=== PATIENT | female | born 1960 | race Caucasian/White ===

== ENCOUNTER → 2018-05-22 22:50 | Outpatient (CLI) | payer OTHER, SELFPAY | PROVIDERS: Visit Provider Nurse Practitioner | DX: R30.0 Dysuria (principal) | CPT/HCPCS: 87086; 87088 ==

== ENCOUNTER → 2018-05-30 21:37 | Outpatient (CLI) | payer OTHER, SELFPAY | PROVIDERS: Visit Provider Nurse Practitioner | DX: R30.0 Dysuria (principal) | CPT/HCPCS: 87086; 87088 ==

== ENCOUNTER → 2018-07-08 21:29 | Outpatient (CLI) | payer OTHER, SELFPAY ==
[2018-07-08 22:05] LABS: Thyroid Stim Hormone (TSH) 0.81 uIU/mL (0.358-3.74)
== END ==
PROVIDERS: Visit Provider Nurse Practitioner
DX: E03.9 Hypothyroidism, unspecified (principal)
CPT/HCPCS: 84443

== ENCOUNTER → 2018-10-21 23:23 | Outpatient (CLI) | payer OTHER, SELFPAY ==
[2018-10-21 17:17] VITALS: BMI 34.4
[2018-10-24 11:15] LABS: ANTINUCLEAR ANTIBODIES DIRECT Negative (Negative)
--- OUTSIDE RECORDS SUMMARY | 2018-12-24 00:02 | XMS RPT_ITS ---
:1960 Author Organization OHIP Care Team Providers Name Role Phone MOAR GILES Attending Unavailable PROVIDER, UNKNOWN Referring Unavailable Leblanc, Iris Primary Care Unavailable Leblanc, Iris Attending Unavailable PROVIDER, UNKNOWN Referring Unavailable Leblanc, Iris Primary Care Unavailable Leblanc, Iris Attending Unavailable PROVIDER, UNKNOWN Referring Unavailable Leblanc, Irsi Primary Care Unavailable Leblanc, Iris [employer] Attending Unavailable Leblanc, Iris [employer]C Referring Unavailable Leblanc, Iris [employer]ER-C Primary Care Unavailable Shruthi Davies Attending Unavailable Keke, Shruthi L Referring Unavailable Davies, Shruthi L Attending Unavailable Davies, Shruthi L Referring Unavailable Leblanc, Iris [employer]ER-C Attending Unavailable PROBLEMS PROBLEMS DATE TYPE CONDITION / CODE ATTENDING STATUS SOURCE 10/22/2018 Unknown M79.641 - Pain in Benji, Active [place] right hand / Iris [employer] Community M79.641(ICD-10) Hospital Repository 07/10/2018 Unknown E03.9 - Leblanc, Active [place] Hypothyroidism, Iris [employer] Community unspecified / Hospital E03.9(ICD-10) Repository 05/31/2018 Unknown R30.0 - Dysuria / Shruthi Davies Active [place] R30.0(ICD-10) [facility] Repository 05/30/2018 Admitting Headache / BASHOUR, OMAR N Active [facility] Diagnosis R51(ICD-10) System Repository 05/30/2018 Admitting Ataxia, BASHOUR, OMAR N Active [facility] Diagnosis unspecified / System R27.0(ICD-10) Repository 05/30/2018 Admitting Dizziness and BASHOUR, OMAR N Active [facility] Diagnosis giddiness / System R42(ICD-10) Repository PROCEDURES PROCEDURES No Procedure Records FoundRESULTS RESULTS OFFICE VISIT Observed: 10/21/2018 Status: F Source: [place] 9:06 PM [facility] REPOSITORY After Hours Family [facility] [address] [place] [address] OFFICE VISIT Date of Service: 10/21/18 MR#: [id number] Acct: [id number] Name: CORIE CHOE Rep #: [id number] : 1960 Provider: TRICE Leblanc Age/Sex: 57/F Location: [facility] Status: Signed Intake Vital Signs10/21/18 Height 5 ft 2 in 10/21/18 Weight: 188 lb Intake Visit Reasons: sinus infection L ear pain Allergies BEE STING Allergy (Severe, Uncoded 05/22/18 12:20) CRITICAL Medications epinephrine 0.3 mg/0.3 mL injection, auto-injector 0.3 mg IM ONCE 05/22/18 [History Confirmed 05/22/18] levothyroxine 75 mcg capsule 75 mcg PO DAILY #90 cap 07/10/18 [Rx] amoxicillin 875 mg-potassium clavulanate 125 mg tablet 1 tab PO Q12H #20 tab 09/11/18 [Rx Confirmed 09/11/18] esomeprazole magnesium 40 mg capsule,delayed release 40 mg PO DAILY 09/11/18 [History Confirmed 09/11/18] ibuprofen 800 mg tablet 800 mg PO TID PRN 09/18/18 [History Confirmed 09/18/18] cefuroxime axetil 500 mg tablet 500 mg PO Q12H 10 Days #20 tab 10/21/18 [Rx Confirmed 10/21/18] PFSH Medical History History of endoscopy (Acute) History of migraine headaches (Acute) Kidney stone (Acute) Menopause (Acute) Surgical History H/O colonoscopy (Acute) History of carpal tunnel surgery (Acute) Previous section (Acute) Family History Other Bleeding disorder Bowel disease CVA (cerebral vascular accident) Heart disease High cholesterol Hypertension Prostate cancer ULCERS Social History Smoking Status: Never smoker alcohol intake: current substance use type: does not use HPI HPI (General) HPI HPI: CORIE CHOE, is a 57 F who presents to the office today for cough and cold L ear hurting. Tried taking zyrtec ibuprofen R hand hurts achy through the knuckles. Has gripping problems also.On exam has some swelling over the R knuckles. ROS Const Constitutional: Positive for anorexia, body ache, chills, fatigue, fever(s) and headache(s) Eyes Eyes: Positive for discharge (watery) ENT ENT: Positive for headache(s), ear pain (L ear), nasal discharge, hoarseness, facial pain, post nasal drip and sore throat Resp Respiratory: Positive for cough Cough: Yes non-productive Cardio Cardiology: Positive for fast heart rate Gastro GI: Yes nausea/dyspepsia Neuro Neurology: Positive for headache(s) Endo Endo: Yes fatigue Exam Const Constitutional: Yes cooperative, Yes healthy appearing Orientation: Yes alert, awake and oriented x3 HENMT Head: Yes normocephalic Ear: Yes hearing grossly normal bilaterally TM-Right: normal TM-Left: red Pinna-Right: within normal limits Pinna-Left: within normal limits Face: Yes normal facial exam, Yes sinus tenderness Nose: Yes external nose normal Mouth: Yes oral mucosae normal Teeth and Gingiva: Yes dentition normal Throat: Yes posterior oropharynx normal, Yes redness Neck Neck: normal visual inspection Thyroid: thyroid normal Eyes General: Yes appearance normal, both eyes and all related structures Chest Chest palpation AND inspection: Yes normal inspection of the chest Resp Effort AND Inspection: Yes normal respiratory effort Auscultation: Yes clear to auscultation bilaterally Cardio Palpitation: Yes normal PMI Rate: Yes regular rate Rhythm: Yes regular rhythm GI Inspection: Yes normal to inspection Auscultation: Yes normal bowel sounds Musc Cervical Spine: Yes cervical ROM normal Thoracic/Lumbar Spine: Yes thoracic and lumbar spine normal to inspection Skin General: no rashes or lesions noted Lesions: Yes no lesions Extrem General: Yes normal to inspection Neuro General: Yes alert and oriented x3 Psych Appearance: Positive grossly normal Mood: Positive congruent mood Affect: Positive normal affect Assessment AND Plan Problems 1. Left acute otitis media H66.92 2. Cough R05 3. Acute non-recurrent maxillary sinusitis J01.00 4. Right hand pain M79.641 Patient Instructions Take the antibiotics till gone Push the fluids take the Tessalon Perls for the cough Orders Orders: Medications New: On Hold: amoxicillin-pot clavulanate 875-125 mg Hold Comment: Order 1 tab PO Q12H 20 tabs 0RF Changed Coding Level of Care Code Off vis,est,level 3 Diagnoses Left acute otitis media H66.92 Cough R05 Acute non-recurrent maxillary sinusitis J01.00 Chronicity: acute Recurrence: non-recurrent Right hand pain M79.641 10/21/182105 <Electronically signed by Iris DURHAM> Date Iris DURHAM CC: LUCIAN W/ REFLEX MULT Collected: 10/21/2018 Status: P Source: [place] CONFIRM 5:40 PM [facility] REPOSITORY TYPE CODE TESTS RESULT OUT OF RANGE REFERENCE UNITS LAB L3100.5475 Negative Normal Negative LUCIAN-DIRECT Result Comment: Performed at: - [facility] [address] [id number] Library Sales Consultant: Venkat Carr PhD, Phone: [phone] Performed By: #### [id number] #### [facility] (refer to report for specific site) refer to report for address and phone number OFFICE VISIT Observed: 09/18/2018 Status: F Source: [place] 9:23 PM [facility] REPOSITORY After Hours [facility] [address] [place] [address] OFFICE VISIT Date of Service: 09/18/18 MR#: [id number] Acct: [id number] Name: CORIE CHOE Rep #: [id number] : 1960 Provider: TRICE Leblanc Age/Sex: 57/F Location: [facility] Status: Signed Intake Vital Signs09/18/18 Height 5 ft 2 in 09/18/18 Weight: 191 lb Intake Visit Reasons: R BREAST MASS Allergies BEE STING Allergy (Severe, Uncoded 05/22/18 12:20) CRITICAL Medications epinephrine 0.3 mg/0.3 mL injection, auto-injector 0.3 mg IM ONCE 05/22/18 [History Confirmed 05/22/18] levothyroxine 75 mcg capsule 75 mcg PO DAILY #90 cap 07/10/18 [Rx] amoxicillin 875 mg-potassium clavulanate 125 mg tablet 1 tab PO Q12H #20 tab 09/11/18 [Rx Confirmed 09/11/18] esomeprazole magnesium 40 mg capsule,delayed release 40 mg PO DAILY 09/11/18 [History Confirmed 09/11/18] ibuprofen 800 mg tablet 800 mg PO TID PRN 09/18/18 [History Confirmed 09/18/18] PFSH Medical History History of endoscopy (Acute) History of migraine headaches (Acute) Kidney stone (Acute) Menopause (Acute) Surgical History H/O colonoscopy (Acute) History of carpal tunnel surgery (Acute) Previous section (Acute) Family History Other Bleeding disorder Bowel disease CVA (cerebral vascular accident) Heart disease High cholesterol Hypertension Prostate cancer ULCERS Social History Smoking Status: Never smoker alcohol intake: current substance use type: does not use HPI HPI (General) HPI HPI: CORIE CHOE, is a 57 F who presents to the office today for R breast mass that she has felt for the passed year . Even at her last mammogram they even marked it on the breast. She had a normal breast mammogram. noted it is on the surfae on exam and had head . I squeezed and large amount of old white curdish puss came out . The mass is gone and will now order a regular mammogram. She is alos c/o still coughing and takes nexium 40 mg at bedtime. Both her and her quit dieting and gained their weight back and she c/o bloating adn her belly is very rotund from the diaphragm to symphysis pubis. Like her didactic muscles are not there suggested increasing her nexium to 2 x a day dosing for now then go back to the [facility] Again we discussed not eating so many meals a day, and starting to exercised more. ROS Breast Breast: Positive for breast lump Exam Const Constitutional: Yes cooperative, Yes healthy appearing Orientation: Yes alert, awake and oriented x3 HENMT Head: Yes normocephalic Ear: Yes hearing grossly normal bilaterally Neck Neck: normal visual inspection Thyroid: thyroid normal Eyes General: Yes appearance normal, both eyes and all related structures Chest Chest palpation AND inspection: Yes normal inspection of the chest Resp Effort AND Inspection: Yes normal respiratory effort Auscultation: Yes clear to auscultation bilaterally Cardio Palpitation: Yes normal PMI Rate: Yes regular rate Rhythm: Yes regular rhythm GI Inspection: Yes normal to inspection Auscultation: Yes normal bowel sounds Musc Cervical Spine: Yes cervical ROM normal Thoracic/Lumbar Spine: Yes thoracic and lumbar spine normal to inspection Skin General: no rashes or lesions noted Lesions: Yes no lesions and lesion noted (sebaceous cyst R breast ) Extrem General: Yes normal to inspection Neuro General: Yes alert and oriented x3 Psych Appearance: Positive grossly normal Mood: Positive congruent mood Affect: Positive normal affect Assessment AND Plan Problems 1. Sebaceous cyst of skin of right breast N60.81 2. Gastroesophageal reflux disease with esophagitis K21.0 3. Cough R05 Patient Instructions increase the nexium to 2 x a day for 2-3 weeks then once a day continue the antibiotics till gone for the sebaceous cyst. Get the routine mammogram for the normal breasts follow up as needed Coding Level of Care Code Off vis,est,level 3 Diagnoses Sebaceous cyst of skin of right breast N60.81 Gastroesophageal reflux disease with esophagitis K21.0 Esophagitis presence: with esophagitis Cough R05 09/18/182122 <Electronically signed by Iris DURHAM> Date Iris DURHAM CC: OFFICE VISIT Observed: 09/11/2018 Status: F Source: [place] 6:44 PM [facility] REPOSITORY After Hours [facility] [address] [place] [address] OFFICE VISIT Date of Service: 09/11/18 MR#: [id number] Acct: [id number] Name: CORIE CHOE Rep #: [id number] : 1960 Provider: TRICE Leblanc Age/Sex: 57/F Location: [facility] Status: Signed Intake Vital Signs09/11/18 Height 5 ft 2 in 09/11/18 Weight: 188 lb Intake Visit Reasons: CONGESTION COUGH Accompanied by: Is patient in pain?: No Allergies BEE STING Allergy (Severe, Uncoded 05/22/18 12:20) CRITICAL Medications epinephrine 0.3 mg/0.3 mL injection, auto-injector 0.3 mg IM ONCE 05/22/18 [History Confirmed 05/22/18] ibuprofen 800 mg tablet 800 mg PO TID 05/22/18 [History Confirmed 05/22/18] levothyroxine 75 mcg capsule 75 mcg PO DAILY #90 cap 07/10/18 [Rx] amoxicillin 875 mg-potassium clavulanate 125 mg tablet 1 tab PO Q12H #20 tab 09/11/18 [Rx Confirmed 09/11/18] esomeprazole magnesium 40 mg capsule,delayed release 40 mg PO DAILY 09/11/18 [History Confirmed 09/11/18] Is last menstrual period known: No Post menopausal: Yes Patient : No PFSH Medical History History of endoscopy (Acute) History of migraine headaches (Acute) Kidney stone (Acute) Menopause (Acute) Surgical History H/O colonoscopy (Acute) History of carpal tunnel surgery (Acute) Previous section (Acute) Family History Other Bleeding disorder Bowel disease CVA (cerebral vascular accident) Heart disease High cholesterol Hypertension Prostate cancer ULCERS Social History Smoking Status: Never smoker alcohol intake: current substance use type: does not use HPI HPI (General) HPI HPI: CORIE CHOE, is a 57 F who presents to the office today for cough and h/a and sinus pain started Sun . Using otc robitussin and ibuprofen and fluids ROS Const Constitutional: Positive for body ache, anorexia, fever(s), fatigue and headache(s) ENT ENT: Positive for headache(s), ear pain, facial pain, sinus pain, hoarseness and sore throat Resp Respiratory: Positive for cough Cough: Yes non-productive Gastro GI: Yes nausea/dyspepsia Neuro Neurology: Positive for headache(s) Endo Endo: Yes fatigue Exam Const Constitutional: Yes cooperative, Yes healthy appearing Orientation: Yes alert, awake and oriented x3 HENMT Head: Yes normocephalic Ear: Yes hearing grossly normal bilaterally TM-Right: normal TM-Left: red Pinna-Right: within normal limits Pinna-Left: within normal limits Face: Yes normal facial exam, Yes sinus tenderness, Yes tenderness Nose: Yes external nose normal Mouth: Yes oral mucosae normal Teeth and Gingiva: Yes dentition normal Throat: Yes redness, Yes swollen Neck Neck: normal visual inspection Thyroid: thyroid normal Eyes General: Yes appearance normal, both eyes and all related structures Chest Chest palpation AND inspection: Yes normal inspection of the chest Resp Effort AND Inspection: Yes normal respiratory effort Auscultation: Yes clear to auscultation bilaterally Cardio Palpitation: Yes normal PMI Rate: Yes regular rate Rhythm: Yes regular rhythm GI Inspection: Yes normal to inspection Auscultation: Yes normal bowel sounds Musc Cervical Spine: Yes cervical ROM normal Thoracic/Lumbar Spine: Yes thoracic and lumbar spine normal to inspection Skin General: no rashes or lesions noted Lesions: Yes no lesions Extrem General: Yes normal to inspection Neuro General: Yes alert and oriented x3 Psych Appearance: Positive grossly normal Mood: Positive congruent mood Affect: Positive normal affect Assessment AND Plan Problems 1. Otitis media of right ear H66.91 2. Bronchitis J40 Patient Instructions Take the antibiotics till gone with food push fluids and take the zyrtec 10 mg orally 2 x a day for 5-7 days then once a day robitussin DM for the cough Medications Refilled: amoxicillin-pot clavulanate 875-125 mg Take one pill by mout1 tab PO Q12H 20 tabs 0RF h every 12 hours Coding Level of Care Code Off vis,est,level 3 Diagnoses Otitis media of right ear H66.91 Bronchitis J40 09/11/18 6964 <Electronically signed by Iris DRUHAM> Date Iris DURHAM CC: OFFICE VISIT Observed: 07/09/2018 Status: F Source: [place] 9:08 PM [facility] REPOSITORY After Hours Family Medicine [address] [place] [address] OFFICE VISIT Date of Service: 07/08/18 MR#: [id number] Acct: [id number] Name: CORIE CHOE Rep #: [id number] : 1960 Provider: TRICE Leblanc Age/Sex: 57/F Location: [facility] Status: Signed Intake Intake Visit Reasons: bw Allergies BEE STING Allergy (Severe, Uncoded 05/22/18 12:20) CRITICAL Medications amoxicillin 875 mg-potassium clavulanate 125 mg tablet 1 tab PO Q12H #20 tab 05/22/18 [Rx Confirmed 05/22/18] epinephrine 0.3 mg/0.3 mL injection, auto-injector 0.3 mg IM ONCE 05/22/18 [History Confirmed 05/22/18] ibuprofen 800 mg tablet 800 mg PO TID 05/22/18 [History Confirmed 05/22/18] levothyroxine 75 mcg capsule 75 mcg PO DAILY 05/22/18 [History Confirmed 05/22/18] ranitidine 300 mg capsule 300 mg PO DAILY 05/22/18 [History Confirmed 05/22/18] PFSH Medical History History of endoscopy (Acute) History of migraine headaches (Acute) Kidney stone (Acute) Menopause (Acute) Surgical History H/O colonoscopy (Acute) History of carpal tunnel surgery (Acute) Previous section (Acute) Family History Other Bleeding disorder Bowel disease CVA (cerebral vascular accident) Heart disease High cholesterol Hypertension Prostate cancer ULCERS Social History Smoking Status: Never smoker alcohol intake: current substance use type: does not use HPI HPI (General) HPI HPI: CORIE CHOE, is a 57 F who presents to the office today for Assessment AND Plan Orders Orders: Coding Level of Care Code No Charge 07/09/18 2108 <Electronically signed by Iris DURHAM> Date Iris Benji [employer]ER-C CC: THYROID STIM HORMONE Collected: 07/08/2018 Status: F Source: [place] (TSH) 3:30 PM [facility] REPOSITORY TYPE CODE TESTS RESULT OUT OF RANGE REFERENCE UNITS LAB L501.9520 0.358-3.74 uIU/mL Normal TSH 0.81 Performed By: #### L501.9520 #### [facility] [address] [place], [address] Observed: 05/30/2018 Status: F Source: [place] CULTURE, URINE 9:38 PM [facility] REPOSITORY Urine Culture Below infection level. ORGANISM 1: Mixed Gram Positive Organisms Colmar Count <1000 Performed By: #### M100.0650 #### [facility] [address] [place], [address] US ABDOMEN LIMITED Observed: 05/30/2018 Status: F Source: [facility] [employer] 1:02 PM SYSTEM REPOSITORY Patient Name: CORIE CHOE Ultrasound Exam Date/Time 05/30/2018 11:35:11 EDT Exam US Abdomen Limited Ordering Physician UNASSIGNED, UNASSIGNED Accession Number [id number] CPT4 Codes 02416 () Reason For Exam ABD DISTENTION, GERD Report ULTRASOUND RUQ: INDICATION: Abdominal distention COMPARISON: None. Sonogram of the right upper quadrant is performed. The liver is increased in echotexture. No hyper or hypoechoic masses are seen. There is no intrahepatic biliary ductal dilatation. The gallbladder is normally distended. There are no gallstones, internal echoes, wall thickening, or pericholecystic fluid collections. The common bile duct diameter of 3.3 mm is within normal limits. The pancreas is not visualized due to overlying bowel gas. The visualized portions of the aorta and IVC are normal. Cursory examination of the right kidney is performed. The right kidney measures 11.1 x 5.1 x 5.6 cm. There is no hydronephrosis. There is no ascites in the right upper quadrant. No sonographic Carroll's sign was elicited during the examination. IMPRESSION: Fatty liver. No acute process Report Dictated on Final Dictating Physician: DO STROUD ALFRED Signed Date and Time: 05/30/2018 1:12 pm Signed by: DO STROUD ALFRED Transcribed Date and Time: 05/30/2018 1:13 OFFICE VISIT Observed: 05/22/2018 Status: F Source: [place] 1:55 PM [facility] REPOSITORY After Hours Family [facility] [address] [place] [address] OFFICE VISIT Date of Service: 05/22/18 MR#: [id number] Acct: [id number] Name: CORIE CHOE Rep #: [id number] : 1960 Provider: TRICE Davies Age/Sex: 57/F Location: [facility] Status: Signed Intake Vital Signs05/22/18 Height 5 ft 2 in 05/22/18 Weight: 184 lb 05/22/18 Body Mass Index (BMI) 33.6 05/22/18 Blood Pressure 144/76 Intake Visit Reasons: SINUS INFECTION Chief Complaint: Patient here with sinus congestion, headache, low grade fever. Is patient in pain?: Yes Allergies BEE STING Allergy (Severe, Uncoded 05/22/18 12:20) CRITICAL Medications amoxicillin 875 mg-potassium clavulanate 125 mg tablet 1 tab PO Q12H #20 tab 05/22/18 [Rx Confirmed 05/22/18] epinephrine 0.3 mg/0.3 mL injection, auto-injector 0.3 mg IM ONCE 05/22/18 [History Confirmed 05/22/18] ibuprofen 800 mg tablet 800 mg PO TID 05/22/18 [History Confirmed 05/22/18] levothyroxine 75 mcg capsule 75 mcg PO DAILY 05/22/18 [History Confirmed 05/22/18] ranitidine 300 mg capsule 300 mg PO DAILY 05/22/18 [History Confirmed 05/22/18] Post menopausal: Yes PFSH Medical History History of endoscopy (Acute) History of migraine headaches (Acute) Kidney stone (Acute) Menopause (Acute) Surgical History H/O colonoscopy (Acute) History of carpal tunnel surgery (Acute) Previous section (Acute) Family History Other Bleeding disorder Bowel disease CVA (cerebral vascular accident) Heart disease High cholesterol Hypertension Prostate cancer ULCERS Social History Smoking Status: Never smoker alcohol intake: current substance use type: does not use HPI HPI (General) HPI Chief Complaint: Patient here with sinus congestion, headache, low grade fever. HPI: CORIE CHOE, is a 57 F who presents to the office today for sinus congestion, pressures, headache, rhinorrhea, cough that has been going on since Saturday. Cares for her grandbruce who is also sick with ear infections. Low grade fever last night of 100.6. Has taken pseudafed, ibuprofen, cough medication and cough pearls she had at home. Had been to [facility] treated as viral upper respiratory but she feels she is getting worse. No appetite, keeping fluids down. Treated for UTI couple months ago, still with some dysuria at times, wonders if infection cleared. No hematuria, frequency,urgency or urge incontinence. Desires to have urine tested. ROS Const Constitutional: Positive for chills, fever(s), headache(s), decreased energy and change in appetite; no body ache, excessive sweating, night sweats or weakness Eyes Eyes: No blurry vision, change in vision or discharge ENT ENT: Positive for headache(s), ear pressure, ear pain (Left > right), nasal congestion, sinus pressure, nasal discharge and sinus pain; no dizziness/vertigo, nosebleed/epistaxis, nasal obstruction, bad breath or abnormal hearing Resp Respiratory: Positive for cough; no chest congestion, pain on inspiration, hemoptysis or shortness of breath Cardio Cardiology: No excessive sweating, chest pain at rest, chest pain with exertion, leg pain with exertion or shortness of breath Gastro GI: No abdominal pain, No change in bowel habits Genitourinary: Positive for burning urination (intermittent, treated for UTI greater than month ago) and urinary incontinence (stress incontinence); no difficulty urinating, urinary frequency, urinary urgency or urinary hesitancy Musc Musculoskeletal: No abnormal walking or joint pain Skin Skin: No lesions or rash Neuro Neurology: Positive for headache(s); no abnormal walking, abnormal hearing, abnormal movements, abnormal speech, unsteady gait/balance or weakness Psych Psychiatric: Positive for change in appetite, No anxiety, No depression Endo Endo: No excessive sweating, No cold intolerance, No heat intolerance, No increased thirst/drinking Aller/Imm Allergy/Immunologic: Positive for seasonal allergy symptoms Perfecto/Lymp Hematologic/Lymphatic: No easy bleeding, easy bruising or enlarged lymph nodes Exam Const Constitutional: Yes cooperative, Yes healthy appearing, Yes comfortable, Yes no acute distress, Yes well developed, Yes well groomed Nutritional Appearance: Yes average body habitus Orientation: Yes alert, awake and oriented x3 HENWY Head: Yes normocephalic, Yes atraumatic Ear: Yes hearing grossly normal bilaterally TM-Right: bulging (fluid noted behind TM) TM-Left: normal Pinna-Right: within normal limits Pinna-Left: within normal limits Face: Yes normal facial exam, Yes tenderness (maxillary sinus tenderness) Nose: Yes external nose normal, Yes septum normal, Yes nares normal (inflamed) Mouth: Yes oral mucosae normal Teeth and Gingiva: Yes dentition normal Throat: Yes tonsils normal (post nasal drip) Neck Neck: normal visual inspection, no lymphadenopathy Thyroid: thyroid normal Carotid: Yes normal carotid upstroke Eyes General: Yes appearance normal, both eyes and all related structures Eyelid: Yes eyelids normal Chest Chest palpation AND inspection: Yes normal inspection of the chest Resp Effort AND Inspection: Yes normal respiratory effort and symmetric chest movement Auscultation: Yes clear to auscultation bilaterally Cardio Palpitation: Yes normal PMI Rate: Yes regular rate Rhythm: Yes regular rhythm Heart Sounds: Yes S1 normal and S2 normal GI Inspection: Yes normal to inspection Auscultation: Yes normal bowel sounds Musc Cervical Spine: Yes cervical ROM normal Thoracic/Lumbar Spine: Yes thoracic and lumbar spine normal to inspection and thoraco-lumbar ROM normal Skin General: no rashes or lesions noted Wounds: Yes no wounds Hair: Yes normal Nails: Yes normal Extrem General: Yes normal to inspection and normal gait Neuro General: Yes alert, oriented x3 and CN's II-XI intact bilaterally Cranial Nerves: Yes CN's II-XI intact bilaterally Gait: Yes normal gait Motor: muscle tone normal throughout; no weakness Sensory Exam: Yes no sensory deficits noted Psych Appearance: Positive grossly normal Mental Status: Positive mental status grossly normal Mood: Positive congruent mood Affect: Positive normal affect Speech and Movement: Yes speech and movement normal Thought Process: Yes normal Thought Content: Yes normal Judgment: Yes judgment good Results [facility] Office Urine Color YELLOW Last Edit by HERMINIO Martinez on 05/22/18 13:00 Office Urine Clarity Clear Last Edit by HERMINIO Martinez on 05/22/18 13:00 Office Urine Glucose Negative Last Edit by HERMINIO Martinez on 05/22/18 13:00 PRO 30 CLAIRE trace WBC 0-2 RBC 0 BACT none CASTS none EPI none Assessment AND Plan Problems 1. Maxillary sinusitis, unspecified chronicity J32.0 2. Cough R05 Patient Instructions Discussed waiting a few days to make sure not viral, if symptoms persist, antibiotic sent in flonase two puffs once daily zyrtec once daily she has cough pearls call if symptoms persist plenty of fluids and rest Orders Orders: Medications New: amoxicillin-pot clavulanate 875-125 mg Take one pill by mouth every 12 h1 tab PO Q12H ours 05/22/18 1355 <Electronically signed by Shruthi JEONGC> Date Shruthi DURHAM CC: Observed: 05/22/2018 Status: F Source: [facility]ILDER CULTURE, URINE 12:43 PM [facility] REPOSITORY Urine Culture ORGANISM 1: Mixed Gram Pos AND Gram Neg Org [place] Count 25,000-50,000 MIX CULTURE Mixed contaminants. Submit a new specimen if indicated. Performed By: #### [id number] #### [facility] [address] [place], [place] [address], [address] GROUP A STREP BY Collected: 05/20/2018 Status: F Source: [place] PCR 11:30 PM [facility] RE[facility] TYPE CODE TESTS RESULT OUT OF REFERENCE UNITS RANGE LAB GASSRC Throat Swab GAS Specimen Source LAB PCRGAS Negative for Group A Strep Group A PCR Streptococcus by PCR. Result Comment: This test was developed and its performance characteristics determined by [facility] ([facility]). It has not been cleared or approved by the FDA. [facility] is regulated under CLIA as qualified to perform high-complexity testing. This test is used for clinical purposes. It should not be regarded as inv estigational or for research. Performed By: #### GASPCR #### [facility] [address] [place], [place] [address] PROGRESS Observed: 05/20/2018 Status: COMPLETED Source: [place] 4:40 PM [facility] REPOSITORY HNO ID: [id number] Author: Katelyn Barfield Service: (none) Author Type: Nurse Practitioner Type: Progress Notes Filed: 05/20/2018 5:12 PM Note Text: 05/20/2018 Patient presents with: Sinus Problem: sinus pressure, sore throat, nasal drainage, LT ear pain SUBJECTIVE: This is a 57 year old female that is here today for acute onset of left ear pain and pressure, sinus pressure, sinus congestion, post nasal drainage for 2 days. Patient rates pain at 6 on Numerical pain scale. Patient has not taken anything for relief of symptoms. The severity is mild and the symptoms are not improving. The patient did not have a similar problem in the last 3 months. The patient did not take any antibiotics in the last 3 months. Patient has not been exposed to sick contacts. Patient denies recent travel. Pertinent medical history No past medical history on file. ALLERGIES Patient has no known allergies. MEDICATIONS Current Outpatient Prescriptions: levothyroxine (SYNTHROID) 75 mcg tablet Ranitidine HCl 300 mg tablet No current facility-administered medications for this visit. SOCIAL HISTORY Social History Marital status: Spouse name: Years of education: Number of children: Social History Main Topics Smoking status: Never Smoker Smokeless tobacco: Never Used REVIEW OF SYSTEMS Review of Systems Constitutional: Negative for chills, diaphoresis and fatigue. HENT: Positive for ear pain, sinus pain, sinus pressure and sore throat. Negative for congestion. Respiratory: Negative for chest tightness, shortness of breath and wheezing. Cardiovascular: Negative for chest pain and palpitations. Gastrointestinal: Negative for abdominal pain, diarrhea, nausea and vomiting. Skin: Negative for rash. Neurological: Negative for dizziness, light-headedness and headaches. OBJECTIVE: BP 119/102 Pulse 76 Temp 37.2 ?C (98.9 ?F) (Tympanic) Wt 83.5 kg (184 lb) SpO2 96% Physical Exam Constitutional: She is oriented to person, place, and time. Vital signs are normal. She appears well-developed and well-nourished. Non-toxic appearance. HENT: Head: Normocephalic and atraumatic. Right Ear: External ear and ear canal normal. A middle ear effusion is present. Left Ear: External ear and ear canal normal. A middle ear effusion is present. Nose: Nose normal. Mouth/Throat: Uvula is midline and mucous membranes are normal. Posterior oropharyngeal edema present. Bilateral ear canals with impacted yellow cerumen, moderate amount removed from left via bottle irrigation attempted by ma, minimal from right canal. Patient began to feel dizzy during right canal irrigation and procedure was stopped due to side effect. Neck: Normal range of motion. Cardiovascular: Normal rate, regular rhythm and normal heart sounds. Pulmonary/Chest: Effort normal and breath sounds normal. Lymphadenopathy: She has no cervical adenopathy. She has no axillary adenopathy. Neurological: She is alert and oriented to person, place, and time. Skin: Skin is warm, dry and intact. Nursing note and vitals reviewed. ASSESSMENT/PLAN: 1. Sore throat - ICD9: 462, ICD10: J02.9 (primary diagnosis) - suspect viral - Rapid Strep negative in the office today and Throat culture pending - overnight throat culture pending - Discussed supportive care treatment with fluids, rest and analgesia. - The patient may also use OTC decongestants prn, OTC cough and cold meds as needed, warm salt water gargles, throat lozenges and/or OTC throat spray as needed and nasal saline gtts and suction prn. - Contagious dz precautions discussed- including considered contagious until on antibiotics for 24 hours - The patient should follow up in 3-5 days if symptoms persist or worsen - Call back if drooling, increased temperature, symptoms of dehydration and/or still sick in one week - RAPID STREP TEST B/O - GROUP A STREPTOCOCCUS BY PCR 2. Bilateral impacted cerumen - ICD9: 380.4, ICD10: H61.23 - see instruction below Katelyn Barfield APRN.CONVEYOR BELT OPERATOR CNOV Observed: 05/20/2018 Status: COMPLETED Source: [place] 4:30 PM [facility] REPOSITORY Office Visit ([place]) CORIE CHOE ([id number]) 1960 F Date Time Provider Department 05/20/18 4:30 PM KATELYN BARFIELD During your visit today, we recorded the following information about you: Temperature Pulse Blood pressure Weight 98.9 degrees 76/minute 120/70 83.5 kg Katelyn Barfield, PERSONAL CARE WORKER.CONVEYOR BELT OPERATOR 05/20/2018 5:12 PM Addendum 05/20/2018 Patient presents with: Sinus Problem: sinus pressure, sore throat, nasal drainage, LT ear pain SUBJECTIVE: This is a 57 year old female that is here today for acute onset of left ear pain and pressure, sinus pressure, sinus congestion, post nasal drainage for 2 days. Patient rates pain at 6 on Numerical pain scale. Patient has not taken anything for relief of symptoms. The severity is mild and the symptoms are not improving. The patient did not have a similar problem in the last 3 months. The patient did not take any antibiotics in the last 3 months. Patient has not been exposed to sick contacts. Patient denies recent travel. Pertinent medical history No past medical history on file. ALLERGIES Patient has no known allergies. MEDICATIONS Current Outpatient Prescriptions: levothyroxine (SYNTHROID) 75 mcg tablet Ranitidine HCl 300 mg tablet No current facility-administered medications for this visit. SOCIAL HISTORY Social History Marital status: Spouse name: Years of education: Number of children: Social History Main Topics Smoking status: Never Smoker Smokeless tobacco: Never Used REVIEW OF SYSTEMS Review of Systems Constitutional: Negative for chills, diaphoresis and fatigue. HENT: Positive for ear pain, sinus pain, sinus pressure and sore throat. Negative for congestion. Respiratory: Negative for chest tightness, shortness of breath and wheezing. Cardiovascular: Negative for chest pain and palpitations. Gastrointestinal: Negative for abdominal pain, diarrhea, nausea and vomiting. Skin: Negative for rash. Neurological: Negative for dizziness, light-headedness and headaches. OBJECTIVE: BP 119/102 Pulse 76 Temp 37.2 ?C (98.9 ?F) (Tympanic) Wt 83.5 kg (184 lb) SpO2 96% Physical Exam Constitutional: She is oriented to person, place, and time. Vital signs are normal. She appears well-developed and well-nourished. Non- toxic appearance. HENT: Head: Normocephalic and atraumatic. Right Ear: External ear and ear canal normal. A middle ear effusion is present. Left Ear: External ear and ear canal normal. A middle ear effusion is present. Nose: Nose normal. Mouth/Throat: Uvula is midline and mucous membranes are normal. Posterior oropharyngeal edema present. Bilateral ear canals with impacted yellow cerumen, moderate amount removed from left via bottle irrigation attempted by marcus, minimal from right canal. Patient began to feel dizzy during right canal irrigation and procedure was stopped due to side effect. Neck: Normal range of motion. Cardiovascular: Normal rate, regular rhythm and normal heart sounds. Pulmonary/Chest: Effort normal and breath sounds normal. Lymphadenopathy: She has no cervical adenopathy. She has no axillary adenopathy. Neurological: She is alert and oriented to person, place, and time. Skin: Skin is warm, dry and intact. Nursing note and vitals reviewed. ASSESSMENT/PLAN: 1. Sore throat - ICD9: 462, ICD10: J02.9 (primary diagnosis) - suspect viral - Rapid Strep negative in the office today and Throat culture pending - overnight throat culture pending - Discussed supportive care treatment with fluids, rest and analgesia. - The patient may also use OTC decongestants prn, OTC cough and cold meds as needed, warm salt water gargles, throat lozenges and/or OTC throat spray as needed and nasal saline gtts and suction prn. - Contagious dz precautions discussed- including considered contagious until on antibiotics for 24 hours - The patient should follow up in 3-5 days if symptoms persist or worsen - Call back if drooling, increased temperature, symptoms of dehydration and/or still sick in one week - RAPID STREP TEST B/O - GROUP A STREPTOCOCCUS BY PCR 2. Bilateral impacted cerumen - ICD9: 380.4, ICD10: H61.23 - see instruction below Katelyn Barfield APRN.KIAN Barfield APRN.CNP 05/20/2018 5:01 PM Signed ASSESSMENT/PLAN: 1. Sore throat - ICD9: 462, ICD10: J02.9 (primary diagnosis) - suspect viral - Rapid Strep negative in the office today and Throat culture pending - overnight throat culture pending - Discussed supportive care treatment with fluids, rest and analgesia. - The patient may also use OTC decongestants prn, OTC cough and cold meds as needed, warm salt water gargles, throat lozenges and/or OTC throat spray as needed and nasal saline gtts and suction prn. - Contagious dz precautions discussed- including considered contagious until on antibiotics for 24 hours - The patient should follow up in 3-5 days if symptoms persist or worsen - Call back if drooling, increased temperature, symptoms of dehydration and/or still sick in one week - RAPID STREP TEST B/O - GROUP A STREPTOCOCCUS BY PCR 2. Bilateral impacted cerumen - ICD9: 380.4, ICD10: H61.23 - see instruction below Katelyn Barfield APRN.CONVEYOR BELT OPERATOR Cerumen Patient Care Instructions: ? You were seen for ear wax (cerumen). Your ear was impacted with it. ? This means the wax partly or fully blocked the ear canal. ? This can happen on its own. One common cause is putting Q- tips in the ear canal. The Q-tips are supposed to clean them out. This often pushes the wax deeper into the ear. This causes the wax to keep building up. Earwax is naturally produced by your body. It helps protect your ear from dirt and debris (junk). ? Ears are generally self-cleaning. Q-tips should NOT be used to clean the ear canal! You can get ear wax removal kits at the pharmacy or drug store. You don't need a prescription for these kits. This allows you to soften the wax and rinse the ear canal at home.Please follow the package instructions. The wax may have been irrigated today in the medical office. A special tool may have been used to manually remove the wax. The doctor has special training for using these devices. DO NOT try this at home. ? The wax was removed from your ear. This can be irritating to the ear canal. It may be sore for a few hours. It may even bleed a little. This is normal. It should go away quickly. ? YOU SHOULD SEEK MEDICAL ATTENTION IMMEDIATELY, EITHER HERE OR AT THE NEAREST EMERGENCY DEPARTMENT, IF ANY OF THE FOLLOWING OCCURS: Ear drainage is bloody or smells bad. Increasing ear pain. Fever (temperature higher than 100.4?F / 38?C). Any hearing loss. SORE THROAT INSTRUCTIONS SORE THROAT OVERVIEW - Sore throat is a common problem during childhood, and is usually the result of a bacterial or viral infection. Although sore throat usually resolves without complications, it sometimes requires treatment with an antibiotic. There are some less common causes of sore throat that are serious or even life-threatening. This topic will discuss the most common causes and treatments of sore throat in children, as well as the warning signs of more serious conditions. SORE THROAT CAUSES - The most likely cause of a child's sore throat depends upon the child's age, the season, and the geographic area. While viruses are the most common cause of sore throat, bacteria are another common cause. Bacteria and viruses are spread from one person to another through hand contact. Hands get contaminated when the sick individual touches their nose or mouth and then touches another person directly (eywc-hd-shyf contact) or indirectly (mqxk-em-zfiysq, such as doorknob, telephone, toys). It is difficult to determine the cause of sore throat based upon symptoms alone; an examination and laboratory test are recommended in most cases Viruses - There are many viruses that can cause pain and swelling of the throat. The most common include viruses that cause sore throat as part of an upper respiratory infection, such as the common cold. Other viruses that cause sore throat include influenza, adenovirus, and Leyla-Stevens virus (the cause of mononucleosis). Symptoms - Symptoms that may occur with a viral infection can include a runny nose and congestion, irritation or redness of the eyes, cough, hoarseness, soreness in the roof of the mouth, a skin rash, or diarrhea. In addition, children with viral infections may have a fever and may feel miserable. A high fever does not necessarily mean that the child has a bacterial infection. Group A streptococcus - Group A streptococcus (GAS) is the name of the bacterium that causes strep throat. Although other bacteria can cause a sore throat, GAS is the most common bacterial cause; up to 30 percent of children with a sore throat will have GAS. Strep throat usually occurs during the winter and early spring, and is most common in school-age children and their younger siblings. Symptoms - Symptoms of strep throat in children older than 3 years often develop suddenly and include fever (temperature ?100.4?F or 38?C), headache, abdominal pain, nausea, and vomiting. Other symptoms can include swollen glands in the neck, white patches of pus in the back or sides of the throat, small red spots on the roof of the mouth, and swelling of the uvula. A cough and cold are not commonly seen in children with strep throat. Strep throat is uncommon in children younger than age 2 to 3 years. However, GAS infection can occur in younger children, and may cause a runny nose and congestion that is prolonged, low-grade fever (?101?F or 38.3?C), and tender glands in the neck. Infants younger than 1 year may be fussy and have a decreased appetite and low-grade fever. SORE THROAT TREATMENT - The treatment of sore throat depends upon the cause; strep throat is treated with an antibiotic while viral pharyngitis is treated with rest, pain relievers, and other measures to reduce symptoms. Strep throat - Strep throat is usually treated with an antibiotic, such as penicillin, or an antibiotic similar to penicillin (eg, amoxicillin). Children who are allergic to penicillin will be given an alternate antibiotic. The antibiotic is usually given in pill or liquid form two or three times per day. A one-time injection is also available, and may be recommended if a child is unwilling to take an oral medication. After completing 24 hours of antibiotics, the child is no longer contagious and may return to school. Symptoms usually improve within 1 to 2 days. However, it is important for the child to finish the entire course of treatment (usually 10 days). If a child does not begin to improve or worsens within 3 days, the child should be reevaluated. Throat pain can be treated with a non-prescription pain medication, if needed. (See 'Pain medications' below.) In addition, parents should monitor their child for dehydration, which can develop if the child is not willing to drink or eat due to a sore throat. (See 'Monitor for dehydration' below.) Viral throat pain - Sore throat caused by viral infections usually last 4 to 5 days. During this time, treatments to reduce pain may be helpful but will not help to eliminate the virus. Antibiotics do not improve throat pain caused by a virus and are not recommended. A child with a viral infection is usually allowed to return to school when there has been no fever for 24 hours and the child feels well enough to pay attention. Pain medications - Throat pain can be treated with a mild pain reliever such as acetaminophen (Tylenol?) or a non-steroidal anti-inflammatory agent such as ibuprofen (Motrin?). These medications should be dosed according to weight, not age. Aspirin is not recommended for children <18 years due to the risk of a potentially serious condition known as Walter syndrome. Monitor for dehydration - Some children with a sore throat are reluctant to drink or eat due to pain. Drinking less fluid can lead to dehydration. To reduce the risk of dehydration, parents can offer warm or cold liquids. (See 'Other interventions' below.) Signs and symptoms of mild dehydration include a slightly dry mouth, increased thirst, and decreased urine output (one wet diaper or void in six hours). Signs of moderate or severe dehydration include decreased urine output (less than one wet diaper or void in six hours), lack of tears when crying, dry mouth, and sunken eyes. A child who is moderately or severely dehydrated should be evaluated by a healthcare provider as soon as possible to determine if treatment is needed. Oral rinses- Salt-water gargles are an old stand-by for relief of throat pain. It is not clear if this treatment is effective, but it is unlikely to be harmful. Most recipes suggest 1/4 to 1/2 teaspoon of salt per cup (8 ounces) of warm water. The water should be gargled and then spit out (not swallowed). Children younger than six to eight years are not able to gargle properly. An oral rinse composed of equal parts of diphenhydramine (Benadryl? liquid) and Maalox? (magnesium hydroxide, aluminum hydroxide, and simethicone) may be helpful for pain caused by a sore mouth or ulcers in the mouth. Children older than six to eight years may swish and spit (not swallow) the mixture. Sprays - Sprays containing topical anesthetics are available to treat sore throat. However, such sprays are no more effective than sucking on hard candy. In addition, a common anesthetic ingredient, benzocaine, can cause allergic reactions. We do not recommend throat sprays for children. Lozenges - A variety of medicated throat lozenges are available to relieve dryness or pain. However, it is not clear that lozenges work any better than hard candy. We do not recommend throat lozenges for children, especially children younger than 3 to 4 years, who can choke. Sucking on hard candy may provide some relief for children older than 3 to 4 years, who are not at risk for choking. Other interventions - Other interventions include sipping warm beverages (eg, honey or lemon tea, chicken soup), cold beverages, or eating cold or frozen desserts (eg, ice cream, popsicles). These treatments are safe for children. Honey should not be given to children younger than 12 months due to the potential risk of botulism poisoning. Alternative therapies - [employer] food stores, vitamin outlets, and Internet Web sites offer alternative treatments for relief of sore throat pain. We do not recommend these treatments due to the risks of contamination with pesticides/herbicides, inaccurate labeling and dosing information, and a lack of studies showing that these treatments are safe and effective. SORE THROAT PREVENTION - Hand washing is an essential and highly effective way to prevent the spread of infection. Hands should be wet with water and plain soap, and rubbed together for 15 to 30 seconds. Special attention should be paid to the fingernails, between the fingers, and the wrists. Hands should be rinsed thoroughly, and dried with a single use towel. Alcohol-based hand rubs are a good alternative for disinfecting hands if a sink is not available. Hand rubs should be spread over the entire surface of hands, fingers, and wrists until dry, and may be used several times. These rubs can be used repeatedly without skin irritation or loss of effectiveness. Hand rubs are available as a liquid or wipe in small, portable sizes that are easy to carry in a pocket or handbag. When a sink is available, visibly soiled hands should be washed with soap and water. Hands should be washed after coughing, blowing the nose or sneezing. While it is not always possible to limit contact with a person who is sick, avoiding touching the eyes, nose, or mouth after direct contact can help to prevent the spread of infection. In addition, tissues should be used to cover the mouth when sneezing or coughing. These used tissues should be disposed of promptly. Sneezing/coughing into the sleeve of one's clothing (at the inner elbow) is another means of containing sprays of saliva and secretions and has the advantage of not contaminating the hands. WHEN TO SEEK HELP - Parents of a child with throat pain and one or more of the following should contact their healthcare provider immediately: Difficulty swallowing or breathing Excessive drooling in an infant or young child Temperature ?101?F or 38.3?C Swelling of the neck Child is unable or unwilling to drink or eat Voice sounds muffled Child has a stiff neck or difficulty opening the mouth WHERE TO GET MORE INFORMATION - Your child's healthcare provider is the best source of information for questions and concerns related to your child's medical problem. This article will be updated as needed every four months on our web site ([email or web address]). Information below was obtained from Up to date Last literature review version 19.2: January 2011 This topic last updated: May 17, 2010 Referring Provider: SELF [200] Allergies As of Date: 05/20/2018 (No Known Allergies) Date Reviewed: 05/20/2018 Reviewed by: Katelyn Barfield - Fully Assessed Reason for Visit: Sinus Problem [99] Cmt: sinus pressure, sore throat, nasal drainage, LT ear pain Primary Visit Diagnosis:Sore throat [J02.9] Other Visit Diagnosis:Bilateral impacted cerumen [H61.23] Order(s):RAPID STREP TEST B/O [[id number]] Order #: [id number] GROUP A STREPTOCOCCUS BY PCR [SQGASPCR] Order #: [id number] fluticasone (FLONASE) 50 mcg/actuation nasal sprayUse 2 Sprays in each nostril once daily.Disp: 1 BottleRfl: 0 flymrffqovRYVIT-zrgtsz-ixrcgcqew (BMX 1:1:1) 1:1:1 liqdSwish and spit or gargle with 10ml every 4 hours as needed for throat painDisp: 120 mLRfl: 0 Prescriptions as of 05/20/2018 Sig: LEVOTHYROXINE 75 MCG TABLET RANITIDINE 300 MG TABLET OMEGA 9-XWE-CWF-FISH OIL 1,00* Fish Oil 1,000 mg Cap FLUTICASONE 50 MCG/ACTUATION * Use 2 Sprays in each nostril * BNXBNRXFHLJEGCY-UGNORSH-BTVUI* Swish and spit or gargle with* Problem List As Of Date: 05/20/2018 (None) Other instructions from your clinician: ASSESSMENT/PLAN: 1. Sore throat - ICD9: 462, ICD10: J02.9 (primary diagnosis) - suspect viral - Rapid Strep negative in the office today and Throat culture pending - overnight throat culture pending - Discussed supportive care treatment with fluids, rest and analgesia. - The patient may also use OTC decongestants prn, OTC cough and cold meds as needed, warm salt water gargles, throat lozenges and/or OTC throat spray as needed and nasal saline gtts and suction prn. - Contagious dz precautions discussed- including considered contagious until on antibiotics for 24 hours - The patient should follow up in 3-5 days if symptoms persist or worsen - Call back if drooling, increased temperature, symptoms of dehydration and/or still sick in one week - RAPID STREP TEST B/O - GROUP A STREPTOCOCCUS BY PCR 2. Bilateral impacted cerumen - ICD9: 380.4, ICD10: H61.23 - see instruction below Katelyn Barfield APRN.CONVEYOR BELT OPERATOR Cerumen Patient Care Instructions: ? You were seen for ear wax (cerumen). Your ear was impacted with it. ? This means the wax partly or fully blocked the ear canal. ? This can happen on its own. One common cause is putting Q-tips in the ear canal. The Q-tips are supposed to clean them out. This often pushes the wax deeper into the ear. This causes the wax to keep building up. Earwax is naturally produced by your body. It helps protect your ear from dirt and debris (junk). ? Ears are generally self-cleaning. Q-tips should NOT be used to clean the ear canal! You can get ear wax removal kits at the pharmacy or drug store. You don't need a prescription for these kits. This allows you to soften the wax and rinse the ear canal at home.Please follow the package instructions. The wax may have been irrigated today in the medical office. A special tool may have been used to manually remove the wax. The doctor has special training for using these devices. DO NOT try this at home. ? The wax was removed from your ear. This can be irritating to the ear canal. It may be sore for a few hours. It may even bleed a little. This is normal. It should go away quickly. ? YOU SHOULD SEEK MEDICAL ATTENTION IMMEDIATELY, EITHER HERE OR AT THE NEAREST EMERGENCY DEPARTMENT, IF ANY OF THE FOLLOWING OCCURS: Ear drainage is bloody or smells bad. Increasing ear pain. Fever (temperature higher than 100.4?F / 38?C). Any hearing loss. SORE THROAT INSTRUCTIONS SORE THROAT OVERVIEW - Sore throat is a common problem during childhood, and is usually the result of a bacterial or viral infection. Although sore throat usually resolves without complications, it sometimes requires treatment with an antibiotic. There are some less common causes of sore throat that are serious or even life-threatening. This topic will discuss the most common causes and treatments of sore throat in children, as well as the warning signs of more serious conditions. SORE THROAT CAUSES - The most likely cause of a child's sore throat depends upon the child's age, the season, and the geographic area. While viruses are the most common cause of sore throat, bacteria are another common cause. Bacteria and viruses are spread from one person to another through hand contact. Hands get contaminated when the sick individual touches their nose or mouth and then touches another person directly (nrvk-qn-grzm contact) or indirectly (qvdh-ar-hniiwk, such as doorknob, telephone, toys). It is difficult to determine the cause of sore throat based upon symptoms alone; an examination and laboratory test are recommended in most cases Viruses - There are many viruses that can cause pain and swelling of the throat. The most common include viruses that cause sore throat as part of an upper respiratory infection, such as the common cold. Other viruses that cause sore throat include influenza, adenovirus, and Leyla-Stevens virus (the cause of mononucleosis). Symptoms - Symptoms that may occur with a viral infection can include a runny nose and congestion, irritation or redness of the eyes, cough, hoarseness, soreness in the roof of the mouth, a skin rash, or diarrhea. In addition, children with viral infections may have a fever and may feel miserable. A high fever does not necessarily mean that the child has a bacterial infection. Group A streptococcus - Group A streptococcus (GAS) is the name of the bacterium that causes strep throat. Although other bacteria can cause a sore throat, GAS is the most common bacterial cause; up to 30 percent of children with a sore throat will have GAS. Strep throat usually occurs during the winter and early spring, and is most common in school-age children and their younger siblings. Symptoms - Symptoms of strep throat in children older than 3 years often develop suddenly and include fever (temperature ?100.4?F or 38?C), headache, abdominal pain, nausea, and vomiting. Other symptoms can include swollen glands in the neck, white patches of pus in the back or sides of the throat, small red spots on the roof of the mouth, and swelling of the uvula. A cough and cold are not commonly seen in children with strep throat. Strep throat is uncommon in children younger than age 2 to 3 years. However, GAS infection can occur in younger children, and may cause a runny nose and congestion that is prolonged, low-grade fever (?101?F or 38.3?C), and tender glands in the neck. Infants younger than 1 year may be fussy and have a decreased appetite and low-grade fever. SORE THROAT TREATMENT - The treatment of sore throat depends upon the cause; strep throat is treated with an antibiotic while viral pharyngitis is treated with rest, pain relievers, and other measures to reduce symptoms. Strep throat - Strep throat is usually treated with an antibiotic, such as penicillin, or an antibiotic similar to penicillin (eg, amoxicillin). Children who are allergic to penicillin will be given an alternate antibiotic. The antibiotic is usually given in pill or liquid form two or three times per day. A one-time injection is also available, and may be recommended if a child is unwilling to take an oral medication. After completing 24 hours of antibiotics, the child is no longer contagious and may return to school. Symptoms usually improve within 1 to 2 days. However, it is important for the child to finish the entire course of treatment (usually 10 days). If a child does not begin to improve or worsens within 3 days, the child should be reevaluated. Throat pain can be treated with a non-prescription pain medication, if needed. (See 'Pain medications' below.) In addition, parents should monitor their child for dehydration, which can develop if the child is not willing to drink or eat due to a sore throat. (See 'Monitor for dehydration' below.) Viral throat pain - Sore throat caused by viral infections usually last 4 to 5 days. During this time, treatments to reduce pain may be helpful but will not help to eliminate the virus. Antibiotics do not improve throat pain caused by a virus and are not recommended. A child with a viral infection is usually allowed to return to school when there has been no fever for 24 hours and the child feels well enough to pay attention. Pain medications - Throat pain can be treated with a mild pain reliever such as acetaminophen (Tylenol?) or a non-steroidal anti-inflammatory agent such as ibuprofen (Motrin?). These medications should be dosed according to weight, not age. Aspirin is not recommended for children <18 years due to the risk of a potentially serious condition known as Walter syndrome. Monitor for dehydration - Some children with a sore throat are reluctant to drink or eat due to pain. Drinking less fluid can lead to dehydration. To reduce the risk of dehydration, parents can offer warm or cold liquids. (See 'Other interventions' below.) Signs and symptoms of mild dehydration include a slightly dry mouth, increased thirst, and decreased urine output (one wet diaper or void in six hours). Signs of moderate or severe dehydration include decreased urine output (less than one wet diaper or void in six hours), lack of tears when crying, dry mouth, and sunken eyes. A child who is moderately or severely dehydrated should be evaluated by a healthcare provider as soon as possible to determine if treatment is needed. Oral rinses- Salt-water gargles are an old stand-by for relief of throat pain. It is not clear if this treatment is effective, but it is unlikely to be harmful. Most recipes suggest 1/4 to 1/2 teaspoon of salt per cup (8 ounces) of warm water. The water should be gargled and then spit out (not swallowed). Children younger than six to eight years are not able to gargle properly. An oral rinse composed of equal parts of diphenhydramine (Benadryl? liquid) and Maalox? (magnesium hydroxide, aluminum hydroxide, and simethicone) may be helpful for pain caused by a sore mouth or ulcers in the mouth. Children older than six to eight years may swish and spit (not swallow) the mixture. Sprays - Sprays containing topical anesthetics are available to treat sore throat. However, such sprays are no more effective than sucking on hard candy. In addition, a common anesthetic ingredient, benzocaine, can cause allergic reactions. We do not recommend throat sprays for children. Lozenges - A variety of medicated throat lozenges are available to relieve dryness or pain. However, it is not clear that lozenges work any better than hard candy. We do not recommend throat lozenges for children, especially children younger than 3 to 4 years, who can choke. Sucking on hard candy may provide some relief for children older than 3 to 4 years, who are not at risk for choking. Other interventions - Other interventions include sipping warm beverages (eg, honey or lemon tea, chicken soup), cold beverages, or eating cold or frozen desserts (eg, ice cream, popsicles). These treatments are safe for children. Honey should not be given to children younger than 12 months due to the potential risk of botulism poisoning. Alternative therapies - Health food stores, vitamin outlets, and Internet Web sites offer alternative treatments for relief of sore throat pain. We do not recommend these treatments due to the risks of contamination with pesticides/herbicides, inaccurate labeling and dosing information, and a lack of studies showing that these treatments are safe and effective. SORE THROAT PREVENTION - Hand washing is an essential and highly effective way to prevent the spread of infection. Hands should be wet with water and plain soap, and rubbed together for 15 to 30 seconds. Special attention should be paid to the fingernails, between the fingers, and the wrists. Hands should be rinsed thoroughly, and dried with a single use towel. Alcohol-based hand rubs are a good alternative for disinfecting hands if a sink is not available. Hand rubs should be spread over the entire surface of hands, fingers, and wrists until dry, and may be used several times. These rubs can be used repeatedly without skin irritation or loss of effectiveness. Hand rubs are available as a liquid or wipe in small, portable sizes that are easy to carry in a pocket or handbag. When a sink is available, visibly soiled hands should be washed with soap and water. Hands should be washed after coughing, blowing the nose or sneezing. While it is not always possible to limit contact with a person who is sick, avoiding touching the eyes, nose, or mouth after direct contact can help to prevent the spread of infection. In addition, tissues should be used to cover the mouth when sneezing or coughing. These used tissues should be disposed of promptly. Sneezing/coughing into the sleeve of one's clothing (at the inner elbow) is another means of containing sprays of saliva and secretions and has the advantage of not contaminating the hands. WHEN TO SEEK HELP - Parents of a child with throat pain and one or more of the following should contact their healthcare provider immediately: Difficulty swallowing or breathing Excessive drooling in an or young child Temperature ?101?F or 38.3?C Swelling of the neck Child is unable or unwilling to drink or eat Voice sounds muffled Child has a stiff neck or difficulty opening the mouth WHERE TO GET MORE INFORMATION - Your child's healthcare provider is the best source of information for questions and concerns related to your child's medical problem. This article will be updated as needed every four months on our web site ([email or web address]). Information below was obtained from Up to date Last literature review version 19.2: January 2011 This topic last updated: May 17, 2010 Prescriptions ordered this encounter Disp Refills Start End FLUTICASONE 50 MCG/ACTUATION NASAL S* 1 Ruiz* 0 05/20/2018 Route: EACH NOSTRIL Sig: Use 2 Sprays in each nostril once daily. VWAQRIQPMQZSKLD-YRXJLWE-MTCOCAGJT (C* 120 * 0 05/20/2018 Sig: Swish and spit or gargle with 10ml every 4 hours as needed for throat pain Encounter Status:Closed by PAGE, KATELYN Boyd on 05/20/18 ALLERGIES ALLERGIES DATE TYPE / CODE NAME / CODE REACTION SEVERITY SOURCE 05/22/2018 Miscellaneous BEE STING CRITICAL [facility] Allergy/[id number]([facility] Repository Drug NO KNOWN [place] Class/[id number](SNO ALLERGIES [facility]) [place] Repository ENCOUNTERS ENCOUNTERS ADMIT/DISCHARGE ACCOUNT NUMBER ADMITTING ENCOUNTER LOCATION SOURCE CLASS 10/21/2018 [id number] Ambulatory [facility] ding:LABSPEC Repository 09/24/2018 [id number] Ambulatory [facility] Repository 08/18/2018 [id number] Repository 07/08/2018 [id number] [facility] ding:LABSPEC Repository 05/30/2018 [id number] [facility] ding:LABSPEC Repository 05/30/2018 [id number] Repository 05/22/2018 [id number] [facility] ding:LABSPEC Repository 05/20/2018/05/27/20 [id number] Ambulatory [address] Repository PAYERS PAYERS ENCOUNTER GUARANTOR PAYER SUBSCRIBER SOURCE 10/21/2018 CORIE Boyd Primary KASIA Carranza [id number] Insurance:TRICAREPoli BARTLETTDOB: [facility] [place]: [id number] [id number] Repository [address]Ckm: 330) Date:1799-16-42XRQNZY [phone] () [address] [address]MK: 10/21/2018 Secondary NOT GIVENUNK [place] Insurance:SELF PAY [facility] Number: Effective Repository Date:2018-10-21 09/24/2018 Corie L Primary Ugo Lorelei [facility] BartlettDOB: Insurance: BartlettDOB: System [id number] [facility] [id number] [facility] Number: Effective [place], [place] Date: [address]Fqw: () 08/18/2018 Corie L Primary Ugo F [facility] BartlettDOB: Insurance: BartlettDOB: System [id number] [id number] Number: [place], [place] Date: [address]Zla: () 07/08/2018 CORIE Primary KASIA Carranza [id number] Insurance:TRICAREPoli BARTLETTDOB: [facility] Number: [id number], [place] [id number] Repository [address]Cow: (330) Date:2579-06-76YCHEMF [phone] (HP) [address]ERAL [address], [place] [address]EG: 07/08/2018 Secondary NOT GIVENUNK [place] Insurance:SELF PAY [facility]: Effective Repository Date:2018-07-08 05/30/2018 CORIE Primary KASIA [place] [id number] Insurance:TRICAREPoli BARTLETTDOB: [facility] [place] Number: [id number], [place] [id number] Repository [address]Dta: (330) Date:9200-11-59LCKSRL [phone] () [address], [place] [address]XQ: 05/30/2018 Secondary NOT GIVENUNK [place] Insurance:SELF PAY [facility] Number: Effective Repository Date:2018-05-30 05/30/2018 Corie L Primary [facility] BartlettDOB: Insurance:TricarePoli BartlettDOB: System [place] Number: Effective [id number] Date: [place], [place] [address]Jcn: (HP) 05/22/2018 CORIE Primary KASIA [place] [id number] Insurance:TRICAREPoli BARTLETTDOB: [facility] cy Number: [id number], [place] [id number] Repository [address]Yoo: (330) Date:9616-02-70NONKRI [phone] (HP) [address], [place] [address]PY: 05/22/2018 Secondary NOT GIVENUNK [place] Insurance:SELF PAY [facility] Number: Effective Repository Date:2018-05-22
== END ==
PROVIDERS: Family Provider Nurse Practitioner; PCP Nurse Practitioner; Referring Provider Nurse Practitioner; Visit Provider Nurse Practitioner
DX: M79.641 Pain in right hand (principal)
CPT/HCPCS: 86038; 86225; 86235

== ENCOUNTER → 2019-05-22 23:27 | Outpatient (CLI) | payer OTHER, SELFPAY ==
[2019-05-22 15:12] VITALS: BMI 34.5
[2019-05-22 23:50] LABS: ALB/GLOB Ratio 1.2 RATIO (0.9-2.4); AST(SGOT) 20 U/L (15-37); Alanine Aminotransfer ALT/SGPT 31 U/L (13-56); Albumin, Serum 4.3 g/dL (3.2-5.0); Alkaline Phosphatase 64 U/L (45-117); Amylase 66 U/L (25-115); Anion Gap 6 (5-15); BUN 16 mg/dL (7-18); Calcium,Total 8.9 mg/dL (8.5-10.1); Chloride 107 mmol/L (98-107); Cholesterol 246 mg/dL (200); Creatinine, Serum 0.84 mg/dL (0.55-1.02); EST Glomerular Filtration Rate 74 mL/min (>60); Est Glom Filt Rate - Afr Amer 89 mL/min (>60); Globulin 3.5 g/dL (2.2-4.2); Glucose 81 mg/dL (74-106); High Density Lipoprotein 36 mg/dL; Lipase 319 U/L (73-393); Potassium 3.5 mmol/L (3.5-5.1); Protein, Total 7.8 g/dL (6.4-8.2); Sodium Level 142 mmol/L (136-145); Triglycerides 126 mg/dL; Very Low Density Lipoprotein 25 mg/dL (5-40)
[2019-05-22 23:52] LABS: Hematocrit 41.3 % (37-47); Hemoglobin 13.5 g/dL (12.0-15.0); Mean Corp Hgb Conc 32.7 g/dL (32-36); Mean Corpuscular Hgb 29.5 pg (27.0-32.0); Mean Corpuscular Volume 90.2 fL (81-99); Mean Platelet Vol. 10.6 fl (6.2-12.0); Platelet Count 278 K/mm3 (150-450); RBC Distribution Width CV 12.7 % (11.6-14.6); RBC Distribution Width SD 41.4 fl (35.1-43.9); Red Blood Count 4.58 M/mm3 (4.2-5.4); White Blood Count 6.6 K/mm3 (4.4-11.0)
[2019-05-25 16:07] LABS: Endomysial Antibody IgA Negative (Negative)
[2019-05-27 10:20] LABS: Immunoglobulin A 179 mg/dL (87-352); t-Transglutaminase IgA <2 U/mL (0-3)
== END ==
PROVIDERS: Family Provider Nurse Practitioner; PCP Nurse Practitioner; Referring Provider Nurse Practitioner; Visit Provider Nurse Practitioner
DX: Z00.00 Encounter for general adult medical examination without abnormal findings (principal)
CPT/HCPCS: 80053; 80061; 82150; 82784; 83516; 83690; 85027; 86255

== ENCOUNTER → 2019-08-12 00:23 | Outpatient (CLI) | payer OTHER, SELFPAY ==
[2019-08-11 21:09] VITALS: BMI 34.9
[2019-08-12 00:42] LABS: ALB/GLOB Ratio 1.1 RATIO (0.9-2.4); AST(SGOT) 16 U/L (15-37); Alanine Aminotransfer ALT/SGPT 27 U/L (13-56); Albumin, Serum 3.9 g/dL (3.2-5.0); Alkaline Phosphatase 72 U/L (45-117); Anion Gap 5 (5-15); BUN 18 mg/dL (7-18); BUN/Creat Ratio 22.9 RATIO (10-20); Calcium,Total 8.8 mg/dL (8.5-10.1); Chloride 109 mmol/L (98-107); Creatinine, Serum 0.79 mg/dL (0.55-1.02); EST Glomerular Filtration Rate 79 mL/min (>60); Est Glom Filt Rate - Afr Amer 96 mL/min (>60); Globulin 3.6 g/dL (2.2-4.2); Glucose 134 mg/dL (74-106); Potassium 4.1 mmol/L (3.5-5.1); Protein, Total 7.5 g/dL (6.4-8.2); Sodium Level 142 mmol/L (136-145)
== END ==
PROVIDERS: Family Provider Nurse Practitioner; PCP Nurse Practitioner; Referring Provider Nurse Practitioner; Visit Provider Nurse Practitioner
DX: R10.11 Right upper quadrant pain (principal)
CPT/HCPCS: 80053

== ENCOUNTER → 2020-05-23 21:51 | Outpatient (CLI) | payer OTHER, SELFPAY ==
[2020-05-23 17:36] VITALS: BMI 34.9
[2020-05-23 22:18] LABS: Absolute Lymphocyte Count 2.22 X10^3/uL (0.83-4.51); Absolute Neutrophil Count 3.9 X10^3/uL (2.0-7.7); Basophil# 0.06 X10^3/uL; Basophil% 0.9 % (0-1); Eosinophil# 0.28 X10^3/uL; Hematocrit 40.1 % (37-47); Hemoglobin 12.8 g/dL (12.0-15.0); Lymphocyte # 2.22 X10^3/ul (4.0); Lymphocyte % 31.5 % (19-41); Mean Corp Hgb Conc 31.9 g/dL (32-36); Mean Corpuscular Hgb 29.6 pg (27.0-32.0); Mean Corpuscular Volume 92.6 fL (81-99); Mean Platelet Vol. 10.5 fl (6.2-12.0); Monocyte% 8.5 % (0-10); NRBC Flagged by Analyzer 0 % (0-5); Neutrophil # 3.88 X10^3/uL (2.7-7.7); Platelet Count 293 K/mm3 (150-450); RBC Distribution Width CV 12.8 % (11.6-14.6); RBC Distribution Width SD 43.5 fl (35.1-43.9); Red Blood Count 4.33 M/mm3 (4.2-5.4); White Blood Count 7.1 K/mm3 (4.4-11.0)
[2020-05-23 22:59] LABS: ALB/GLOB Ratio 1.1 RATIO (0.9-2.4); AST(SGOT) 23 U/L (15-37); Alanine Aminotransfer ALT/SGPT 37 U/L (13-56); Alkaline Phosphatase 65 U/L (45-117); Anion Gap 3 (5-15); BUN 19 mg/dL (7-18); BUN/Creat Ratio 21.2 RATIO (10-20); Calcium,Total 8.7 mg/dL (8.5-10.1); Chloride 111 mmol/L (98-107); Cholesterol 246 mg/dL (200); EST Glomerular Filtration Rate 68 mL/min (>60); Est Glom Filt Rate - Afr Amer 82 mL/min (>60); Globulin 3.7 g/dL (2.2-4.2); Glucose 88 mg/dL (74-106); High Density Lipoprotein 23 mg/dL; Potassium 4.1 mmol/L (3.5-5.1); Protein, Total 7.7 g/dL (6.4-8.2); Sodium Level 141 mmol/L (136-145); Triglycerides 548 mg/dL
== END ==
PROVIDERS: PCP Nurse Practitioner; Referring Provider Nurse Practitioner; Visit Provider Nurse Practitioner
DX: K21.9 Gastro-esophageal reflux disease without esophagitis (principal); E78.00 Pure hypercholesterolemia, unspecified
CPT/HCPCS: 80053; 80061; 85025

== ENCOUNTER → 2020-07-26 22:24 | Outpatient (CLI) | payer OTHER, SELFPAY ==
[2020-07-26 16:15] VITALS: BMI 34.5
[2020-07-26 22:54] LABS: Cholesterol 248 mg/dL (200); High Density Lipoprotein 39 mg/dL; Triglycerides 192 mg/dL; Very Low Density Lipoprotein 38 mg/dL (5-40)
== END ==
LOC: OLS.AHF 22:25 → LABSPEC 07-27 07:43
PROVIDERS: PCP Nurse Practitioner; Referring Provider Nurse Practitioner; Visit Provider Nurse Practitioner
DX: E78.1 Pure hyperglyceridemia (principal)
CPT/HCPCS: 80061

== ENCOUNTER → 2020-10-12 21:43 | Outpatient (CLI) | payer OTHER, SELFPAY ==
[2020-10-12 19:25] VITALS: BMI 34.7
[2020-10-12 22:13] LABS: Thyroid Stim Hormone (TSH) 1.09 uIU/mL (0.358-3.74)
== END ==
PROVIDERS: PCP Nurse Practitioner; Referring Provider Nurse Practitioner; Visit Provider Nurse Practitioner
DX: E03.9 Hypothyroidism, unspecified (principal)
CPT/HCPCS: 84443

== ENCOUNTER → 2021-07-24 | Outpatient (CLI) | payer OTHER, SELFPAY ==
[2021-07-24 23:31] LABS: Absolute Lymphocyte Count 2.86 X10^3/uL (0.83-4.51); Basophil% 0.9 % (0-1); Eosinophil# 0.28 X10^3/uL; Eosinophils% 2.5 % (0-5); Hematocrit 40.2 % (37-47); Hemoglobin 12.7 g/dL (12.0-15.0); Lymphocyte # 2.86 X10^3/ul (0.83-4.51); Lymphocyte % 25.6 % (19-41); Mean Corp Hgb Conc 31.6 g/dL (32-36); Mean Corpuscular Hgb 29.3 pg (27.0-32.0); Mean Corpuscular Volume 92.8 fL (81-99); Mean Platelet Vol. 9.9 fl (6.2-12.0); Monocyte% 8.1 % (0-10); NRBC Flagged by Analyzer 0 % (0-5); Neutrophil # 6.95 X10^3/uL (2.7-7.7); Neutrophil % 62.2 % (47-70); Platelet Count 356 K/mm3 (150-450); RBC Distribution Width CV 13.2 % (11.6-14.6); RBC Distribution Width SD 44.9 fl (35.1-43.9); Red Blood Count 4.33 M/mm3 (4.2-5.4); White Blood Count 11.2 K/mm3 (4.4-11.0)
[2021-07-24 23:40] LABS: ALB/GLOB Ratio 0.9 RATIO (0.9-2.4); AST(SGOT) 16 U/L (15-37); Alanine Aminotransfer ALT/SGPT 44 U/L (13-56); Albumin, Serum 3.5 g/dL (3.2-5.0); Alkaline Phosphatase 68 U/L (45-117); Anion Gap 8 (5-15); BUN 20 mg/dL (7-18); BUN/Creat Ratio 24.4 RATIO (10-20); Calcium,Total 8.5 mg/dL (8.5-10.1); Chloride 105 mmol/L (98-107); Cholesterol 190 mg/dL (200); Creatinine, Serum 0.82 mg/dL (0.55-1.02); EST Glomerular Filtration Rate 75 mL/min (>60); Est Glom Filt Rate - Afr Amer 91 mL/min (>60); Globulin 3.8 g/dL (2.2-4.2); Glucose 80 mg/dL (74-106); High Density Lipoprotein 29 mg/dL; Potassium 3.9 mmol/L (3.5-5.1); Protein, Total 7.3 g/dL (6.4-8.2); Sodium Level 141 mmol/L (136-145); Thyroid Stim Hormone (TSH) 0.86 uIU/mL (0.358-3.74); Triglycerides 307 mg/dL; Very Low Density Lipoprotein 61 mg/dL (5-40)
[2021-07-29 23:31] LABS: HPV Reflexed? NOT INDICATED
== END | disposition home or self-care (01) ==
PROVIDERS: PCP Nurse Practitioner; Referring Provider Nurse Practitioner; Visit Provider Nurse Practitioner
DX: Z00.00 Encounter for general adult medical examination without abnormal findings (principal); E03.9 Hypothyroidism, unspecified; Z01.419 Encounter for gynecological examination (general) (routine) without abnormal findings
CPT/HCPCS: 80053; 80061; 84443; 85025; 88175; G0145

== ENCOUNTER → 2022-04-17 | Outpatient (CLI) | payer OTHER, SELFPAY ==
[2022-04-17 22:06] LABS: Absolute Lymphocyte Count 2.29 X10^3/uL (0.83-4.51); Absolute Neutrophil Count 3.3 X10^3/uL (2.0-7.7); Basophil# 0.06 X10^3/uL; Basophil% 0.9 % (0-1); Eosinophils% 4.5 % (0-5); Hematocrit 38.2 % (37-47); Hemoglobin 12.2 g/dL (12.0-15.0); Lymphocyte # 2.29 X10^3/ul (0.83-4.51); Lymphocyte % 34.4 % (19-41); Mean Corp Hgb Conc 31.9 g/dL (32-36); Mean Corpuscular Hgb 28.2 pg (27.0-32.0); Mean Corpuscular Volume 88.2 fL (81-99); Mean Platelet Vol. 9.8 fl (6.2-12.0); Monocyte% 10.5 % (0-10); NRBC Flagged by Analyzer 0 % (0-5); Neutrophil # 3.28 X10^3/uL (2.7-7.7); Neutrophil % 49.4 % (47-70); Platelet Count 279 K/mm3 (150-450); RBC Distribution Width SD 42.3 fl (35.1-43.9); Red Blood Count 4.33 M/mm3 (4.2-5.4); White Blood Count 6.7 K/mm3 (4.4-11.0)
[2022-04-17 22:18] LABS: Vitamin B12 549 pg/mL (211-911)
[2022-04-17 22:31] LABS: AST(SGOT) 18 U/L (15-37); Alanine Aminotransfer ALT/SGPT 38 U/L (13-56); Albumin, Serum 3.7 g/dL (3.2-5.0); Alkaline Phosphatase 62 U/L (45-117); Anion Gap 6 (5-15); BUN 19 mg/dL (7-18); BUN/Creat Ratio 22.1 RATIO (10-20); Calcium,Total 9.1 mg/dL (8.5-10.1); Chloride 110 mmol/L (98-107); Cholesterol 213 mg/dL (200); Creatinine, Serum 0.86 mg/dL (0.55-1.02); EST Glomerular Filtration Rate 71 mL/min (>60); Est Glom Filt Rate - Afr Amer 86 mL/min (>60); Globulin 3.6 g/dL (2.2-4.2); Glucose 92 mg/dL (74-106); High Density Lipoprotein 31 mg/dL; Potassium 3.9 mmol/L (3.5-5.1); Protein, Total 7.3 g/dL (6.4-8.2); Sodium Level 144 mmol/L (136-145); Thyroid Stim Hormone (TSH) 1.45 uIU/mL (0.358-3.74); Triglycerides 195 mg/dL; Very Low Density Lipoprotein 39 mg/dL (5-40)
[2022-04-20 07:56] LABS: EBV Acute VCA IgM < 36.0 U/mL (0.0-35.9); EBV-VCA IgG 89.6 U/mL (0.0-17.9)
[2022-04-20 22:20] LABS: Vitamin D 1,25-Dihydroxy 66.7 pg/mL (24.8-81.5)
== END | disposition home or self-care (01) ==
PROVIDERS: PCP Nurse Practitioner; Referring Provider Nurse Practitioner; Visit Provider Nurse Practitioner
DX: E55.9 Vitamin D deficiency, unspecified (principal); D51.8 Other vitamin B12 deficiency anemias; K21.00 Gastro-esophageal reflux disease with esophagitis, without bleeding; R53.83 Other fatigue; J02.9 Acute pharyngitis, unspecified
CPT/HCPCS: 80053; 80061; 82607; 82652; 84443; 85025; 86664; 86665

== ENCOUNTER → 2022-09-10 | Outpatient (CLI) | payer OTHER, SELFPAY | END | disposition home or self-care (01) | PROVIDERS: PCP Nurse Practitioner; Visit Provider Nurse Practitioner | DX: N20.0 Calculus of kidney (principal) | CPT/HCPCS: 82360 ==

== ENCOUNTER → 2023-01-17 | Outpatient (CLI) | payer OTHER, SELFPAY ==
--- NOTE | 2023-01-17 11:07 | RAD_ITS ---
STUDY: X-RAY - RIGHT KNEE REASON FOR EXAM: Female, 62 years old. R knee pain TECHNIQUE: AP and lateral view(s) of the knee. COMPARISON: None. FINDINGS: Normal visualized distal femur. Normal visualized proximal tibia and fibula. Normal proximal tibiofibular articulation. Mildly narrowed medial femorotibial compartment. Normal lateral femorotibial compartment. Normal patellofemoral articulation. Spurring of the upper and lower pole of the patella. The soft tissue structures are unremarkable. RAD/Knee 1 or 2 Views IMPRESSION: Mild degenerative changes. No acute fracture or other significant bony pathology Electronically Signed: Tavon Kamara MD at 18:11 EDT Reading Location ID and State: [facility] / [place] , Service support ,
--- NOTE | 2023-01-17 11:07 | RAD_ITS ---
EXAM: XR LEFT SHOULDER COMPLETE, 2 OR MORE VIEWS CLINICAL INDICATION: Left shoulder pain. TECHNIQUE: Two or more views of the left shoulder. This report was created using [employer] report generation technology. COMPARISON: None. FINDINGS: BONES/JOINTS: Small degenerative cyst in the left humeral head. Bones spur in the inferomedial aspect of the left humeral head. No acute fracture. No subluxation. Normal alignment. No sclerotic or destructive changes observed. SOFT TISSUES: Unremarkable. No soft tissue swelling or gas. No radiopaque foreign body. RAD/Shoulder min 2 Views IMPRESSION: 1. No acute findings in the left shoulder. 2. Bones spur in the inferomedial aspect of the left humeral head and a small degenerative cyst in the left humeral head. Electronically Signed: Manuelito Isaacs MD at 16:09 EDT ,
== END | disposition home or self-care (01) ==
LOC: RAD 11:05
PROVIDERS: PCP Nurse Practitioner; Referring Provider Nurse Practitioner; Visit Provider Nurse Practitioner
DX: M25.561 Pain in right knee (principal); M25.512 Pain in left shoulder
CPT/HCPCS: 73030; 73560

== ENCOUNTER → 2023-05-24 | Outpatient (CLI) | payer OTHER, SELFPAY ==
[2023-05-24 20:36] LABS: Absolute Lymphocyte Count 2.03 X10^3/uL (0.83-4.51); Absolute Neutrophil Count 7.4 X10^3/uL (2.0-7.7); Basophil# 0.07 X10^3/uL; Basophil% 0.7 % (0-1); Eosinophil# 0.24 X10^3/uL; Eosinophils% 2.3 % (0-5); Hematocrit 38.8 % (37-47); Hemoglobin 12.2 g/dL (12.0-15.0); Lymphocyte # 2.03 X10^3/ul (0.83-4.51); Lymphocyte % 19.4 % (19-41); Mean Corp Hgb Conc 31.4 g/dL (32-36); Mean Corpuscular Hgb 28.2 pg (27.0-32.0); Mean Corpuscular Volume 89.6 fL (81-99); Mean Platelet Vol. 10.1 fl (6.2-12.0); Monocyte# 0.76 X10^3/uL; Monocyte% 7.3 % (0-10); NRBC Flagged by Analyzer 0 % (0-5); Neutrophil # 7.35 X10^3/uL (2.7-7.7); Neutrophil % 70.1 % (47-70); Platelet Count 287 K/mm3 (150-450); RBC Distribution Width CV 13.1 % (11.6-14.6); RBC Distribution Width SD 42.8 fl (35.1-43.9); Red Blood Count 4.33 M/mm3 (4.2-5.4); White Blood Count 10.5 K/mm3 (4.4-11.0)
[2023-05-24 21:05] LABS: AST(SGOT) 19 U/L (15-37); Alanine Aminotransfer ALT/SGPT 45 U/L (13-56); Albumin, Serum 3.7 g/dL (3.2-5.0); Alkaline Phosphatase 64 U/L (45-117); Anion Gap 6 (5-15); BUN 21 mg/dL (7-18); BUN/Creat Ratio 17.1 RATIO (10-20); Calcium,Total 8.8 mg/dL (8.5-10.1); Chloride 109 mmol/L (98-107); Cholesterol 226 mg/dL (200); Creatinine, Serum 1.23 mg/dL (0.55-1.02); EST Glomerular Filtration Rate 47 mL/min (>60); Est Glom Filt Rate - Afr Amer 57 mL/min (>60); Globulin 3.6 g/dL (2.2-4.2); Glucose 93 mg/dL (74-106); High Density Lipoprotein 33 mg/dL; Potassium 3.7 mmol/L (3.5-5.1); Protein, Total 7.3 g/dL (6.4-8.2); Sodium Level 142 mmol/L (136-145); Thyroid Stim Hormone (TSH) 0.79 uIU/mL (0.358-3.74); Triglycerides 256 mg/dL; Very Low Density Lipoprotein 51 mg/dL (5-40)
== END | disposition home or self-care (01) ==
PROVIDERS: PCP Nurse Practitioner; Referring Provider Nurse Practitioner; Visit Provider Nurse Practitioner
DX: E78.5 Hyperlipidemia, unspecified (principal); E03.9 Hypothyroidism, unspecified; K21.9 Gastro-esophageal reflux disease without esophagitis
CPT/HCPCS: 80053; 80061; 84443; 85025

== ENCOUNTER → 2023-05-28 | Outpatient (CLI) | payer OTHER, SELFPAY ==
[2023-06-06 18:49] LABS: Source Not Provided
== END | disposition home or self-care (01) ==
PROVIDERS: PCP Nurse Practitioner; Visit Provider Nurse Practitioner
DX: N20.0 Calculus of kidney (principal)
CPT/HCPCS: 82360

== ENCOUNTER 2023-07-08 09:22 | Day surgery (SDC) | payer OTHER, SELFPAY ==
[2023-07-02 16:21] LABS: Magnesium 2.1 mg/dL (1.6-2.6)
[2023-07-08] MEDS: Magnesium 1 GM over 15 mins IV (10:01)
[2023-07-08] MEDS: Gabapentin 600 MG Tablet PO (10:02)
[2023-07-08] MEDS: Acetaminophen 500 MG Tablet 1000 MG PO (10:02)
[2023-07-08] MEDS: Lactated Ringers 1,000 ML 15 ML IV (10:06)
[2023-07-08 10:11] VITALS: BP 143/75; PULSE 93; RESP 16; TEMP 36.4; O2SAT 98; BMI 38.7
[2023-07-08] MEDS: Insulin Lispro 100 UNIT/ML INSULN.PEN SC (10:23)
--- NOTE | 2023-07-08 10:56 | EKG12_ITS ---
Test Reason : PRE-OP Blood Pressure : / mmHG Vent. Rate : 090 BPM Atrial Rate : 090 BPM P-R Int : 166 ms QRS Dur : 086 ms QT Int : 374 ms P-R-T Axes : 046 027 038 degrees QTc Int : 457 ms Normal sinus rhythm Normal ECG No previous ECGs available Confirmed by BILLY APONTE, KARIN ([id number]), fashion editor SKYLAR QUIROZ ([id number]) on 07/09/2023 2:03:15 PM Referred By: Jericho Bradley Confirmed By:KARIN CERVANTES MD
[2023-07-08 11:38] LABS: Bedside Glucose 204 mg/dL (74-106)
[2023-07-08 12:18] VITALS: BP 136/86; PULSE 111; RESP 18; TEMP 36.2; O2SAT 100
[2023-07-08 12:30] VITALS: BP 132/76; BP 136/86; PULSE 99; RESP 18; O2SAT 96
[2023-07-08 12:45] VITALS: BP 136/79; BP 136/86; PULSE 98; RESP 16; O2SAT 94
[2023-07-08 12:52] VITALS: BP 136/86; BP 138/75; PULSE 94; RESP 16; TEMP 36.8; O2SAT 95
== END 2023-07-08 13:44 | disposition home or self-care (01) ==
LOC: SDC 09:25 → AC 09:25
PROVIDERS: PCP Nurse Practitioner; Referring Provider Podiatrist Foot & Ankle Surgery; Visit Provider Podiatrist Foot & Ankle Surgery
DX: Z01.818 Encounter for other preprocedural examination (principal); J20.9 Acute bronchitis, unspecified; J01.00 Acute maxillary sinusitis, unspecified; H66.93 Otitis media, unspecified, bilateral; G47.30 Sleep apnea, unspecified; K21.9 Gastro-esophageal reflux disease without esophagitis; Z79.899 Other long term (current) drug therapy; Z86.16 Personal history of COVID-19
CPT/HCPCS: 36415; 82962; 83735; 87081; 93005; J7120; J3475

== ENCOUNTER 2023-07-17 07:24 | Day surgery (SDC) | payer OTHER, SELFPAY ==
[2023-07-17] MEDS: Magnesium 1 GM over 15 mins IV (08:04)
[2023-07-17] MEDS: Lactated Ringers 1,000 ML 15 ML IV (08:04)
[2023-07-17] MEDS: Acetaminophen 500 MG Tablet 1000 MG PO (08:04)
[2023-07-17] MEDS: Gabapentin 600 MG Tablet PO (08:05)
[2023-07-17 08:06] VITALS: BP 137/81; PULSE 94; RESP 18; TEMP 36.1; O2SAT 97; BMI 38.2
[2023-07-17 08:31] LABS: Bedside Glucose 111 mg/dL (74-106)
--- NOTE | 2023-07-17 09:30 | TESH_PTH ---
PATIENT: MARTHA MURDOCK LOC: [facility] U#:[id number] AGE/SX: 62/F ROOM: RE07/17/[address]: Dr. Jericho Bradley DPM : 1960 BED: DIS: 07/17/2023 SPEC #: [id number] RECD: 07/17/23 13:53 STATUS: ANCELMO REQ #: [id number] CLAUDIA: 07/17/23 09:[address]: Jericho Bradley DEPT: SURGICAL PATHOLOGY RECD BY: Any Osborn ENTERED: 07/18/23 09:54 SP TYPE: TENDON OTHR DR: Iris Leblanc, GLUE BONE CRUSHER-C Tissues: Tendon, NOS Procedures: Surgery Specimen Level III HEADER OPERATION: ERAS, left foot Achilles tendon debridement and partial excision PRE-OP DIAGNOSIS: Left foot pain, Achilles tendonitis, retrocalcaneal bursitis, Jeffrey's deformity TISSUE SUBMITTED: Achilles tendinosis left lower extremity MICROSCOPIC DIAGNOSIS Achilles tendon, left lower extremity: Pieces of dense fibroconnective tissue with reactive changes and reactive synovial tissue. See comment. LULA:nadja 07/19/2023 COMMENT Minute fragments of bone are also noted. MICROSCOPIC DESCRIPTION Slides are reviewed. GROSS DESCRIPTION Received in fixative is one container labeled with the patient's name and designated tendon left lower extremity. The specimen consists of multiple pieces of indurated barraza-white tendinous tissue that in aggregate measure 4.0 x 4.0 x 0.8 cm. Merchandising Lead portions are submitted in one cassette. / AM:nadja 07/18/2023 TC:5 CPT: 19645
--- NOTE | 2023-07-17 09:31 | PCM.OPRPT ---
Problems Associated Problem List Diagnoses (1) Achilles tendinitis of left lower extremity: (2) Bursitis of left ankle: (3) Jeffrey's deformity of left heel: (4) Left foot pain: (5) Other acute postprocedural pain: Report of Operation Date of Procedure: 07/17/23 Pre-Operative Diagnosis: 1. Jeffrey's deformity, left lower extremity 2. Achilles tendinitis, left lower extremity 3. Retrocalcaneal bursitis, left lower extremity 4. Tight Achilles tendon, left lower extremity 5. Pain, left foot Post-Operative Diagnosis: 1. Jeffrey's deformity, left lower extremity 2. Achilles tendinitis, left lower extremity 3. Retrocalcaneal bursitis, left lower extremity 4. Tight Achilles tendon, left lower extremity 5. Pain, left foot Surgery/Procedure Performed:: 1. Achilles tendon debridement and repair, left lower extremity 2. Partial excision/osteotomy of calcaneus, left lower extremity 3. Retrocalcaneal bursectomy, left lower extremity 4. PRP injection, left lower extremity 5. Application of graft, left lower extremity 6. Application of AO splint, left lower extremity Description of Surgical Findings:: 1. Evidence of Achilles tendinosis. Specimen was sent to pathology for evaluation 2. Negative Farrell test appreciated after attachment of the Achilles tendon via speed bridge. 3. After removal of the enthesophyte to the posterior aspect of the calcaneus there showed evidence of depression to the area reassuring complete removal of the enthesophyte. Surgeon: Jericho Bradley pottery kiln builder: Lisa Guzman Type of Anesthesia: Block,Regional, MAC and Spinal General Anesthesia Anesthesiologist: Gustavo Owens Special Medications: PRP injection, left lower extremity Specimen's removed: 1. Achilles tendinosis, left lower extremity Drains: None Estimated Blood Loss (mL): 10 mL Fluids Replaced: Per anesthesia Description of Procedure: Indications For Operation: Mrs Choe is a 62-year-old female who was admitted to [facility] for elective surgery to left lower extremity consisting of Achilles tendon repair, partial excision of calcaneus, retrocalcaneal bursectomy and PRP injection to the left lower extremity. Patient initially was planned for surgery approximately 1 week ago however at time of intubation she suffered a complication with intubation and the case had to be canceled. She was rescheduled for today where she would receive spinal anesthesia with monitored anesthesia care. Due to the increased pain, increased and retrocalcaneal bursitis as well as Achilles tendinitis versus tendinitis it had deemed necessary at this time to take the patient to the operating room to perform the procedure above to decrease and rid her of her constant pain. The nature of the problem, anticipated procedures, postop recovery/convalences and risk/complications include but not limited to infection, wound healing complications, hypertrophic scarring, numbness, tingling, chronic pain, CRPS, over and under correction, recurrence of deformity, DVT and or PE and the need for further surgery have been discussed in great detail with the patient. All questions have been answered to the patient's satisfaction. There are no guarantees given as to the outcome of the procedure. Description of Procedure: Under mild sedation, the patient was brought into the operating room and placed on the operating table in supine position. Once the patient was under spinal anesthesia along with monitored anesthesia care, the left lower extremity was not blocked at the time of procedure. The patient will have a popliteal block performed by anesthesia while in the PACU. Next, a well-padded thigh tourniquet was applied to the left lower extremity. Next, a timeout was then undertaken verifying the correct patient, extremity, visibility of preoperative markings, availability of the equipment. The left lower extremity was prepped and draped in normal aseptic manner. Next, using a Jamshidi needle bone marrow aspirate was removed from the left calcaneus, 40 mL in total, passed the back table to be sent off for PRP aliquots. A total of 3 cc of PRP was spun down. Next, a 4 inch Esmarch was applied to the left lower extremity and exsanguinated, elevated to 60 degrees for 1 minute and the thigh tourniquet was inflated to 275 mmHg. Next, attention was directed to the Achilles tendon, a skin marker was used to map out the incision which would be slightly posterior medial. Using a #15 blade a full-thickness incision down to subcutaneous tissue was made. Continued blunt dissection was carried down to the level of the peritenon. Next, using a deep #15 blade the Achilles tendon was incised centrally all the way down to the enthesophyte. The Achilles tendon was booked ended allowing for exposure of the Jeffrey's deformity as well as enthesophyte. The retrocalcaneus bursa was identified and removed at this time. Copious amounts of normal saline were used to flush the incision area. Next, using a sagittal saw and blade, the enthesophyte was cut and removed without incident. It was noted that there was a depression after removal of the enthesophyte which was completely removed. Next, using the sagittal saw and blade, the Jeffrey's deformity was removed via partial excision of the calcaneus. All sharp edges were made smoothed with a reciprocating rasp. Next, attention was redirected back to the Achilles tendon, there showed evidence on the operating table of Achilles tendinosis. Using a #15 blade Achilles tendon was debrided down to and including tendon which was removed and sent to the back table to be sent off for pathology. Incision area was again flushed with copious rounds of normal saline. Next, the Achilles tendon was reattached to its insertion using the Arthrex speed bridge per the probation worker's recommendation with the rep in the room. The has Achilles tendon was reapproximated and closed with 2-0 FiberWire. Again, copious amounts of normal saline were used to flush out the incision area. Next, time was taken to perform a Farrell test, the left lower extremity was elevated to 90 degrees with the knee flexed, palpation was applied to the gastrocnemius and soleus complex and plantarflexion of the left foot was observed. The left foot also showed a plantarflexory attitude with the foot in the air. Next, 3 cc of PRP was injected into the Achilles tendon and throughout the incision site. Next, an application of 5 x 5 biovance, skin graft substitute, was applied to the Achilles tendon to decrease inflammation and reduce adhesions. The peritenon and deep layer were closed using 3-0 Vicryl in buried suture technique. The left lower extremity thigh tourniquet was deflated and perfusion was noted to the left lower extremity. All bleeders were cauterized as needed. The subcutaneous layer was reapproximated with 3-0 Vicryl in buried suture technique. The skin was reapproximated with 4-0 Monocryl in subcuticular stitch. The left lower extremity was wiped clean and patted dry. Using an adhesive wipe, Steri-Strips were applied to the skin to hold the epidermis in place. The incision was dressed with jumpstart, dry sterile dressing and a 2 layer Norman AO splint was applied to left lower extremity and a plantar flex ray fashion. The patient tolerated the procedure and anesthesia well and apparent satisfactory condition and was transported to the PACU for further monitoring prior to discharge home. Vital signs stable and vascular status intact to all digits bilateral. Post Operative Plan: Weightbearing: Nonweightbearing to left lower extremity with assistive crutches for 2 to 4 weeks, left lower extremity Antibiotics: 2 g Ancef through the IV DVT Prophylaxis: 81 mg twice daily for 30 days Tapia: None Dressing: Jumpstart, dry sterile dressing, double layer Norman AO splint X-Rays: Post-operative films taken on the operating room. Pain Medication: Percocet 3/325, [id number] Tylenol and ibuprofen Follow-up: [address] Bradley in office. Grafts/Implants Used: 5 x 5 cm biovance Complications none Admit VTE Documentation VTE Present on Admission: No VTE Mechan Device Prophylaxis: SCD's VTE Pharm Prophylaxis ordered?: Yes
[2023-07-17] MEDS: Heparin Injection (Vial) 5,000 UNIT/ML VIAL 5000 UNIT (10:04)
[2023-07-17] MEDS: Cefazolin 2 GM in 0.9% Normal Saline (100mL Bag) 100 ML IV (10:06)
--- NOTE | 2023-07-17 10:15 | RAD_ITS ---
STUDY: X-RAY - LEFT CALCANEUS REASON FOR EXAM: Female, 62 years old. Intraoperative digital documentation views. TECHNIQUE: A single lateral intraoperative digital documentation view(s) of the calcaneus was obtained. COMPARISON: None. FINDINGS: Single lateral intraoperative digital documentation views show cancellous screw defects in the posterior calcaneus. 15.5 seconds of fluoroscopy time were utilized with a cumulative dose of 0.34 mGy. RAD/Calcaneus min 2 Views IMPRESSION: Intraoperative digital documentation views. Electronically Signed: Eliseo Travis MD at 14:28 EDT ,
[2023-07-17 12:02] VITALS: BP 137/81; BP 167/101; PULSE 92; RESP 16; TEMP 36.6; O2SAT 96
[2023-07-17] MEDS: Lactated Ringers 1,000 ML 125 ML IV (12:05)
[2023-07-17 12:15] VITALS: BP 137/81; BP 163/85; PULSE 88; RESP 14; O2SAT 100
[2023-07-17 12:30] VITALS: BP 137/78; BP 137/81; PULSE 87; RESP 16; O2SAT 40
[2023-07-17 12:45] VITALS: BP 137/81; BP 138/83; PULSE 98; RESP 16; TEMP 36.6; O2SAT 97
[2023-07-17 14:24] VITALS: BP 137/81; BP 140/87; PULSE 96; RESP 16; TEMP 36.6; O2SAT 95
== END 2023-07-17 14:39 | disposition home or self-care (01) ==
LOC: SDC 07:25 → AC 07:27
PROVIDERS: PCP Nurse Practitioner; Referring Provider Podiatrist Foot & Ankle Surgery; Visit Provider Podiatrist Foot & Ankle Surgery
PROC: (CPT 27650; principal; 2023-07-17 09:15)
DX: M76.62 Achilles tendinitis, left leg (principal); G89.18 Other acute postprocedural pain; M79.672 Pain in left foot; M92.62 Juvenile osteochondrosis of tarsus, left ankle; K21.9 Gastro-esophageal reflux disease without esophagitis; E07.9 Disorder of thyroid, unspecified; E78.5 Hyperlipidemia, unspecified; G47.30 Sleep apnea, unspecified; J01.00 Acute maxillary sinusitis, unspecified; H66.93 Otitis media, unspecified, bilateral
CPT/HCPCS: 28122; 28118; 27650; 01480; 73650; 76000; 82962; 88304; J7120; J2405; J3475

== ENCOUNTER 2023-08-28 14:48 | Outpatient (RCR) | payer OTHER, SELFPAY | END 2023-08-28 19:00 | disposition home or self-care (01) | LOC: PT 14:48 | PROVIDERS: PCP Nurse Practitioner; Referring Provider Podiatrist Foot & Ankle Surgery; Visit Provider Podiatrist Foot & Ankle Surgery | DX: M76.62 Achilles tendinitis, left leg (principal) ==

== ENCOUNTER → 2024-06-05 | Outpatient (CLI) | payer OTHER, SELFPAY ==
[2024-06-05 21:57] LABS: Absolute Neutrophil Count 5.3 X10^3/uL (2.0-7.7); Basophil# 0.09 X10^3/uL; Eosinophil# 0.33 X10^3/uL; Eosinophils% 3.7 % (0-5); Hematocrit 38.7 % (37-47); Hemoglobin 12.3 g/dL (12.0-15.0); Lymphocyte % 26.9 % (19-41); Mean Corp Hgb Conc 31.8 g/dL (32-36); Mean Corpuscular Hgb 27.9 pg (27.0-32.0); Mean Corpuscular Volume 87.8 fL (81-99); Monocyte# 0.76 X10^3/uL; Monocyte% 8.5 % (0-10); NRBC Flagged by Analyzer 0 % (0-5); Neutrophil # 5.31 X10^3/uL (2.7-7.7); Neutrophil % 59.6 % (47-70); Platelet Count 328 K/mm3 (150-450); RBC Distribution Width CV 13.6 % (11.6-14.6); RBC Distribution Width SD 43.8 fl (35.1-43.9); Red Blood Count 4.41 M/mm3 (4.2-5.4); White Blood Count 8.9 K/mm3 (4.4-11.0)
[2024-06-05 22:24] LABS: AST(SGOT) 22 U/L (15-37); Alanine Aminotransfer ALT/SGPT 51 U/L (13-56); Albumin, Serum 3.9 g/dL (3.2-5.0); Alkaline Phosphatase 71 U/L (45-117); Anion Gap 6 (5-15); BUN 20 mg/dL (7-18); Calcium,Total 9.5 mg/dL (8.5-10.1); Chloride 108 mmol/L (98-107); Cholesterol 226 mg/dL (200); Creatinine, Serum 0.83 mg/dL (0.55-1.02); EST Glomerular Filtration Rate 73 mL/min (>60); Est Glom Filt Rate - Afr Amer 89 mL/min (>60); Globulin 3.8 g/dL (2.2-4.2); Glucose 96 mg/dL (74-106); High Density Lipoprotein 34 mg/dL; Potassium 3.7 mmol/L (3.5-5.1); Protein, Total 7.7 g/dL (6.4-8.2); Sodium Level 141 mmol/L (136-145); Triglycerides 179 mg/dL; Very Low Density Lipoprotein 36 mg/dL (5-40)
== END | disposition home or self-care (01) ==
PROVIDERS: PCP Nurse Practitioner; Referring Provider Nurse Practitioner; Visit Provider Nurse Practitioner
DX: Z00.00 Encounter for general adult medical examination without abnormal findings (principal)
CPT/HCPCS: 80053; 80061; 84443; 85025

== ENCOUNTER → 2025-06-03 | Outpatient (CLI) | payer MEDICARE, OTHER, SELFPAY ==
--- OUTSIDE RECORDS SUMMARY | 2025-06-03 22:41 | XMS RPT_ITS | CCD ---
Author Organization [facility] Care Team Providers Care Help Desk Support Name Role Phone Leblanc, Danny Primary Care Provider Leblanc, Danny Primary Care Unavailable PROVIDER, UNKNOWN Referring Unavailable Rigo Taylor Attending Unavailable Leblanc, Danny Primary Care Unavailable Leblanc, Danny Attending Unavailable PROVIDER, UNKNOWN Referring Unavailable Leblanc, Danny Primary Care Unavailable Leblanc, Danny Attending Unavailable PROVIDER, UNKNOWN Referring Unavailable Leblanc HYDROTECHNICAL SPECIALIST, HYDROTECHNICAL SPECIALIST-C Danny Primary Care Provider Leblanc HYDROTECHNICAL SPECIALIST, HYDROTECHNICAL SPECIALIST-C Danny Referring Provider MD Brandon Delgado Attending Provider Leblanc, Danny Primary Care Provider Leblanc, Danny Primary Care Provider Leblanc HYDROTECHNICAL SPECIALIST, HYDROTECHNICAL SPECIALIST-C Danny Primary Care Provider Leblanc HYDROTECHNICAL SPECIALIST, HYDROTECHNICAL SPECIALIST-C Danny Referring Provider MD Brandon Delgado Attending Provider [phone] Dr. Wilmar Banks Attending Provider Dr. Jericho Bradley Referring Provider Benji 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.SHANK SCOURER, Danny L Primary Care Provide r Jericho Bradley Attending Unavailable Jericho Bradley Referring Unavailable Leblanc HYDROTECHNICAL SPECIALIST, Danny Primary Care Unavailable Jericho Bradley Attending Unavailable Jericho Bradley Referring Unavailable Leblanc HYDROTECHNICAL SPECIALIST, Danny Primary Care Unavailable Jericho Bradley Attending Unavailable Jericho Bradley Referring Unavailable Leblanc HYDROTECHNICAL SPECIALIST, Danny Primary Care Unavailable Leblanc HYDROTECHNICAL SPECIALIST, Danny Primary Care Unavailable Leblanc HYDROTECHNICAL SPECIALIST, Danny Attending Unavailable Leblanc HYDROTECHNICAL SPECIALIST, Danny Referring Unavailable Leblanc HYDROTECHNICAL SPECIALIST, Danny Referring Unavailable Brandon Delgado Attending Unavailable Benji HYDROTECHNICAL SPECIALIST, Danny Primary Care Unavailable Benji HYDROTECHNICAL SPECIALIST, Danyn Primary Care Unavailable Wilmar Banks Attending Unavailable Wilmar Banks Attending Unavailable Jericho Bradley Referring Unavailable Benji HYDROTECHNICAL SPECIALIST, Danny Primary Care Unavailable Unavailable Primary Care Provider UnavailCAROL [place] Attending Unavailable DANNY LEBLANC Attending Unavailable DANNY LEBLANC Referring Unavailable DANNY LEBLANC Primary Care Unavailable DANNY LEBLANC Primary Care Unavailable JESUS DENTON Attending Unavailable Benji 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.SHANK SCOURER, Danny L Primary Care Provide r DANNY LEBLANC Primary Care Unavailable DANNY LEBLANC Primary Care Unavailable Allergies Allergy Classification Reported Allergen(s) Allergy Type Date of Onset Reaction(s) Facility (15 sources) bee venom protein (honey bee) Allergy to substance 2 NEEDS FOLLOW-UP, [facility] (3 sources) Honey bee venom Allergy to substance 2 [facility] (1 source) bee venom protein (honey bee) Drug allergy (disorder) 4 [facility] Repository Medications Current Medications Medication Drug Class(es) Dates Sig (Normalized) Sig (Original) allopurinol 100 mg oral tablet (13 sources) Xanthine Oxidase Inhibitor Start: 11-21-2023 allopurinol (Zyloprim) 100 MG tablet 11/21/2023 Active Start: 06-07-2023 take 100 mg by mouth once daily Allopurinol Active 100 MG PO DAILY June 06, 2023 11:00pm Start: 09-17-2022 End: 01-16-2023 take 100 mg by mouth once daily Allopurinol Discontinued 100 MG PO DAILY September 17, 2022 12:00am January 16, 2023 2:23pm amoxicillin 875 mg / clavulanate 125 mg oral tablet (20 sources) Penicillin-class Antibacterial Start: 12-19-2024 End: 12-24-2024 take 1 tablet by mouth twice daily at mealtime amoxicillin-clavulanate potassium (AUGMENTIN) 875-125 mg per tablet Indications: Cervical lymphadenitis , Acute otalgia, left Take 1 tablet by mouth two times a day with meals for 5 days. 10 tablet 12/19/2024 12/24/2024 Active Start: 11-11-2023 End: 11-11-2023 take 1 tablet by mouth twice daily at mealtime amoxicillin-clavulanate potassium (AUGMENTIN) 875-125 mg per tablet Indications: Left acute suppurative otitis media Take 1 tablet by mouth two times a day with meals for 7 days. 14 tablet 0 11/11/2023 11/11/2023 Discontinued Start: 08-20-2023 End: 09-20-2023 take 1 tablet by mouth twice daily Amoxicillin-Pot Clavulanate Discontinued 1 TABLET PO TWICE A DAY August 20, 2023 5:51pm September 20, 2023 3:20pm Start: 11-21-2020 End: 07-14-2021 take 1 tablet by mouth twice daily Amoxicillin-Pot Clavulanate Discontinued 1 TABLET PO TWICE A DAY March 28, 2021 11:00pm July 14, 2021 6:37pm Start: 11-10-2019 End: 02-03-2020 take 1 tablet by mouth twice daily Amoxicillin-Pot Clavulanate Discontinued 1 TABLET PO TWICE A DAY November 10, 2019 12:00am February 03, 2020 4:39pm Start: 05-22-2018 End: 05-22-2019 take 1 tablet by mouth every twelve hours Amoxicillin-Pot Clavulanate Discontinued 1 TABLET PO Q12H September 11, 2018 6:35pm May 22, 2019 2:14pm On Hold: Order Changed Take one pill by mouth every 12 hours Comment on above: Take 1 tablet by sharmin th two times a day with meals for 7 days. ascorbic acid 1000 mg oral tablet (2 sources) Vitamin C Start: 3 take 1 g by mouth once daily Ascorbic Acid (Vitamin C) (Vitamin C) 1,000 mg tablet Active 1 GM PO DAILY 90 July 16, 2023 11:00pm azelastine hydrochloride 0.137 mg/actuat metered dose nasal spray (20 sources) Histamine-1 Receptor Antagonist Start: 4 take 1 spray(s) nasal route twice daily azelastine (Astelin) 137 mcg (0.1 %) nasal spray Administer 1 spray into each nostril 2 times a day. 11/21/2023 Active Start: 05-24-2023 take 1 spray(s) nasa l route twice daily Azelastine Active 1 SPRAY INTRANASAL TWICE A DAY May 23, 2023 11:00pm administer into each nostril Start: 06-06-2021 azelastine (As telin) 0.1 % nasal spray 11/21/2023 Active Start: 05-22-2019 End: 05-24-2023 Azelastine Discontinued 1 SP RAY INTRANASAL TWICE A DAY 90 May 24, 2023 2:37pm May 24, 2023 6:13pm azithromycin 250 mg oral tablet (6 sources) Macrolide Antimicrobial Start: 09-19-2024 azithromycin (Zithromax) 250 mg tablet Indications: Acute cough Please follow Z-joaquin package instructions 6 tablet 09/19/2024 Active Start: 07-10-2022 End: 07-15-2022 Azithromycin Discontinued 25 0 MG PO daily 6 July 09, 2022 11:00pm July 14, 2022 11:04pm 2 po qd for 1 day then 1 po qd for 4 days with food or after eating benzonatate 200 mg oral capsule (11 sources) Non-narcotic Antitussive Start: 09-19-2024 End: 09-26-2024 take 1 capsule by mouth three times daily as needed for cough benzonatate (Tessalon) 200 mg capsule Indications: Acute cough Take 1 capsule (200 mg) by mouth 3 times a day as needed for cough for up to 7 days. Do not crush or chew. 20 capsule 09/19/2024 09/26/2024 Active Start: 07-10-2022 End: 04-16-2023 take 200 mg by mouth three times daily Benzonatate Discontinued 200 MG PO THREE TIMES A DAY 60 July 10, 2022 3:51pm April 16, 2023 1:04pm Start: 12-01-2018 End: 05-22-2019 take 200 mg by mouth three times daily Benzonatate Discontinued 200 MG PO THREE TIMES A DAY 60 December 01, 2018 12:00am May 22, 2019 2:14pm biotin 10 mg oral tablet (4 sources) Start: 07-01-2023 take 10 mg by mouth once daily Biotin Active 10 MG PO DAILY June 30, 2023 11:00pm BIOTIN ORAL Take by mouth. Active BIOTIN ORAL Take by mouth. 0 Active Comment on above: Take by mouth. brompheniramine maleate 0.4 mg/ml / dextromethorphan hydrobromide 2 mg/ml / pseudoephedrine hydrochloride 6 mg/ml oral solution (3 sources) alpha-Adrenergic Agonist, Uncompetitive L-znjwve-R-aspartate Receptor Antagonist, Sigma-1 Agonist Start: 11-11-19 take 5 mL by mouth every six hours as needed Brompheniramine-Ps eudoeph-DM (BROMFED DM) 2-30-10 mg/5 mL syrup Indications: URI with cough and congestion Take 5 mL by mouth every 6 hours as needed. 118 mL 11/11/2023 Active Comment on above: Take 5 mL by mouth e very 6 hours as needed. calcium carbonate 1250 mg / cholecalciferol 600 unt oral tablet (2 sources) Vitamin D Start: 07-17-20 take 1 tablet by mouth once daily Calcium Carbonate-Vitamin D3 (Os-Mario 500 + D3) 500 mg-15 mcg (600 unit) tablet Active 1 TABLET PO DAILY 90 90 July 16, 2023 11:00pm cefdinir 300 mg oral capsule (1 source) Cephalosporin Antibacterial Start: 11-11-19 End: 11-18-19 take 1 capsule by mouth twice daily cefdinir (OMNICEF) 300 mg capsule Indications: Left acute suppurative otitis media Take 1 capsule by mouth two times a day for 7 days. 14 capsule 0 11/11/2023 11/18/2023 Active Comment on above: Take 1 capsule by mo ut two times a day for 7 days. cephalexin 500 mg oral capsule (3 sources) Cephalosporin Antibacterial Start: 05-10-20 End: 05-20-20 take 1 capsule by mouth twice daily cephalexin (Keflex) 500 MG capsule Take 1 capsule (500 mg) by mouth 2 times daily for 10 days. 20 capsule 0 05/10/2023 05/20/2023 Active cetirizine hydrochloride 10 mg oral tablet (16 sources) Histamine-1 Receptor Antagonist Start: 01-17-20 take 5 mg by mouth once daily cetirizine (ZyrTEC) 10 mg tablet Take 5 mg by mouth once daily. 01/16/2023 Active Start: 05-22-2019 CETIRIZINE HCL PO Cetirizine Cetirizine Hcl Active 10 MG DAILY May 22, 2019 3:16pm 05-22-2019 [facility] ([id number]) 0 05/22/2019 Active Start: 05-22-2019 End: 01-16-2023 cetirizine (ZyrTEC) 10 MG ta blet 01/16/2023 Active cholecalciferol, vitamin D3, (VITAMIN D3 ORAL) (2 sources) cholecalciferol, vitamin D3, (VITAMIN D3 ORAL) Take by mouth. Active cholecalciferol, vitamin D3, (VITAMIN D3 ORAL) Take by mouth. 0 Active Comment on above: Take by mouth. clindamycin 150 mg oral capsule (4 sources) Lincosamide Antibacterial Start: 01-01-20 End: 01-08-20 take 3 capsules by mouth three times daily clindamycin (Cleocin) 150 MG capsule Take 3 capsules (450 mg) by mouth 3 times daily for 7 days. 63 capsule 0 01/01/2024 01/08/2024 Active Start: 01-01-2024 End: 01-01-2024 clindamycin (Cleocin) capsul e 450 mg Docosahexaenoate (1 source) take 1000 mg by mouth once daily DOCOSAHEXAENOIC ACID ORAL Take 1,000 mg by mouth once daily. Active doxycycline hyclate 100 mg oral capsule (1 source) Tetracycline-class Drug Start: 023 take 100 mg by mouth twice daily Doxycycline Hyclate Active 100 MG PO TWICE A DAY September 20, 2023 12:00am DULoxetine 30 mg delayed release oral capsule (20 sources) Serotonin and Norepinephrine Reuptake Inhibitor Start: 024 DULoxetine (Cymbalta) [address] capsule 11/21/2023 Active Start: 05-23-2020 End: 05-24-2023 DULoxetine (Cymbalta) [address] capsule 11/21/2023 Active [id number] 0.3 ml EPINEPHrine 1 mg/ml auto-injector (20 sources) alpha-Adrenergic Agonist, beta-Adrenergic Agonist, Catecholamine Start: 01-16-2023 EPINEPHrine (Epipen) 0.3 MG/0.3ML injection syringe 01/16/2023 Active Start: 05-22-2018 End: 01-16-2023 Epinephrine (Epipen 2-Joaquin) 0 .3 mg/0.3 mL auto-injector Discontinued 0.3 MG IM ONCE 2 January 10, 2021 7:49pm January 16, 2023 2:35pm esomeprazole 40 mg delayed release oral capsule (20 sources) Proton Pump Inhibitor Start: 08-12-2023 esomeprazole (NEXIUM ) 40 mg capsule 08/12/2023 Active Start: 07-24-2021 End: 05-24-2023 take 40 mg by mouth once daily Esomeprazole Magnesium Discontinued 40 MG PO DAILY June 08, 2022 3:17pm May 24, 2023 2:39pm Start: 09-11-2018 End: 05-22-2019 take 1 capsule by mouth once daily Esomeprazole Magnesium (Nexium) 40 mg capsule,delayed release(DR/EC) Discontinued 40 MG PO DAILY September 11, 2018 12:00am May 22, 2019 2:14pm famotidine 40 mg oral tablet (20 sources) Histamine-2 Receptor Antagonist Start: 11-21-2023 famotidine (Pepcid) 40 MG tablet 11/21/2023 Active Start: 04-04-2021 End: 05-24-2023 famotidine (Pepcid) 40 MG ta blet 11/21/2023 Active Start: 11-10-2019 End: 03-29-2021 take 40 mg by mouth once daily Famotidine Discontinued 40 MG PO DAILY November 10, 2019 12:00am March 29, 2021 4:34pm fluticasone propionate 0.05 mg/actuat metered dose nasal spray (12 sources) Corticosteroid Start: 12-01-2018 fluticasone (F LONASE) 50 MCG/ACT nasal spray Start: 12-01-2018 End: 05-24-2023 take 1 spray(s) nasal route once daily Fluticasone Propionate Active 2 SPRAY INTRANASAL DAILY May 24, 2023 2:38pm administer into each nostril Start: 05-20-2018 take 2 spray(s) nasa l route once daily fluticasone (FLONASE) 50 mcg/actuation nasal spray Indications: Sore throat , Bilateral impacted cerumen Use 2 Sprays in each nostril once daily. 1 Bottle 05/20/2018 Active Comment on above: Use 2 Sprays in each nostril once daily. ketorolac tromethamine 10 mg oral tablet (6 sources) Nonsteroidal Anti-inflammatory Drug, Cyclooxygenase Inhibitor Start: 3 End: 3 take 1 tablet by mouth every six hours as needed for pain ketorolac (Toradol) 10 MG tablet Take 1 tablet (10 mg) by mouth every 6 hours as needed for moderate pain (4-6) for up to 2 days. 8 tablet 0 05/10/2023 05/12/2023 Active Start: 05-10-2023 End: 05-10-2023 ketorolac (Toradol) injectio n 15 mg Start: 07-03-2022 End: 07-03-2022 ketorolac (TORADOL) injectio n 15 mg krill oil 500 mg oral capsule (7 sources) Start: 07-01-2023 Krill Oil (Ome ga-3) 500 MG capsule Take 500 mg by mouth. 07/01/2023 Active levothyroxine sodium 0.075 mg oral tablet (20 sources) l-Thyroxine Start: 11-21-2023 Synthroid 75 M CG tablet 11/21/2023 Active Start: 05-22-2018 End: 05-23-2020 take 1 capsule by mouth once daily levothyroxine 75 mcg capsule Discontinued 75 MCG PO DAILY July 10, 2018 11:39am July 14, 2019 7:49pm Start: 03-15-2018 End: 05-27-2023 Synthroid 75 MCG tablet 11/01 Active methylPREDNISolone 4 mg oral tablet (2 sources) Corticosteroid Start: 01-01-2024 End: 01-08-2024 methylPREDNISolone (Medrol Dospak) 4 MG tablets Follow schedule on package instructions 21 tablet 0 01/01/2024 01/08/2024 Active montelukast 10 mg oral tablet (15 sources) Leukotriene Receptor Antagonist Start: 05-22-2019 montelukast (Singulair) 10 MG tablet 11/21/2023 Active MULTI-VITAMIN ORAL (2 sources) MULTI-VITAMIN OR AL Take by mouth. Active MULTI-VITAMIN OR AL Take by mouth. 0 Active Comment on above: Take by mouth. Multivitamin (Daily Multi-Vitamin) tablet (2 sources) Start: 07-01-2023 take 1 tablet by mouth once daily Multivitamin (Daily Multi-Vitamin) tablet Active 1 TABLET PO DAILY June 30, 2023 11:00pm Start: 07-01-2023 take 1 tablet by sharmin th once daily Multivitamin (Daily Multi-Vitamin) tablet Active 1 TABLET PO DAILY July 01, 2023 12:00am naproxen 500 mg oral tablet (1 source) Nonsteroidal Anti-inflammatory Drug Start: 07-03-2022 take 1 tablet by mouth twice daily at mealtime naproxen (NAPROSYN) 500 MG tablet Take 1 tablet by mouth 2 times daily (with meals) 14 tablet 0 07/03/2022 Active Start: 07-03-2022 take 1 tablet by sharmin th twice daily at mealtime naproxen (NAPROSYN) 500 MG tablet Take 1 tablet by mouth 2 times daily (with meals) 14 tablet 0 07/03/2022 Active Oihnl-0-QYS-EPA-Fish Oil (FI SH OIL) 1,000 mg (120 mg-180 mg) cap (3 sources) Ilbss-8-YTE-EPA- Fish Oil (FISH OIL) 1,000 mg (120 mg-180 mg) cap Fish Oil 1,000 mg Cap Active Tqueq-8-PAR-EPA- Fish Oil (FISH OIL) 1,000 mg (120 mg-180 mg) cap Fish Oil 1,000 mg Cap 0 Active Comment on above: Fish Oil 1,000 mg Ca p ondansetron 4 mg disintegrating oral tablet (19 sources) Serotonin-3 Receptor Antagonist Start: 05-10-2023 End: 05-10-2023 ondansetron (Zofran) injection 4 mg Start: 07-03-2022 End: 05-17-2023 take 1 tablet by mouth every eight hours as needed ondansetron ODT (Zofran-ODT) 4 MG disintegrating tablet Take 1 tablet by mouth every 8 hours as needed. 07/03/2022 Active Start: 07-03-2022 End: 07-03-2022 ondansetron (ZOFRAN) injecti on 4 mg pantoprazole 40 mg delayed release oral tablet (1 source) Proton Pump Inhibitor Start: 09-18-2024 take 1 tablet by mouth once daily before mealtime pantoprazole (ProtoNix) 40 mg EC tablet Take 40 mg by mouth once daily in the morning. Take before meals. 09/18/2024 Active Pediatric Multivitamins-Iron (pediatric multivitamin-iron) tablet chewable split tablet (5 sources) Pediatric Multivitamins-Iron (pediatric multivitamin-iron) tablet chewable split tablet Take by mouth. Active Pediatric Multiv itamins-Iron (pediatric multivitamin-iron) tablet chewable split tablet Take by mouth. 0 Active pravastatin sodium 20 mg oral tablet (1 source) HMG-CoA Reductase Inhibitor Start: 08-14-2024 take 1 tablet by mouth once daily pravastatin (Pravachol) 20 mg tablet Take 20 mg by mouth once daily. 08/14/2024 Active predniSONE 20 mg oral tablet (18 sources) Start: 12-19-2024 End: 12-22-2024 take 1 tablet by mouth twice daily predniSONE (DELTASONE) 20 mg tablet Indications: Cervical lymphadenitis , Acute otalgia, left Take 1 tablet by mouth two times a day for 3 days. 6 tablet 12/19/2024 12/22/2024 Active Start: 08-20-2023 End: 09-20-2023 take 40 mg by mouth once daily Prednisone Discontinued 40 MG PO DAILY August 20, 2023 12:00am September 20, 2023 3:21pm Start: 07-10-2022 End: 01-16-2023 take 40 mg by mouth once daily Prednisone Discontinued 40 MG PO DAILY July 09, 2022 11:00pm January 16, 2023 2:25pm Start: 07-14-2021 End: 11-11-2023 predniSONE (DELTASONE) 10 mg tablet TAKE NEEDED FOR POISON NOLA. TAKE 2 TABLETS BY MOUTH TWICE DAILY FOR 4 DAYS, ONE TABLET BY MOUTH TWICE DAILY FOR 4 DAYS, ONE TABLET BY MOUTH EVERY DAY FOR 4 DAYS, THEN 1/2T BY MOUTH EVERY DAY FOR 2 DAYS 0 07/14/2021 11/11/2023 Discontinued Start: 07-14-2021 End: 07-18-2021 Prednisone Discontinued 20 M G PO TWICE A DAY 27 01July 13, 2021 11:00pm July 17, 2021 11:01pm 2 po bid 4D,1 po bid for 4 D, 1 po qd for 4D 1/2 po qd for2 D Start: 11-21-2020 End: 03-29-2021 take 40 mg by mouth once daily Prednisone Discontinued 40 MG PO DAILY November 21, 2020 12:00am March 29, 2021 4:48pm Comment on above: TAKE NEEDED FOR P OISON NOLA. TAKE 2 TABLETS BY MOUTH TWICE DAILY FOR 4 DAYS, ONE TABLET BY MOUTH TWICE DAILY FOR 4 DAYS, ONE TABLET BY MOUTH EVERY DAY FOR 4 DAYS, THEN 1/2T BY MOUTH EVERY DAY FOR 2 DAYS Completed/Discontinued Medications Medication Drug Class(es) Dates Sig (Normalized) Sig (Original) acetaminophen 325 mg / oxyCODONE hydrochloride 5 mg oral tablet (3 sources) Opioid Agonist Start: 07-17-2023 End: 08-20-2023 take 1 tablet by mouth every six hours Oxycodone-Acetamino phen (Percocet) 5-325 mg tablet Discontinued 1 TABLET PO EVERY 6 HOURS 28 July 17, 2023 August 20, 2023 5:50pm Start: 07-03-2022 End: 07-06-2022 oxyCODONE-acetaminophen (PER COCET) 5-325 MG per tablet Indications: Kidney stone Take 1 tablet by mouth every 4 hours as needed for Pain for up to 3 days. Intended supply: 7 days. Take lowest dose possible to manage pain 18 tablet 0 07/03/2022 07/06/2022 Active [id number] 200 actuat albuterol 0.09 mg/actuat metered dose inhaler (5 sources) beta2-Adrenergic Agonist Start: 11-21-2020 End: 03-29-2021 take 1 puff(s) by inhalation every six hours Albuterol Sulfate (Proair Hfa) 90 mcg/actuation HFA aerosol inhaler Discontinued 2 PUFF INHALATION EVERY 6 HOURS 8.5 November 21, 2020 12:00am March 29, 2021 4:30pm aspirin 81 mg delayed release oral tablet (2 sources) Platelet Aggregation Inhibitor, Nonsteroidal Anti-inflammatory Drug Start: 07-17-2023 End: 08-20-2023 take 81 mg by mouth twice daily Aspirin Discontinued 81 MG PO TWICE A DAY 60 July 16, 2023 11:00pm August 20, 2023 5:49pm cefTRIAXone (Rocephin) 1,000 mg in sodium chloride 0.9 % 50 mL IVPB Mini-Bag Plus (2 sources) Start: 05-10-2023 End: 05-10-2023 cefTRIAXone (Rocephin) 1,000 mg in sodium chloride 0.9 % 50 mL IVPB Mini-Bag Plus cefuroxime 500 mg oral tablet (12 sources) Cephalosporin Antibacterial Start: 06-20-2023 End: 06-30-2023 take 500 mg by mouth every twelve hours Cefuroxime Axetil Discontinued 500 MG PO Q12H 19 07June 20, 2023 2:03pm June 29, 2023 11:04pm Start: 12-01-2018 End: 12-11-2018 take 500 mg by mouth every twelve hours Cefuroxime Axetil Discontinued 500 MG PO Q12H 20 December 01, 2018 12:00am December 10, 2018 11:07pm Start: 10-21-2018 End: 10-31-2018 take 500 mg by mouth every twelve hours Cefuroxime Axetil Discontinued 500 MG PO Q12H 20 October 21, 2018 12:00am October 31, 2018 12:09am cyclobenzaprine hydrochloride 10 mg oral tablet (2 sources) Muscle Relaxant Start: 07-17-2023 End: 08-20-2023 take 10 mg by mouth three times daily Cyclobenzaprine Discontinued 10 MG PO THREE TIMES A DAY 19 04July 16, 2023 11:00pm August 20, 2023 5:50pm dicyclomine hydrochloride 10 mg oral capsule (5 sources) Anticholinergic Start: 01-24-2021 End: 03-29-2021 take 10 mg by mouth three times daily Dicyclomine Discontinued 10 MG PO THREE TIMES A DAY January 23, 2021 11:00pm March 29, 2021 4:30pm diphenhydrAMINE-maal ox-lidocaine (BMX 1:1:1) 1:1:1 liqd (1 source) Start: 05-20-2018 End: 11-11-2023 diphenhydrAMINE-maa lox-lidocaine (BMX 1:1:1) 1:1:1 liqd Indications: Sore throat , Bilateral impacted cerumen Swish and spit or gargle with 10ml every 4 hours as needed for throat pain 120 mL 0 05/20/2018 11/11/2023 Discontinued Comment on above: Swish and spit or ga rgle with 10ml every 4 hours as needed for throat pain docusate sodium 100 mg oral capsule (2 sources) Start: 07-17-2023 End: 08-20-2023 take 1 capsule by mouth once daily Docusate Sodium (Colace) 100 mg capsule Discontinued 100 MG PO DAILY 10 July 16, 2023 11:00pm August 20, 2023 5:50pm empagliflozin 10 mg oral tablet (19 sources) Sodium-Glucose Cotransporter 2 Inhibitor Start: 06-08-2022 End: 05-24-2023 take 1 tablet by mouth once daily Empagliflozin (Jardiance) 10 mg tablet Discontinued 10 MG PO DAILY January 15, 2023 11:00pm May 24, 2023 2:36pm Start: 06-28-2020 End: 01-18-2021 take 1 tablet by mouth once daily Empagliflozin (Jardiance) 25 mg tablet Discontinued 25 MG PO DAILY August 22, 2020 4:36pm January 18, 2021 5:45pm 1 ml HYDROmorphone hydrochloride 1 mg/ml cartridge (2 sources) Opioid Agonist Start: 05-10-2023 End: 05-10-2023 HYDROmorphone (Dilaudid) injection 0.5 mg hydrOXYzine hydrochloride 10 mg oral tablet (5 sources) Antihistamine Start: 05-22-2019 End: 11-10-2019 take 10 mg by mouth three to four times daily Hydroxyzine Hcl Discontinued 10 MG PO 3 to 4 times per day 60 May 21, 2019 11:00pm November 10, 2019 4:26pm ibuprofen 800 mg oral tablet (15 sources) Nonsteroidal Anti-inflammatory Drug Start: 05-22-2018 End: 05-24-2023 take 800 mg by mouth three times daily Ibuprofen Discontinued 800 MG PO THREE TIMES A DAY July 24, 2021 3:38pm May 24, 2023 2:37pm imiquimod 50 mg/ml topical cream (5 sources) Start: 11-27-2019 End: 10-12-2020 Imiquimod Discontinued 1 APPLIC TOPICAL 5 times per week November 27, 2019 12:00am October 12, 2020 7:49pm lansoprazole 30 mg delayed release oral capsule (5 sources) Proton Pump Inhibitor Start: 05-22-2018 End: 05-22-2018 take 30 mg by mouth once daily Lansoprazole Discontinued 30 MG PO DAILY May 21, 2018 11:00pm May 22, 2018 11:20am omeprazole 40 mg delayed release oral capsule (5 sources) Proton Pump Inhibitor Start: 05-22-2018 End: 05-22-2018 take 40 mg by mouth once daily Omeprazole Discontinued 40 MG PO DAILY May 21, 2018 11:00pm May 22, 2018 11:20am RABEprazole sodium 20 mg delayed release oral tablet (5 sources) Proton Pump Inhibitor Start: 05-22-2019 End: 11-10-2019 take 20 mg by mouth once daily Rabeprazole Discontinued 20 MG PO DAILY May 21, 2019 11:00pm November 10, 2019 4:27pm raNITIdine 150 mg oral tablet (16 sources) Histamine-2 Receptor Antagonist Start: 05-22-2019 End: 11-10-2019 take 1 tablet by mouth once daily Ranitidine Hcl (Zantac) 150 mg tablet Discontinued 150 MG PO DAILY May 21, 2019 11:00pm November 10, 2019 4:27pm Start: 05-22-2018 End: 09-11-2018 take 300 mg by mouth once daily Ranitidine Hcl Discont inued 300 MG PO DAILY May 22, 2018 12:00am September 11, 2018 7:10pm Start: 04-17-2018 End: 11-11-2023 take 1 tablet by mouth at bedtime Ranitidine Hcl (Zantac) 300 mg tablet Discontinued 300 MG PO AT BEDTIME May 21, 2019 11:00pm November 10, 2019 4:27pm 50 ml sodium chloride 9 mg/m l injection (2 sources) Start: 05-10-2023 End: 05-10-2023 sodium chloride 0.9 % bolus 1,000 mL Problems Active Problems Problem Classification Problem Date Documented Da te Episodic/Chronic Abdominal pain (3 sources) Unspecified abdominal pain; Translations: [Abdominal pain] Onset: 2 Episodic Allergic reactions (5 sources) Contact dermatitis due to poison nola; Translations: [Allergic contact dermatitis due to plants, except food] 07-14-2021 Episodic Anxiety disorders (5 sources) Anxiety; Translations: [Anxiety disorder, unspecified] 06-08-2022 Chronic Calculus of urinary tract (12 sources) Kidney stone; Translations: [Calculus of kidney] Onset: 2 Episodic Chronic obstructive pulmonary disease and bronchiectasis (10 sources) Bronchitis; Translations: [Bronchitis, not specified as acute or chronic] 01-18-2021 Episodic Deficiency and other anemia (5 sources) Megaloblastic anemia due to decreased intake of vitamin B>12<; Translations: [Other vitamin B12 deficiency anemias] 04-17-2022 Episodic Disorders of lipid metabolism (3 sources) Hyperlipidemia; Translations: [Hyperlipidemia, unspecified] 05-24-2023 Chronic Esophageal disorders (5 sources) Gastroesophageal reflux disease; Translations: [Gastro-esophageal reflux disease without esophagitis] 07-15-2019 Chronic Headache; including migraine (5 sources) Cluster headache; Translations: [Cluster headache syndrome, unspecified, not intractable] 11-21-2020 Chronic Lymphadenitis (1 source) Cervical lymphadenitis; Translations: [Nonspecific lymphadenitis, unspecified] 12-19-2024 Episodic Malaise and fatigue (5 sources) Fatigue; Translations: [Other fatigue] 04-17-2022 Episodic Nutritional deficiencies (5 sources) Vitamin D deficiency; Translations: [Vitamin D deficiency, unspecified] 04-17-2022 Chronic Osteoarthritis (11 sources) Osteoarthritis of right knee joint; Translations: [Unilateral primary osteoarthritis, right knee] 01-22-2023 Chronic Other aftercare (2 sources) 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; Translations: [Other prison (current) drug therapy] Onset: Episodic Other bone disease and musculoskeletal deformities (3 sources) Posterior calcaneal exostosis; Translations: [Juvenile osteochondrosis of tarsus, left ankle] 04-30-2023 Chronic Other bone disease and musculoskeletal deformities (2 sources) Juvenile osteochondrosis of tarsus, left ankle; 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] 07-17-2023 Chronic Other connective tissue disease (1 source) Achilles tendinitis; Translations: [Achilles tendinitis, left leg] 07-17-2023 Episodic Other connective tissue disease (2 sources) Bursitis of ankle region; Translations: [Other enthesopathy of left foot and ankle] 07-17-2023 Episodic Other connective tissue disease (2 sources) Foot pain; Translations: [Pain in left foot] 06-20-2023 Episodic Other connective tissue disease (2 sources) Other enthesopathy of left foot and ankle; Translations: [Other enthesopathy of ankle and tarsus] 07-17-2023 Episodic Other connective tissue disease (2 sources) Pain in left foot; Translations: [Pain in limb] 07-17-2023 Episodic Other connective tissue disease (1 source) Left achilles tendonitis; Translations: [Achilles tendinitis, left leg] 07-17-2023 Episodic Other ear and sense organ disorders (5 sources) Otalgia, left ear; Translations: [Left ear pain] 11-21-2020 Episodic Other ear and sense organ disorders (1 source) Pain of ear structure; Translations: [Otalgia, left ear] 12-19-2024 Episodic Other gastrointestinal disorders (5 sources) Abdominal bloating; Translations: [Abdominal distension (gaseous)] 11-19-2018 Episodic Other gastrointestinal disorders (1 source) Abdominal distension, gaseous; Translations: [Abdominal distension (gaseous)] 05-08-2023 Episodic Other liver diseases (1 source) Chronic nonalcoholic liver disease; Translations: [Liver disease, unspecified] 09-03-2023 Chronic Other liver diseases (1 source) Steatosis of liver; Translations: [Fatty (change of) liver, not elsewhere classified] 12-05-2023 Chronic Other lower respiratory disease (5 sources) Cough; Translations: [Cough] 07-11-2022 Episodic Other lower respiratory disease (5 sources) Hypoxia; Translations: [Hypoxemia] 11-21-2020 Episodic Other lower respiratory disease (1 source) Cough; Translations: [Acute cough] 09-19-2024 Episodic Other nervous system disorders (2 sources) Acute postoperative pain; Translations: [Other acute postprocedural pain] 07-08-2023 Episodic Other nervous system disorders (2 sources) Other acute postprocedural pain; Translations: [Other acute postoperative pain] 07-17-2023 Episodic Other non-traumatic joint disorders (11 sources) Pain in left shoulder; Translations: [Pain in joint, shoulder region] Onset: 1 Episodic Other non-traumatic joint disorders (3 sources) Shoulder pain; Translations: [Pain in left shoulder] 07-14-2021 Episodic Other non-traumatic joint disorders (4 sources) Pain in right knee; Translations: [Right knee pain] 01-16-2023 Episodic Other non-traumatic joint disorders (1 source) Pain in left knee; Translations: [Pain in left knee] Onset: 4 Episodic Other nutritional; endocrine; and metabolic disorders (5 sources) Insulin resistance; Translations: [Metabolic syndrome] 08-22-2020 Chronic Other nutritional; endocrine; and metabolic disorders (5 sources) Weight gain; Translations: [Abnormal weight gain] 06-29-2020 Episodic Other nutritional; endocrine; and metabolic disorders (5 sources) Weight loss; Translations: [Abnormal weight loss] 08-22-2020 Episodic Other screening for suspected conditions (not mental disorders or infectious disease) (12 sources) Encounter for screening mammogram for malignant neoplasm of breast; Translations: [Patient encounter status] Onset: 2 Episodic Other upper respiratory disease (5 sources) Seasonal allergy; Translations: [Other seasonal allergic rhinitis] 03-29-2021 Chronic Other upper respiratory infections (18 sources) Acute maxillary sinusitis; Translations: [Acute maxillary sinusitis, unspecified] Onset: 4 01-18-2021 Episodic Otitis media and related conditions (3 sources) Acute bilateral otitis media ; Translations: [Otitis media, unspecified, bilateral] 06-20-2023 Episodic Poisoning by nonmedicinal substances (5 sources) Allergic reaction to bee sting; Translations: [Toxic effect of venom of bees, accidental (unintentional), initial encounter] 02-04-2020 Episodic Thyroid disorders (5 sources) Hypothyroidism; Translations: [Hypothyroidism, unspecified] 10-12-2020 Chronic Thyroid disorders (2 sources) Disorder of thyroid, unspecified; Translations: [Disorder of thyroid, unspecified] Onset: 2 Episodic Unclassified (1 source) Acute cough; Translations: [Acute cough] Onset: 4 Urinary tract infections (2 sources) Acute urinary tract infection; Translations: [Urinary tract infection, site not specified] 05-10-2023 Episodic Viral infection (10 sources) Disease caused by 2019-nCoV; Translations: [COVID-19] 11-21-2020 Episodic Past or Other Problems Problem Classification Problem Date Documented Da te Episodic/Chronic Disorders of teeth and jaw (6 sources) Dental abscess; Translations: [Periapical abscess without sinus] Onset: 01-01-2024 01-01-2024 Episodic Other connective tissue disease (3 sources) Achilles tendinitis, left leg; Translations: [Achilles bursitis or tendinitis] Onset: 07-24-2023 07-17-2023 Episodic Results Test Name Value Interpretation Reference Range Facility CNOVon 12-19-2024 CNOV Office Visit ([facility] ) CORIE MURDOCK ([id number]) 1960 F Date Time Provider Department 12/19/24 9:10 AM PETRA VALENZUELA During your visit today, we recorded the following information about you: Temperature Pulse Blood pressure Weight 97.5 degrees 82/minute 153/88 84.4 kg Petra Valenzuela PA-C 12/19/2024 10:15 AM Addendum 12/19/2024 Patient presents with: Sore Throat Ear Pain: Symptoms started last night only left side ear and throat. SUBJECTIVE: This is a 64 year old that is here today for acute onset left ear/left sore throat/left neck pain that started last night. Throat does not feel swollen. HPI per the patient. No sinus, cough, n/v, BENNETT, or rash. No other sick symptoms. No other URI symptoms. Denies fever, chills, sweats, or fatigue. Patient denies wheezing, shortness of breath, increased WOB, or chest pain. Asthma: none Pneumonia: none Tobacco: none Pain on scale of 0-10 with 0 being no pain and 10 being greatest pain: - Nothing makes the symptoms better. Nothing makes them worse. Self-treatment:. none The severity is mild and the symptoms are not improving. The patient did not have a similar problem in the last 3 months. The patient did not take any antibiotics in the last 3 months. The patient was not exposed to strep. Barriers to learning: none. Reviewed meds, OTCs, herbals or supplements. Reviewed allergies, medications, social history, and past medical history. No past medical history on file. ALLERGIES Patient has no known allergies. MEDICATIONS Current Outpatient Medications Medication Sig MULTI-VITAMIN ORAL Take by mouth. cholecalciferol, vitamin D3, (VITAMIN D3 ORAL) Take by mouth. BIOTIN ORAL Take by mouth. esomeprazole (NEXIUM) 40 mg capsule azelastine (ASTELIN) 0.1% nasal spray DULoxetine (CYMBALTA) 30 mg capsule famotidine (PEPCID) 40 mg tablet montelukast (SINGULAIR) 10 mg tablet levothyroxine (SYNTHROID) 75 mcg tablet Zidxm-6-TYX-EPA-Fish Oil (FISH OIL) 1,000 mg (120 mg-180 mg) cap Fish Oil 1,000 mg Cap fluticasone (FLONASE) 50 mcg/actuation nasal spray Use 2 Sprays in each nostril once daily. predniSONE (DELTASONE) 20 mg tablet Take 1 tablet by mouth two times a day for 3 days. amoxicillin-clavulanate potassium (AUGMENTIN) 875-125 mg per tablet Take 1 tablet by mouth two times a day with meals for 5 days. Axljstholjsowzi-Kjzhivybf-V M (BROMFED DM) 2-30-10 mg/5 mL syrup Take 5 mL by mouth every 6 hours as needed. (Patient not taking: Reported on 01/01/2024) No current facility-administered medications for this visit. Medications and allergies reviewed by this provider. SOCIAL HISTORY Social History Tobacco Use Smoking status: Never Smokeless tobacco: Never REVIEW OF SYSTEMS Review of Systems Constitutional: Negative. HENT: Positive for ear pain and sore throat. Eyes: Negative. Respiratory: Negative. Cardiovascular: Negative. Gastrointestinal: Negative. Endocrine: Negative. Genitourinary: Negative. Musculoskeletal: Positive for neck pain. Allergic/Immunologic: Negative. Neurological: Negative. Hematological: Negative. Psychiatric/Behavioral: Negative. All other systems reviewed and are negative. OBJECTIVE: BP 153/88 Pulse 82 Temp 36.4 ?C (97.5 ?F) Wt 84.4 kg (185 lb 15.3 oz) SpO2 96% BMI 34.01 kg/m? . Vital signs reviewed by this provider. Physical Exam Vitals reviewed. Constitutional: General: She is not in acute distress. Appearance: Normal appearance. She is well-developed and normal weight. She is not ill-appearing, toxic-appearing or diaphoretic. HENT: Head: Normocephalic and atraumatic. No right periorbital erythema or left periorbital erythema. Salivary Glands: Right salivary gland is not diffusely enlarged or tender. Left salivary gland is not diffusely enlarged or tender. Comments: Salivary glands not enlarged or tender. Right Ear: Tympanic membrane, ear canal and external ear normal. Left Ear: Tympanic membrane, ear canal and external ear normal. No laceration, drainage, swelling or tenderness. No middle ear effusion. There is no impacted cerumen. No foreign body. No mastoid tenderness. No PE tube. No hemotympanum. Tympanic membrane is not injected, scarred, perforated, erythematous, retracted or bulging. Nose: Nose normal. No congestion or rhinorrhea. Right Sinus: No maxillary sinus tenderness or frontal sinus tenderness. Left Sinus: No maxillary sinus tenderness or frontal sinus tenderness. Mouth/Throat: Lips: [place]. No lesions. Mouth: Mucous membranes are moist. No oral lesions. Dentition: No gum lesions. Tongue: No lesions. Tongue does not deviate from midline. Palate: No mass and lesions. Pharynx: Oropharynx is clear. Uvula midline. No pharyngeal swelling, oropharyngeal exudate, posterior oropharyngeal erythema, uvula swelling or postnasal drip. Tons (more content not included)... Normal [facility] STREP A MOLECULAR (POC)on Procedural Control Valid [facility] Strep A (POCT) Negative Negative [facility] DBT Breast - bilateral scree ningon 12-07-2024 No mammographic evid ence of malignancy. ASSESSMENT: Category 1 Negative RECOMMENDATION: Routine screening mammogram in 1 year. Bilateral CANCER RISK ASSESSMENT: This risk assessment is based on patient provided information collected in a risk survey taken at the time of this examination. LIFETIME BREAST CANCER RISK: Alice 8: 7.64% - If greater than or equal to 20%, consider annual mammogram and annual screening Breast MRI or follow up in high risk clinic. Is the patient at elevated risk based on the HBOC criteria? No (Hereditary Breast and Ovarian Cancer) - If Yes, consider genetic counseling and testing with high risk follow up Is the patient at elevated risk based on the Quinteros Syndrome criteria? No - If Yes, consider genetic counseling and testing with high risk follow up. Report Dictated on Electronically Signed By: Aurora Dominguez MD Electronically Signed Date/Time: 12/07/2024 1:43 PM [facility] 1960 [id number] Exam Date/Time: 12/07/2024 13:05 Procedure: BI MAMMOGRAM SCREENING TOMOSYNTHESIS BILATERAL Ordering Provider: LEBLANC DORA Reason For Exam: This exam was performed at [address] [facility] [address] PATIENT CANCER HISTORY: No Personal History of Cancer FAMILY CANCER HISTORY: Father Prostate Cancer age 70 Image views: 2D Bilateral CC and MLO views were acquired. 3D Bilateral CC and MLO views were acquired. Images were reviewed with CAD. Markings on images: BB's = Nipples; skin lesions Open tulalip = Palpable Line = Scar COMPARISON: 11/30/2021, 12/03/2022, 12/05/2023 TISSUE DENSITY: BIRADS B - There are scattered areas of fibroglandular density. FINDINGS: No suspicious masses, architectural distortions or suspiciously clustered microcalcifications are identified. There is no evidence of skin thickening or nipple retraction. There are no significant changes when compared with prior studies. [facility] Aurora Dominguez MD - 12/07/2024 Patient Name: CORIE MURDOCK : 1960 Exam Date/Time: 12/07/2024 13:05 Procedure: BI MAMMOGRAM SCREENING TOMOSYNTHESIS BILATERAL Ordering Provider: LEBLANC DORA Reason For Exam: This exam was performed at [address] [facility] [address] PATIENT CANCER HISTORY: No Personal History of Cancer FAMILY CANCER HISTORY: Father Prostate Cancer age 70 Image views: 2D Bilateral CC and MLO views were acquired. 3D Bilateral CC and MLO views were acquired. Images were reviewed with CAD. Markings on images: BB's = Nipples; skin lesions Open tulalip = Palpable Line = Scar COMPARISON: 11/30/2021, 12/03/2022, 12/05/2023 TISSUE DENSITY: BIRADS B - There are scattered areas of fibroglandular density. FINDINGS: No suspicious masses, architectural distortions or suspiciously clustered microcalcifications are identified. There is no evidence of skin thickening or nipple retraction. There are no significant changes when compared with prior studies. IMPRESSION: No mammographic evidence of malignancy. ASSESSMENT: Category 1 Negative RECOMMENDATION: Routine screening mammogram in 1 year. Bilateral CANCER RISK ASSESSMENT: This risk assessment is based on patient provided information collected in a risk survey taken at the time of this examination. LIFETIME BREAST CANCER RISK: Alice 8: 7.64% - If greater than or equal to 20%, consider annual mammogram and annual screening Breast MRI or follow up in high risk clinic. Is the patient at elevated risk based on the HBOC criteria? No (Hereditary Breast and Ovarian Cancer) - If Yes, consider genetic counseling and testing with high risk follow up Is the patient at elevated risk based on the Quinteros Syndrome criteria? No - If Yes, consider genetic counseling and testing with high risk follow up. Report Dictated on Electronically Signed By: Aurora Dominguez MD Electronically Signed Date/Time: 12/07/2024 1:43 PM EDT [facility] Radiology Study observation (narrative) [facility] [employer] DBT Breast - bilateral scree ningOrdered By: Aurora Dominguez on 12-07-2024 [facility] [employer] Work Phone: Knee 4 or More Viewson 06-08 Knee 4 or More Views [facility] [address] [place] [address] Knee 4 or More Views MR#: [id number] Acct: [id number] Name: CORIE MURDOCK Rep #: [id number] : 1960 F 63 From: Eliseo Travis MD PCP: HERMINIO Henriquez Status: DEP AMB Study: Knee 4 or More Views Date of Exam: 06/08/24 Exam# [id number] Ordering Dr: Brandon Delgado MD [id number] STUDY: X-RAY - LEFT KNEE REASON FOR EXAM: Female, 63 years old. Pain. TECHNIQUE: 4 view(s) of the knee. COMPARISON: None. FINDINGS: Osteopenia. Small superior patellar spur. Mild tricompartmental arthrosis without osteophytes. Normal soft tissues and no joint effusion. RAD/Knee 4 or More Views IMPRESSION: Osteopenia with mild tricompartmental arthrosis and superior patellar spur. Electronically Signed: Eliseo Travis MD at 9:32 EDT Reading Location ID and State: [address] [place] [address] , Service support , CC: HERMINIO Leblanc; Dr. Brandon Delgado MD [employer]inery [employer]: Signed Normal [facility] Orthopedic Visit Reporton Orthopedic Visit Report [facility] [address] [place] [address] OFFICE VISIT Date of Service: 06/08/24 MR#: [id number] Acct: [id number] Name: CORIE MURDOCK Rep #: [id number] : 1960 Provider: Dr. Brandon davis MD Age/Sex: 63/F Location[place] [facility] [place] Status: Signed Intake Vital Signs 09/20/23 15:17 06/05/24 17:31 Height 5 ft 2 in 5 ft 2 in Intake Visit Reasons: LEFT KNEE Chief Complaint: left knee Accompanied by: Is patient in pain?: Yes Allergies bee venom protein (honey bee) Allergy (Severe, Verified 06/08/24 11:00) Hives Medications ???Medication ???Instructions ???Recorded ???Confirmed ???Type cetirizine 10 mg tablet (Zyrtec) 10 mg PO DAILY #90 tabs 01/16/23 06/08/24 Rx levothyroxine 75 mcg tablet 75 mcg PO QDAY 3 months #90 tabs 05/27/23 06/08/24 Rx biotin 10 mg tablet 10 mg PO DAILY 07/01/23 06/08/24 History krill oil 500 mg capsule 500 mg PO DAILY 07/01/23 06/08/24 History multivitamin (Daily Multi-Vitamin 1 tab PO DAILY 07/01/23 06/08/24 History tablet) ascorbic acid (vitamin C) 1,000 mg 1 g PO DAILY 90 days #90 tabs 07/17/23 06/08/24 Rx tablet (Vitamin C) allopurinol 100 mg tablet 100 mg PO DAILY #90 tabs 06/05/24 06/08/24 Rx azelastine 137 mcg (0.1 %) nasal 1 spray intranasal BID #90 mL 06/05/24 06/08/24 Rx spray cholecalciferol (vitamin D3) 125 125 mcg PO QDAY 06/05/24 06/08/24 History mcg (5,000 unit) capsule duloxetine 30 mg capsule,delayed 30 mg PO QDAY #90 caps 06/05/24 06/08/24 Rx release epinephrine 0.3 mg/0.3 mL 0.3 mg (0.3 mL) IM ONCE #6 ea 06/05/24 06/08/24 Rx injection, auto-injector (EpiPen 2-Joaquin) esomeprazole magnesium 40 mg 40 mg PO DAILY #90 caps 06/05/24 06/08/24 Rx capsule,delayed release famotidine 40 mg tablet 40 mg PO QHS #90 tabs 06/05/24 06/08/24 Rx fluticasone propionate 50 2 spray intranasal DAILY #27 grams 06/05/24 06/08/24 Rx mcg/actuation nasal spray,suspension montelukast 10 mg tablet 10 mg PO QPM #90 tabs 06/05/24 06/08/24 Rx (Singulair) PFSH Medical History Left knee pain Depression History of steroid therapy Thyroid disease Fatty liver Diverticulosis Gastric reflux Non-smoker Leg cramps CPAP (continuous positive airway pressure) dependence History of echocardiogram History of stress test Dairy product intolerance Gluten intolerance Hyperlipidemia Osteoarthritis of right knee Anxiety History of migraine headaches Menopause Kidney stone Surgical History History of Achilles tendon repair History of esophagogastroduodenoscopy (EGD) History of carpal tunnel surgery Previous section H/O colonoscopy History of endoscopy Family History Other Bleeding disorder Bowel disease CVA (cerebral vascular accident) Heart disease High cholesterol Hypertension Prostate cancer ULCERS Social History Smoking Status: Never smoker alcohol intake: current substance use type: does not use what type of physical activity do you participate in: walking frequency: 3-4 times per week HPI LEFT KNEE Details: This documentation accurately reflects the service provided and the decisions made by me, Dr. Brandon Delgado MD 06/08/24 1027. Part of today???s visit was documented by [ ], acting as scribe. CORIE MURDOCK is a 63 year old F here today for L knee pain. 2 weeks ago dog ran into the anterior aspect of the knee. able to ambulate now. getting much better. worse at night with sleeping on the left side. level of the pain is at rest 0/10, walking then 2/10. here with Damian her . mechanical symptoms - no. no laxity. TX - ice. Supplemental Info xr 3 view L knee - nil acute, joint space preserved, slight calcification at the superior pole the patella. Coding Level of Care Code Off vis,new,level 3 Diagnoses Left knee pain M25.562 Assessment and Plan Assessment and Plan (1) Left knee pain: Status: Acute Plan: CORIE MURDOCK is a 63 year old F here today for L knee pain. This is most likely knee strain the patient is doing quite a bit better the knee is stable the x-rays are negative. Could also be a medial meniscus tear but the patient is not having any mechanical symptoms or swelling. I recommend continue nonoperative management rest ice anti-inflammatories as needed activities as tolerated. The patient will follow-up if there is any further questions concerns or the knee pain does not completely resolve or gets worse. Orders: Orders Knee 4 or More Views Today M25.562 - Pain in left knee Ortho Exam General General: Yes n (more content not included)... Normal [facility] CBC W/Diff, Automatedon 09-0 -2023 Absolute Lymph 2.40 X10 3/uL Normal 0.83-4.51 [facility] Comment on above: Performed By: #### L 501.1145, L500.4100, L500.4050, L100.0100 #### [facility] [address] [place], [address] Absolute Neut 5.3 X10 3/uL Normal 2.0-7.7 [facility] Comment on above: Performed By: #### L 501.9520, L500.4100, L500.4050, L100.0100 #### [facility] [address] [place], [address] Basophils/100 WBC (Bld) 1.0 % Normal 0-1 [facility] Comment on above: Performed By: #### L 501.9520, L500.4100, L500.4050, L100.0100 #### [facility] [address] [place], [address] Eosinophils/100 WBC (Bld) 3.7 % Normal 0-5 [facility] Comment on above: Performed By: #### L 501.9520, L500.4100, L500.4050, L100.0100 #### [facility] [address] [place], [address] Erythrocyte distribution width (RBC) [Ratio] 13.6 % Normal 11.6-14.6 [facility] Comment on above: Performed By: #### L 501.9520, L500.4100, L500.4050, L100.0100 #### [facility] [address] [place], [address] Hematocrit (Bld) [Volume fraction] 38.7 % Normal 37-47 [facility] Comment on above: Performed By: #### L 501.9520, L500.4100, L500.4050, L100.0100 #### [facility] [address] [place], [address] Hemoglobin (Bld) [Mass/Vol] 12.3 g/dL Normal 12.0-15.0 [facility] Comment on above: Performed By: #### L 501.9520, L500.4100, L500.4050, L100.0100 #### [facility] [address] [place], [address] IG% 0.300 Normal 0.0-0.9 [facility] Comment on above: Result Comment: IG% - Immature Granulocytes (promyelocytes, myelocytes and metamyelocytes) > 1% indicates that a LEFT SHIFT is Present. Performed By: #### L 501.9520, L500.4100, L500.4050, L100.0100 #### [facility] [address] [place], [address] Lymphocytes/100 WBC (Bld) 26.9 % Normal 19-41 [facility] Comment on above: Performed By: #### L 501.9520, L500.4100, L500.4050, L100.0100 #### [facility] Laboratory [address] [place], [address] MCH (RBC) [Entitic mass] 27.9 pg Normal 27.0-32.0 [facility] Comment on above: Performed By: #### L 501.9520, L500.4100, L500.4050, L100.0100 #### [facility] Laboratory [address] [place], [address] MCHC (RBC) [Mass/Vol] 31.8 g/dL Low 32-36 [facility] Comment on above: Performed By: #### L 501.9520, L500.4100, L500.4050, L100.0100 #### [facility] Laboratory [address] [place], [address] MCV (RBC) [Entitic vol] 87.8 fL Normal 81-99 [facility] Comment on above: Performed By: #### L 501.9520, L500.4100, L500.4050, L100.0100 #### [facility] Laboratory [address] [place], [address] Monocytes/100 WBC (Bld) 8.5 % Normal 0-10 [facility] Comment on above: Performed By: #### L 501.9520, L500.4100, L500.4050, L100.0100 #### [facility] Laboratory [address] [place], [address] Neutrophils/100 WBC (Bld) 59.6 % Normal 47-70 [facility] Comment on above: Performed By: #### L 501.9520, L500.4100, L500.4050, L100.0100 #### [facility] Laboratory [address] [place], [address] Nucleated RBC (Bld) [#/Vol] 0 10*3/uL Normal 0-5 [facility] Comment on above: Performed By: #### L 501.9520, L500.4100, L500.4050, L100.0100 #### [facility] Laboratory [address] [place], [address] Platelet mean volume (Bld) [Entitic vol] 10.0 fL Normal 6.2-12.0 [facility] Comment on above: Performed By: #### L 501.9520, L500.4100, L500.4050, L100.0100 #### [facility] Laboratory [address] [place], [address] Platelets (Bld) [#/Vol] 328 10*3/uL Normal 150-450 [facility] Comment on above: Performed By: #### L 501.9520, L500.4100, L500.4050, L100.0100 #### [facility] Laboratory [address] [place], [address] RBC (Bld) [#/Vol] 4.41 10*6/uL Normal 4.2-5.4 [facility] Comment on above: Performed By: #### L 501.9520, L500.4100, L500.4050, L100.0100 #### [facility] Laboratory [address] [place], [address] RDW SD 43.8 fl Normal 35.1-43.9 [facility] Comment on above: Performed By: #### L 501.9520, L500.4100, L500.4050, L100.0100 #### [facility] Laboratory [address] [place], [address] WBC (Bld) [#/Vol] 8.9 10*3/uL Normal 4.4-11.0 [facility] Comment on above: Performed By: #### L 501.9520, L500.4100, L500.4050, L100.0100 #### [facility] Laboratory [address] [place], [address] Comprehensive Metabolic [facility] 06-05-2024 Albumin [Mass/Vol] 3.9 g/dL Normal 3.2-5.0 [facility] Comment on above: Performed By: #### L 501.9520, L500.4100, L500.4050, L100.0100 #### [facility] Laboratory [address] [place], [address] Albumin/Globulin [Mass ratio] 1.0 {ratio} Normal 0.9-2.4 [facility] Comment on above: Performed By: #### L 501.9520, L500.4100, L500.4050, L100.0100 #### [facility] Laboratory [address] [place], [address] ALK P 71 U/L Normal 45-117 [facility] Comment on above: Performed By: #### L 501.9520, L500.4100, L500.4050, L100.0100 #### [facility] Laboratory [address] [place], [address] ALT [Catalytic activity/Vol] 51 U/L Normal 13-56 [facility] Comment on above: Performed By: #### L 501.9520, L500.4100, L500.4050, L100.0100 #### [facility] [address] [place], [address] AST [Catalytic activity/Vol] 22 U/L Normal 15-37 [facility] Comment on above: Performed By: #### L 501.9520, L500.4100, L500.4050, L100.0100 #### [facility] [address] [place], [address] Bilirubin [Mass/Vol] 0.20 mg/dL Normal 0.20-1.00 [facility] Comment on above: Result Comment: For patients on eltrombopag therapy, use of Dimension [place] TBIL is not recommended. Performed By: #### L 501.9520, L500.4100, L500.4050, L100.0100 #### [facility] Laboratory [address] [place], [address] BUN/CRE 24.0 RATIO High 10-20 [facility] Comment on above: Performed By: #### L 501.9520, L500.4100, L500.4050, L100.0100 #### [facility] [address] [place], [address] CA,Total 9.5 mg/dL Normal 8.5-10.1 [facility] Comment on above: Performed By: #### L 501.9520, L500.4100, L500.4050, L100.0100 #### [facility] [address] [place], [address] Chloride [Moles/Vol] 108 mmol/L High 98-107 [facility] Comment on above: Performed By: #### L 501.9520, L500.4100, L500.4050, L100.0100 #### [facility] [address] [place], [address] CO2 [Moles/Vol] 27.0 mmol/L Normal 21.0-32.0 [facility] Comment on above: Performed By: #### L 501.9520, L500.4100, L500.4050, L100.0100 #### [facility] [address] [place], [address] Creatinine [Mass/Vol] 0.83 mg/dL Normal 0.55-1.02 [facility] Comment on above: Result Comment: The validity of the calculated GFR GFRAA in patients over 70 years has not been determined. Clinical correlation is essential. Performed By: #### L 501.9520, L500.4100, L500.4050, L100.0100 #### [facility] [address] [place], [address] EST GFR - AA 89 mL/min Normal >60 [facility] Comment on above: Result Comment: Afri can [place] Citizen GFR Calc Performed By: #### L 501.9520, L500.4100, L500.4050, L100.0100 #### [facility] Laboratory [address] [place], [address] GAP 6 Normal 5-15 [facility] Comment on above: Performed By: #### L 501.9520, L500.4100, L500.4050, L100.0100 #### [facility] [address] [place], [address] GFR/1.73 sq M.predicted among non-blacks MDRD (S/P/Bld) [Vol rate/Area] 73 mL/min/{1.73_m2} Normal >60 [facility] Comment on above: Result Comment: Non- GFR Calc Performed By: #### L 501.9520, L500.4100, L500.4050, L100.0100 #### [facility] [address] [place], [address] Globulin (S) [Mass/Vol] 3.8 g/dL Normal 2.2-4.2 [facility] Comment on above: Performed By: #### L 501.9520, L500.4100, L500.4050, L100.0100 #### [facility] [address] [place], [address] Glucose [Mass/Vol] 96 mg/dL Normal 74-106 [facility] Comment on above: Performed By: #### L 501.9520, L500.4100, L500.4050, L100.0100 #### [facility] [address] [place], [address] Potassium [Moles/Vol] 3.7 mmol/L Normal 3.5-5.1 [facility] Comment on above: Performed By: #### L 501.9520, L500.4100, L500.4050, L100.0100 #### [facility] [address] [place], [address] Sodium [Moles/Vol] 141 mmol/L Normal 136-145 [facility] Comment on above: Performed By: #### L 501.9520, L500.4100, L500.4050, L100.0100 #### [facility] [address] [place], [address] T PROT 7.7 g/dL Normal 6.4-8.2 [facility] Comment on above: Performed By: #### L 501.9520, L500.4100, L500.4050, L100.0100 #### [facility] [address] [place], [address] Urea nitrogen [Mass/Vol] 20 mg/dL High 7-18 [facility] Comment on above: Performed By: #### L 501.9520, L500.4100, L500.4050, L100.0100 #### [facility] [address] [place], [address] Lipid Profileon 06-05-2024 Cholesterol [Mass/Vol] 226 mg/dL High 200 [facility] Comment on above: Result Comment: <200 mg/dL Desirable 200-240 mg/dL Borderline >240 mg/dL High Risk Performed By: #### L 501.9520, L500.4100, L500.4050, L100.0100 ####[facility] [address] [place], [address] Cholesterol in HDL [Mass/Vol] 34 mg/dL Low [facility] Comment on above: Result Comment: The drugs N-Acetylcysteine and Metamizole may falsely depress this assay. Reference Range HDL <40 mg/dL Low HDL Cholesterol HDL >or= 60 mg/dL High HDL Cholesterol Performed By: #### L 501.9520, L500.4100, L500.4050, L100.0100 ####[facility] [address] [place], [address] Cholesterol in LDL [Mass/Vol] 156 mg/dL High 0-130 [facility] Comment on above: Performed By: #### L 501.9520, L500.4100, L500.4050, L100.0100 ####[facility] [address] [place], [address] Cholesterol in VLDL [Mass/Vol] 36 mg/dL Normal 5-40 [facility] Comment on above: Performed By: #### L 501.9520, L500.4100, L500.4050, L100.0100 ####[facility] [address] [place], [address] Triglyceride [Mass/Vol] 179 mg/dL Normal [facility] Comment on above: Result Comment: The drugs N-Acetylcysteine and Metamizole may falsely depress this assay. Serum Triglycerides Reference Interval Normal <150 mg/dL Borderline high 150 - 199 mg/dL High 200 - 499 mg/dL Very High > or = 500 mg/dL Performed By: #### L 501.9520, L500.4100, L500.4050, L100.0100 ####[facility] [address] [place], [address] Thyroid Stim Hormone (TSH)on 06-05-2024 TSH 1.330 uIU/mL Normal 0.358-3.74 0 [facility] Comment on above: Performed By: #### L 501.9520, L500.4100, L500.4050, L100.0100 ####[facility] [address] [place], [address] CNOVon 01-01-2024 CNOV Office Visit ([facility]ALK[facility] ) CORIE MURDOCK ([id number]) 1960 F Date Time Provider Department 01/01/24 9:55 AM PETRA VALENZUELA During your visit today, we recorded the following information about you: Temperature Pulse Respiration Blood pressure 98.2 degrees 91/minute 18/minute 124/68 Weight Height 93.1 kg 1.575 m Petra Valenzuela PA-C 01/01/2024 10:41 AM Signed 01/01/2024 Patient presents with: Dental Problem: Partial root canal last wk, right side of jaw is swollen, right cheek/jaw/tongue is hurting, hard to eat/drink, was given abx by dentist but did not help, dentist thinks that abx was not strong enough, SUBJECTIVE: This is a 63 year old that is here for dental infection. Dentist started a root canal process 8 days ago on a right, lower, molar. Drilled it out and placed a temporary cap. Cap fell off and she developed pain. Dentist put her on Amoxicillin. Pain worsened. Saw dentist again for it 2 days ago- switched her to Keflex. Pain worsened still and developed new submental/submandibular pain and fullness, right tongue pain, right neck pain/fullness, and significant pain with swallowing and difficulty swallowing. Saw dentist again today. Dentist performed an x-ray, and told her that the tooth is fine but is concerned for a deeper infection that needs stronger antibiotics and work up. Per the patient, he said couldn't prescribe her anything stronger himself. He recommended an [facility] or ER. Denies fever, chills, sweats, or fatigue. No external facial swelling. No sore throat. No other URI symptoms. No other sick symptoms. Pain on scale of 0-10 with 0 being no pain and 10 being greatest pain: 8 Nothing makes the symptoms better. Nothing makes them worse. Self-treatment:. Amox, Keflex The severity is mild and the symptoms are not improving. The patient did not have a similar problem in the last 3 months. The patient did not take any antibiotics in the last 3 months. The patient was not exposed to strep. Barriers to learning: none. Reviewed meds, OTCs, herbals or supplements. Reviewed allergies, medications, social history, and past medical history. No past medical history on file. ALLERGIES Patient has no known allergies. MEDICATIONS Current Outpatient Medications Medication Sig MULTI-VITAMIN ORAL Take by mouth. cholecalciferol, vitamin D3, (VITAMIN D3 ORAL) Take by mouth. BIOTIN ORAL Take by mouth. esomeprazole (NEXIUM) 40 mg capsule azelastine (ASTELIN) 0.1% nasal spray DULoxetine (CYMBALTA) 30 mg capsule famotidine (PEPCID) 40 mg tablet montelukast (SINGULAIR) 10 mg tablet levothyroxine (SYNTHROID) 75 mcg tablet Hwrxc-8-RTR-EPA-Fish Oil (FISH OIL) 1,000 mg (120 mg-180 mg) cap Fish Oil 1,000 mg Cap fluticasone (FLONASE) 50 mcg/actuation nasal spray Use 2 Sprays in each nostril once daily. Ctblnayywfywbis-Wjrxhwxcv-X M (BROMFED DM) 2-30-10 mg/5 mL syrup Take 5 mL by mouth every 6 hours as needed. (Patient not taking: Reported on 01/01/2024) No current facility-administered medications for this visit. Medications and allergies reviewed by this provider. SOCIAL HISTORY Social History Tobacco Use Smoking status: Never Smokeless tobacco: Never REVIEW OF SYSTEMS ROS: constitutional-neg, heent-tooth pain/infection, heart-neg, respiratory-neg, GI-neg, skin-neg, MS-neg, lymph-neg, neuro-neg, - All systems neg except as noted above in HPI. OBJECTIVE: BP 124/68 (BP Site: Left Arm, BP Position: Sitting, BP Cuff Size: Large Adult) Pulse 91 Temp 36.8 ?C (98.2 ?F) (Left Tympanic) Resp 18 Ht 157.5 cm (5' 2) Wt 93.1 kg (205 lb 2.2 oz) SpO2 95% BMI 37.52 kg/m? . Vital signs reviewed by this provider. Physical Exam Vitals reviewed. Constitutional: General: She is not in acute distress. Appearance: Normal appearance. She is well-developed and normal weight. She is not ill-appearing, toxic-appearing or diaphoretic. HENT: Head: Normocephalic and atraumatic. Jaw: There is normal jaw occlusion. Salivary Glands: Right salivary gland is not diffusely enlarged or tender. Left salivary gland is not diffusely enlarged or tender. Nose: Right Sinus: No maxillary sinus tenderness. Left Sinus: No maxillary sinus tenderness. Mouth/Throat: Lips: No lesions. Mouth: Mucous membranes are moist. No oral lesions. Dentition: Abnormal dentition. Tongue: No lesions. Tongue does not deviate from midline. Palate: No mass and lesions. Pharynx: Oropharynx is clear. Tonsils: No tonsillar exudate. Neck: Neurological: Mental Status: She is alert. Psychiatric: Behavior: Behavior is cooperative. ASSESSMENT/PLAN: 1. Pain, dental - ICD9: 525.9, ICD10: K08.89 (primary diagnosis) 2. Dental infection - ICD9: 522.4, ICD10: K04.7 Likely needs imaging and work up Already failed outpt PO antibiotics Dentist referred to her to seek hig (more content not included)... Normal [facility] ED Nursing Noteon 01-01-2024 ED Nursing Note Had root canal surge ry about a week ago. Was on amoxicillin for that. After surgery was having pain and facial swelling and started on keflex. Here today for continued pain and facial swelling. No airway trouble. Normal [facility] ED Provider Noteon ED Provider Note EMERGENCY DEPARTMENT ENCOUNTER Pt Name: Corie Murdcok Birthdate 1960 Date of evaluation: 01/01/2024 ED Provider: Jesus Denton MD CHIEF COMPLAINT Chief Complaint Patient presents with Dental Pain HISTORY OF PRESENT ILLNESS (Location/Symptom, Timing/Onset, Context/Setting, Quality, Duration, Modifying Factors, Severity) Note limiting factors. I wore appropriate PPE for the entirety of this encounter. HPI Corie Murdock is a 63 y.o. who presents to the emergency department with chief complaint of right-sided jaw face intraoral swelling. Recently had a root canal over a week ago has been on amoxicillin and subsequently Keflex a couple of days ago. Saw her dentist again today and had an x-ray for follow-up and stated was not a dental issue but concerned for a deeper infection and was sent for further evaluation to urgent care who sent her here. Patient states it is little bit difficult to swallow but she has been able to eat and drink still. She is tolerating her saliva. She states her voice is normal. She is not on lisinopril. No new medications otherwise or known allergies. No fevers chills nausea. She is not diabetic. Denies any ear pain. Nursing Notes were reviewed. Limitations to history: None Outside historians: None REVIEW OF SYSTEMS Review of Systems Constitutional: Negative for chills and fever. HENT: Positive for dental problem, facial swelling and trouble swallowing. Negative for ear pain, sore throat and voice change. Eyes: Negative for pain and visual disturbance. Respiratory: Negative for cough and shortness of breath. Cardiovascular: Negative for chest pain and palpitations. Gastrointestinal: Negative for abdominal pain and vomiting. Genitourinary: Negative for dysuria and hematuria. Musculoskeletal: Negative for arthralgias and back pain. Skin: Negative for color change and rash. Neurological: Negative for seizures and syncope. All other systems reviewed and are negative. Pertinent positives and negatives as per HPI. PAST MEDICAL HISTORY Past Medical History: Diagnosis Date Allergies Kidney stone Thyroid disease SURGICAL HISTORY Past Surgical History: Procedure Laterality Date CARPAL TUNNEL RELEASE SECTION (HISTORICAL) CURRENT MEDICATIONS Previous Medications ALLOPURINOL (ZYLOPRIM) 100 MG TABLET AZELASTINE (ASTELIN) 0.1 % NASAL SPRAY CETIRIZINE (ZYRTEC) 10 MG TABLET DULOXETINE (CYMBALTA) [address] CAPSULE EPINEPHRINE (EPIPEN) 0.3 MG/0.3ML INJECTION SYRINGE FAMOTIDINE (PEPCID) 40 MG TABLET KRILL OIL (OMEGA-3) 500 MG CAPSULE Take 500 mg by mouth. MONTELUKAST (SINGULAIR) 10 MG TABLET ONDANSETRON ODT (ZOFRAN-ODT) 4 MG DISINTEGRATING TABLET Take 1 tablet by mouth every 8 hours as needed. PEDIATRIC MULTIVITAMINS-IRON (PEDIATRIC MULTIVITAMIN-IRON) TABLET CHEWABLE SPLIT TABLET Take by mouth. SYNTHROID 75 MCG TABLET ALLERGIES Bee venom FAMILY HISTORY Family History Problem Relation Name Age of Onset Prostate cancer Father 70 SOCIAL HISTORY Social History Socioeconomic History Marital status: Tobacco Use Smoking status: Never Smokeless tobacco: Never Vaping Use Vaping Use: Never used Substance and Sexual Activity Alcohol use: Not Currently Drug use: Not Currently SCREENINGS PHYSICAL EXAM ED Triage Vitals Temp Pulse Resp BP -- -- -- -- SpO2 Temp src Heart Rate Source Patient Position -- -- -- -- BP Location FiO2 (%) -- -- Physical Exam Vitals and nursing note reviewed. Constitutional: General: She is not in acute distress. Appearance: She is well-developed. She is obese. She is not ill-appearing or diaphoretic. HENT: Head: Normocephalic and atraumatic. Jaw: There is normal jaw occlusion. No trismus or malocclusion. Salivary Glands: Right salivary gland is not diffusely enlarged or tender. Comments: Some tenderness and mild soft tissue edema along the right lower face jaw area, there is no fullness of the jaw in the submandibular area or sublingual area Right Ear: Tympanic membrane, ear canal and external ear normal. No mastoid tenderness. Mouth/Throat: Dentition: Abnormal dentition. Dental tenderness, gingival swelling and dental caries present. No dental abscesses (not visible). Pharynx: Oropharynx is clear. Uvula midline. No pharyngeal swelling or uvula swelling. Tonsils: No tonsillar abscesses. Comments: Posterior oropharynx visualized with tongue depressor does not show any abnormalities No dysphonia No pooling of secretions easily able to swallow Eyes: Conjunctiva/sclera: Conjunctivae normal. Cardiovascular: Rate and Rhythm: Normal rate and regular rhythm. Heart sounds: No murmur heard. Pulmonary: Effort: Pulmonary effort is normal. No respiratory distress. Breath sounds: Normal breath sounds. Abdominal: Palpations: Abdomen is soft. Tenderness: There is no abdominal tenderness. Musculoskeletal: Ge (more content not included)... Normal [facility] DBT Breast - bilateral scree vince 12-05-2023 No mammographic evid ence of malignancy. ASSESSMENT: Category 1 Negative RECOMMENDATION: Routine screening mammogram in 1 year. Bilateral CANCER RISK ASSESSMENT: This risk assessment is based on patient provided information collected in a risk survey taken at the time of this examination. LIFETIME BREAST CANCER RISK: Antonyer-Paulettezick: 8.27% - If greater than or equal to 20%, consider annual mammogram and annual screening Breast MRI or follow up in high risk clinic. Is the patient at elevated risk based on the HBOC criteria? No (Hereditary Breast and Ovarian Cancer) - If Yes, consider genetic counseling and testing with high risk follow up. Is the patient at elevated risk based on the Quinteros Syndrome criteria? No - If Yes, consider genetic counseling and testing with high risk follow up. Report Dictated on Electronically Signed By: Aurora Dominguez MD Electronically Signed Date/Time: 12/05/2023 2:51 PM EST [facility] [employer] [facility] 1960 [id number] Exam Date/Time: 12/05/2023 14:37 Procedure: BI MAMMOGRAM SCREENING TOMOSYNTHESIS BILATERAL Ordering Provider: LEBLANC DORA Reason For Exam: NORMAL MAMMOGRAM Image views: 2D Bilateral CC and MLO views were acquired. 3D Bilateral CC and MLO views were acquired. Images were reviewed with CAD. Markings on images: BB's = Nipples; skin lesions Open tulalip = Palpable Line = Scar COMPARISON: 11/30/2021, 12/03/2022 TISSUE DENSITY: BIRADS B - There are scattered fibroglandular densities. FINDINGS: No suspicious masses, architectural distortions or suspiciously clustered microcalcifications are identified. There is no evidence of skin thickening or nipple retraction. There are no significant changes when compared with prior studies. [facility] Aurora Dominguez MD - 12/05/2023 Patient Name: CORIE MURDOCK : 1960 [facility]#: [id number] Exam Date/Time: 12/05/2023 14:37 Procedure: BI MAMMOGRAM SCREENING TOMOSYNTHESIS BILATERAL Ordering Provider: LEBLANC DORA Reason For Exam: NORMAL MAMMOGRAM Image views: 2D Bilateral CC and MLO views were acquired. 3D Bilateral CC and MLO views were acquired. Images were reviewed with CAD. Markings on images: BB's = Nipples; skin lesions Open tulalip = Palpable Line = Scar COMPARISON: 11/30/2021, 12/03/2022 TISSUE DENSITY: BIRADS B - There are scattered fibroglandular densities. FINDINGS: No suspicious masses, architectural distortions or suspiciously clustered microcalcifications are identified. There is no evidence of skin thickening or nipple retraction. There are no significant changes when compared with prior studies. IMPRESSION: No mammographic evidence of malignancy. ASSESSMENT: Category 1 Negative RECOMMENDATION: Routine screening mammogram in 1 year. Bilateral CANCER RISK ASSESSMENT: This risk assessment is based on patient provided information collected in a risk survey taken at the time of this examination. LIFETIME BREAST CANCER RISK: Alice: 8.27% - If greater than or equal to 20%, consider annual mammogram and annual screening Breast MRI or follow up in high risk clinic. Is the patient at elevated risk based on the HBOC criteria? No (Hereditary Breast and Ovarian Cancer) - If Yes, consider genetic counseling and testing with high risk follow up. Is the patient at elevated risk based on the Quinteros Syndrome criteria? No - If Yes, consider genetic counseling and testing with high risk follow up. Report Dictated on Electronically Signed By: Aurora Dominguez MD Electronically Signed Date/Time: 12/05/2023 2:51 PM EST [employer] Radiology Study observation (narrative) [employer] DBT Breast - bilateral scree ningOrdered By: Aurora Dominguez on 12-05-2023 [facility] Work Phone: Hepatic function 2000 panelo n 12-05-2023 Albumin [Mass/Vol] 4.5 g/dL 3.5 - 5.0 g/dL [facility] ALP [Catalytic activity/Vol] 69 U/L 38 - 126 U/L [facility] ALT [Catalytic activity/Vol] 45 U/L High 0 - 34 U/L [facility] AST [Catalytic activity/Vol] 36 U/L 15 - 46 U/L [facility] Bilirubin [Mass/Vol] 0.4 mg/dL 0.2 - 1 .3 mg/dL [facility] Bilirubin.conjugated [Mass/Vol] 0.0 mg/dL 0.0 - 0.3 mg/dL [facility] Interpretation and review of laboratory results Abnormal [facility] Protein [Mass/Vol] 7.6 g/dL 6.3 - 8.2 g/dL [facility] Hepatic function 2000 panelo n 09-03-2023 Albumin [Mass/Vol] 4.2 g/dL 3.5 - 5.0 g/dL [facility] ALP [Catalytic activity/Vol] 58 U/L 38 - 126 U/L [facility] ALT [Catalytic activity/Vol] 40 U/L High 0 - 34 U/L [facility] AST [Catalytic activity/Vol] 28 U/L 15 - 46 U/L [facility] Bilirubin [Mass/Vol] 0.3 mg/dL 0.2 - 1 .3 mg/dL [facility] Bilirubin.conjugated [Mass/Vol] 0.0 mg/dL 0.0 - 0.3 mg/dL [facility] Interpretation and review of laboratory results Abnormal [facility] Protein [Mass/Vol] 6.9 g/dL 6.3 - 8.2 g/dL [facility] Bedside Glucoseon 07-17-2023 FINGERSTICK GLU 111 mg/dL High 74-106 [facility] Comment on above: Result Comment: RAFI GENNAENT OF PATIENT CARE PER NURSING PROTOCOL Performed By: #### L 501.080 ####[facility] [id number] [place], [place], [address] Calcaneus min 2 Viewson 06-30 Calcaneus min 2 Views [facility] [address] [place] [address] Calcaneus min 2 Views MR#: [id number] Acct: [id number] Name: CORIE MURDOCK Oliver Rep #: [id number] : 1960 F 62 From: Eliseo Travis MD PCP: HERMINIO Henriquez Status: REG [facility] Study: Calcaneus min 2 Views Date of Exam: 07/17/23 Exam# [id number] Ordering Dr: Jericho Bradley DPM [id number] STUDY: X-RAY - LEFT CALCANEUS REASON FOR EXAM: Female, 62 years old. Intraoperative digital documentation views. TECHNIQUE: A single lateral intraoperative digital documentation view(s) of the calcaneus was obtained. COMPARISON: None. FINDINGS: Single lateral intraoperative digital documentation views show cancellous screw defects in the posterior calcaneus. 15.5 seconds of fluoroscopy time were utilized with a cumulative dose of 0.34 mGy. RAD/Calcaneus min 2 Views IMPRESSION: Intraoperative digital documentation views. Electronically Signed: Eliseo Travis MD at 14:28 EDT , CC: GUERLINE Bradley; HYDROTECHNICAL SPECIALIST-C Danny Leblanc Refinery Operator Helper Cracking Unit: Signed Normal [facility] Glucose Glucometer (BldC) [M ass/Vol]Ordered By: Jericho Bradley on 07-17-2023 Glucose [Mass/Vol] 111 mg/dL 74-106 [facility] Comment on above: MANAGEMENT OF PATIEN T CARE PER NURSING PROTOCOL Operative Reporton 3 Operative Report [facility] [address] [place] [address] Operative Report 07/17/23 0931 MR#: [id number] Acct: [id number] Name: CORIE MURDOCK Oliver Rep #: [id number] : 1960 62 From: Jericho Bradley DPM PCP: JEAN-PAUL HenriquezC Status:DEP [facility] Location: [facility] Problems Associated Problem List Diagnoses (1) Achilles tendinitis of left lower extremity: (2) Bursitis of left ankle: (3) Jeffrey's deformity of left heel: (4) Left foot pain: (5) Other acute postprocedural pain: Report of Operation Date of Procedure: 07/17/23 Pre-Operative Diagnosis: 1. Jeffrey's deformity, left lower extremity 2. Achilles tendinitis, left lower extremity 3. Retrocalcaneal bursitis, left lower extremity 4. Tight Achilles tendon, left lower extremity 5. Pain, left foot Post-Operative Diagnosis: 1. Jeffrey's deformity, left lower extremity 2. Achilles tendinitis, left lower extremity 3. Retrocalcaneal bursitis, left lower extremity 4. Tight Achilles tendon, left lower extremity 5. Pain, left foot Surgery/Procedure Performed:: 1. Achilles tendon debridement and repair, left lower extremity 2. Partial excision/osteotomy of calcaneus, left lower extremity 3. Retrocalcaneal bursectomy, left lower extremity 4. PRP injection, left lower extremity 5. Application of graft, left lower extremity 6. Application of AO splint, left lower extremity Description of Surgical Findings:: 1. Evidence of Achilles tendinosis. Specimen was sent to pathology for evaluation 2. Negative Farrell test appreciated after attachment of the Achilles tendon via speed bridge. 3. After removal of the enthesophyte to the posterior aspect of the calcaneus there showed evidence of depression to the area reassuring complete removal of the enthesophyte. Surgeon: Jericho Bradley test architect: Lisa Guzman Type of Anesthesia: Block,Regional, MAC and Spinal General Anesthesia Anesthesiologist: Gustavo Owens Special Medications: PRP injection, left lower extremity Specimen's removed: 1. Achilles tendinosis, left lower extremity Drains: None Estimated Blood Loss (mL): 10 mL Fluids Replaced: Per anesthesia Description of Procedure: Indications For Operation: Mrs Murdock is a 62-year-old female who was admitted to [facility] for elective surgery to left lower extremity consisting of Achilles tendon repair, partial excision of calcaneus, retrocalcaneal bursectomy and PRP injection to the left lower extremity. Patient initially was planned for surgery approximately 1 week ago however at time of intubation she suffered a complication with intubation and the case had to be canceled. She was rescheduled for today where she would receive spinal anesthesia with monitored anesthesia care. Due to the increased pain, increased and retrocalcaneal bursitis as well as Achilles tendinitis versus tendinitis it had deemed necessary at this time to take the patient to the operating room to perform the procedure above to decrease and rid her of her constant pain. The nature of the problem, anticipated procedures, postop recovery/convalences and risk/complications include but not limited to infection, wound healing complications, hypertrophic scarring, numbness, tingling, chronic pain, CRPS, over and under correction, recurrence of deformity, DVT and or PE and the need for further surgery have been discussed in great detail with the patient. All questions have been answered to the patient's satisfaction. There are no guarantees given as to the outcome of the procedure. Description of Procedure: Under mild sedation, the patient was brought into the operating room and placed on the operating table in supine position. Once the patient was under spinal anesthesia along with monitored anesthesia care, the left lower extremity was not blocked at the time of procedure. The patient will have a popliteal block performed by anesthesia while in the PACU. Next, a well-padded thigh tourniquet was applied to the left lower extremity. Next, a timeout was then undertaken verifying the correct patient, extremity, visibility of preoperative markings, availability of the equipment. The left lower extremity was prepped and draped in normal aseptic manner. Next, using a Jamshidi needle bone marrow aspirate was removed from the left calcaneus, 40 mL in total, passed the back table to be sent off for PRP aliquots. A total of 3 cc of PRP was spun down. Next, a 4 inch Esmarch was applied to the left lower extremity and exsanguinated, elevated to 60 degrees for 1 minute and the thigh tourniquet was inflated to 275 mmHg. Next, attention was directed to the Achilles tendon, a skin marker was used to map out the incision which would be slightly posterior medial. Using a #15 blade a full-thickness incision down to subcutaneous tissue was made. Continued blunt dissection was carried down to th (more content not included)... Normal [facility] Surgery Specimen Level IIIon 07-17-2023 Surgery Specimen Level III Patient Age/Sex Location Account Attending Physician CORIE MURDOCK 62/F [facility] [id number] Dr. Jericho Bradley DPM Specimen: [id number] Received: 07/17/23 Status: ANCELMO Reyez Num: [id number] Spec Type: TENDON Subm Dr: Dr. Jericho Bradley DPM HEADER OPERATION: ERAS, left foot Achilles tendon debridement and partial excision PRE-OP DIAGNOSIS: Left foot pain, Achilles tendonitis, retrocalcaneal bursitis, Jeffrey's deformity TISSUE SUBMITTED: Achilles tendinosis left lower extremity MICROSCOPIC DIAGNOSIS Achilles tendon, left lower extremity: Pieces of dense fibroconnective tissue with reactive changes and reactive synovial tissue. See comment. SJ:nadja 07/19/2023 COMMENT Minute fragments of bone are also noted. MICROSCOPIC DESCRIPTION Slides are reviewed. GROSS DESCRIPTION Received in fixative is one container labeled with the patient's name and designated tendon left lower extremity. The specimen consists of multiple pieces of indurated barraza-white tendinous tissue that in aggregate measure 4.0 x 4.0 x 0.8 cm. Head Correction Officer portions are submitted in one cassette. / AM:nadja 07/18/2023 TC:5 CPT: 48402 Patient Age/Sex Location Account Attending Physician CORIE MURDOCK Oliver 62/F [facility] [id number] Dr. Jericho Bradley DPM Signed (signature on file) Dr. Joe Rivera MD 07/19/23 1449 Normal [facility] Comment on above: Performed By: #### P SUIII ####[facility] [id number] [place], [place], [address] 12 Lead EKGon 07-08-2023 12 Lead EKG [facility] Cardiovascular Services [address] [place] [address] 12 Lead EKG 07/08/23 1109 MR#: [id number] Acct: [id number] Name: CORIE MURDOCK Oliver Rep #: [id number] : 1960 62 From: Wilmar Bnaks MD Attending Dr: Dr. Jericho Bradley DPM Status: [facility] Ordering Dr: Armani Mac MD Date: 07/08/23 Location: [facility] Sex: F C Admitted: Test Reason : PRE-OP Blood Pressure : / mmHG Vent. Rate : 090 BPM Atrial Rate : 090 BPM P-R Int : 166 ms QRS Dur : 086 ms QT Int : 374 ms P-R-T Axes : 046 027 038 degrees QTc Int : 457 ms Normal sinus rhythm Normal ECG No previous ECGs available Confirmed by WILMAR BANKS MD ([id number]), film and video editor SKYLAR QUIROZ ([id number]) on 07/09/2023 2:03:15 PM Referred By: Jericho Bradley Confirmed By:WILMAR BANKS MD 07/09/23 1403 Date Wilmar Banks MD CC: DPM Dr. Jericho Bradley; HYDROTECHNICAL SPECIALIST-C Danny Leblanc; Dr. Armani Mac MD Signed Normal [facility] Bedside Glucoseon 07-08-2023 FINGERSTICK GLU 204 mg/dL High 74-106 [facility] Comment on above: Result Comment: RAFI GEMENT OF PATIENT CARE PER NURSING PROTOCOL Performed By: #### L 501.080 #### [facility] Laboratory [address] [place], [address] Glucose Glucometer (BldC) [M ass/Vol]Ordered By: Jericho Bradley on 07-08-2023 Glucose [Mass/Vol] 204 mg/dL 74-106 [facility] Comment on above: MANAGEMENT OF PATIEN T CARE PER NURSING PROTOCOL MRSA/SAID NASAL SCREENon MRSA+SAID SCRN Reason for Exam: PRE OP PREOP MRSA MRSA Negative S. AUREUS S. aureus Negative Normal [facility] Comment on above: Performed By: #### M 100.651, L501.5200 #### [facility] [address] [place], [address] Laboratory - Chemistry and C hemistry - challengeOrdered By: Jericho Bradley on 07-02-2023 Magnesium [Mass/Vol] 2.1 mg/dL 1.6-2.6 [facility] Magnesiumon 07-02-2023 Magnesium [Mass/Vol] 2.1 mg/dL Normal 1.6-2.6 [facility] Comment on above: Performed By: #### M 100.651, L501.5200 #### [facility] [address] [place], [address] No Panel InformationOrdered By: Jericho Bradley on 07-02-2023 Nasal Screen MRSA/MSSA [facility] Color of specimen determinat ionOrdered By: Danny Leblanc on 05-28-2023 Color (Unsp spec) [facility] Laboratory - Miscellaneous t estsOrdered By: Danny Leblanc on 05-28-2023 Service comment (Unsp spec) [Interp] See comment [facility] Comment on above: Physician questions regarding Calculi Analysis contactNorth[facility] CenterCorp at: [phone]. Calculi report will follow via computer, mail or courierdelivery. Measurement of weight of sto neOrdered By: Danny Leblanc on 05-28-2023 Weight (Stone) 69 mg [facility] No Panel InformationOrdered By: Danny Leblanc on 05-28-2023 Stone Analysis (T) See comment [facility] Comment on above: Percentage (Represen ts the % composition) Stone Calcium Oxalate Monohydrate 30 % [facility] Origin of StoneOrdered By: Reyes Leblanc on 05-28-2023 Origin Nom (Stone) Not Provided [facility] Size of stoneOrdered By: Romel Leblanc on 05-28-2023 Size (Stone) [Entitic vol] 7x4 mm [facility] Comment on above: Multiple pieces rece ived. Dimensions of the largest piece reported. Thin prep Papanicolaou smear with manual screeningOrdered By: Danny Leblanc on 05-28-2023 Thin prep Papanicolaou smear with manual screening See comment [facility] Comment on above: Photograph will foll ow under a separate cover Uric acid crystals detection in stone by infrared spectroscopyOrdered By: Danny Leblanc on 05-28-2023 Urate crystals Infrared spectroscopy Ql (Stone) 70 % [facility] Absolute lymphocyte countOrd ered By: Danny Leblanc on 05-24-2023 Lymphocytes Auto (Unsp spec) [#/Vol] 2.03 10*3/uL 0.83-4.51 [facility] Basophil percentageOrdered B y: Danny Leblanc on 05-24-2023 Basophils/100 WBC (Bld) 0.7 % 0-1 [facility] Bilirubin [Mass/Vol] 0.20 mg/dL 0.20-1.00 [facility] Comment on above: For patients on eltr ombopag therapy, use of Dimension [place] TBIL is not recommended. Chloride [Moles/Vol] 109 mmol/L 98-107 [facility] Cholesterol [Mass/Vol] 226 mg/dL <200 [facility] Comment on above: <200 mg/dL Desirable 200-240 mg/dL Borderline >240 mg/dL High Risk Eosinophils/100 WBC (Bld) 2.3 % 0-5 [facility] Glucose [Mass/Vol] 93 mg/dL 74-106 [facility] Neutrophils (Bld) [#/Vol] 7.4 10*3/uL 2.0-7.7 [facility] Neutrophils/100 WBC (Bld) 70.1 % 47-70 [facility] Potassium [Moles/Vol] 3.7 mmol/L 3.5-5.1 [facility] Protein [Mass/Vol] 7.3 g/dL 6.4-8.2 [facility] Sodium [Moles/Vol] 142 mmol/L 136-145 [facility] Triglyceride [Mass/Vol] 256 mg/dL <199 [facility] Comment on above: The drugs N-Acetylcy steine and Metamizole may falsely depress this assay.Serum Triglycerides Reference Interval Normal <150 mg/dL Borderline high 150 - 199 mg/dL High 200 - 499 mg/dL Very High > or = 500 mg/dL WBC (Bld) [#/Vol] 10.5 10*3/uL 4.4-11.0 [facility] Blood erythrocytes count (nu mber/volume)Ordered By: Danny Leblanc on 05-24-2023 RBC (Bld) [#/Vol] 4.33 10*6/uL 4.2-5.4 [facility] Blood hemoglobin measurement (mass/volume)Ordered By: Danny Leblanc on 05-24-2023 Hemoglobin (Bld) [Mass/Vol] 12.2 g/dL 12.0-15.0 [facility] Blood lymphocytes/100 leukoc ytesOrdered By: Danny Leblanc on 05-24-2023 Lymphocytes/100 WBC (Bld) 19.4 % 19-41 [facility] Blood monocytes/100 leukocyt esOrdered By: Danny Leblanc on 05-24-2023 Monocytes/100 WBC (Bld) 7.3 % 0-10 [facility] Blood platelet mean volumeOr dered By: Danny Leblanc on 05-24-2023 Platelet mean volume (Bld) [Entitic vol] 10.1 fL 6.2-12.0 [facility] Determination of erythrocyte mean corpuscular volume (MCV)Ordered By: Danny Leblanc on 05-24-2023 MCV (RBC) [Entitic vol] 89.6 fL 81-99 [facility] Hematocrit Auto (Bld) [Volum e fraction]Ordered By: Danny Leblanc on 05-24-2023 Hematocrit (Bld) [Volume fraction] 38.8 % 37-47 [facility] Laboratory - Chemistry and C hemistry - challengeOrdered By: Danny Leblanc on 05-24-2023 ALP [Catalytic activity/Vol] 64 U/L 45-117 [facility] ALT [Catalytic activity/Vol] 45 U/L 13-56 [facility] CO2 [Moles/Vol] 27.0 mmol/L 21.0-32.0 [facility] Globulin (S) [Mass/Vol] 3.6 g/dL 2.2-4.2 [facility] Urea nitrogen/Creatinine [Mass ratio] 17.1 mg/mg 10-20 [facility] Laboratory - Hematology and Cell countsOrdered By: Danny Leblanc on 05-24-2023 Erythrocyte distribution width (RBC) [Entitic vol] 42.8 fL 35.1-43.9 [facility] Erythrocyte distribution width (RBC) [Ratio] 13.1 % 11.6-14.6 [facility] Immature granulocytes/100 WBC (Bld) 0.200 % 0.0-0.9 [facility] Comment on above: IG% - Immature Granu locytes (promyelocytes, myelocytes and metamyelocytes) > 1% indicates that a LEFT SHIFT is Present. MCH (RBC) [Entitic mass] 28.2 pg 27.0-32.0 [facility] Nucleated RBC/100 WBC (Bld) [Ratio] 0 % 0-5 [facility] MCHC Auto (RBC) [Mass/Vol]Or dered By: Danny Leblanc on 05-24-2023 MCHC (RBC) [Mass/Vol] 31.4 g/dL 32-36 [facility] No Panel InformationOrdered By: Danny Leblanc on 05-24-2023 Estimated GFR (MDRD) Amer 57 mL/min >60 [facility] Comment on above: GFR Calc Estimated GFR (MDRD) Non-Af Amer 47 mL/min >60 [facility] Comment on above: Non- GFR Calc Thyroid Stimulating Hormone (TSH) 0.79 uIU/mL 0.358-3.74 [facility] Platelets bldOrdered By: Romel Leblanc on 05-24-2023 Platelets (Bld) [#/Vol] 287 10*3/uL 150-450 [facility] Serum or plasma albumin jaswant urement (mass/volume)Ordered By: Danny Leblanc on 05-24-2023 Albumin [Mass/Vol] 3.7 g/dL 3.2-5.0 [facility] Serum or plasma albumin/glob ulin mass ratioOrdered By: Danny Leblanc on 05-24-2023 Albumin/Globulin [Mass ratio] 1.0 {ratio} 0.9-2.4 [facility] Serum or plasma calcium jaswant urement (mass/volume)Ordered By: Danny Leblanc on 05-24-2023 Calcium [Mass/Vol] 8.8 mg/dL 8.5-10.1 [facility] Serum or plasma cholesterol in HDL measurement (mass/volume)Ordered By: Danny Leblanc on 05-24-2023 Cholesterol in HDL [Mass/Vol] 33 mg/dL >40 [facility] Comment on above: The drugs N-Acetylcy steine and Metamizole may falsely depress this assay. Reference Range HDL <40 mg/dL Low HDL Cholesterol HDL >or= 60 mg/dL High HDL Cholesterol Serum or plasma cholesterol in VLDL measurement (mass/volume)Ordered By: Danny Leblanc on 05-24-2023 Cholesterol in VLDL [Mass/Vol] 51 mg/dL 5-40 [facility] Serum or plasma creatinine m easurement (mass/volume)Ordered By: Danny Leblanc on 05-24-2023 Creatinine [Mass/Vol] 1.23 mg/dL 0.55-1.02 [facility] Comment on above: The validity of the calculated GFR & GFRAA in patients over 70 years has not been determined. Clinical correlation is essential. Serum or plasma low density lipoprotein (LDL) cholesterol measurement (mass/volume)Ordered By: Danny Leblanc on 05-24-2023 Cholesterol in LDL [Mass/Vol] 142 mg/dL 0-130 [facility] Serum or plasma urea nitroge n measurement (mass/volume)Ordered By: Danny Leblanc on 05-24-2023 Urea nitrogen [Mass/Vol] 21 mg/dL 7-18 [facility] Thin prep Papanicolaou smear with manual screeningOrdered By: Danny Leblanc on 05-24-2023 Thin prep Papanicolaou smear with manual screening 19 U/L 15-37 [facility] Thin prep Papanicolaou smear with manual screening 6 5-[address] [facility] [address] Abdomen WO contraston Impression: 1. 0.4 cm at least partially obstructing distal left ureteral stone 0.4 cm causing mild hydronephrosis and hydroureter and left perinephric inflammation. Additional tiny bilateral renal stones. 2. Diffuse fatty infiltration of the liver. 3. Mild diverticulosis but no acute diverticulitis. Report Dictated on Electronically Signed By: Varun Prather MD Electronically Signed Date/Time: 05/10/2023 11:44 AM [facility] [employer] Funding RADIOLOGY SYSTEM [facility]ARTNEY [facility] 1960 [id number] Exam Date/Time: 05/10/2023 11:31 Procedure: CT ABDOMEN PELVIS WO IV CONTRAST Ordering Provider: CALVIN VIJAY Reason For Exam: Flank pain, kidney stone suspected Examination: CT abdomen and pelvis Clinical Indication: Flank pain, kidney stone suspected Comparison: 07/03/2022 Findings: Serial [address] images were obtained from the lung bases through the abdomen and pelvis without administration of intravenous or oral contrast. Coronal and sagittal images were reconstructed. Examination was viewed in multiple windows. Dose reduction was employed with automated exposure control. Visualized lower lungs are clear. Benign calcified granulomas inferior right hilum and bilateral lower lungs. Minimal pleural thickening left greater than right. Liver demonstrates hypodensity, diffuse fatty infiltration but no focal lesion. Some sparing along the gallbladder fossa. Gallbladder, spleen, pancreas, and adrenals are within normal limits on this noncontrast exam. Small benign calcified granuloma within the spleen. Mild renal cortical thinning. Small nonobstructing 0.25 cm calcification within the lower pole on the right. Additional tiny lower pole calculi. The left kidney also demonstrates tiny nonobstructing calculi measuring up to 0.25 cm in the lower pole. There is mild hydronephrosis and perinephric fat stranding and mild hydroureter. There is a calcification within the distal left ureter measuring 0.4 cm 2.5 cm proximal to the bladder. No abdominal or pelvic lymphadenopathy, ascites, or free intraperitoneal air. Large and small bowel normal in caliber without distension or paracolonic inflammation. There is mild diverticulosis but no acute diverticulitis. No evidence of appendicitis. Visualized bladder within normal limits. No gross pelvic inflammation. Degenerative changes within the spine, SI joints, hips and pubis. 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 [facility] RADIOLOGY SYSTEM Varun Prather MD - 05/10/2023 Patient Name: CORIE MURDOCK : 1960 Exam Date/Time: 05/10/2023 11:31 Procedure: CT ABDOMEN PELVIS WO IV CONTRAST Ordering Provider: CALVIN VIJAY Reason For Exam: Flank pain, kidney stone suspected Examination: CT abdomen and pelvis Clinical Indication: Flank pain, kidney stone suspected Comparison: 07/03/2022 Findings: Serial [address] images were obtained from the lung bases through the abdomen and pelvis without administration of intravenous or oral contrast. Coronal and sagittal images were reconstructed. Examination was viewed in multiple windows. Dose reduction was employed with automated exposure control. Visualized lower lungs are clear. Benign calcified granulomas inferior right hilum and bilateral lower lungs. Minimal pleural thickening left greater than right. Liver demonstrates hypodensity, diffuse fatty infiltration but no focal lesion. Some sparing along the gallbladder fossa. Gallbladder, spleen, pancreas, and adrenals are within normal limits on this noncontrast exam. Small benign calcified granuloma within the spleen. Mild renal cortical thinning. Small nonobstructing 0.25 cm calcification within the lower pole on the right. Additional tiny lower pole calculi. The left kidney also demonstrates tiny nonobstructing calculi measuring up to 0.25 cm in the lower pole. There is mild hydronephrosis and perinephric fat stranding and mild hydroureter. There is a calcification within the distal left ureter measuring 0.4 cm 2.5 cm proximal to the bladder. No abdominal or pelvic lymphadenopathy, ascites, or free intraperitoneal air. Large and small bowel normal in caliber without distension or paracolonic inflammation. There is mild diverticulosis but no acute diverticulitis. No evidence of appendicitis. Visualized bladder within normal limits. No gross pelvic inflammation. Degenerative changes within the spine, SI joints, hips and pubis. 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 IMPRESSION: Impression: 1. 0.4 cm at least partially obstructing distal left ureteral stone 0.4 cm causing mild hydronephrosis and hydroureter and left perinephric inflammation. Additional tiny bilateral renal stones. 2. Diffuse fatty infiltration of the liver. 3. Mild diverticulosis but no acute diverticulitis. Report Dictated on Electronically Signed By: Varun Prather MD Electronically Signed Date/Time: 05/10/2023 11:44 AM EDT [employer] Radiology Study observation (narrative) [facility] Abdomen WO contrastOrdere d By: Varun Prather on 05-10-2023 [facility] Work Phone: Urinalysis complete panel (U )Ordered By: Amina Ulloa on 05-10-2023 Bacteria LM.HPF (Urine sed) [#/Area] Few Abnormal Negative /HPF [facility] Bilirubin Ql (U) Negative Negative mg/dL [facility] Clarity (U) Clear Clear [facility] Color (U) Light Yellow Lt. Yellow [facility] Epithelial cells.squamous LM.HPF (Urine sed) [#/Area] 0-2 [facility] Glucose Ql (U) 30 mg/dL Normal (<70) [facility] Hemoglobin Ql (U) Negative Negative mg/dL [facility] Interpretation and review of laboratory results Abnormal [facility] Ketones (U) [Mass/Vol] 20 mg/dL Abnormal Negative [facility] Leukocyte esterase Test strip Ql (U) 250 Abnormal Negative Apolonia/uL [facility] Mucus LM.HPF (Urine sed) [#/Area] Few Negative /LPF [facility] Nitrite Ql (U) Negative Negative [facility] pH (U) 5.5 [pH] 5.0 - 8.0 pH [facility] Protein (U) [Mass/Vol] 10 mg/dL Abnormal Negative [facility] RBC LM.HPF (Urine sed) [#/Area] 0-2 [facility] Specific gravity (U) [Rel density] 1.019 1.005 - 1.030 [facility] Urobilinogen (U) [Mass/Vol] Normal Normal (0-1) mg/dL [facility] Volume, Urine 8-12 mL [facility] WBC LM.HPF (Urine sed) [#/Area] 6-10 Abnormal [facility] CBC W Auto Differential pane l (Bld)Ordered By: Jaycob Hidalgo on 05-08-2023 Basophils (Bld) [#/Vol] 0.1 10*3/uL 0.0 - 0.2 10*3/uL [facility] Basophils/100 WBC (Bld) 0.8 % 0.0 - 2.0 % [facility] Eosinophils (Bld) [#/Vol] 0.4 10*3/uL 0.0 - 0.5 10*3/uL [facility] Eosinophils/100 WBC (Bld) 5.4 % 1.0 - 6.0 % [facility] Erythrocyte distribution width (RBC) [Ratio] 13.2 % 11.5 - 14.5 % [facility] Hematocrit (Bld) [Volume fraction] 40.2 % 35.0 - 47.0 % [facility] Hemoglobin (Bld) [Mass/Vol] 13.1 g/dL 11.7 - 16.0 g/dL [facility] Immature granulocytes (Bld) [#/Vol] 0.0 10*3/uL NINF - 0.0 10*3/uL [facility] Immature granulocytes/100 WBC (Bld) 0.3 % High NINF - 0.0 % [facility] Interpretation and review of laboratory results Abnormal [facility] Lymphocytes (Bld) [#/Vol] 1.8 10*3/uL 1.0 - 4.3 10*3/uL [facility] Lymphocytes/100 WBC (Bld) 25.4 % 20.0 - 40.0 % [facility] MCH (RBC) [Entitic mass] 28.5 pg 26.0 - 34.0 pg [facility] MCHC (RBC) [Mass/Vol] 32.6 % 32.0 - 36.0 % [facility] MCV (RBC) [Entitic vol] 87.4 fL 80.0 - 98.0 fL [facility] Monocytes (Bld) [#/Vol] 0.6 10*3/uL 0.0 - 0.8 10*3/uL [facility] Monocytes/100 WBC (Bld) 7.9 % 2.0 - 10.0 % [facility] Neutrophils (Bld) [#/Vol] 4.3 10*3/uL 1.8 - 7.0 10*3/uL [facility] Neutrophils/100 WBC (Bld) 60.2 % 40.0 - 80.0 % [facility] Platelet mean volume (Bld) [Entitic vol] 9.2 fL 7.4 - 12.4 fL [facility] Comment on above: MPV is a calculated measurement using platelet volume ratio Platelets (Bld) [#/Vol] 283 10*3/uL 140 - 440 10*3/uL [facility] RBC (Bld) [#/Vol] 4.60 10*6/uL 3.8 - 5.20 10*6/uL [facility] WBC (Bld) [#/Vol] 7.1 10*3/uL 3.6 - 10.7 10*3/uL [facility] Celiac PanelOrdered By: Dang Lam on 05-08-2023 [facility] Gliadin Peptide IgA U/ml NINF - 15.0 U/ml [facility] Gliadin IgG IA Qn (S) U/ml NINF - 15.0 U/ml [facility] Interpretation and review of laboratory results Normal [facility] tTG IgA IA Qn (S) U/mL NINF - 15.0 U/mL [facility] tTG IgA IA Qn (S) U/mL NINF - 15.0 U/mL [facility] TTG Interpretive Information: Results of 15 Units/mL or greater = POSITIVE Results Less than 15 Units/mL = NEGATIVE [facility] Gliadin Peptide Interpretive Information: Results of 15 Units/mL or greater = POSITIVE Results Less than 15 Units/mL = NEGATIVE [facility] Comprehensive metabolic 1998 panelon 05-08-2023 Albumin [Mass/Vol] 4.3 g/dL 3.5 - 5.0 g/dL [facility] ALP [Catalytic activity/Vol] 67 U/L 38 - 126 U/L [facility] ALT [Catalytic activity/Vol] 43 U/L High 0 - 34 U/L [facility] Anion gap [Moles/Vol] 11 mmol/L 3 - 13 mmol/L [facility] AST [Catalytic activity/Vol] 34 U/L 15 - 46 U/L [facility] Bilirubin [Mass/Vol] 0.4 mg/dL 0.2 - 1 .3 mg/dL [facility] Calcium [Mass/Vol] 9.0 mg/dL 8.4 - 10. 4 mg/dL [facility] Chloride [Moles/Vol] 106 mmol/L 98 - 10 7 mmol/L [facility] CO2 [Moles/Vol] 23 mmol/L 22 - 30 mmol/L [facility] Creatinine [Mass/Vol] 0.66 mg/dL 0.52 - 1.04 mg/dL [facility] GFR/1.73 sq M.predicted MDRD (S/P/Bld) [Vol rate/Area] - PINF [facility] Comment on above: Calculation based on the Chronic Kidney Disease Epidemiology Collaboration (CKD-EPI) equation refit without adjustment for race Glucose [Mass/Vol] 103 mg/dL High 70 - 100 mg/dL [facility] Interpretation and review of laboratory results Abnormal [facility] Potassium [Moles/Vol] 4.0 mmol/L 3.5 - 5.1 mmol/L [facility] Protein [Mass/Vol] 7.7 g/dL 6.3 - 8.2 g/dL [facility] Sodium [Moles/Vol] 140 mmol/L 135 - 145 mmol/L [facility] Urea nitrogen [Mass/Vol] 19 mg/dL High 7 - 17 mg/dL [facility] Lipaseon 05-08-2023 Lipase [Catalytic activity/Vol] 264 U/L 23 - 300 U/L [facility] Lipase [Catalytic activity/V ol]on 05-08-2023 Interpretation and review of laboratory results Normal [facility] No Panel Informationon 05-08 [facility] TSHon 05-08-2023 TSH Qn 0.848 m[IU]/L [facility] TSH Qnon 05-08-2023 Interpretation and review of laboratory results Normal [facility] DBT Breast - bilateral scree ningon 12-03-2022 No mammographic evid ence of malignancy. ASSESSMENT: Category 1 Negative RECOMMENDATION: Routine screening mammogram in 1 year. Bilateral Report Dictated on Electronically Signed By: Debi Moeller Electronically Signed Date/Time: 12/03/2022 4:09 PM [facility] SYSTEM Patient Name: CORIE MCCARTNEY : 1960 Exam Date/Time: 12/03/2022 11:28 Procedure: BI MAMMOGRAM SCREENING TOMOSYNTHESIS BILATERAL Ordering Provider: LEBLANC DORA Reason For Exam: Z12.31 Image views: 2D Bilateral CC and MLO views were acquired. 3D Bilateral CC and MLO views were acquired. Images were reviewed with CAD. Markings on images: BB's = Nipples; skin lesions Open tulalip = Palpable Line = Scar COMPARISON: 11/30/2021 and 11/28/2020 TISSUE DENSITY: BIRADS B - There are scattered fibroglandular densities. FINDINGS: No suspicious masses, architectural distortions or suspiciously clustered microcalcifications are identified. There is no evidence of skin thickening or nipple retraction. There are no significant changes when compared with prior studies. [facility] Diarize [facility] Debi Moeller MD - 12/03/2022 Patient Name: CORIE MURDOCK : 1960 [facility]#: [id number] Exam Date/Time: 12/03/2022 11:28 Procedure: BI MAMMOGRAM SCREENING TOMOSYNTHESIS BILATERAL Ordering Provider: LEBLANC DORA Reason For Exam: Z12.31 Image views: 2D Bilateral CC and MLO views were acquired. 3D Bilateral CC and MLO views were acquired. Images were reviewed with CAD. Markings on images: BB's = Nipples; skin lesions Open tulalip = Palpable Line = Scar COMPARISON: 11/30/2021 and 11/28/2020 TISSUE DENSITY: BIRADS B - There are scattered fibroglandular densities. FINDINGS: No suspicious masses, architectural distortions or suspiciously clustered microcalcifications are identified. There is no evidence of skin thickening or nipple retraction. There are no significant changes when compared with prior studies. IMPRESSION: No mammographic evidence of malignancy. ASSESSMENT: Category 1 Negative RECOMMENDATION: Routine screening mammogram in 1 year. Bilateral Report Dictated on Electronically Signed By: Debi Moeller Electronically Signed Date/Time: 12/03/2022 4:09 PM EST [facility] Rad[facility] Study observation (narrative) [facility] DBT Breast - bilateral scree ningOrdered By: Debi Moeller on 12-03-2022 [facility] Work Phone: Color of specimen determinat ionon 09-10-2022 Color (Unsp spec) Not Reportable [facility] Work Phone: Measurement of weight of sto neon 09-10-2022 Weight (Stone) Not Reportable [facility] Work Phone: Origin of Stoneon 09-10-2022 Origin Nom (Stone) See comment [facility] Work Phone: Comment on above: TEST RESULT LIMITSSt one Analysis Source Not provided Color [place] Size 3x4 mm Single piece received. Weight 32 mg Composition Percentage (Represents the % composition) Calcium Oxalate Monohydrate 30 % Uric Acid 70 % Photo Photograph will follow under a separate cover Comment: Physician questions regarding [facility] contact [facility] at: [phone]. Please note: [facility] report will follow via computer, mail or square dance caller delivery. Disclaimer: This test was developed and its performance characteristics determined by [facility]. It has not been cleared or approved by the Food and Drug Administration. TESTING PERFORMED AT [facility]. ORIGINAL REPORT ON FILE IN LAB CONTAINS ADDITIONAL TEST SITE INFORMATION. Size of stoneon 09-10-2022 Size (Stone) [Entitic vol] Not Reportable [facility] Work Phone: Basic Metabolic Panelon 10-0 Calcium [Mass/Vol] 9.3 mg/dL Normal 8.4-10.4 [facility] Comment on above: Performed By: #### Sandy MIRANDA3, HEMDF #### [facility] [address] [place] [address] Glucose [Mass/Vol] 122 mg/dL High 70-100 [facility] Comment on above: Performed By: #### Sandy MIRANDA3, HEMDF #### [facility] [address] [place] [address] Anion gap [Moles/Vol] 7 mmol/L Normal 3-13 [facility] Comment on above: Performed By: #### Sandy MIRANDA3, HEMDF #### [facility] [address] [place] [address] CO2 [Moles/Vol] 23 mmol/L Normal 22-30 [facility] Comment on above: Performed By: #### Sandy MP3, HEMDF #### [facility] [address] [place] [address] Creatinine [Mass/Vol] 0.82 mg/dL Normal 0.52-1.25 [facility] Comment on above: Performed By: #### Sandy MIRANDA3, HEMDF #### [facility] [address] [place] [address] GFR/1.73 sq M.predicted among blacks MDRD (S/P/Bld) [Vol rate/Area] 88.5 mL/min/{1.73_m2} Normal >60 [facility] Comment on above: Performed By: #### B MP3, HEMDF #### [facility] [address] [place] [address] GFR/1.73 sq M.predicted among non-blacks MDRD (S/P/Bld) [Vol rate/Area] 76.3 mL/min/{1.73_m2} Normal >60 [facility] Comment on above: Result Comment: KDIG O guidelines provide the following GFR categories: Stage GFR(ml/min/1.73 m2) Terms G1 >=90 Normal or high G2 60-89 Mildly decreased* G3a 45-59 Mildly to moderately decreased G3b 30-44 Moderately to severely decreased G4 15-29 Severely decreased G5 <15 Kidney failure *Relative to young adult level. In the absence of evidence of kidney damage, neither GFR category G1 nor G2 fulfill the criteria for CKD. The CKD-EPI equation is validated in individuals 18 years of age and older. Currently the best equation for estimating glomerular filtration rate (GFR) from serum creatinine in children is the Bedside Miller equation. It is less accurate in patients with extremes of muscle mass, restriction of dietary protein, ingestion of creatine, extra-renal metabolism of creatinine, or treatment with medications that affect renal tubular creatinine secretion. Performed By: #### B MP3, HEMDF #### [facility] [address] [place] [address] Urea nitrogen [Mass/Vol] 20 mg/dL Normal 9-20 [facility] Comment on above: Performed By: #### B MP3, HEMDF #### [facility] [address] [place] [address] Chloride [Moles/Vol] 111 mmol/L High 98-107 [facility] Comment on above: Performed By: #### B MP3, HEMDF #### [facility] [address] [place] [address] Potassium [Moles/Vol] 4.2 mmol/L Normal 3.5-5.1 [facility] Comment on above: Performed By: #### B MP3, HEMDF #### [facility] [address] [place] [address] Sodium [Moles/Vol] 141 mmol/L Normal 135-145 [facility] Comment on above: Performed By: #### B MP3, HEMDF #### [facility] [address] [place] [address] Test Performed by [facility], [address] , [place], [place] [id number] [place] [address] LAB Basic Metabolic PanelOrdered By: Shelton Taylor on 07-03-2022 Anion gap [Moles/Vol] 7 mmol/L 3 - 13 mmol/L [facility] Work Phone: Calcium [Mass/Vol] 9.3 mg/dL 8.4 - 10. 4 mg/dL [facility] Work Phone: Chloride [Moles/Vol] 111 mmol/L High 98 - 10 7 mmol/L [facility] Work Phone: CO2 [Moles/Vol] 23 mmol/L 22 - 30 mmol/L [facility] Work Phone: Creatinine [Mass/Vol] 0.82 mg/dL 0.52 - 1.25 mg/dL [facility] Work Phone: EGFR IF NonAfrican [place] Citizen 76.3 mL/min 60 - PINF mL/min [facility] Work Phone: Comment on above: KDIGO guidelines pro vide the following GFR categories: Stage GFR(ml/min/1.73 m2) Terms G1 >=90 Normal or high G2 60-89 Mildly decreased* G3a 45-59 Mildly to moderately decreased G3b 30-44 Moderately to severely decreased G4 15-29 Severely decreased G5 <15 Kidney failure *Relative to young adult level. In the absence of evidence of kidney damage, neither GFR category G1 nor G2 fulfill the criteria for CKD. The CKD-EPI equation is validated in individuals 18 years of age and older. Currently the best equation for estimating glomerular filtration rate (GFR) from serum creatinine in children is the Bedside Miller equation. It is less accurate in patients with extremes of muscle mass, restriction of dietary protein, ingestion of creatine, extra-renal metabolism of creatinine, or treatment with medications that affect renal tubular creatinine secretion. GFR/1.73 sq M.predicted among blacks MDRD (S/P/Bld) [Vol rate/Area] 88.5 mL/min/{1.73_m2} 60 - PINF mL/min [facility] Work Phone: Glucose [Mass/Vol] 122 mg/dL High 70 - 100 mg/dL [facility] Work Phone: Interpretation and review of laboratory results Abnormal [facility] Work Phone: Potassium [Moles/Vol] 4.2 mmol/L 3.5 - 5.1 mmol/L [facility] Work Phone: Sodium [Moles/Vol] 141 mmol/L 135 - 145 mmol/L [facility] Work Phone: Urea nitrogen (BldV) [Mass/Vol] 20 mg/dL 9 - 20 mg/dL [facility] Work Phone: [facility] Work Phone: CBC with Auto Differentialon 07-03-2022 Absolute Baso # 0.1 10*3/uL 0 - 0.2 10*3/uL [facility] Work Phone: Absolute Neut # 3.0 10*3/uL 1.8 - 7 10*3/uL [facility] Phone: Basophils/100 WBC (Bld) 1.2 % 0 - 2 % [facility] Work Phone: Eosinophils (Bld) [#/Vol] 0.3 10*3/uL 0 - 0.5 10*3/uL [facility] Phone: [phone] Eosinophils/100 WBC (Bld) 5.1 % 1 - 6 % [facility] Work Phone: Granulocytes/100 WBC (Bld) 52.4 % 40 - 80 % [facility] Phone: Hematocrit (Bld) [Volume fraction] 41.1 % 35 - 47 % [facility] Phone: Hemoglobin (Bld) [Mass/Vol] 13.6 g/dL 11.7 - 16 g/dL [facility] Work Phone: 1() 222 Lymphocytes (Bld) [#/Vol] 1.8 10*3/uL 1 - 4.3 10*3/uL [facility] Work Phone: 1() 222 Lymphocytes/100 WBC (Bld) 31.9 % 20 - 40 % [facility] Work Phone: () 222 MCH (RBC) [Entitic mass] 28.9 pg 26 - 34 pg [facility] Work Phone: () 222 MCHC (RBC) [Mass/Vol] 33.1 % 32 - 36 % [facility] Work Phone: 1() 222 MCV (RBC) [Entitic vol] 87.4 fL 79 - 98 fL [facility] Work Phone: () 222 Monocytes (Bld) [#/Vol] 0.5 10*3/uL 0 - 0.8 10*3/uL [facility] Work Phone: () 222 Monocytes/100 WBC (Bld) 9.0 % 2 - 10 % [facility] Work Phone: 1() 222 Platelet distribution width (Bld) [Ratio] 13.2 % 11.5 - 14.5 % [facility] Work Phone: () Platelet mean volume (Bld) [Entitic vol] 9.7 fL 7.4 - 12.4 fL [facility] Work Phone: () 222 Comment on above: MPV is a calculated measurement using platelet volume ratio. Platelets (Bld) [#/Vol] 277 10*3/uL 140 - 440 10*3/uL [facility] Work Phone: 1() 222 RBC (Bld) [#/Vol] 4.70 10*6/uL 3.8 - 5.2 10*6/uL [facility] Work Phone: () 222 WBC (Bld) [#/Vol] 5.6 10*3/uL 3.6 - 10.7 10*3/uL [facility] Work Phone: 1() [phone] Test Performed by [facility], [facility] [address] , [address] LAB [facility] Work Phone: CT Abdomen Pelvis Wo Eleni trejo 07-03-2022 [facility]: [id number] Tom[facility] ACCESSION EXAM DATE/TIME PROCEDURE ORDERING PROVIDER [id number] 07/03/2022 11:[address] Abdomen/Pelvis (No MD TAYLOR DAVID L PO, No IV) CPT code 96191 Reason For Exam (CT Abdomen/Pelvis (No PO, No IV)) L flank and LLQ pain, h/o stones Report CLINICAL INFORMATION: Left flank and lower quadrant abdominal pain. History of urolithiasis. CT abdomen and pelvis without intravenous contrast: CT abdomen: Volume acquisition CT images are obtained the diaphragm to the iliac crests without oral or intravenous contrast administration with axial, coronal and sagittal 2-D reconstructions. Images through the lower chest demonstrate a suspected calcified granuloma in the posterior aspect of the right lower lobe partially included on the most superior image. There are calcified right hilar lymph nodes. There are no other significant abnormal pleural or parenchymal densities. There are multiple calcified bilateral calyceal calculi, the largest on the left is in the lower pole measuring 6 mm, and the largest on the right is in the lower pole measuring 5 mm. There is mild left pelvocaliectasis and proximal ureteral dilatation extending into the pelvis. No other calcified renal or proximal ureteral calculi are identified on either side. There is no hydronephrosis or proximal ureteral dilatation on the right. The unenhanced kidneys are otherwise unremarkable in size, configuration and density. There are streaky densities in the left perinephric fat most likely related to distal obstruction. The unenhanced liver it is decreased in density relative to the spleen consistent with mild fatty metamorphosis with probable focal sparing in the anterior aspect of the medial segment of the left lobe. No discrete mass or intrahepatic biliary dilatation is seen. There is no abnormality of the gallbladder. The unenhanced spleen and pancreas are unremarkable in size, configuration and density. There is no adrenal gland mass or enlargement. There is no visible abnormality of the unopacified stomach, small or large bowel. There is no ascites or retroperitoneal lymphadenopathy. No other focal mass, fluid collection or inflammatory process is seen. There is no abnormality of the abdominal aorta. Computed Tomography Report CT pelvis: Volume acquisition CT images were obtained from the iliac crests to the symphysis pubis without oral or intravenous contrast administration with axial, coronal and sagittal 2-D reconstructions. There is a 5 mm calcified distal ureteral calculus at the ureterovesical junction. No calcified calculi or dilatation is seen of either distal ureter. The urinary bladder is unopacified and predominantly contracted limiting evaluation. No calcified calculus is identified. No focal mass or fluid collection is seen. There is no iliac or inguinal lymphadenopathy. There are numerous sigmoid colon diverticula without evidence of diverticulitis. No ascites or inflammatory changes are identified. The cecum extends into the right side of the pelvis. The appendix is not identified with certainty. IMPRESSION: 1. 5 mm calcified calculus at the left UVJ with mild proximal collecting system dilatation and mild left perinephric inflammation. 2. Multiple additional nonobstructing bilateral renal calcified calyceal calculi. 3. No evidence or other calcified collecting system calculi or obstruction. Significant 4. Sigmoid diverticulosis without evidence of diverticulitis. 5. Mild fatty metamorphosis of the liver with focal sparing of the anterior medial segment of the left lobe. 6. No evidence of mass, lymphadenopathy or other inflammatory process. Report Dictated on --- Final --- Dictating Physician: MD HARDWICK HARLAN Signed Date and Time: 07/03/2022 11:28 am Signed by: MD HARDWICK HARLAN Transcribed Date and Time: 07/03/2022 11:29 [facility] Darian Hardwick MD - 07/03/2022 Patient Name: CORIE MURDOCK [facility]#: [id number] Computed Tomography ACCESSION EXAM DATE/TIME PROCEDURE ORDERING PROVIDER [id number] 07/03/2022 11:[address] Abdomen/Pelvis (Sarah TAYLOR MD, DAVID L PO, No IV) CPT code 18685 Reason For Exam (CT Abdomen/Pelvis (No PO, No IV)) L flank and LLQ pain, h/o stones Report CLINICAL INFORMATION: Left flank and lower quadrant abdominal pain. History of urolithiasis. CT abdomen and pelvis without intravenous contrast: CT abdomen: Volume acquisition CT images are obtained the diaphragm to the iliac crests without oral or intravenous contrast administration with axial, coronal and sagittal 2-D reconstructions. Images through the lower chest demonstrate a suspected calcified granuloma in the posterior aspect of the right lower lobe partially included on the most superior image. There are calcified right hilar lymph nodes. There are no other significant abnormal pleural or parenchymal densities. There are multiple calcified bilateral calyceal calculi, the largest on the left is in the lower pole measuring 6 mm, and the largest on the right is in the lower pole measuring 5 mm. There is mild left pelvocaliectasis and proximal ureteral dilatation extending into the pelvis. No other calcified renal or proximal ureteral calculi are identified on either side. There is no hydronephrosis or proximal ureteral dilatation on the right. The unenhanced kidneys are otherwise unremarkable in size, configuration and density. There are streaky densities in the left perinephric fat most likely related to distal obstruction. The unenhanced liver it is decreased in density relative to the spleen consistent with mild fatty metamorphosis with probable focal sparing in the anterior aspect of the medial segment of the left lobe. No discrete mass or intrahepatic biliary dilatation is seen. There is no abnormality of the gallbladder. The unenhanced spleen and pancreas are unremarkable in size, configuration and density. There is no adrenal gland mass or enlargement. There is no visible abnormality of the unopacified stomach, small or large bowel. There is no ascites or retroperitoneal lymphadenopathy. No other focal mass, fluid collection or inflammatory process is seen. There is no abnormality of the abdominal aorta. Computed Tomography Report CT pelvis: Volume acquisition CT images were obtained from the iliac crests to the symphysis pubis without oral or intravenous contrast administration with axial, coronal and sagittal 2-D reconstructions. There is a 5 mm calcified distal ureteral calculus at the ureterovesical junction. No calcified calculi or dilatation is seen of either distal ureter. The urinary bladder is unopacified and predominantly contracted limiting evaluation. No calcified calculus is identified. No focal mass or fluid collection is seen. There is no iliac or inguinal lymphadenopathy. There are numerous sigmoid colon diverticula without evidence of diverticulitis. No ascites or inflammatory changes are identified. The cecum extends into the right side of the pelvis. The appendix is not identified with certainty. IMPRESSION: 1. 5 mm calcified calculus at the left UVJ with mild proximal collecting system dilatation and mild left perinephric inflammation. 2. Multiple additional nonobstructing bilateral renal calcified calyceal calculi. 3. No evidence or other calcified collecting system calculi or obstruction. Significant 4. Sigmoid diverticulosis without evidence of diverticulitis. 5. Mild fatty metamorphosis of the liver with focal sparing of the anterior medial segment of the left lobe. 6. No evidence of mass, lymphadenopathy or other inflammatory process. Report Dictated on --- Final --- Dictating Physician: MD HARDWICK HARLAN Signed Date and Time: 07/03/2022 11:28 am Signed by: MD HARDWICK HARLAN Transcribed Date and Time: 07/03/2022 11:29 [facility] Work Phone: Radiology Study observation (narrative) [facility] Work Phone: CT Abdomen Pelvis Wo Contras tOrdered By: Darian Hardwick on 07-03-2022 [facility] Work Phone: CT Abdomen/Pelvis w/o Contra ston 07-03-2022 CT Abdomen/Pelvis w/o Contrast Patient Name: CORIE MURDOCK Computed Tomography ACCESSION EXAM DATE/TIME PROCEDURE ORDERING PROVIDER [id number] 07/03/2022 11:[address] Abdomen/Pelvis (Sarah TAYLOR MD, DAVID L PO, No IV) CPT code 55924 Reason For Exam (CT Abdomen/Pelvis (No PO, No IV)) L flank and LLQ pain, h/o stones Report CLINICAL INFORMATION: Left flank and lower quadrant abdominal pain. History of urolithiasis. CT abdomen and pelvis without intravenous contrast: CT abdomen: Volume acquisition CT images are obtained the diaphragm to the iliac crests without oral or intravenous contrast administration with axial, coronal and sagittal 2-D reconstructions. Images through the lower chest demonstrate a suspected calcified granuloma in the posterior aspect of the right lower lobe partially included on the most superior image. There are calcified right hilar lymph nodes. There are no other significant abnormal pleural or parenchymal densities. There are multiple calcified bilateral calyceal calculi, the largest on the left is in the lower pole measuring 6 mm, and the largest on the right is in the lower pole measuring 5 mm. There is mild left pelvocaliectasis and proximal ureteral dilatation extending into the pelvis. No other calcified renal or proximal ureteral calculi are identified on either side. There is no hydronephrosis or proximal ureteral dilatation on the right. The unenhanced kidneys are otherwise unremarkable in size, configuration and density. There are streaky densities in the left perinephric fat most likely related to distal obstruction. The unenhanced liver it is decreased in density relative to the spleen consistent with mild fatty metamorphosis with probable focal sparing in the anterior aspect of the medial segment of the left lobe. No discrete mass or intrahepatic biliary dilatation is seen. There is no abnormality of the gallbladder. The unenhanced spleen and pancreas are unremarkable in size, configuration and density. There is no adrenal gland mass or enlargement. There is no visible abnormality of the unopacified stomach, small or large bowel. There is no ascites or retroperitoneal lymphadenopathy. No other focal mass, fluid collection or inflammatory process is seen. There is no abnormality of the abdominal aorta. Computed Tomography Report CT pelvis: Volume acquisition CT images were obtained from the iliac crests to the symphysis pubis without oral or intravenous contrast administration with axial, coronal and sagittal 2-D reconstructions. There is a 5 mm calcified distal ureteral calculus at the ureterovesical junction. No calcified calculi or dilatation is seen of either distal ureter. The urinary bladder is unopacified and predominantly contracted limiting evaluation. No calcified calculus is identified. No focal mass or fluid collection is seen. There is no iliac or inguinal lymphadenopathy. There are numerous sigmoid colon diverticula without evidence of diverticulitis. No ascites or inflammatory changes are identified. The cecum extends into the right side of the pelvis. The appendix is not identified with certainty. IMPRESSION: 1. 5 mm calcified calculus at the left UVJ with mild proximal collecting system dilatation and mild left perinephric inflammation. 2. Multiple additional nonobstructing bilateral renal calcified calyceal calculi. 3. No evidence or other calcified collecting system calculi or obstruction. Significant 4. Sigmoid diverticulosis without evidence of diverticulitis. 5. Mild fatty metamorphosis of the liver with focal sparing of the anterior medial segment of the left lobe. 6. No evidence of mass, lymphadenopathy or other inflammatory process. Report Dictated on Final Dictating Physician: MD HARDWICK HARLAN Signed Date and Time: 07/03/2022 11:28 am Signed by: MD SHOBHA DARIAN Transcribed Date and Time: 07/03/2022 11:29 Normal [facility] Complete Urinalysison 2021 Bacteria Few (1-5) Abnormal Negative [facility] Comment on above: Result Comment: . Performed By: #### C UA2 #### [facility] [address] [place] [address] RBC, Urine 0 - 2 Normal 0-2 [facility] Comment on above: Result Comment: . Performed By: #### C UA2 #### [facility] [address] [place] [address] Squamous Epithelial 0 - 2 Normal 3-5 [facility] Comment on above: Result Comment: . Performed By: #### C UA2 #### [facility] [address] [place] [address] VOLUME, URINE 12 ml Normal [facility] Comment on above: Result Comment: . Performed By: #### C UA2 #### [facility] [address] [place] [address] WBC, Urine 6 - 10 Abnormal 0-5 [facility] Comment on above: Result Comment: . Performed By: #### C UA2 #### [facility] [address] [place] [address] Appearance (U) Clear Normal Clear [facility] Comment on above: Result Comment: . Performed By: #### C UA2 #### [facility] [address] [place] [address] Bilirubin,Urine Negative Normal Negative [facility] Comment on above: Result Comment: . Performed By: #### C UA2 #### [facility] [address] [place] [address] Color (U) COLORLESS Normal Lt. Yellow [facility] Comment on above: Result Comment: . Performed By: #### C UA2 #### [facility] [address] [place] [address] Glucose Ql (U) > 1,000 Abnormal Normal (<70) [facility] Comment on above: Result Comment: . Performed By: #### C UA2 #### [facility] [address] [place] [address] Ketone,Urine Negative Normal Negative [facility] Comment on above: Result Comment: . Performed By: #### C UA2 #### [facility] [address] [place] [address] Leukocytes,Urine 250 Apolonia/uL Abnormal Negative [facility] Comment on above: Result Comment: . Performed By: #### C UA2 #### [facility] [address] [place] [address] Nitrites,Urine Negative Normal Negative [facility] Comment on above: Result Comment: . Performed By: #### C UA2 #### [facility] [address] [place] [address] Occult Blood,Urine Negative Normal Negative [facility] Comment on above: Result Comment: . Performed By: #### C UA2 #### [facility] [address] [place] [address] pH,Urine 6.0 Normal 5.0-8.0 [facility] Comment on above: Result Comment: . Performed By: #### C UA2 #### [facility] [address] [place] [address] Specific [place],Urine 1.017 Normal 1.005 - 1.030 [facility] Comment on above: Result Comment: . Performed By: #### C UA2 #### [facility] [address] [place] [address] Total Protein,Urine Negative Normal Negative [facility] Comment on above: Result Comment: . Performed By: #### C UA2 #### [facility] [address] [place] [address] Urobilinogen,Urine Normal Normal Normal (0-1) [facility] Comment on above: Result Comment: . Performed By: #### C UA2 #### [facility] [address] [place] [address] Hemogram w/ Autodiffon 07-03 Abs Baso Cnt 0.1 10*3/uL Normal 0.0-0.2 [facility] Comment on above: Performed By: #### B MP3, HEMDF #### [facility] [address] [place] [address] Abs Neutrophile Cnt 3.0 10*3/uL Normal 1.8-7.0 [facility] Comment on above: Performed By: #### B MP3, HEMDF #### [facility] [address] [place] [address] Basophils/100 WBC (Bld) 1.2 % Normal 0.0-2.0 [facility] Comment on above: Performed By: #### B MP3, HEMDF #### [facility] [address] [place] [address] Eosinophils (Bld) [#/Vol] 0.3 10*3/uL Normal 0.0-0.5 [facility] Comment on above: Performed By: #### B MP3, HEMDF #### [facility] [address] [place] [address] Eosinophils/100 WBC (Bld) 5.1 % Normal 1.0-6.0 [facility] Comment on above: Performed By: #### B MP3, HEMDF #### [facility] [address] [place] [address] Erythrocyte distribution width (RBC) [Ratio] 13.2 % Normal 11.5-14.5 [facility] Comment on above: Performed By: #### B MP3, HEMDF #### [facility] [address] [place] [address] Granulocytes/100 WBC (Bld) 52.4 % Normal 40.0-80.0 [facility] Comment on above: Performed By: #### B MP3, HEMDF #### [facility] [address] [place] [address] Hematocrit (Bld) [Volume fraction] 41.1 % Normal 35.0-47.0 [facility] Comment on above: Performed By: #### B MP3, HEMDF #### [facility] [address] [place] [address] Hemoglobin (Bld) [Mass/Vol] 13.6 g/dL Normal 11.7-16.0 [facility] Comment on above: Performed By: #### B MP3, HEMDF #### [facility] [address] [place] [address] Lymphocytes (Bld) [#/Vol] 1.8 10*3/uL Normal 1.0-4.3 [facility] Comment on above: Performed By: #### B MP3, HEMDF #### [facility] [address] [place] [address] Lymphocytes/100 WBC (Bld) 31.9 % Normal 20.0-40.0 [facility] Comment on above: Performed By: #### B MP3, HEMDF #### [facility] [address] [place] [address] MCH (RBC) [Entitic mass] 28.9 pg Normal 26.0-34.0 [facility] Comment on above: Performed By: #### B MP3, HEMDF #### [facility] [address] [place] [address] MCHC 33.1 % Normal 32.0-36.0 [facility] Comment on above: Performed By: #### B MP3, HEMDF #### [facility] [address] [place] [address] MCV (RBC) [Entitic vol] 87.4 fL Normal 79.0-98.0 [facility] Comment on above: Performed By: #### B MP3, HEMDF #### [facility] [address] [place] [address] Monocytes (Bld) [#/Vol] 0.5 10*3/uL Normal 0.0-0.8 [facility] Comment on above: Performed By: #### B MP3, HEMDF #### [facility] [address] [place] [address] Monocytes/100 WBC (Bld) 9.0 % Normal 2.0-10.0 [facility] Comment on above: Performed By: #### B MP3, HEMDF #### [facility] [address] [place] [address] Platelet mean volume (Bld) [Entitic vol] 9.7 fL Normal 7.4-12.4 [facility] Comment on above: Result Comment: MPV is a calculated measurement using platelet volume ratio. Performed By: #### B MP3, HEMDF #### [facility] [address] [place] [address] Platelets (Bld) [#/Vol] 277 10*3/uL Normal 140-440 [facility] Comment on above: Performed By: #### B MP3, HEMDF #### [facility] [address] [place] [address] RBC (Bld) [#/Vol] 4.70 10*6/uL Normal 3.80-5.20 [facility] Comment on above: Performed By: #### B MP3, HEMDF #### [facility] [address] [place] [address] WBC (Bld) [#/Vol] 5.6 10*3/uL Normal 3.6-10.7 [facility] Comment on above: Performed By: #### B MP3, HEMDF #### [facility] [address] [place] [address] Urinalysison 07-03-2022 Appearance (U) Clear Clear [facility] Work Phone: Comment on above: . Bacteria, UA Few (1-5) Abnormal Negative /[HPF] [facility] Work Phone: Comment on above: . Bilirubin Urine Negative Negative mg/dL [facility] Work Phone: Comment on above: . Color (U) COLORLESS Lt. Yellow NA [facility] Work Phone: Comment on above: . Glucose, Ur >1,000 Abnormal Normal (<70) mg/dL [facility] Work Phone: Comment on above: . Interpretation and review of laboratory results Abnormal [facility] Work Phone: [phone] Ketones Ql (U) Negative Negative mg/dL [facility] Work Phone: Comment on above: . LEUKOCYTES, UA 250 Abnormal Negative Apoolnia/uL [facility] Work Phone: Comment on above: . Nitrite, Urine Negative Negative NA [facility] Work Phone: [phone] Comment on above: . Occult Blood,Urine Negative Negative mg/dL [facility] Work Phone: [phone] Comment on above: . pH (U) 6.0 [pH] [facility] Work Phone: [phone] Comment on above: . RBC, UA /[HPF] 0 - 2 /[HPF] [facility] Work Phone: [phone] Comment on above: . Specific [place], Urine 1.017 [facility] Work Phone: [phone] Comment on above: . Squam Epithel, UA 0-2 3 - 5 /[HPF] [facility] Work Phone: [phone] Comment on above: . Total Protein, Urine Negative Negativ e mg/dL [facility] Work Phone: [phone] Comment on above: . Urobilinogen, Urine Normal Normal (0-1) mg/dL [facility] Work Phone: [phone] Comment on above: . Volume 12 ml [facility] Work Phone: [phone] Comment on above: . WBC, UA /[HPF] Abnormal 0 - 5 /[HPF] [facility] Work Phone: [phone] Comment on above: . Test Performed by [facility], [facility] [place] , [address] LAB [facility] Work Phone: MG Breast Tomosynthesis Scr Blon 11-30-2021 MG Breast Tomosynthesis Scr Bl Patient Name: CORIE MURDOCK Mammography ACCESSION EXAM DATE/TIME PROCEDURE ORDERING PROVIDER [id number] 11/30/2021 10:42 EST MG Breast Tomosynthesis KIAN LEBLANC DORA L BI Scr CPT code 51576 [id number] Reason For Exam (MG Breast Tomosynthesis BI Scr) screening Report TIME SINCE LAST MAMMOGRAM: Last mammogram was performed 1 year ago. REASON FOR EXAM: screening, asymptomatic. PROCEDURE: MG BREAST TOMOSYNTHESIS BL SCR: NOVEMBER 30, 2021 - 2D/3D Procedure 3D Bilateral CC and MLO view(s) were taken. 2D Bilateral CC and MLO view(s) were taken. Prior study comparison: November 28, 2020, bilateral MG mammogram digital screening performed at [facility]. November 25, 2019, bilateral MG breast tomosynthesis bl scr performed at [facility]. November 03, 2018, bilateral MG breast tomosynthesis bl scr performed at [facility]. TISSUE DENSITY: BIRADS B - There are scattered fibroglandular densities. . PATIENT CANCER HISTORY: No Personal History of Cancer FAMILY CANCER HISTORY: Father Prostate Cancer age 70 . FINDINGS: No suspicious masses, architectural distortions or suspiciously clustered microcalcifications are identified. There is no evidence of skin thickening or nipple retraction. There are no significant changes when compared with prior studies. No mammographic evidence of malignancy. Markings on images: BB's = Nipples; skin lesions Open tulalip = Palpable Line = Scar 2D digital mammography and tomosynthesis imaging were performed and reviewed with CAD. ASSESSMENT: Category 1 Negative RECOMMENDATION: Routine screening mammogram of both breasts in 1 year. Mammography Report . Report Dictated on Cancer Risk Assessment: This risk assessment is based on patient provided information collected in a risk survey taken at the time of this examination. Lifetime breast cancer risk: Average Risk - If greater than or equal to 20%, consider annual mammogram and annual screening Breast MRI or follow up in high risk clinic. A score of Average Risk indicates a score of less than 20%. Is the patient at elevated risk based on the HBOC criteria? No (Hereditary Breast and Ovarian Cancer) - If yes, consider genetic counseling and testing with high risk follow up. Is the patient at elevated risk based on the Quinteros Syndrome criteria? No - If yes, consider genetic counseling and testing with high risk follow up. Final Signed Date and Time: 11/30/2021 10:53 am Signed by: DO SCHOFIELD RACHEL Normal [facility] Dinesh Robles Digital Screen Crista piper 11-30-2021 Patient Name: CORIE MCCARTNEY Mammography ACCESSION EXAM DATE/TIME PROCEDURE ORDERING PROVIDER [id number] 11/30/2021 10:42 EST MG Breast Tomosynthesis KIAN LEBLANC DORA L BI Scr CPT code 83517 [id number] Reason For Exam (MG Breast Tomosynthesis BI Scr) screening Report TIME SINCE LAST MAMMOGRAM: Last mammogram was performed 1 year ago. REASON FOR EXAM: screening, asymptomatic. PROCEDURE: MG BREAST TOMOSYNTHESIS BL SCR: NOVEMBER 30, 2021 - 2D/3D Procedure 3D Bilateral CC and MLO view(s) were taken. 2D Bilateral CC and MLO view(s) were taken. Prior study comparison: November 28, 2020, bilateral MG mammogram digital screening performed at [facility]. November 25, 2019, bilateral MG breast tomosynthesis bl scr performed at [facility]. November 03, 2018, bilateral MG breast tomosynthesis bl scr performed at [facility]. TISSUE DENSITY: BIRADS B - There are scattered fibroglandular densities. . PATIENT CANCER HISTORY: No Personal History of Cancer FAMILY CANCER HISTORY: Father Prostate Cancer age 70 . FINDINGS: No suspicious masses, architectural distortions or suspiciously clustered microcalcifications are identified. There is no evidence of skin thickening or nipple retraction. There are no significant changes when compared with prior studies. No mammographic evidence of malignancy. Markings on images: BB's = Nipples; skin lesions Open tulalip = Palpable Line = Scar 2D digital mammography and tomosynthesis imaging were performed and reviewed with CAD. ASSESSMENT: Category 1 Negative RECOMMENDATION: Routine screening mammogram of both breasts in 1 year. Mammography Report . Report Dictated on Cancer Risk Assessment: This risk assessment is based on patient provided information collected in a risk survey taken at the time of this examination. Lifetime breast cancer risk: Average Risk - If greater than or equal to 20%, consider annual mammogram and annual screening Breast MRI or follow up in high risk clinic. A score of Average Risk indicates a score of less than 20%. Is the patient at elevated risk based on the HBOC criteria? No (Hereditary Breast and Ovarian Cancer) - If yes, consider genetic counseling and testing with high risk follow up. Is the patient at elevated risk based on the Quinteros Syndrome criteria? No - If yes, consider genetic counseling and testing with high risk follow up. --- Final --- Signed Date and Time: 11/30/2021 10:53 am Signed by: DO SCHOFIELD RACHEL [facility] Petra Schofield DO - 11/30/2021 Patient Name: CORIE MURDOCK Mammography ACCESSION EXAM DATE/TIME PROCEDURE ORDERING PROVIDER [id number] 11/30/2021 10:42 EST MG Breast Tomosynthesis KIAN LEBLANC DORA L BI Scr CPT code 67113 [id number] Reason For Exam (MG Breast Tomosynthesis BI Scr) screening Report TIME SINCE LAST MAMMOGRAM: Last mammogram was performed 1 year ago. REASON FOR EXAM: screening, asymptomatic. PROCEDURE: MG BREAST TOMOSYNTHESIS BL SCR: NOVEMBER 30, 2021 - 2D/3D Procedure 3D Bilateral CC and MLO view(s) were taken. 2D Bilateral CC and MLO view(s) were taken. Prior study comparison: November 28, 2020, bilateral MG mammogram digital screening performed at [facility]. November 25, 2019, bilateral MG breast tomosynthesis bl scr performed at [facility]. November 03, 2018, bilateral MG breast tomosynthesis bl scr performed at [facility]. TISSUE DENSITY: BIRADS B - There are scattered fibroglandular densities. . PATIENT CANCER HISTORY: No Personal History of Cancer FAMILY CANCER HISTORY: Father Prostate Cancer age 70 . FINDINGS: No suspicious masses, architectural distortions or suspiciously clustered microcalcifications are identified. There is no evidence of skin thickening or nipple retraction. There are no significant changes when compared with prior studies. No mammographic evidence of malignancy. Markings on images: BB's = Nipples; skin lesions Open tulalip = Palpable Line = Scar 2D digital mammography and tomosynthesis imaging were performed and reviewed with CAD. ASSESSMENT: Category 1 Negative RECOMMENDATION: Routine screening mammogram of both breasts in 1 year. Mammography Report . Report Dictated on Cancer Risk Assessment: This risk assessment is based on patient provided information collected in a risk survey taken at the time of this examination. Lifetime breast cancer risk: Average Risk - If greater than or equal to 20%, consider annual mammogram and annual screening Breast MRI or follow up in high risk clinic. A score of Average Risk indicates a score of less than 20%. Is the patient at elevated risk based on the HBOC criteria? No (Hereditary Breast and Ovarian Cancer) - If yes, consider genetic counseling and testing with high risk follow up. Is the patient at elevated risk based on the Quinteros Syndrome criteria? No - If yes, consider genetic counseling and testing with high risk follow up. --- Final --- Signed Date and Time: 11/30/2021 10:53 am Signed by: DO SCHOFIELD RACHEL [facility] Work Phone: Radiology Study observation (narrative) [facility] Work Phone: Dinesh Robles Digital Screen Bila teralOrdered By: Petra [place] on 11-30-2021 [facility] Work Phone: CR Shoulder 2+ Views Lefton 07-18-2021 CR Shoulder 2+ Views Left Patient Name: CORIE MURDOCK Diagnostic Radiology ACCESSION EXAM DATE/TIME PROCEDURE ORDERING PROVIDER [id number] 07/18/2021 14:11 EDT CR Shoulder 2+ Views BENJI KIANDANNY Left CPT code 43984 Reason For Exam (CR Shoulder 2+ Views Left) left shoulder pain Report LEFT SHOULDER History: Shoulder pain Findings: Three views of the left shoulder show no acute fracture, dislocation, bone erosion or periosteal reaction. There is focal calcification/bursitis along the margin of the great humeral tuberosity. The glenohumeral joint space is maintained. The acromioclavicular joint is unremarkable. IMPRESSION: Small calcific bursitis. No acute process. Report Dictated on Final Dictating Physician: MD DAVIS AHMAD Signed Date and Time: 07/18/2021 3:04 pm Signed by: MD DAVIS AHMAD Transcribed Date and Time: 07/18/2021 3:05 Normal [facility] XR Shoulder Left 2 VWOrdered By: Danny Leblanc on 07-18-2021 Patient Name: CORIE MCCARTNEY Diagnostic Radiology ACCESSION EXAM DATE/TIME PROCEDURE ORDERING PROVIDER [id number] 07/18/2021 14:11 EDT CR Shoulder 2+ Views KIAN LEBLANC DORA L Left CPT code 40620 Reason For Exam (CR Shoulder 2+ Views Left) left shoulder pain Report LEFT SHOULDER History: Shoulder pain Findings: Three views of the left shoulder show no acute fracture, dislocation, bone erosion or periosteal reaction. There is focal calcification/bursitis along the margin of the great humeral tuberosity. The glenohumeral joint space is maintained. The acromioclavicular joint is unremarkable. IMPRESSION: Small calcific bursitis. No acute process. Report Dictated on --- Final --- Dictating Physician: MD DAVIS AHMAD Signed Date and Time: 07/18/2021 3:04 pm Signed by: MD DAVIS AHMAD Transcribed Date and Time: 07/18/2021 3:05 [facility] Work Phone: [place], [facility] Incoming Radiology Results From [facility] - 07/18/2021 3:05 PM EDT Patient Name: CORIE MURDOCK Diagnostic Radiology ACCESSION EXAM DATE/TIME PROCEDURE ORDERING PROVIDER [id number] 07/18/2021 14:11 EDT CR Shoulder 2+ Views KIAN LEBLANC DORA L Left CPT code 25687 Reason For Exam (CR Shoulder 2+ Views Left) left shoulder pain Report LEFT SHOULDER History: Shoulder pain Findings: Three views of the left shoulder show no acute fracture, dislocation, bone erosion or periosteal reaction. There is focal calcification/bursitis along the margin of the great humeral tuberosity. The glenohumeral joint space is maintained. The acromioclavicular joint is unremarkable. IMPRESSION: Small calcific bursitis. No acute process. Report Dictated on --- Final --- Dictating Physician: MD DAVIS AHMAD Signed Date and Time: 07/18/2021 3:04 pm Signed by: MD DAVIS AHMAD Transcribed Date and Time: 07/18/2021 3:05 [facility] Work Phone: [facility] Work Phone: XR ESOPHAGRAMon 04-11-2021 XR ESOPHAGRAM * * *Final Report* * * DATE OF EXAM: Apr 11 2021 10:24AM MDX 5378 - XR ESOPHAGRAM / PROCEDURE REASON: cough, chroni pharyngitis Zekners diverticulum * * * * Physician Interpretation * * * * XR ESOPHAGRAM INDICATION: cough, chronic pharyngitis. Zenker's diverticulum TECHNIQUE: A biphasic study was performed using gas crystals with thick barium followed by thin barium. Fluoroscopic Radiation Summary: Plane A, Air Kerma: 78.0 mGy Dose Area Product (DAP): 34176.0 mGy*cm^2 Fluoro time: 0:43 min:sec FINDINGS: There is normal esophageal peristalsis, distensibility, and mucosal pattern. No masses, ulcerations, or strictures are seen. No extrinsic compression is seen. No evidence for cricopharyngeal achalasia. No Zenker's diverticulum. No hiatal hernia or gastroesophageal reflux is noted. IMPRESSION: Negative. [employer]inery [employer]: [employer] Transcribe Date/Time: Apr 11 2021 11:50A Dictated by : CAROL BUSTILLO MD This examination was interpreted and the report reviewed and electronically signed by: CAROL BUSTILLO MD on Apr 11 2021 11:51AM EST [id number] [facility] DIGITAL SCREEN W OR WO C AD BILATERALon 11-28-2020 Patient Name: CORIE WARREN Mammography ACCESSION EXAM DATE/TIME PROCEDURE ORDERING PROVIDER [id number] 11/28/2020 11:46 EST MG Mammogram Digital KIAN LEBLANC DORA L Screening Bl CPT code 82067 Reason For Exam (MG Mammogram Digital Screening Bl) screening Report TIME SINCE LAST MAMMOGRAM: Last mammogram was performed 1 year ago. REASON FOR EXAM: screening, asymptomatic. PROCEDURE: MG MAMMOGRAM DIGITAL SCREENING: NOVEMBER 28, 2020 - Bilateral CC and MLO view(s) were taken. Prior study comparison: November 25, 2019, bilateral MG breast tomosynthesis bl scr performed at [facility]. November 03, 2018, bilateral MG breast tomosynthesis bl scr performed at [facility]. August 12, 2017, bilateral MG breast tomosynthesis bl scr performed at [facility]. TISSUE DENSITY: BIRADS B - There are scattered fibroglandular densities. . FINDINGS: No suspicious masses, architectural distortions or suspiciously clustered microcalcifications are identified. There is no evidence of skin thickening or nipple retraction. There are no significant changes when compared with prior studies. No mammographic evidence of malignancy. Markings on images: BB's = Nipples; skin lesions Open tulalip = Palpable Line = Scar 2D digital mammography imaging was performed and reviewed with CAD. ASSESSMENT: Category 1 Negative RECOMMENDATION: Routine screening mammogram of both breasts in 1 year. . Report Dictated on Cancer Risk Assessment: This risk assessment is based on patient provided information collected in a risk survey taken at the time of this examination. Mammography Report Lifetime breast cancer risk: 9.65% - If greater than or equal to 20%, consider annual mammogram and annual screening Breast MRI or follow up in high risk clinic. Is the patient at elevated risk based on the HBOC criteria? No (Hereditary Breast and Ovarian Cancer) - If yes, consider genetic counseling and testing with high risk follow up. HNPCC mutation risk (Quinteros Syndrome): 1% - if greater than or equal to 5%, consider genetic counseling, testing and screening colonoscopy. --- Final --- Signed Date and Time: 11/28/2020 1:46 pm Signed by: MD DOMINGUEZ LAUREN B [facility] Work Phone: [facility] 11[facility]28/2020 2:13 PM EST Patient Name: CORIE MURDOCK Mammography ACCESSION EXAM DATE/TIME PROCEDURE ORDERING PROVIDER [id number] 11/28/2020 11:46 EST MG Mammogram Digital KIAN LEBLANC DORA L Screening Bl CPT code 10959 Reason For Exam (MG Mammogram Digital Screening Bl) screening Report TIME SINCE LAST MAMMOGRAM: Last mammogram was performed 1 year ago. REASON FOR EXAM: screening, asymptomatic. PROCEDURE: MG MAMMOGRAM DIGITAL SCREENING: NOVEMBER 28, 2020 - Bilateral CC and MLO view(s) were taken. Prior study comparison: November 25, 2019, bilateral MG breast tomosynthesis bl scr performed at [facility]. November 03, 2018, bilateral MG breast tomosynthesis bl scr performed at [facility]. August 12, 2017, bilateral MG breast tomosynthesis bl scr performed at [facility]. TISSUE DENSITY: BIRADS B - There are scattered fibroglandular densities. . FINDINGS: No suspicious masses, architectural distortions or suspiciously clustered microcalcifications are identified. There is no evidence of skin thickening or nipple retraction. There are no significant changes when compared with prior studies. No mammographic evidence of malignancy. Markings on images: BB's = Nipples; skin lesions Open tulalip = Palpable Line = Scar 2D digital mammography imaging was performed and reviewed with CAD. ASSESSMENT: Category 1 Negative RECOMMENDATION: Routine screening mammogram of both breasts in 1 year. . Report Dictated on Cancer Risk Assessment: This risk assessment is based on patient provided information collected in a risk survey taken at the time of this examination. Mammography Report Lifetime breast cancer risk: 9.65% - If greater than or equal to 20%, consider annual mammogram and annual screening Breast MRI or follow up in high risk clinic. Is the patient at elevated risk based on the HBOC criteria? No (Hereditary Breast and Ovarian Cancer) - If yes, consider genetic counseling and testing with high risk follow up. HNPCC mutation risk (Quinteros Syndrome): 1% - if greater than or equal to 5%, consider genetic counseling, testing and screening colonoscopy. --- Final --- Signed Date and Time: 11/28/2020 1:46 pm Signed by: MD ANGELICA, AURORA JACOB Work Phone: US ABD RIGHT UPPER QUADRANTo n 10-25-2020 US ABD RIGHT UPPER QUADRANT * * *Final Report* * * DATE OF EXAM: Oct 25 2020 3:02PM ROSAS 1032 - US ABD RIGHT UPPER QUADRANT / PROCEDURE REASON: k76.0 fatty liver r14.0 abdominal distension.k76.9 liver disease * * * * Physician Interpretation * * * * EXAMINATION: RIGHT UPPER QUADRANT ULTRASOUND CLINICAL HISTORY: Liver disease. Abdominal distention. TECHNIQUE: Sonography of the right upper quadrant was performed. Images were obtained and stored in a permanent archive. MQ: [id number] COMPARISON: Comparison is made to prior CT study dated July and a right upper quadrant ultrasound dated 08/07/2014 RESULT: Pancreas: Normal sonographic appearance. Portions obscured: Distal body and tail Liver: No hepatomegaly Echotexture: Normal, homogeneous. Echogenicity: Normal Surface contour: Smooth Lesions: None. Biliary: No intrahepatic biliary duct dilation. CBD: 0.4 cm at the hilum. Gallbladder: The gallbladder is undistended. No evidence of cholelithiasis or inflammatory change. There is no wall thickening, wall edema or pericholecystic fluid. There is no sonographic Carroll sign per technologist note. Right Kidney: No hydronephrosis. Ascites: None. IMPRESSION: Normal sonographic appearance of the right upper quadrant. [employer]inery [employer]: HARDE[employer] Transcribe Date/Time: Oct 25 2020 3:08P Dictated by : JOSE A COLLAZO MD This examination was interpreted and the report reviewed and electronically signed by: JOSE A COLLAZO MD on Oct 25 2020 3:15PM EST [id number] Normal [facility] US PELVIS TRANSABDOMINAL AND ENDOVAGINAL COMPLETE NON-OBon 05-26-2019 Patient Name: CORIE MCCARTNEY ---Ultrasound--- Exam Date/Time 05/26/2019 14:27:19 EDT Exam US Pelvis TA/TV Ordering Physician KIAN LEBLANC DORA L Accession Number [id number] CPT4 Codes 21606 (US Pelvis TA/TV), 12203 (US Transvaginal) Reason For Exam PAIN, PELVIS Report CLINICAL INFORMATION: Pelvic bloating. Pain. Transabdominal and transvaginal (for an improved evaluation of the endometrium and ovaries) pelvic ultrasound is provided without comparison. FINDINGS: The uterus is anteflexed and measures 9.1 x 4.0 x 2.4 cm. The uterus is diffusely heterogeneous in its echotexture. Two 2 cm fibroids are present in the parenchyma. The endometrial stripe is normal at 5 mm. The right ovary measures 2.1 x 1.4 x 1.5 cm. The left ovary measures 1.7 x 1.0 x 0.5 cm. There are small bilateral ovarian follicles. Normal vascular waveforms are seen in both ovaries. There is no significant free fluid. IMPRESSION: 1. Uterine fibroids. 2. No free fluid. Report Dictated on --- Final --- Dictating Physician: MD LAN JEFFREY Signed Date and Time: 05/26/2019 4:33 pm Signed by: MD LAN JEFFREY Transcribed Date and Time: 05/26/2019 4:34 [place], [place] [facility], [facility] Incoming Radiology Results From [facility] - 05/26/2019 4:34 PM EDT Patient Name: CORIE MURDOCK ---Ultrasound--- Exam Date/Time 05/26/2019 14:27:19 EDT Exam US Pelvis TA/TV Ordering Physician KIAN LEBLANC DORA L Accession Number [id number] CPT4 Codes 74369 (US Pelvis TA/TV), 70242 (US Transvaginal) Reason For Exam PAIN, PELVIS Report CLINICAL INFORMATION: Pelvic bloating. Pain. Transabdominal and transvaginal (for an improved evaluation of the endometrium and ovaries) pelvic ultrasound is provided without comparison. FINDINGS: The uterus is anteflexed and measures 9.1 x 4.0 x 2.4 cm. The uterus is diffusely heterogeneous in its echotexture. Two 2 cm fibroids are present in the parenchyma. The endometrial stripe is normal at 5 mm. The right ovary measures 2.1 x 1.4 x 1.5 cm. The left ovary measures 1.7 x 1.0 x 0.5 cm. There are small bilateral ovarian follicles. Normal vascular waveforms are seen in both ovaries. There is no significant free fluid. IMPRESSION: 1. Uterine fibroids. 2. No free fluid. Report Dictated on --- Final --- Dictating Physician: MD LAN JEFFREY Signed Date and Time: 05/26/2019 4:33 pm Signed by: MD LAN JEFFREY Transcribed Date and Time: 05/26/2019 4:34 [place], [place] Vital Signs Date Time Vital Sign Value Performing Clinician Facility 12-19-2024 09:35-0400 Body mass index (BMI) [Ratio] 34.01 kg/m2 Petra Valenzuela PA-C Work Phone: [facility] 12-19-2024 09:35-0400 Body temperature 97.5 [degF] Petra Valenzuela PA-C Work Phone: [facility] 12-19-2024 09:35-0400 Body weight 84.35 kg Petra Valenzuela PA-C Work Phone: [facility] 12-19-2024 09:35-0400 Diastolic blood pressure 88 mm[Hg] Petra Valenzuela PA-C Work Phone: [facility] 12-19-2024 09:35-0400 Heart rate 82 /min Petra Whitfieldauashley PA-C Work Phone: [facility] 12-19-2024 09:35-0400 SaO2% (BldA) [Mass fraction] 96 % Petra Valenzuela PA-C Work Phone: [facility] 12-19-2024 09:35-0400 Systolic blood pressure 153 mm[Hg] Petra Whitfieldauashley PA-C Work Phone: [facility] 12-07-2024 13:25-0400 Body height 157.5 cm Danny Leblanc Work Phone: [facility] 12-07-2024 13:09-0400 Body mass index (BMI) [Ratio] 34.75 kg/m2 Danny Leblanc Work Phone: [facility] [place] [employer] 12-07-2024 13:09-0400 Body weight 86.18 kg Danny Leblanc Work Phone: [facility] [place] [employer] 09-19-2024 09:20-0500 Body temperature 98.01 [degF] Carol Ramos MD Work Phone: [facility] 09-19-2024 09:20-0500 Diastolic blood pressure 81 mm[Hg] Carol Ramos MD Work Phone: [facility] 09-19-2024 09:20-0500 Heart rate 96 /min Carol Ramos MD Work Phone: [facility] 09-19-2024 09:20-0500 Respiratory rate 16 /min Carol Ramos MD Work Phone: [facility] 09-19-2024 09:20-0500 SaO2% (BldA) [Mass fraction] 95 % Carol Ramos MD Work Phone: [facility] 09-19-2024 09:20-0500 Systolic blood pressure 136 mm[Hg] Carol Ramos MD Work Phone: [facility] 01-01-2024 11:04-0400 Body height 157.5 cm Jesus Denton MD Work Phone: [facility] [place] [employer] 01-01-2024 11:04-0400 Body mass index (BMI) [Ratio] 37.49 kg/m2 Jesus Denton MD Work Phone: [facility] [place] [employer] 01-01-2024 11:04-0400 Body temperature 98.01 [degF] Jesus Denton MD Work Phone: [employer] [place] [employer] 01-01-2024 11:04-0400 Body weight 92.99 kg Jesus Denton MD Work Phone: [facility] [place] [employer] 01-01-2024 11:04-0400 Diastolic blood pressure 95 mm[Hg] Jesus Denton MD Work Phone: [facility] [place] [employer] 01-01-2024 11:04-0400 Heart rate 96 /min Jesus Denton MD Work Phone: [facility] [place] [employer] 01-01-2024 11:04-0400 Respiratory rate 14 /min Jesus Denton MD Work Phone: [facility] [place] [employer] 01-01-2024 11:04-0400 SaO2% (BldA) [Mass fraction] 98 % Jesus Denton MD Work Phone: [facility] [place] [employer] 01-01-2024 11:04-0400 Systolic blood pressure 180 mm[Hg] Jesus Denton MD Work Phone: [facility] 01-01-2024 10:10-0400 Body height 157.5 cm Petra Slabaugh PA-C Work Phone: [facility] 01-01-2024 10:10-0400 Body temperature 98.2 [degF] Petra Slabaugh PA-C Work Phone: [facility] 01-01-2024 10:10-0400 Body weight 93.05 kg Petra Slabaugh PA-C Work Phone: [facility] 01-01-2024 10:10-0400 Diastolic blood pressure 68 mm[Hg] Petra Slabaugh PA-C Work Phone: [facility] 01-01-2024 10:10-0400 Heart rate 91 /min Petra Slabaugh PA-C Work Phone: [facility] 01-01-2024 10:10-0400 Respiratory rate 18 /min Petra Slabaugh PA-C Work Phone: [facility] 01-01-2024 10:10-0400 SaO2% (BldA) [Mass fraction] 95 % Petra Slabaugh PA-C Work Phone: [facility] 01-01-2024 10:10-0400 Systolic blood pressure 124 mm[Hg] Petra Slabaugh PA-C Work Phone: [facility] 12-05-2023 13:52-0500 Body height 157.5 cm Danny Leblanc Work Phone: [facility] 12-05-2023 13:52-0500 Body mass index (BMI) [Ratio] 37.49 kg/m2 Danny Leblanc Work Phone: [facility] 12-05-2023 13:52-0500 Body weight 92.99 kg Danny Leblanc Work Phone: [facility] 11-11-2023 12:49-0500 Body weight 92.6 kg Petra Slabaugh PA-C Work Phone: [facility] 11-11-2023 12:49-0500 Diastolic blood pressure 79 mm[Hg] Petra Slabaugh PA-C Work Phone: [facility] 11-11-2023 12:49-0500 Heart rate 86 /min Petra Slabaugh PA-C Work Phone: [facility] 11-11-2023 12:49-0500 Respiratory rate 18 /min Petra Slabaugh PA-C Work Phone: [facility] 11-11-2023 12:49-0500 SaO2% (BldA) [Mass fraction] 99 % Petra Slabaugh PA-C Work Phone: [facility] 11-11-2023 12:49-0500 Systolic blood pressure 146 mm[Hg] Petra Slabaugh PA-C Work Phone: [facility] 09-20-2023 15:17-0500 Body height 157.48 cm [facility] 09-20-2023 15:17-0500 Body mass index (BMI) [Ratio] 38 kg/m2 [facility] 09-20-2023 15:17-0500 Body temperature 97.7 [degF] [facility] 09-20-2023 15:17-0500 Body weight 94.34 kg [facility] 09-20-2023 15:17-0500 Diastolic blood pressure 60 mm[Hg] [facility] 09-20-2023 15:17-0500 Heart rate 96 /min [facility] 09-20-2023 15:17-0500 Respiratory rate 18 /min [facility] 09-20-2023 15:17-0500 SaO2% (BldA) [Mass fraction] 96 % [facility] 09-20-2023 15:17-0500 Systolic blood pressure 138 mm[Hg] [facility] 08-20-2023 17:48-0500 Body mass index (BMI) [Ratio] 38.2 kg/m2 [facility] 08-20-2023 17:48-0500 Body temperature 97.3 [degF] [facility] 08-20-2023 17:48-0500 Body weight 94.8 kg [facility] 08-20-2023 17:48-0500 Diastolic blood pressure 70 mm[Hg] [facility] 08-20-2023 17:48-0500 Heart rate 115 /min [facility] 08-20-2023 17:48-0500 Respiratory rate 18 /min [facility] 08-20-2023 17:48-0500 SaO2% (BldA) [Mass fraction] 96 % [facility] 08-20-2023 17:48-0500 Systolic blood pressure 120 mm[Hg] [facility] 07-17-2023 14:24-0400 Body temperature 97.8 [degF] HYDROTECHNICAL SPECIALIST-Molly Leblanc HYDROTECHNICAL SPECIALIST Work Phone: [facility] 07-17-2023 14:24-0400 Diastolic blood pressure 87 mm[Hg] HYDROTECHNICAL SPECIALIST-Molly Leblanc HYDROTECHNICAL SPECIALIST Work Phone: [facility] 07-17-2023 14:24-0400 Heart rate 96 /min HYDROTECHNICAL SPECIALIST-Molly Leblanc HYDROTECHNICAL SPECIALIST Work Phone: [facility] 07-17-2023 14:24-0400 Respiratory rate 16 /min HYDROTECHNICAL SPECIALIST-Molly Leblanc HYDROTECHNICAL SPECIALIST Work Phone: [facility] 07-17-2023 14:24-0400 SaO2% (BldA) [Mass fraction] 95 % HYDROTECHNICAL SPECIALIST-Molly Leblanc HYDROTECHNICAL SPECIALIST Work Phone: [facility] 07-17-2023 14:24-0400 Systolic blood pressure 140 mm[Hg] HYDROTECHNICAL SPECIALIST-C Danny Leblanc HYDROTECHNICAL SPECIALIST Work Phone: [facility] 07-17-2023 12:30-0400 Inhaled oxygen flow rate 4 L/min HYDROTECHNICAL SPECIALIST-C Danny Leblanc HYDROTECHNICAL SPECIALIST Work Phone: [facility] 07-17-2023 08:06-0400 Body height 157.48 cm HYDROTECHNICAL SPECIALIST-C Danny Leblanc HYDROTECHNICAL SPECIALIST Work Phone: 5(801)[phone] [place] [address] 07-17-2023 08:06-0400 Body mass index (BMI) [Ratio] 38.2 kg/m2 HYDROTECHNICAL SPECIALIST-C Danny Leblanc HYDROTECHNICAL SPECIALIST Work Phone: 4(080)[phone] [place] [address] 07-17-2023 08:06-0400 Body weight 94.8 kg HYDROTECHNICAL SPECIALIST-C Danny Leblanc HYDROTECHNICAL SPECIALIST Work Phone: [phone])[phone] [place] [address] 07-08-2023 12:52-0400 Body temperature 98.2 [degF] HYDROTECHNICAL SPECIALIST-C Danny Leblanc HYDROTECHNICAL SPECIALIST Work Phone: 0(824)[phone] [place] [address] 07-08-2023 12:52-0400 Diastolic blood pressure 75 mm[Hg] HYDROTECHNICAL SPECIALIST-C Danny Leblanc HYDROTECHNICAL SPECIALIST Work Phone: 7(647)[phone] [place] [address] 07-08-2023 12:52-0400 Heart rate 94 /min HYDROTECHNICAL SPECIALIST-C Danny Leblanc HYDROTECHNICAL SPECIALIST Work Phone: 8(627)[phone] [place] [address] 07-08-2023 12:52-0400 Respiratory rate 16 /min HYDROTECHNICAL SPECIALIST-C Danny Leblanc HYDROTECHNICAL SPECIALIST Work Phone: 0(716)[phone] [place] [address] 07-08-2023 12:52-0400 SaO2% (BldA) [Mass fraction] 95 % HYDROTECHNICAL SPECIALIST-C Danny Leblanc HYDROTECHNICAL SPECIALIST Work Phone: [facility] 07-08-2023 12:52-0400 Systolic blood pressure 138 mm[Hg] HYDROTECHNICAL SPECIALIST-C Danny Leblanc HYDROTECHNICAL SPECIALIST Work Phone: [facility] 07-08-2023 12:18-0400 Inhaled oxygen flow rate 6 L/min HYDROTECHNICAL SPECIALIST-C Danny Leblanc HYDROTECHNICAL SPECIALIST Work Phone: [facility] 07-08-2023 10:11-0400 Body mass index (BMI) [Ratio] 38.7 kg/m2 HYDROTECHNICAL SPECIALIST-C Danny Leblanc HYDROTECHNICAL SPECIALIST Work Phone: [facility] 07-08-2023 10:11-0400 Body weight 96 kg HYDROTECHNICAL SPECIALIST-C Danny Leblanc HYDROTECHNICAL SPECIALIST Work Phone: [facility] 06-20-2023 14:53-0400 Body mass index (BMI) [Ratio] 33.2 kg/m2 HYDROTECHNICAL SPECIALIST-C Danny Leblanc HYDROTECHNICAL SPECIALIST Work Phone: [facility] 06-20-2023 14:53-0400 Body temperature 96.9 [degF] HYDROTECHNICAL SPECIALIST-C Danny Leblanc HYDROTECHNICAL SPECIALIST Work Phone: [facility] 06-20-2023 14:53-0400 Body weight 93.44 kg HYDROTECHNICAL SPECIALIST-C Danny Leblanc HYDROTECHNICAL SPECIALIST Work Phone: [facility] 06-20-2023 14:53-0400 Diastolic blood pressure 60 mm[Hg] HYDROTECHNICAL SPECIALIST-C Danny Leblanc HYDROTECHNICAL SPECIALIST Work Phone: [facility] 06-20-2023 14:53-0400 Heart rate 120 /min HYDROTECHNICAL SPECIALIST-C Danny Leblanc HYDROTECHNICAL SPECIALIST Work Phone: [facility] 06-20-2023 14:53-0400 Respiratory rate 18 /min HYDROTECHNICAL SPECIALIST-C Danny Leblanc HYDROTECHNICAL SPECIALIST Work Phone: [facility] 06-20-2023 14:53-0400 SaO2% (BldA) [Mass fraction] 96 % HYDROTECHNICAL SPECIALIST-C Danny Leblanc HYDROTECHNICAL SPECIALIST Work Phone: [facility] 06-20-2023 14:53-0400 Systolic blood pressure 122 mm[Hg] HYDROTECHNICAL SPECIALIST-C Danny Leblanc HYDROTECHNICAL SPECIALIST Work Phone: [facility] 05-24-2023 15:22-0400 Body height 167.64 cm HYDROTECHNICAL SPECIALIST-C Danny Leblanc HYDROTECHNICAL SPECIALIST Work Phone: [facility] 05-24-2023 15:22-0400 Body mass index (BMI) [Ratio] 33.7 kg/m2 HYDROTECHNICAL SPECIALIST-C Danny Leblanc HYDROTECHNICAL SPECIALIST Work Phone: [facility] 05-24-2023 15:22-0400 Body temperature 97.7 [degF] HYDROTECHNICAL SPECIALIST-C Danny Leblanc HYDROTECHNICAL SPECIALIST Work Phone: [facility] 05-24-2023 15:22-0400 Body weight 94.8 kg HYDROTECHNICAL SPECIALIST-C Danny Leblanc HYDROTECHNICAL SPECIALIST Work Phone: [facility] 05-24-2023 15:22-0400 Diastolic blood pressure 70 mm[Hg] HYDROTECHNICAL SPECIALIST-C Danny Leblanc HYDROTECHNICAL SPECIALIST Work Phone: [facility] 05-24-2023 15:22-0400 Heart rate 102 /min HYDROTECHNICAL SPECIALIST-C Danny Leblanc HYDROTECHNICAL SPECIALIST Work Phone: [facility] 05-24-2023 15:22-0400 Respiratory rate 18 /min HYDROTECHNICAL SPECIALIST-C Danny Leblanc HYDROTECHNICAL SPECIALIST Work Phone: [facility] 05-24-2023 15:22-0400 SaO2% (BldA) [Mass fraction] 98 % HYDROTECHNICAL SPECIALIST-C Danny Leblanc HYDROTECHNICAL SPECIALIST Work Phone: [facility] 05-24-2023 15:22-0400 Systolic blood pressure 115 mm[Hg] HYDROTECHNICAL SPECIALIST-C Danny Leblanc HYDROTECHNICAL SPECIALIST Work Phone: [facility] 05-10-2023 12:32-0400 Diastolic blood pressure 92 mm[Hg] Larry Calvin MD Work Phone: [facility] 05-10-2023 12:32-0400 Heart rate 97 /min Larry Calvin MD Work Phone: [facility] 05-10-2023 12:32-0400 SaO2% (BldA) [Mass fraction] 94 % Larry Calvin MD Work Phone: [facility] 05-10-2023 12:32-0400 Systolic blood pressure 178 mm[Hg] Larry Calvin MD Work Phone: [facility] 05-10-2023 10:45-0400 Body height 157.5 cm Larry Calvin MD Work Phone: [facility] 05-10-2023 10:45-0400 Body mass index (BMI) [Ratio] 36.58 kg/m2 Larry Calvin MD Work Phone: [facility] 05-10-2023 10:45-0400 Body temperature 96.6 [degF] Larry Calvin MD Work Phone: [facility] 05-10-2023 10:45-0400 Body weight 90.72 kg Larry Calvin MD Work Phone: [facility] 05-10-2023 10:45-0400 Respiratory rate 18 /min Larry Calvin MD Work Phone: [facility] 01-22-2023 12:58-0400 Body height 167.64 cm HYDROTECHNICAL SPECIALISTNabeel Leblanc HYDROTECHNICAL SPECIALIST Work Phone: [facility] 01-22-2023 12:58-0400 Body mass index (BMI) [Ratio] 33.2 kg/m2 HYDROTECHNICAL SPECIALISTNabeel Leblanc HYDROTECHNICAL SPECIALIST Work Phone: [facility] 01-22-2023 12:58-0400 Body weight 93.44 kg HYDROTECHNICAL SPECIALISTNabeel Leblanc HYDROTECHNICAL SPECIALIST Work Phone: [facility] 01-16-2023 15:22-0400 Body mass index (BMI) [Ratio] 37.8 kg/m2 HYDROTECHNICAL SPECIALISTNabeel Leblanc HYDROTECHNICAL SPECIALIST Work Phone: [facility] 01-16-2023 15:22-0400 Body temperature 97.7 [degF] HYDROTECHNICAL SPECIALISTNabeel Leblanc HYDROTECHNICAL SPECIALIST Work Phone: [facility] 01-16-2023 15:22-0400 Body weight 93.89 kg HYDROTECHNICAL SPECIALIST-C Danny Reidson HYDROTECHNICAL SPECIALIST Work Phone: [facility] 01-16-2023 15:22-0400 Diastolic blood pressure 60 mm[Hg] HYDROTECHNICAL SPECIALIST-C Dannyharika ReidLeblanc HYDROTECHNICAL SPECIALIST Work Phone: [facility] 01-16-2023 15:22-0400 Heart rate 102 /min HYDROTECHNICAL SPECIALIST-C Danny Leblanc HYDROTECHNICAL SPECIALIST Work Phone: [facility] 01-16-2023 15:22-0400 Respiratory rate 18 /min HYDROTECHNICAL SPECIALIST-C Danny Leblanc HYDROTECHNICAL SPECIALIST Work Phone: [facility] 01-16-2023 15:22-0400 SaO2% (BldA) [Mass fraction] 97 % HYDROTECHNICAL SPECIALIST-C Dannyharika ReidLeblanc HYDROTECHNICAL SPECIALIST Work Phone: [facility] 01-16-2023 15:22-0400 Systolic blood pressure 140 mm[Hg] HYDROTECHNICAL SPECIALIST-C Danny Leblanc HYDROTECHNICAL SPECIALIST Work Phone: [facility] 12-03-2022 11:16-0500 Body height 157.5 cm Dannyharika ReidLeblanc Work Phone: [facility] 12-03-2022 11:16-0500 Body mass index (BMI) [Ratio] 37.68 kg/m2 Danny Reidson Work Phone: [facility] 12-03-2022 11:16-0500 Body weight 93.44 kg Danny Leblanc Work Phone: [facility] 07-10-2022 16:46-0400 Body height 157.48 cm [facility] Work Phone: 07-10-2022 16:46-0400 Body mass index (BMI) [Ratio] 37.3 kg/m2 [facility] Work Phone: 07-10-2022 16:46-0400 Body temperature 97.7 [degF] [facility] Work Phone: 07-10-2022 16:46-0400 Body weight 92.53 kg [facility] Work Phone: 07-10-2022 16:46-0400 Diastolic blood pressure 80 mm[Hg] [facility] Work Phone: 07-10-2022 16:46-0400 Heart rate 88 /min [facility] Work Phone: 07-10-2022 16:46-0400 Respiratory rate 18 /min [facility] Work Phone: 07-10-2022 16:46-0400 SaO2% (BldA) [Mass fraction] 97 % [facility] Work Phone: 07-10-2022 16:46-0400 Systolic blood pressure 110 mm[Hg] [facility] Work Phone: 07-03-2022 11:42-0400 Diastolic blood pressure 85 mm[Hg] Rigo Taylor MD Work Phone: [facility] 07-03-2022 11:42-0400 Heart rate 85 /min Rigo Taylor MD Work Phone: [facility] 07-03-2022 11:42-0400 Respiratory rate 16 /min Rigo Taylor MD Work Phone: [facility] 07-03-2022 11:42-0400 SaO2% (BldA) [Mass fraction] 99 % Rigo Taylor MD Work Phone: [facility] 07-03-2022 11:42-0400 Systolic blood pressure 181 mm[Hg] Rigo Taylor MD Work Phone: [facility] 07-03-2022 10:03-0400 Body temperature 96.8 [degF] Rigo Taylor MD Work Phone: [facility] 06-08-2022 16:03-0400 Body mass index (BMI) [Ratio] 37.3 kg/m2 [facility] Work Phone: 06-08-2022 16:03-0400 Body temperature 97.9 [degF] [facility] Work Phone: 06-08-2022 16:03-0400 Body weight 92.53 kg [facility] Work Phone: 06-08-2022 16:03-0400 Diastolic blood pressure 80 mm[Hg] [facility] Work Phone: 06-08-2022 16:03-0400 Heart rate 94 /min [facility] Work Phone: 06-08-2022 16:03-0400 Respiratory rate 18 /min [facility] Work Phone: 06-08-2022 16:03-0400 SaO2% (BldA) [Mass fraction] 96 % [facility] Work Phone: 06-08-2022 16:03-0400 Systolic blood pressure 148 mm[Hg] [facility] Work Phone: Encounters Encounter Date Encounter Type Care Provider Facility Start: 12-19-2024 End: 12-19-2024 ambulatory DANNY LEBLANC Facility:[facility] Start: 12-19-2024 End: 12-19-2024 Patient encounter procedure Petra Valenzuela PA-C Work Phone: [facility] Comment on above: Cervical lymphadenit is (Primary Dx); Acute otalgia, left Start: 12-07-2024 End: 12-07-2024 ambulatory DANNY LEBLANC [facility] Start: 12-07-2024 End: 12-07-2024 Subsequent hospital visit by physician Danny Leblanc Work Phone: [facility] Comment on above: Encounter for screen ing mammogram for malignant neoplasm of breast Start: 10-14-2024 End: 01-13-2025 Transcribe Orders Danny Leblanc Work Phone: [facility] Central Scheduling Comment on above: Encounter for screen ing mammogram for malignant neoplasm of breast (Primary Dx) Start: 09-19-2024 End: 09-19-2024 Office outpatient new 30 minutes Carol Ramos MD Work Phone: [facility] Comment on above: Acute cough (Primary Dx); Viral URI Start: 06-26-2024 Encounter for genera l adult medical examination without abnormal findings Danny Leblanc NP [facility] Start: 06-08-2024 End: 06-08-2024 ambulatory Danny Leblanc HYDROTECHNICAL SPECIALIST Facility[facility] Start: 06-05-2024 End: 06-05-2024 ambulatory Danny Leblanc HYDROTECHNICAL SPECIALIST Facility:[facility] Start: 01-01-2024 End: 01-01-2024 Emergency department patient visit Jesus Denton MD Work Phone: [facility] Comment on above: Dental abscess (Prim aguilar Dx) Start: 01-01-2024 End: 01-01-2024 ambulatory DANNY LEBLANC Facility:[facility] Start: 01-01-2024 End: 01-01-2024 Patient encounter procedure Petra HARRISPink [employer] Work Phone: [facility] Comment on above: Pain, dental (Primar y Dx); Dental infection Start: 12-05-2023 End: 12-05-2023 Subsequent hospital visit by physician Danny Leblanc Work Phone: [facility] Comment on above: Encounter for screen ing mammogram for malignant neoplasm of breast Fatty (change of) li eze, not elsewhere classified (Primary Dx) Start: 11-11-2023 End: 11-11-2023 Patient encounter procedure Petra MARSHALLVoicendo Work Phone: [facility] Comment on above: URI with cough and c ongestion (Primary Dx); Left acute suppurative otitis media Start: 09-03-2023 Transcribe Orders Lam Dow MD Work Phone: [facility] Administration Comment on above: Chronic nonalcoholic liver disease (Primary Dx) Start: 08-29-2023 Encounter for other preprocedural examination [facility] Start: 08-28-2023 End: 08-28-2023 Discharged Recurring [facility]-Physical Therapy Work Phone: Start: 08-28-2023 End: 08-28-2023 ambulatory [facility] Work Phone: Start: 07-17-2023 End: 07-17-2023 Admission to same day surgery center HYDROTECHNICAL SPECIALIST-Molly Leblanc HYDROTECHNICAL SPECIALIST [facility] Start: 07-17-2023 End: 07-17-2023 ambulatory HYDROTECHNICAL SPECIALIST-C Danny Leblanc HYDROTECHNICAL SPECIALIST Work Phone: [facility] Work Phone: Start: 07-08-2023 End: 07-08-2023 ambulatory Wilmar Banks Facility[facility] Start: 07-08-2023 End: 07-08-2023 Non-patient / Non-visit HYDROTECHNICAL SPECIALIST-Molly Leblanc HYDROTECHNICAL SPECIALIST Work Phone: [facility] Work Phone: Start: 07-08-2023 End: 07-08-2023 Admission to same day surgery center HYDROTECHNICAL SPECIALIST-Molly Leblanc HYDROTECHNICAL SPECIALIST [facility] Start: 07-08-2023 End: 07-08-2023 ambulatory [facility] Facility:[facility] Start: 05-28-2023 End: 05-28-2023 ambulatory HYDROTECHNICAL SPECIALIST-Molly Leblanc HYDROTECHNICAL SPECIALIST Work Phone: [facility] Work Phone: Start: 05-28-2023 End: 05-28-2023 Patient encounter procedure HYDROTECHNICAL SPECIALIST-Molly Leblanc HYDROTECHNICAL SPECIALIST [facility] Work Phone: Start: 05-24-2023 End: 05-24-2023 Patient encounter procedure HYDROTECHNICAL SPECIALIST-Molly Leblanc HYDROTECHNICAL SPECIALIST [facility] Work Phone: Start: 05-10-2023 End: 05-10-2023 Subsequent hospital visit by physician [facility] [address] Exam Room [address] [facility] [address] Comment on above: Arrived Start: 05-10-2023 End: 05-10-2023 Emergency department patient visit Larry Calvin MD Work Phone: [facility] Comment on above: Ureterolithiasis (Pr imary Dx); Acute UTI Start: 05-08-2023 End: 05-08-2023 ambulatory [facility] Drawstation [facility] Comment on above: Arrived Abdominal distension (gaseous) (Primary Dx); Unspecified abdominal pain Start: 04-30-2023 End: 04-30-2023 Patient encounter procedure HYDROTECHNICAL SPECIALIST-Molly Leblanc HYDROTECHNICAL SPECIALIST Work Phone: [facility] Work Phone: Start: 04-23-2023 End: 04-23-2023 Patient encounter procedure HYDROTECHNICAL SPECIALIST-Molly Leblanc HYDROTECHNICAL SPECIALIST Work Phone: [facility] Work Phone: Start: 04-16-2023 End: 04-16-2023 Patient encounter procedure HYDROTECHNICAL SPECIALIST-Molly Leblanc HYDROTECHNICAL SPECIALIST Work Phone: [facility] Work Phone: Start: 01-22-2023 End: 01-22-2023 Patient encounter procedure HYDROTECHNICAL SPECIALIST-Molly Leblanc HYDROTECHNICAL SPECIALIST Work Phone: [facility] Start: 01-17-2023 End: 01-17-2023 ambulatory HYDROTECHNICAL SPECIALIST-Molly Leblanc HYDROTECHNICAL SPECIALIST Work Phone: [facility] Work Phone: Start: 01-17-2023 End: 01-17-2023 Patient encounter procedure HYDROTECHNICAL SPECIALIST-Molly Leblanc HYDROTECHNICAL SPECIALIST Work Phone: [facility]-Radiology, [facility] Start: 12-03-2022 End: 12-03-2022 Subsequent hospital visit by physician Danny Leblanc Work Phone: [facility] Comment on above: Encounter for screen ing mammogram for malignant neoplasm of breast Start: 11-06-2022 Transcribe Orders Danny bojorquez Work Phone: [facility] Central Scheduling Comment on above: Encounter for screen ing mammogram for malignant neoplasm of breast (Primary Dx) Start: 09-10-2022 End: 09-10-2022 ambulatory [facility] Work Phone: Start: 09-10-2022 End: 09-10-2022 Patient encounter procedure [facility]-Laboratory, Specimen Start: 07-03-2022 End: 07-03-2022 Emergency department patient visit DannyTuizzi [facility] Start: 07-03-2022 End: 07-03-2022 Emergency department patient visit Rigo Taylor MD Work Phone: [facility]yla Comment on above: Kidney stone (Primar y Dx) Start: 11-30-2021 ambulatory Danny Leblanc [facility] Start: 11-30-2021 End: 11-30-2021 Subsequent hospital visit by physician Danny Leblanc Work Phone: [facility] Comment on above: Arrived Start: 07-25-2021 Manual pelvic examination [facility] Start: 07-18-2021 ambulatory Danny Benji [facility] Start: 07-18-2021 End: 07-18-2021 Subsequent hospital visit by physician Danny Leblanc Work Phone: [facility] Start: 11-28-2020 End: 11-28-2020 Subsequent hospital visit by physician Danny Leblanc Work Phone: [facility] Comment on above: Arrived Start: 06-02-2019 End: 06-02-2019 Subsequent hospital visit by physician Bola He Work Phone: [facility] Laboratory Start: 05-26-2019 End: 05-26-2019 Subsequent hospital visit by physician Danny Leblanc Work Phone: [facility] Comment on above: Arrived Start: 05-22-2019 Patient encounter status [facility] Procedures Date Procedure Procedure Detail Performing Clinician Start: 12-19-2024 STREP A MOLECULAR (POC) Petra Valenzuela PA-C Work Phone: Start: 12-07-2024 End: 12-07-2024 Screening digital breast tomosynthesis bi Danny Leblanc Work Phone: Start: 12-05-2023 End: 12-05-2023 Screening digital breast tomosynthesis bi Danny Leblanc Work Phone: Start: 12-05-2023 Hepatic function panel Lam Dow MD Work Phone: Start: 07-17-2023 Diagnostic radiograp hy of calcaneus HYDROTECHNICAL SPECIALIST-C Dnany Leblanc HYDROTECHNICAL SPECIALIST Work Phone: Start: 07-17-2023 Repair of tendo achilles HYDROTECHNICAL SPECIALIST-C Danny Leblanc HYDROTECHNICAL SPECIALIST Work Phone: Start: 07-17-2023 Fluoroscopic guidance N P-C Danny Leblanc HYDROTECHNICAL SPECIALIST Work Phone: Start: 07-08-2023 Repair of tendo achilles HYDROTECHNICAL SPECIALIST-C Danny Leblanc HYDROTECHNICAL SPECIALIST Work Phone: Start: 07-02-2023 Nasal Screen MRSA/MSSA HYDROTECHNICAL SPECIALIST-C Danny Leblanc HYDROTECHNICAL SPECIALIST Work Phone: Start: 05-10-2023 Ct abdomen & pelvis w/o contrast material Larry Calvin MD Work Phone: Start: 05-10-2023 Urinalysis complete panel - Urine Larry Calvin MD Work Phone: Start: 05-10-2023 Urnls dip stick/tabl et reagent auto microscopy Larry Calvin MD Work Phone: Start: 05-08-2023 Comprehensive metabo lic panel Pinky Hoover 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 - [employer]ANK [employer]ER Work Phone: Start: 05-08-2023 End: 05-08-2023 Thyrotropin [Units/volume] in Serum or Plasma Pinky Hoover APRN - SHANK SC[employer]ER Work Phone: Start: 01-17-2023 Plain X-ray of shoulder HYDROTECHNICAL SPECIALIST-C Danny Leblanc HYDROTECHNICAL SPECIALIST Work Phone: Start: 01-17-2023 Radiologic examinati on of knee HYDROTECHNICAL SPECIALIST-C Danny Leblanc HYDROTECHNICAL SPECIALIST Work Phone: Start: 12-03-2022 End: 12-03-2022 Mammography Danny Benji Work Phone: Start: 07-03-2022 Ct abdomen & pelvis w/o contrast material Rigo Tyalor MD Work Phone: Start: 07-03-2022 Basic metabolic pane l calcium total Rigo Taylor MD Work Phone: Start: 07-03-2022 Urnls dip stick/tabl et rgnt auto w/o microscopy Rigo Taylor MD Work Phone: Start: 11-30-2021 Screening digital br east tomosynthesis bi Danny Leblanc Work Phone: Start: 07-18-2021 Radex shoulder compl ete minimum 2 views Danny Leblanc Work Phone: Start: 11-28-2020 Screening mammograph y bi 2-view breast inc cad Danny Leblanc Work Phone: Start: 05-26-2019 transvaginal Danny harrison Work Phone: Plan of Treatment Date Care Activity Detail Author Start: 2034 RSV High Risk: (Elde rly (60+) or Population) (1 - 1-dose 75+ series) RSV High Risk: (Elderly (60+) or Population) (1 - 1-dose 75+ series) [facility] Start: 2034 RSV Vaccine (1 - 1-d ose 75+ series) RSV Vaccine (1 - 1-dose 75+ series) [facility] Start: 05-08-2026 Diabetes Screening Diabetes Screenin g [facility] Start: 12-07-2025 Screening for malign ant neoplasm of breast [facility] Start: 05-31-2025 Influenza vaccination Influenz a Vaccine (Season Ended) [facility] Start: 12-04-2024 Screening for malign ant neoplasm of breast [facility] Start: 2024 Advance Directive Discussion Advance Directive Discussion [facility] Start: 2024 Screening for osteoporosis Bone Density Screening [facility] Start: 09-30-2024 Medicare Advantage Annual Wellness Visit Medicare Advantage Annual Wellness Visit [facility] Start: 05-31-2024 COVID-19 Vaccine ( season) COVID-19 Vaccine ( season) [facility] Start: 05-31-2024 Influenza vaccination [facility] Start: 05-08-2024 Thyroid stimulating hormone measurement TSH Level [facility] Start: 12-05-2023 End: 12-05-2023 Patient encounter procedure 12/05/2023 2:00 PM EST Appointment [facility] [address] [place] [address] Danny Leblanc [address] [place] [address] [facility] Start: 12-04-2023 Screening for malign ant neoplasm of breast Mammogram [facility] Start: 12-01-2023 Screening for malign ant neoplasm of breast Breast cancer screen [facility] Start: 09-30-2023 Behavioral Health Screening Behavioral Health Screening [facility] Start: 09-30-2023 Depression Assessment Depression Ass essment [facility] Start: 07-17-2023 Anes open proc bones lower leg/ankle/foot nos ANESTH LOWER LEG BONE SURG [facility] Start: 07-17-2023 Ostectomy calcaneus REMOVAL OF HEEL BONE [facility] Start: 07-17-2023 Prtl exc b1 tarsal/m etar b1 xcp talus/calcaneus PARTIAL REMOVAL OF FOOT BONE [facility] Start: 07-17-2023 Repair primary open/ prq ruptured achilles tendon REPAIR ACHILLES TENDON [facility] Start: 07-17-[facility]23 [facility] Start: 07-08-2023 [facility] Start: 05-31-2023 Covid-19 Vaccine ( season) Covid-19 Vaccine () [facility] Start: 05-31-2023 Influenza vaccination Influenza Vacc ine (#1) [facility] Start: 04-30-2023 Patient referral [facility] Work Phone: Start: 04-16-2023 Patient referral [facility] Work Phone: Start: 11-28-2022 Screening for malign ant neoplasm of breast [facility] Start: 04-30-2022 Influenza vaccination Flu vaccine (# 1) [facility] Start: 12-10-2021 COVID-19 Vaccine (3 - Booster for Moderna series) COVID-19 Vaccine (3 - Booster for Moderna series) [facility] Start: 11-28-2021 Screening for malign ant neoplasm of breast Mammogram Screening [facility] Start: 11-25-2021 Screening for malign ant neoplasm of breast Breast cancer screen [facility] Work Phone: Start: 09-06-2021 COVID-19 Vaccine (3 - Booster for Moderna series) COVID-19 Vaccine (3 - Booster for Moderna series) [facility] Start: 09-06-2021 COVID-19 Vaccine (3 - Moderna series) COVID-19 Vaccine (3 - Moderna series) [facility] Start: 05-31-2021 Influenza vaccination Flu vaccine (# 1) [facility] Start: 11-03-2020 Breast cancer screen Breast cancer s [place], [place] Start: 05-31-2020 Influenza vaccination Flu vaccine (# 1) [facility] Work Phone: Start: 2019 Hepatitis B Vaccines (1 of 3 - Risk 3-dose series) Hepatitis B Vaccines (1 of 3 - Risk 3-dose series) [facility] Start: 2019 RSV Immunization age d 60 or older (1 - 1-dose 60+ series) RSV Immunization aged 60 or older (1 - 1-dose 60+ series) [facility] Start: 2019 RSV Immunization for Adults (1 - Risk 60-74 years 1-dose series) RSV Immunization for Adults (1 - Risk 60-74 years 1-dose series) [facility] Start: 2019 RSV Vaccine (1 - 1-d ose 60+ series) RSV Vaccine (1 - 1-dose 60+ series) [facility] Start: 05-31-2019 Influenza vaccination Flu vaccine (# 1) [place], [place] Start: 2009 Colon cancer screen colonoscopy Colon cancer screen colonoscopy [place], [place] Start: 2009 Pneumococcal vaccination Pneum ococcal Vaccine (1 of 1 - PCV) [facility] Start: 2009 Pneumococcal Vaccine : 50+ (1 of 1 - PCV) Pneumococcal Vaccine: 50+ (1 of 1 - PCV) [facility] Start: 2009 Screening for malign ant neoplasm of colon Colon cancer screen colonoscopy [facility] Work Phone: Start: 2009 Shingles Vaccine (1 of 2) Shingles Vaccine (1 of 2) [facility] Start: 2009 Shingrix Vaccine (1 of 2) Shingrix Vaccine (1 of 2) [facility] Start: 2009 Zoster Vaccines (1 of 2) Zoste r Vaccines (1 of 2) [facility] Start: 2004 Lipid panel Lipid Screening [facility] Start: 2004 Screening for malign ant neoplasm of colon [facility] Start: 1999 Lipid panel [facility] Start: 1999 Lipid screen Lipid screen [place], [place] Start: 1989 Screening for malign ant neoplasm of cervix [facility] Start: 1981 DTaP/Tdap/Td Vaccine s (1 - Tdap) DTaP/Tdap/Td Vaccines (1 - Tdap) [facility] Start: 1980 Cervical cancer screen Cervical canc er screen [place], [place] Start: 1980 Screening for malign ant neoplasm of cervix [facility] Start: 1978 DTaP/Tdap/Td vaccine (1 - Tdap) DTaP/Tdap/Td vaccine (1 - Tdap) [facility] Start: 1978 DTaP/Tdap/Td Vaccine s (1 - Tdap) DTaP/Tdap/Td Vaccines (1 - Tdap) [facility] Start: 1978 Hepatitis A Vaccines (1 of 2 - Risk 2-dose series) Hepatitis A Vaccines (1 of 2 - Risk 2-dose series) [facility] Start: 1978 Pneumococcal Vaccine : 50+ Years (1 of 2 - PCV) Pneumococcal Vaccine: 50+ Years (1 of 2 - PCV) [facility] Start: 1978 Urine microalbumin profile DTaP,Tdap,Td Vaccine (1 - Tdap) [facility] Start: 1977 Anxiety Screening Anxiety Screening [facility] Start: 1977 Depression Screening Depression Scre ening [facility] Start: 1977 Diabetes mellitus screening Diabetes Screening [facility] Start: 1977 Hepatitis C screening [facility] Start: 1977 HIV screening HIV Screening [facility] Start: [address] HIV [address] [facility] [place] Start: 1974 HIV screening HIV screen [facility] Start: 1971 COVID-19 Vaccine (1) COVID-19 Vaccin e (1) [facility] Work Phone: Start: 1971 Depression Screen Depression Screen [facility] Start: 1971 Depression Screening Depression Scre ening [facility] Start: 1964 COVID-19 Vaccine (1) COVID-19 Vaccin e (1) [facility] Start: 1960 MMR Vaccines (1 of 1 - Standard series) MMR Vaccines (1 of 1 - Standard series) [facility] Start: 1959 Annual wellness visit Medicare Initial Physical (IPPE) [facility] Start: 1959 Hepatitis B Vaccines (1 of 3 - 3-dose series) Hepatitis B Vaccines (1 of 3 - 3-dose series) [facility] Start: 1959 Hepatitis C screen Hepatitis C scree n [facility], [place] Start: 1959 Hepatitis C screening Hepatitis C sc reen [facility] Start: 1959 HIV screening HIV Screening [facility] Start: 1959 Lipid panel Lipid Panel [facility] Start: 1959 Screening for malign ant neoplasm of colon [facility] Start: 1959 Screening for osteoporosis Bone Density Scan [facility] Start: 1959 Yearly Adult Physical Yearly Adult P [facility] Calculus analysis [facility] End: 06-02-2019 Miscellaneous Sendout 1 Miscellaneous Sendout 1 Lab Routine Once for 1 Occurrences starting 06/02/2019 until 06/02/2019 [facility], [place] Comment on above: Once for 1 Occurrenc es starting 06/02/2019 until 06/02/2019 Miscellaneous Sendout 1 Miscella neous Sendout 1 Lab Routine 06/02/2019 1:45 PM EDT [place], [place] Origin of Stone [facility] OUTSIDE PROCEDURE SCAN OUTSIDE P ROCEDURE SCAN Procedures Ordered: 05/08/2023 [facility] Comment on above: Ordered: 05/08/2023 OUTSIDE PROCEDURE SCAN OUTSIDE P ROCEDURE SCAN Procedures Ordered: 09/03/2023 [facility] Comment on above: Ordered: 09/03/2023 Patient referral [facility] Work Phone: Specimen color determination [facility] Immunizations Immunization Date Immunization Notes Care Provider [facility] 08-15-2022 influenza virus vacc ine, unspecified formulation [facility] Drawstation [facility] 07-12-2021 Moderna SARS-CoV-2 Vaccination Danny Leblanc Work Phone: [facility] 06-14-2021 Moderna SARS-CoV-2 Vaccination Danny Leblanc Work Phone: [facility] [employer] Payers Date Payer Category Payer For Life--Medicare Supplement FOR LIFE [id number] 2024 Medicare (Managed Care) [facility] MEDICARE PPO [id number] 2024 Medicare HMO [employer] AARP MEDICAR E ADVANTAGE [id number] 2024 Medicare [id number] 2023 Self-pay [id number] 2022 [employer] ( and others) 2022 [employer] of [employer] ( and others) [id number] 2018 (LISA) [id number] 2017 Government (not [facility] care or Medicaid) [facility] [id number] 2017 Unknown [employer] [id number] 2017-Present [phone] [address] [place] [address] Indemnity [id number] 2017 [employer] ( and others) [id number] 2017 [employer] ( and others) [id number] 1959 Unknown [id number] 1959 Unknown [id number] 1959 Unknown [id number] 1959 Unknown [id number] Unknown [id number] Unknown [id number] Unknown [id number] Unknown [id number] Unknown [id number] Unknown [id number] Unknown [id number] Social History Date Type Detail Facility Tobacco smoking stat us NHIS Unknown if ever smoked [employer] [facility] Start: 1960 Sex Assigned At Not on file [facility] [employer] Start: 04-16-2022 End: 07-16-2023 Tobacco smoking status NHIS Tobacco smoking consumption unknown [facility] Start: 07-03-2022 End: 12-05-2023 Tobacco smoking status NHIS Never smoked tobacco [employer] Work Phone: Start: 07-03-2022 End: 01-01-2024 Alcohol intake Ex-drinker (finding) [employer] Work Phone: Start: 06-23-2022 End: 05-10-2023 Exposure to SARS-CoV-2 (event) Not sure [employer] Work Phone: Start: 1960 Sex Assigned At Female [facility] Start: 12-03-2022 End: 12-07-2024 History of Social function [facility] [employer] Start: 12-03-2022 End: 12-07-2024 Tobacco use panel [facility] [employer] How often to you hav e a drink containing alcohol? Never [facility] [employer] How many standard drinks containing alcohol do you have on a typical day? Patient does not drink [facility] [employer] Start: 11-11-2023 End: 12-05-2023 Tobacco use and exposure Smokeless tobacco non-user [facility] Start: 12-07-2024 Tobacco use and exposure User of smokeless tobacco [facility] [employer] Start: 04-30-2022 Sex Female (finding) [facility] Medical Equipment Procedure Code Equipment Code Equipment Origin al Text Equipment Identifier Dates Repair, tendon, Achilles BIOVANCE, 5x5CM FDA Start: 07-17-2023 Repair, tendon, Achilles ([id number]) Tendon/ligament bone anchor, bioabsorbable [id number] FDA Start: 07-17-2023 Goals Date Patient Goal Desired Activity /State Functional Status Date Assessment Result Facility 07-17-2023 Functional status Ambulates [facility] Work Phone: Mental Status Date Assessment Result Facility 07-17-2023 Cognitive function Voice/Name [facility] Work Phone: 07-08-2023 Cognitive function Level Of Cons ciousness Follows Commands;Drowsy [facility] Work Phone: 07-08-2023 Cognitive function Voice/Name [facility] Work Phone: Clinical Notes 10-25-2020 to 12-19-2024 Patient InstructionsSPetra pettit PA-C - 12/19/2024 9:44 AM Nicholas Ramos MD - 09/19/2024 9:00 AM ESTPatient InstructionsAttachmentsDischarge InstructionsAttachmentsPatient Instructions Note Date & Type Note Facility 12-19-2024 Instructions Petra Valenzuela PA-C - 12/19/2024 9:45 AM EDT ASSESSMENT/PLAN: 1. Cervical lymphadenitis - Left nodes Left sore throat 2. Acute otalgia, left - STREP A MOLECULAR (POC)- negative - PREDNISONE 20 MG TABLET - AMOXICILLIN 875 MG-POTASSIUM CLAVULANATE 125 MG TABLET Monitor for signs of worsening- more swollen, painful, hot, feeling more ill, swelling, body aches, fever, etc- go to ER Discussed OTC options: Encourage fluids, rest. Tylenol Warm salt water gargles. Try Cepocol lozenges or Chloraseptic throat spray. Take entire course of Antibiotics. Call PCP if sx worsen or no better. If symptoms worsen, or new symptoms develop go to ER. If you have worsening of breathing or breathing changes- go to ER. If you have persistent fever unrelieved by Tylenol/Motrin- go to the ER. Follow up as needed. Pt agreeable with plan. Barriers to learning: none. The patient verbalizes understanding and is in agreement with plan of care. Petra Valenzuela PA-C documented in this encounter [facility] 12-19-2024 Note HNO ID: [id number] Author: PETRA VALENZUELA PA-C Service: ? Author Type: Physician Behavior Support Specialist Type: Progress Notes Filed: 12/19/2024 10:15 Note Text: 12/19/2024 Patient presents with: Sore Throat Ear Pain: Symptoms started last night only left side ear and throat. SUBJECTIVE: This is a 64 year old that is here today for acute onset left ear/left sore throat/left neck pain that started last night. Throat does not feel swollen. HPI per the patient. No sinus, cough, n/v, BENNETT, or rash. No other sick symptoms. No other URI symptoms. Denies fever, chills, sweats, or fatigue. Patient denies wheezing, shortness of breath, increased WOB, or chest pain. Asthma: none Pneumonia: none Tobacco: none Pain on scale of 0-10 with 0 being no pain and 10 being greatest pain: - Nothing makes the symptoms better. Nothing makes them worse. Self-treatment:. none The severity is mild and the symptoms are not improving. The patient did not have a similar problem in the last 3 months. The patient did not take any antibiotics in the last 3 months. The patient was not exposed to strep. Barriers to learning: none. Reviewed meds, OTCs, herbals or supplements. Reviewed allergies, medications, social history, and past medical history. No past medical history on file. ALLERGIES Patient has no known allergies. MEDICATIONS Current Outpatient Medications Medication Sig MULTI-VITAMIN ORAL Take by mouth. cholecalciferol, vitamin D3, (VITAMIN D3 ORAL) Take by mouth. BIOTIN ORAL Take by mouth. esomeprazole (NEXIUM) 40 mg capsule azelastine (ASTELIN) 0.1% nasal spray DULoxetine (CYMBALTA) 30 mg capsule famotidine (PEPCID) 40 mg tablet montelukast (SINGULAIR) 10 mg tablet levothyroxine (SYNTHROID) 75 mcg tablet Vvxtl-8-DDP-EPA-Fish Oil (FISH OIL) 1,000 mg (120 mg-180 mg) cap Fish Oil 1,000 mg Cap fluticasone (FLONASE) 50 mcg/actuation nasal spray Use 2 Sprays in each nostril once daily. predniSONE (DELTASONE) 20 mg tablet Take 1 tablet by mouth two times a day for 3 days. amoxicillin-clavulanate potassium (AUGMENTIN) 875-125 mg per tablet Take 1 tablet by mouth two times a day with meals for 5 days. Zurdrhjwmrrvrva-Yeblivrbk-JR (BROMFED DM) 2-30-10 mg/5 mL syrup Take 5 mL by mouth every 6 hours as needed. (Patient not taking: Reported on 01/01/2024) No current facility-administered medications for this visit. Medications and allergies reviewed by this provider. SOCIAL HISTORY Social History Tobacco Use Smoking status: Never Smokeless tobacco: Never REVIEW OF SYSTEMS Review of Systems Constitutional: Negative. HENT: Positive for ear pain and sore throat. Eyes: Negative. Respiratory: Negative. Cardiovascular: Negative. Gastrointestinal: Negative. Endocrine: Negative. Genitourinary: Negative. Musculoskeletal: Positive for neck pain. Allergic/Immunologic: Negative. Neurological: Negative. Hematological: Negative. Psychiatric/Behavioral: Negative. All other systems reviewed and are negative. OBJECTIVE: BP 153/88 Pulse 82 Temp 36.4 ?C (97.5 ?F) Wt 84.4 kg (185 lb 15.3 oz) SpO2 96% BMI 34.01 kg/m? . Vital signs reviewed by this provider. Physical Exam Vitals reviewed. Constitutional: General: She is not in acute distress. Appearance: Normal appearance. She is well-developed and normal weight. She is not ill-appearing, toxic-appearing or diaphoretic. HENT: Head: Normocephalic and atraumatic. No right periorbital erythema or left periorbital erythema. Salivary Glands: Right salivary gland is not diffusely enlarged or tender. Left salivary gland is not diffusely enlarged or tender. Comments: Salivary glands not enlarged or tender. Right Ear: Tympanic membrane, ear canal and external ear normal. Left Ear: Tympanic membrane, ear canal and external ear normal. No laceration, drainage, swelling or tenderness. No middle ear effusion. There is no impacted cerumen. No foreign body. No mastoid tenderness. No PE tube. No hemotympanum. Tympanic membrane is not injected, scarred, perforated, erythematous, retracted or bulging. Nose: Nose normal. No congestion or rhinorrhea. Right Sinus: No maxillary sinus tenderness or frontal sinus tenderness. Left Sinus: No maxillary sinus tenderness or frontal sinus tenderness. Mouth/Throat: Lips: [place]. No lesions. Mouth: Mucous membranes are moist. No oral lesions. Dentition: No gum lesions. Tongue: No lesions. Tongue does not deviate from midline. Palate: No mass and lesions. Pharynx: Oropharynx is clear. Uvula midline. No pharyngeal swelling, oropharyngeal exudate, posterior oropharyngeal erythema, uvula swelling or postnasal drip. Tonsils: No tonsillar exudate or tonsillar abscesses. Comments: Tonsils not enlarged. Both equal. No exudate or erythema. Palate is equal. Eyes: General: Lids are normal. No scleral icterus. Right eye: No discharge. Left eye: No discharge. Extraocular Movemen (more content not included)... [facility] 12-19-2024 History of Present illness Narrative Images from the original note were not included. 12/19/2024 Patient presents with: Sore Throat Ear Pain: Symptoms started last night only left side ear and throat. SUBJECTIVE: This is a 64 year old that is here today for acute onset left ear/left sore throat/left neck pain that started last night. Throat does not feel swollen. HPI per the patient. No sinus, cough, n/v, BENNETT, or rash. No other sick symptoms. No other URI symptoms. Denies fever, chills, sweats, or fatigue. Patient denies wheezing, shortness of breath, increased WOB, or chest pain. Asthma: none Pneumonia: none Tobacco: none Pain on scale of 0-10 with 0 being no pain and 10 being greatest pain: - Nothing makes the symptoms better. Nothing makes them worse. Self-treatment:. none The severity is mild and the symptoms are not improving. The patient did not have a similar problem in the last 3 months. The patient did not take any antibiotics in the last 3 months. The patient was not exposed to strep. Barriers to learning: none. Reviewed meds, OTCs, herbals or supplements. Reviewed allergies, medications, social history, and past medical history. No past medical history on file. ALLERGIES Patient has no known allergies. MEDICATIONS Current Outpatient Medications Medication Sig MULTI-VITAMIN ORAL Take by mouth. cholecalciferol, vitamin D3, (VITAMIN D3 ORAL) Take by mouth. BIOTIN ORAL Take by mouth. esomeprazole (NEXIUM) 40 mg capsule azelastine (ASTELIN) 0.1% nasal spray DULoxetine (CYMBALTA) 30 mg capsule famotidine (PEPCID) 40 mg tablet montelukast (SINGULAIR) 10 mg tablet levothyroxine (SYNTHROID) 75 mcg tablet Bbqgz-4-XQU-EPA-Fish Oil (FISH OIL) 1,000 mg (120 mg-180 mg) cap Fish Oil 1,000 mg Cap fluticasone (FLONASE) 50 mcg/actuation nasal spray Use 2 Sprays in each nostril once daily. predniSONE (DELTASONE) 20 mg tablet Take 1 tablet by mouth two times a day for 3 days. amoxicillin-clavulanate potassium (AUGMENTIN) 875-125 mg per tablet Take 1 tablet by mouth two times a day with meals for 5 days. Mlglkombbwkfzcw-Jzhxuahti-UY (BROMFED DM) 2-30-10 mg/5 mL syrup Take 5 mL by mouth every 6 hours as needed. (Patient not taking: Reported on 01/01/2024) No current facility-administered medications for this visit. Medications and allergies reviewed by this provider. SOCIAL HISTORY Social History Tobacco Use Smoking status: Never Smokeless tobacco: Never REVIEW OF SYSTEMS Review of Systems Constitutional: Negative. HENT: Positive for ear pain and sore throat. Eyes: Negative. Respiratory: Negative. Cardiovascular: Negative. Gastrointestinal: Negative. Endocrine: Negative. Genitourinary: Negative. Musculoskeletal: Positive for neck pain. Allergic/Immunologic: Negative. Neurological: Negative. Hematological: Negative. Psychiatric/Behavioral: Negative. All other systems reviewed and are negative. OBJECTIVE: BP 153/88 Pulse 82 Temp 36.4 C (97.5 F) Wt 84.4 kg (185 lb 15.3 oz) SpO2 96% BMI 34.01 kg/m . Vital signs reviewed by this provider. Physical Exam Vitals reviewed. Constitutional: General: She is not in acute distress. Appearance: Normal appearance. She is well-developed and normal weight. She is not ill-appearing, toxic-appearing or diaphoretic. HENT: Head: Normocephalic and atraumatic. No right periorbital erythema or left periorbital erythema. Salivary Glands: Right salivary gland is not diffusely enlarged or tender. Left salivary gland is not diffusely enlarged or tender. Comments: Salivary glands not enlarged or tender. Right Ear: Tympanic membrane, ear canal and external ear normal. Left Ear: Tympanic membrane, ear canal and external ear normal. No laceration, drainage, swelling or tenderness. No middle ear effusion. There is no impacted cerumen. No foreign body. No mastoid tenderness. No PE tube. No hemotympanum. Tympanic membrane is not injected, scarred, perforated, erythematous, retracted or bulging. Nose: Nose normal. No congestion or rhinorrhea. Right Sinus: No maxillary sinus tenderness or frontal sinus tenderness. Left Sinus: No maxillary sinus tenderness or frontal sinus tenderness. Mouth/Throat: Lips: [place]. No lesions. Mouth: Mucous membranes are moist. No oral lesions. Dentition: No gum lesions. Tongue: No lesions. Tongue does not deviate from midline. Palate: No mass and lesions. Pharynx: Oropharynx is clear. Uvula midline. No pharyngeal swelling, oropharyngeal exudate, posterior oropharyngeal erythema, uvula swelling or postnasal drip. Tonsils: No tonsillar exudate or tonsillar abscesses. Comments: Tonsils not enlarged. Both equal. No exudate or erythema. Palate is equal. Eyes: General: Lids are normal. No scleral icterus. Right eye: No discharge. Left eye: No discharge. Extraocular Movements: Extraocular movements intact. Conjunctiva/sclera: Conjunctivae normal. Pupils: Pupils are equal, round, and reactive to light. Pupils are equal. Neck: Thyroid: No thyroid mass, thyromegaly or thyroid tenderness. Vascular: Normal carotid pulses. No carotid bruit. Cardiovascular: Rate and Rhythm: Normal rate and regular rhythm. Heart sounds: Normal heart sounds. Pulmonary: Effort: Pulmonary effort is normal. Breath sounds: Normal breath sounds and air entry. Musculoskeletal: Cervical back: Full passive range of motion without pain. No edema, erythema, signs of trauma, rigidity, torticollis or crepitus. No pain with movement, spinous process tenderness or muscular tenderness. Normal range of motion. Lymphadenopathy: Head: Right side of head: No submental, submandibular, tonsillar, preauricular or posterior auricular adenopathy. Left side of head: No submental, submandibular, tonsillar, preauricular or posterior auricular adenopathy. Cervical: Cervical adenopathy present. Right cervical: No superficial, deep or posterior cervical adenopathy. Left cervical: Superficial cervical adenopathy present. No deep or posterior cervical adenopathy. Skin: General: Skin is warm. Capillary Refill: Capillary refill takes less than 2 seconds. Findings: No rash. Neurological: General: No focal deficit present. Mental Status: She is alert and oriented to person, place, and time. Cranial Nerves: No facial asymmetry. Psychiatric: Attention and Perception: Attention normal. Behavior: Behavior is cooperative. ASSESSMENT/PLAN: 1. Cervical lymphadenitis - ICD9: 289.3, ICD10: I88.9 (primary diagnosis) Left nodes Left sore throat 2. Acute otalgia, left - ICD9: 388.70, ICD10: H92.02 - STREP A MOLECULAR (POC)- negative - PREDNISONE 20 MG TABLET - AMOXICILLIN 875 MG-POTASSIUM CLAVULANATE 125 MG TABLET Monitor for signs of worsening- more swollen, painful, hot, feeling more ill, swelling, body aches, fever, etc- go to ER Discussed OTC options: Encourage fluids, rest. Tylenol Warm salt water gargles. Try Cepocol lozenges or Chloraseptic throat spray. Take entire course of Antibiotics. Call PCP if sx worsen or no better. If symptoms worsen, or new symptoms develop go to ER. If you have worsening of breathing or breathing changes- go to ER. If you have persistent fever unrelieved by Tylenol/Motrin- go to the ER. Follow up as needed. Pt agreeable with plan. Barriers to learning: none. The patient verbalizes understanding and is in agreement with plan of care. Petra Valenzuela PA-C Medical Decision Making: Problems: Moderate: New problem with uncertain prognosis Data: Unique source(s) for external note(s) reviewed: 1 Unique test result(s) reviewed: 1 Unique test(s) ordered: 1 Risk: Low: Low risk from testing/treatment Moderate: Drug management Medical Decision Making Level: 4 - Moderate I spent a total of 20 minutes on the date of the service which included preparing to see the patient, [id number] patient care, completing clinical documentation, obtaining and/or reviewing separately obtained history, performing a medically appropriate examination, counseling and educating the patient/family/caregiver, ordering medications, tests, or procedures, and communicating results to the patient/family/caregiver. History and Record Review External record(s) reviewed: prior outpatient record. Findings from review of outpatient records: Currently on Doxy for a tick bite Differential Diagnoses - Cervical lymphadenitis is more likely for the following reason(s): suggested by H&P and consistent with laboratory studies Disposition The patient was discharged. OTC Medications were advised: Encourage fluids, rest. Tylenol Warm salt water gargles. Try Cepocol lozenges or Chloraseptic throat spray. documented in this encounter [facility] 09-19-2024 History of Present illness Narrative Subjective Patient ID: Corie Murdock is a 63 y.o. female. They present today with a chief complaint of Cough (Left earache, sinus drainage X 1 week). History of Present Illness Patient reports ~7 days of symptoms Endorses cough Notes drainage Denies sinus pain Reports left ear is achy Denies hx of smoking Reports hx of asthma years ago Denies chest pain Past Medical History Allergies as of 09/19/2024 (No Known Allergies) (Not in a hospital admission) No past medical history on file. No past surgical history on file. reports that she has never smoked. She has never used smokeless tobacco. She reports that she does not currently use alcohol. She reports that she does not use drugs. Objective Vitals: 09/19/24 0920 BP: 136/81 Pulse: 96 Resp: 16 Temp: 36.7 C (98 F) SpO2: 95% No LMP recorded. Patient is postmenopausal. Physical Exam Constitutional: General: She is not in acute distress. Appearance: Normal appearance. She is not toxic-appearing or diaphoretic. HENT: Right Ear: Tympanic membrane is bulging (slight). Tympanic membrane is not injected, perforated or erythematous. Left Ear: Tympanic membrane, ear canal and external ear normal. There is no impacted cerumen. Tympanic membrane is not injected, perforated or erythematous. Nose: No rhinorrhea. Eyes: General: No scleral icterus. Right eye: No discharge. Left eye: No discharge. Extraocular Movements: Extraocular movements intact. Cardiovascular: Rate and Rhythm: Normal rate and regular rhythm. Pulmonary: Effort: Pulmonary effort is normal. No respiratory distress. Breath sounds: No wheezing or rales. Comments: Nonproductive cough on exam Musculoskeletal: Cervical back: Normal range of motion. Neurological: Mental Status: She is alert. Psychiatric: Mood and Affect: Mood normal. Behavior: Behavior normal. Thought Content: Thought content normal. Comments: Pleasant Procedures Point of Care Test & Imaging Results from this visit: Diagnostic study results (if any) were reviewed by Carol Ramos MD. Assessment/Plan Allergies, medications, history, and pertinent labs/EKGs/Imaging reviewed by Carol Ramos MD. Medical Decision Making: Patient's symptoms are consistent with URI likely 2/2 cold virus etiology vs less likely developing bacterial sinusitis. AFVSS satting 95% on RA. Encourage supportive care measures. Through shared decision making, will print a script for patient only to take if symptoms fail to improve after 10 days at the start of her symptoms. Return as needed. ER if symptoms worsen Orders and Diagnoses Diagnoses and all orders for this visit: Acute cough - azithromycin (Zithromax) 250 mg tablet; Please follow [employer] package instructions - benzonatate (Tessalon) 200 mg capsule; Take 1 capsule (200 mg) by mouth 3 times a day as needed for cough for up to 7 days. Do not crush or chew. Viral URI Patient disposition: Home Medical Admin Record Follow Up Instructions No follow-ups on file. Electronically signed by Carol Ramos MD 9:47 AM documented in this encounter [facility] Work Phone: 09-19-2024 Instructions Carol Ramso MD - 09/19/2024 9:00 AM EST - Your infection is likely viral - Please trial conservative supportive care measures such as continued intranasal flonase/steroids, zyrtec, buckwheat honey, Mucinex, tessalon perles, tylenol, ibuprofen, netipot or nasal saline spray and salt water gargles - You may take zinc, vitamin D3, and/or vitamin C for possible antiviral benefit - You may take your antibiotics if the above measures fail to improve your symptoms after 10 days The following attachments cannot be sent through Care Everywhere.Cough in adults ([place])documented in this encounter [facility] Work Phone: 01-01-2024 Hospital Discharge instructions Jesus Denton MD - 01/01/2024 11:11 AM EDT You have signs of an infection around the dental work that you had done. You may have a small underlying abscess but the treatment is appropriate antibiotic therefore will be started on clindamycin - give this 2 full days to see if you have improvement. If you develop any worsening symptoms sooner which we talked about including difficulty opening your mouth, change in voice or significant difficulty swallowing then you should come back for a CT scan. But at this time do not believe it is necessary. The following attachments cannot be sent through Care Everywhere.Tooth Abscess Discharge Instructions ([place])documented in this encounter [facility] 01-01-2024 Emergency department Note EMERGENCY DEPARTMENT ENCOUNTER Pt Name: Corie Murdock Birthdate 1960 Date of evaluation: 01/01/2024 ED Provider: Jesus Denton MD CHIEF COMPLAINT Chief Complaint Patient presents with Dental Pain HISTORY OF PRESENT ILLNESS (Location/Symptom, Timing/Onset, Context/Setting, Quality, Duration, Modifying Factors, Severity) Note limiting factors. I wore appropriate PPE for the entirety of this encounter. HPI Corie Murdock is a 63 y.o. who presents to the emergency department with chief complaint of right-sided jaw face intraoral swelling. Recently had a root canal over a week ago has been on amoxicillin and subsequently Keflex a couple of days ago. Saw her dentist again today and had an x-ray for follow-up and stated was not a dental issue but concerned for a deeper infection and was sent for further evaluation to urgent care who sent her here. Patient states it is little bit difficult to swallow but she has been able to eat and drink still. She is tolerating her saliva. She states her voice is normal. She is not on lisinopril. No new medications otherwise or known allergies. No fevers chills nausea. She is not diabetic. Denies any ear pain. Nursing Notes were reviewed. Limitations to history: None Outside historians: None REVIEW OF SYSTEMS Review of Systems Constitutional: Negative for chills and fever. HENT: Positive for dental problem, facial swelling and trouble swallowing. Negative for ear pain, sore throat and voice change. Eyes: Negative for pain and visual disturbance. Respiratory: Negative for cough and shortness of breath. Cardiovascular: Negative for chest pain and palpitations. Gastrointestinal: Negative for abdominal pain and vomiting. Genitourinary: Negative for dysuria and hematuria. Musculoskeletal: Negative for arthralgias and back pain. Skin: Negative for color change and rash. Neurological: Negative for seizures and syncope. All other systems reviewed and are negative. Pertinent positives and negatives as per HPI. PAST MEDICAL HISTORY Past Medical History: Diagnosis Date Allergies Kidney stone Thyroid disease SURGICAL HISTORY Past Surgical History: Procedure Laterality Date CARPAL TUNNEL RELEASE SECTION (HISTORICAL) CURRENT MEDICATIONS Previous Medications ALLOPURINOL (ZYLOPRIM) 100 MG TABLET AZELASTINE (ASTELIN) 0.1 % NASAL SPRAY CETIRIZINE (ZYRTEC) 10 MG TABLET DULOXETINE (CYMBALTA) [address] CAPSULE EPINEPHRINE (EPIPEN) 0.3 MG/0.3ML INJECTION SYRINGE FAMOTIDINE (PEPCID) 40 MG TABLET KRILL OIL (OMEGA-3) 500 MG CAPSULE Take 500 mg by mouth. MONTELUKAST (SINGULAIR) 10 MG TABLET ONDANSETRON ODT (ZOFRAN-ODT) 4 MG DISINTEGRATING TABLET Take 1 tablet by mouth every 8 hours as needed. PEDIATRIC MULTIVITAMINS-IRON (PEDIATRIC MULTIVITAMIN-IRON) TABLET CHEWABLE SPLIT TABLET Take by mouth. SYNTHROID 75 MCG TABLET ALLERGIES Bee venom FAMILY HISTORY Family History Problem Relation Name Age of Onset Prostate cancer Father 70 SOCIAL HISTORY Social History Socioeconomic History Marital status: Tobacco Use Smoking status: Never Smokeless tobacco: Never Vaping Use Vaping Use: Never used Substance and Sexual Activity Alcohol use: Not Currently Drug use: Not Currently SCREENINGS PHYSICAL EXAM ED Triage Vitals Temp Pulse Resp BP -- -- -- -- SpO2 Temp src Heart Rate Source Patient Position -- -- -- -- BP Location FiO2 (%) -- -- Physical Exam Vitals and nursing note reviewed. Constitutional: General: She is not in acute distress. Appearance: She is well-developed. She is obese. She is not ill-appearing or diaphoretic. HENT: Head: Normocephalic and atraumatic. Jaw: There is normal jaw occlusion. No trismus or malocclusion. Salivary Glands: Right salivary gland is not diffusely enlarged or tender. Comments: Some tenderness and mild soft tissue edema along the right lower face jaw area, there is no fullness of the jaw in the submandibular area or sublingual area Right Ear: Tympanic membrane, ear canal and external ear normal. No mastoid tenderness. Mouth/Throat: Dentition: Abnormal dentition. Dental tenderness, gingival swelling and dental caries present. No dental abscesses (not visible). Pharynx: Oropharynx is clear. Uvula midline. No pharyngeal swelling or uvula swelling. Tonsils: No tonsillar abscesses. Comments: Posterior oropharynx visualized with tongue depressor does not show any abnormalities No dysphonia No pooling of secretions easily able to swallow Eyes: Conjunctiva/sclera: Conjunctivae normal. Cardiovascular: Rate and Rhythm: Normal rate and regular rhythm. Heart sounds: No murmur heard. Pulmonary: Effort: Pulmonary effort is normal. No respiratory distress. Breath sounds: Normal breath sounds. Abdominal: Palpations: Abdomen is soft. Tenderness: There is no abdominal tenderness. Musculoskeletal: General: No swelling. Cervical back: Neck supple. No rigidity. Lymphadenopathy: Cervical: No cervical adenopathy. Skin: General: Skin is warm and dry. Capillary Refill: Capillary refill takes less than 2 seconds. Neurological: Mental Status: She is alert. Psychiatric: Mood and Affect: Mood normal. DIAGNOSTIC RESULTS Procedures/EKG: EKG was reviewed by myself. Physician EKG interpretation can be found in [facility] RADIOLOGY (Per Emergency Physician): Interpretation per the Radiologist below, if available at the time of this note: No orders to display ED BEDSIDE ULTRASOUND: Performed by ED Physician - none LABS: Labs Reviewed - No data to display All other labs were within normal range or not returned as of this dictation. EMERGENCY DEPARTMENT COURSE and DIFFERENTIAL DIAGNOSIS/MDM: Vitals: Vitals: 01/01/24 1104 BP: (!) 180/95 Pulse: 96 Resp: 14 Temp: 36.7 C (98 F) TempSrc: Oral SpO2: 98% Weight: 93 kg (205 lb) Height: 1.575 m (5' 2) 63-year-old female presents for recent dental work with right-sided facial swelling and intraoral swelling pain. Differential dental abscess Sacha angina peritonsillar abscess. No visible abscess intraorally. Posterior oropharynx is normal. No dysphonia no trismus manage she is able to swallow liquids here in the emergency department. There is some mild right-sided lower facial edema there is no fullness or significant edema underneath the jaw no brawniness under the tongue orally. I doubt Lud[place]ig angina. Discussed that she may have an underlying abscess however without trismus dysphonia or actual trouble swallowing do not believe a CT soft tissue is indicated although I considered it. She was on amoxicillin for a couple of days and then switch to Keflex. Plan to switch her to clindamycin and a Medrol Dosepak. Strict return precautions provided. Stable for discharge. Diagnoses as of 01/01/24 1113 Dental abscess The patient presented with chief complaint of dental. The differential diagnosis associated with this patient's presentation includes above. Our workup consisted of ordering/reviewing: history physical. Diagnostic tests considered but not performed: ct soft tissue neck I also reviewed external records [facility] 01/01/24 for assessment of dental infection. Consideration for escalation of care with: Admission/observation however no airway compromise. Patient is in agreement with this plan. Patient's care was impacted by hypothyroidism. Prescription medications considered but not prescribed: narcotic Medications clindamycin (Cleocin) capsule 450 mg (has no administration in time range) REVAL: CRITICAL CARE TIME None CONSULTS: None PROCEDURES: Unless otherwise noted below, none Procedures Patients symptoms are consistent with sepsis, severe sepsis, or septic shock (If yes use .sepsiscoremeasure): no FINAL IMPRESSION 1. Dental abscess DISPOSITION Discharge 01/01/2024 11:09:30 AM PATIENT REFERRED TO: [facility] [address] [facility] [id number] If symptoms worsen DISCHARGE MEDICATIONS: New Prescriptions CLINDAMYCIN (CLEOCIN) 150 MG CAPSULE Take 3 capsules (450 mg) by mouth 3 times daily for 7 days. METHYLPREDNISOLONE (MEDROL DOSPAK) 4 MG TABLETS Follow schedule on package instructions (Comment: Please note this report has been produced using speech recognition software and may contain errors related to that system including errors in grammar, punctuation, and spelling, as well as words and phrases that may be inappropriate. If there are any questions or concerns please feel free to contact the dictating provider for clarification.) Jesus Denton MD (electronically signed) Emergency Medicine Provider Jesus Denton MD 01/01/24 1119 Had root canal surgery about a week ago. Was on amoxicillin for that. After surgery was having pain and facial swelling and started on keflex. Here today for continued pain and facial swelling. No airway trouble. documented in this encounter [facility] 01-01-2024 Emergency department Triage note Had root canal surgery about a week ago. Was on amoxicillin for that. After surgery was having pain and facial swelling and started on keflex. Here today for continued pain and facial swelling. No airway trouble. [facility] 01-01-2024 Physician Emergency department Note EMERGENCY DEPARTMENT ENCOUNTER Pt Name: Corie Murdock Birthdate 1960 Date of evaluation: 01/01/2024 ED Provider: Jesus Denton MD CHIEF COMPLAINT Chief Complaint Patient presents with Dental Pain HISTORY OF PRESENT ILLNESS (Location/Symptom, Timing/Onset, Context/Setting, Quality, Duration, Modifying Factors, Severity) Note limiting factors. I wore appropriate PPE for the entirety of this encounter. HPI Corie Murdock is a 63 y.o. who presents to the emergency department with chief complaint of right-sided jaw face intraoral swelling. Recently had a root canal over a week ago has been on amoxicillin and subsequently Keflex a couple of days ago. Saw her dentist again today and had an x-ray for follow-up and stated was not a dental issue but concerned for a deeper infection and was sent for further evaluation to urgent care who sent her here. Patient states it is little bit difficult to swallow but she has been able to eat and drink still. She is tolerating her saliva. She states her voice is normal. She is not on lisinopril. No new medications otherwise or known allergies. No fevers chills nausea. She is not diabetic. Denies any ear pain. Nursing Notes were reviewed. Limitations to history: None Outside historians: None REVIEW OF SYSTEMS Review of Systems Constitutional: Negative for chills and fever. HENT: Positive for dental problem, facial swelling and trouble swallowing. Negative for ear pain, sore throat and voice change. Eyes: Negative for pain and visual disturbance. Respiratory: Negative for cough and shortness of breath. Cardiovascular: Negative for chest pain and palpitations. Gastrointestinal: Negative for abdominal pain and vomiting. Genitourinary: Negative for dysuria and hematuria. Musculoskeletal: Negative for arthralgias and back pain. Skin: Negative for color change and rash. Neurological: Negative for seizures and syncope. All other systems reviewed and are negative. Pertinent positives and negatives as per HPI. PAST MEDICAL HISTORY Past Medical History: Diagnosis Date Allergies Kidney stone Thyroid disease SURGICAL HISTORY Past Surgical History: Procedure Laterality Date CARPAL TUNNEL RELEASE SECTION (HISTORICAL) CURRENT MEDICATIONS Previous Medications ALLOPURINOL (ZYLOPRIM) 100 MG TABLET AZELASTINE (ASTELIN) 0.1 % NASAL SPRAY CETIRIZINE (ZYRTEC) 10 MG TABLET DULOXETINE (CYMBALTA) [address] CAPSULE EPINEPHRINE (EPIPEN) 0.3 MG/0.3ML INJECTION SYRINGE FAMOTIDINE (PEPCID) 40 MG TABLET KRILL OIL (OMEGA-3) 500 MG CAPSULE Take 500 mg by mouth. MONTELUKAST (SINGULAIR) 10 MG TABLET ONDANSETRON ODT (ZOFRAN-ODT) 4 MG DISINTEGRATING TABLET Take 1 tablet by mouth every 8 hours as needed. PEDIATRIC MULTIVITAMINS-IRON (PEDIATRIC MULTIVITAMIN-IRON) TABLET CHEWABLE SPLIT TABLET Take by mouth. SYNTHROID 75 MCG TABLET ALLERGIES Bee venom FAMILY HISTORY Family History Problem Relation Name Age of Onset Prostate cancer Father 70 SOCIAL HISTORY Social History Socioeconomic History Marital status: Tobacco Use Smoking status: Never Smokeless tobacco: Never Vaping Use Vaping Use: Never used Substance and Sexual Activity Alcohol use: Not Currently Drug use: Not Currently SCREENINGS PHYSICAL EXAM ED Triage Vitals Temp Pulse Resp BP -- -- -- -- SpO2 Temp src Heart Rate Source Patient Position -- -- -- -- BP Location FiO2 (%) -- -- Physical Exam Vitals and nursing note reviewed. Constitutional: General: She is not in acute distress. Appearance: She is well-developed. She is obese. She is not ill-appearing or diaphoretic. HENT: Head: Normocephalic and atraumatic. Jaw: There is normal jaw occlusion. No trismus or malocclusion. Salivary Glands: Right salivary gland is not diffusely enlarged or tender. Comments: Some tenderness and mild soft tissue edema along the right lower face jaw area, there is no fullness of the jaw in the submandibular area or sublingual area Right Ear: Tympanic membrane, ear canal and external ear normal. No mastoid tenderness. Mouth/Throat: Dentition: Abnormal dentition. Dental tenderness, gingival swelling and dental caries present. No dental abscesses (not visible). Pharynx: Oropharynx is clear. Uvula midline. No pharyngeal swelling or uvula swelling. Tonsils: No tonsillar abscesses. Comments: Posterior oropharynx visualized with tongue depressor does not show any abnormalities No dysphonia No pooling of secretions easily able to swallow Eyes: Conjunctiva/sclera: Conjunctivae normal. Cardiovascular: Rate and Rhythm: Normal rate and regular rhythm. Heart sounds: No murmur heard. Pulmonary: Effort: Pulmonary effort is normal. No respiratory distress. Breath sounds: Normal breath sounds. Abdominal: Palpations: Abdomen is soft. Tenderness: There is no abdominal tenderness. Musculoskeletal: General: No swelling. Cervical back: Neck supple. No rigidity. Lymphadenopathy: Cervical: No cervical adenopathy. Skin: General: Skin is warm and dry. Capillary Refill: Capillary refill takes less than 2 seconds. Neurological: Mental Status: She is alert. Psychiatric: Mood and Affect: Mood normal. DIAGNOSTIC RESULTS Procedures/EKG: EKG was reviewed by myself. Physician EKG interpretation can be found in [facility] RADIOLOGY (Per Emergency Physician): Interpretation per the Radiologist below, if available at the time of this note: No orders to display ED BEDSIDE ULTRASOUND: Performed by ED Physician - none LABS: Labs Reviewed - No data to display All other labs were within normal range or not returned as of this dictation. EMERGENCY DEPARTMENT COURSE and DIFFERENTIAL DIAGNOSIS/MDM: Vitals: Vitals: 01/01/24 1104 BP: (!) 180/95 Pulse: 96 Resp: 14 Temp: 36.7 C (98 F) TempSrc: Oral SpO2: 98% Weight: 93 kg (205 lb) Height: 1.575 m (5' 2) 63-year-old female presents for recent dental work with right-sided facial swelling and intraoral swelling pain. Differential dental abscess Sacha angina peritonsillar abscess. No visible abscess intraorally. Posterior oropharynx is normal. No dysphonia no trismus manage she is able to swallow liquids here in the emergency department. There is some mild right-sided lower facial edema there is no fullness or significant edema underneath the jaw no brawniness under the tongue orally. I doubt [place]ig angina. Discussed that she may have an underlying abscess however without trismus dysphonia or actual trouble swallowing do not believe a CT soft tissue is indicated although I considered it. She was on amoxicillin for a couple of days and then switch to Keflex. Plan to switch her to clindamycin and a Medrol Dosepak. Strict return precautions provided. Stable for discharge. Diagnoses as of 01/01/24 1113 Dental abscess The patient presented with chief complaint of dental. The differential diagnosis associated with this patient's presentation includes above. Our workup consisted of ordering/reviewing: history physical. Diagnostic tests considered but not performed: ct soft tissue neck I also reviewed external records [facility] 01/01/24 for assessment of dental infection. Consideration for escalation of care with: Admission/observation however no airway compromise. Patient is in agreement with this plan. Patient's care was impacted by hypothyroidism. Prescription medications considered but not prescribed: narcotic Medications clindamycin (Cleocin) capsule 450 mg (has no administration in time range) REVAL: CRITICAL CARE TIME None CONSULTS: None PROCEDURES: Unless otherwise noted below, none Procedures Patients symptoms are consistent with sepsis, severe sepsis, or septic shock (If yes use .sepsiscoremeasure): no FINAL IMPRESSION 1. Dental abscess DISPOSITION Discharge 01/01/2024 11:09:30 AM PATIENT REFERRED TO: [facility] [address] [place] [id number] If symptoms worsen DISCHARGE MEDICATIONS: New Prescriptions CLINDAMYCIN (CLEOCIN) 150 MG CAPSULE Take 3 capsules (450 mg) by mouth 3 times daily for 7 days. METHYLPREDNISOLONE (MEDROL DOSPAK) 4 MG TABLETS Follow schedule on package instructions (Comment: Please note this report has been produced using speech recognition software and may contain errors related to that system including errors in grammar, punctuation, and spelling, as well as words and phrases that may be inappropriate. If there are any questions or concerns please feel free to contact the dictating provider for clarification.) Jesus Denton MD (electronically signed) Emergency Medicine Provider Jesus Denton MD 01/01/24 1119 [facility] 01-01-2024 Instructions Petra Valenzuela PA-C - 01/01/2024 10:24 AM EDT ASSESSMENT/PLAN: 1. Pain, dental 2. Dental infection - Referred to ED for more work up Follow up with your dentist No charge Petra Valenzuela PA-C documented in this encounter [facility] 01-01-2024 Note HNO ID: [id number] Author: PETRA VALENZUELA PA-C Service: ? Author Type: Physician Behavior Support Specialist Type: Progress Notes Filed: 01/01/2024 10:41 Note Text: 01/01/2024 Patient presents with: Dental Problem: Partial root canal last wk, right side of jaw is swollen, right cheek/jaw/tongue is hurting, hard to eat/drink, was given abx by dentist but did not help, dentist thinks that abx was not strong enough, SUBJECTIVE: This is a 63 year old that is here for dental infection. Dentist started a root canal process 8 days ago on a right, lower, molar. Drilled it out and placed a temporary cap. Cap fell off and she developed pain. Dentist put her on Amoxicillin. Pain worsened. Saw dentist again for it 2 days ago- switched her to Keflex. Pain worsened still and developed new submental/submandibular pain and fullness, right tongue pain, right neck pain/fullness, and significant pain with swallowing and difficulty swallowing. Saw dentist again today. Dentist performed an x-ray, and told her that the tooth is fine but is concerned for a deeper infection that needs stronger antibiotics and work up. Per the patient, he said couldn't prescribe her anything stronger himself. He recommended an [facility] or ER. Denies fever, chills, sweats, or fatigue. No external facial swelling. No sore throat. No other URI symptoms. No other sick symptoms. Pain on scale of 0-10 with 0 being no pain and 10 being greatest pain: 8 Nothing makes the symptoms better. Nothing makes them worse. Self-treatment:. Amox, Keflex The severity is mild and the symptoms are not improving. The patient did not have a similar problem in the last 3 months. The patient did not take any antibiotics in the last 3 months. The patient was not exposed to strep. Barriers to learning: none. Reviewed meds, OTCs, herbals or supplements. Reviewed allergies, medications, social history, and past medical history. No past medical history on file. ALLERGIES Patient has no known allergies. MEDICATIONS Current Outpatient Medications Medication Sig MULTI-VITAMIN ORAL Take by mouth. cholecalciferol, vitamin D3, (VITAMIN D3 ORAL) Take by mouth. BIOTIN ORAL Take by mouth. esomeprazole (NEXIUM) 40 mg capsule azelastine (ASTELIN) 0.1% nasal spray DULoxetine (CYMBALTA) 30 mg capsule famotidine (PEPCID) 40 mg tablet montelukast (SINGULAIR) 10 mg tablet levothyroxine (SYNTHROID) 75 mcg tablet Aydwq-0-QPB-EPA-Fish Oil (FISH OIL) 1,000 mg (120 mg-180 mg) cap Fish Oil 1,000 mg Cap fluticasone (FLONASE) 50 mcg/actuation nasal spray Use 2 Sprays in each nostril once daily. Quierojnaetzlrn-Nsxsthclc-JT (BROMFED DM) 2-30-10 mg/5 mL syrup Take 5 mL by mouth every 6 hours as needed. (Patient not taking: Reported on 01/01/2024) No current facility-administered medications for this visit. Medications and allergies reviewed by this provider. SOCIAL HISTORY Social History Tobacco Use Smoking status: Never Smokeless tobacco: Never REVIEW OF SYSTEMS ROS: constitutional-neg, heent-tooth pain/infection, heart-neg, respiratory-neg, GI-neg, skin-neg, MS-neg, lymph-neg, neuro-neg, - All systems neg except as noted above in HPI. OBJECTIVE: BP 124/68 (BP Site: Left Arm, BP Position: Sitting, BP Cuff Size: Large Adult) Pulse 91 Temp 36.8 ?C (98.2 ?F) (Left Tympanic) Resp 18 Ht 157.5 cm (5' 2) Wt 93.1 kg (205 lb 2.2 oz) SpO2 95% BMI 37.52 kg/m? . Vital signs reviewed by this provider. Physical Exam Vitals reviewed. Constitutional: General: She is not in acute distress. Appearance: Normal appearance. She is well-developed and normal weight. She is not ill-appearing, toxic-appearing or diaphoretic. HENT: Head: Normocephalic and atraumatic. Jaw: There is normal jaw occlusion. Salivary Glands: Right salivary gland is not diffusely enlarged or tender. Left salivary gland is not diffusely enlarged or tender. Nose: Right Sinus: No maxillary sinus tenderness. Left Sinus: No maxillary sinus tenderness. Mouth/Throat: Lips: No lesions. Mouth: Mucous membranes are moist. No oral lesions. Dentition: Abnormal dentition. Tongue: No lesions. Tongue does not deviate from midline. Palate: No mass and lesions. Pharynx: Oropharynx is clear. Tonsils: No tonsillar exudate. Neck: Neurological: Mental Status: She is alert. Psychiatric: Behavior: Behavior is cooperative. ASSESSMENT/PLAN: 1. Pain, dental - ICD9: 525.9, ICD10: K08.89 (primary diagnosis) 2. Dental infection - ICD9: 522.4, ICD10: K04.7 Likely needs imaging and work up Already failed outpt PO antibiotics Dentist referred to her to seek higher level of care Referred to ED for more work up- patient prefers [facility] ED Follow up with your dentist No charge Petra Valenzuela PA-C [facility] 01-01-2024 History of Present illness Narrative Images from the original note were not included. 01/01/2024 Patient presents with: Dental Problem: Partial root canal last wk, right side of jaw is swollen, right cheek/jaw/tongue is hurting, hard to eat/drink, was given abx by dentist but did not help, dentist thinks that abx was not strong enough, SUBJECTIVE: This is a 63 year old that is here for dental infection. Dentist started a root canal process 8 days ago on a right, lower, molar. Drilled it out and placed a temporary cap. Cap fell off and she developed pain. Dentist put her on Amoxicillin. Pain worsened. Saw dentist again for it 2 days ago- switched her to Keflex. Pain worsened still and developed new submental/submandibular pain and fullness, right tongue pain, right neck pain/fullness, and significant pain with swallowing and difficulty swallowing. Saw dentist again today. Dentist performed an x-ray, and told her that the tooth is fine but is concerned for a deeper infection that needs stronger antibiotics and work up. Per the patient, he said couldn't prescribe her anything stronger himself. He recommended an [facility] or ER. Denies fever, chills, sweats, or fatigue. No external facial swelling. No sore throat. No other URI symptoms. No other sick symptoms. Pain on scale of 0-10 with 0 being no pain and 10 being greatest pain: 8 Nothing makes the symptoms better. Nothing makes them worse. Self-treatment:. Amox, Keflex The severity is mild and the symptoms are not improving. The patient did not have a similar problem in the last 3 months. The patient did not take any antibiotics in the last 3 months. The patient was not exposed to strep. Barriers to learning: none. Reviewed meds, OTCs, herbals or supplements. Reviewed allergies, medications, social history, and past medical history. No past medical history on file. ALLERGIES Patient has no known allergies. MEDICATIONS Current Outpatient Medications Medication Sig MULTI-VITAMIN ORAL Take by mouth. cholecalciferol, vitamin D3, (VITAMIN D3 ORAL) Take by mouth. BIOTIN ORAL Take by mouth. esomeprazole (NEXIUM) 40 mg capsule azelastine (ASTELIN) 0.1% nasal spray DULoxetine (CYMBALTA) 30 mg capsule famotidine (PEPCID) 40 mg tablet montelukast (SINGULAIR) 10 mg tablet levothyroxine (SYNTHROID) 75 mcg tablet Conlw-3-IMA-EPA-Fish Oil (FISH OIL) 1,000 mg (120 mg-180 mg) cap Fish Oil 1,000 mg Cap fluticasone (FLONASE) 50 mcg/actuation nasal spray Use 2 Sprays in each nostril once daily. Grrohurbftguqny-Ytlntzvhy-VH (BROMFED DM) 2-30-10 mg/5 mL syrup Take 5 mL by mouth every 6 hours as needed. (Patient not taking: Reported on 01/01/2024) No current facility-administered medications for this visit. Medications and allergies reviewed by this provider. SOCIAL HISTORY Social History Tobacco Use Smoking status: Never Smokeless tobacco: Never REVIEW OF SYSTEMS ROS: constitutional-neg, heent-tooth pain/infection, heart-neg, respiratory-neg, GI-neg, skin-neg, MS-neg, lymph-neg, neuro-neg, - All systems neg except as noted above in HPI. OBJECTIVE: BP 124/68 (BP Site: Left Arm, BP Position: Sitting, BP Cuff Size: Large Adult) Pulse 91 Temp 36.8 C (98.2 F) (Left Tympanic) Resp 18 Ht 157.5 cm (5' 2) Wt 93.1 kg (205 lb 2.2 oz) SpO2 95% BMI 37.52 kg/m . Vital signs reviewed by this provider. Physical Exam Vitals reviewed. Constitutional: General: She is not in acute distress. Appearance: Normal appearance. She is well-developed and normal weight. She is not ill-appearing, toxic-appearing or diaphoretic. HENT: Head: Normocephalic and atraumatic. Jaw: There is normal jaw occlusion. Salivary Glands: Right salivary gland is not diffusely enlarged or tender. Left salivary gland is not diffusely enlarged or tender. Nose: Right Sinus: No maxillary sinus tenderness. Left Sinus: No maxillary sinus tenderness. Mouth/Throat: Lips: No lesions. Mouth: Mucous membranes are moist. No oral lesions. Dentition: Abnormal dentition. Tongue: No lesions. Tongue does not deviate from midline. Palate: No mass and lesions. Pharynx: Oropharynx is clear. Tonsils: No tonsillar exudate. Neck: Neurological: Mental Status: She is alert. Psychiatric: Behavior: Behavior is cooperative. ASSESSMENT/PLAN: 1. Pain, dental - ICD9: 525.9, ICD10: K08.89 (primary diagnosis) 2. Dental infection - ICD9: 522.4, ICD10: K04.7 Likely needs imaging and work up Already failed outpt PO antibiotics Dentist referred to her to seek higher level of care Referred to ED for more work up- patient prefers [facility] ED Follow up with your dentist No charge Petra Valenzuela PA-C documented in this encounter [facility] 11-11-2023 Instructions Petra Valenzuela PA-C - 11/11/2023 12:56 PM EST ASSESSMENT/PLAN: 1. URI with cough and congestion - X 1 week Lungs clear - BROMPHENIRAMINE-PSEUDOEPHEDRINE- DM 2 MG-30 MG-10 MG/5 ML ORAL SYRUP 2. Left acute suppurative otitis media - ICD9: 382.00, ICD10: H66.002 - CEFDINIR 300 MG CAPSULE Encourage fluids, rest. Flonase Singulair Tylenol and Motrin for pain and fever Saline Nasil spray, Neti Pot, vaporizer, Vicks. Try Cepocol lozenges or Chloraseptic throat spray. Warm salt water gargles. Cough and deep breath- 10x/hr while awake. Call PCP if sx worsen or no better. If symptoms worsen, or new symptoms develop go to ER. If you have worsening of breathing or breathing changes- go to ER. If you have persistent fever unrelieved by Tylenol/Motrin- go to the ER. Follow up as needed. Barriers to learning: none. The patient verbalizes understanding and is in agreement with plan of care. - Red flags for in person care discussed - All questions answered Petra Valenzuela PA-C documented in this encounter [facility] 11-11-2023 History of Present illness Narrative Surgical mask, face shield, N95, and gloves worn for all in-person care. 11/11/2023 Patient presents with: Viral Syndrome: PND, left ear pain, headache. Started over a week ago. SUBJECTIVE: This is a 63 year old that is here today for concern for URI symptoms. The patient complains of cough, BENNETT, and sinus congestion/pressure/drainage x 1 week. Left ear is painful since last night. She came in due to the ear pain. Denies any body aches, fever, chills, sweats, or fatigue. Denies wheezing, shortness of breath, increased WOB, or chest pain. No n/v/d. COVID exposure: none Influenza exposure: none RSV exposure: none Covid Immunization Dates Overdue - Covid-19 Vaccine (2022-) Overdue since 05/31/2023 07/12/2021 Imm Admin: COVID-19 original vaccine, full dose, monovalent (MODERNA) 06/14/2021 Imm Admin: COVID-19 original vaccine, full dose, monovalent (MODERNA) COVID vaccine this year: none Influenza vaccine this year: none RSV vaccine this year: none Asthma: none Pneumonia: none Tobacco: none Pain on scale of 0-10 with 0 being no pain and 10 being greatest pain: ear pain Nothing makes the symptoms better. Nothing makes them worse. Self-treatment:. Deslym The severity is mild and the symptoms are not improving. The patient did not have a similar problem in the last 3 months. The patient did not take any antibiotics in the last 3 months. Barriers to learning: none. Reviewed meds, OTCs, herbals or supplements. Reviewed allergies, medications, social history, and past medical history. No past medical history on file. ALLERGIES Patient has no known allergies. MEDICATIONS Current Outpatient Medications Medication Sig azelastine (ASTELIN) 0.1% nasal spray DULoxetine (CYMBALTA) 30 mg capsule famotidine (PEPCID) 40 mg tablet montelukast (SINGULAIR) 10 mg tablet predniSONE (DELTASONE) 10 mg tablet TAKE NEEDED FOR POISON [place]. TAKE 2 TABLETS BY MOUTH TWICE DAILY FOR 4 DAYS, ONE TABLET BY MOUTH TWICE DAILY FOR 4 DAYS, ONE TABLET BY MOUTH EVERY DAY FOR 4 DAYS, THEN 1/2T BY MOUTH EVERY DAY FOR 2 DAYS levothyroxine (SYNTHROID) 75 mcg tablet Ranitidine HCl 300 mg tablet (Patient not taking: Reported on 07/17/2021 ) Yyygm-9-GSB-EPA-Fish Oil (FISH OIL) 1,000 mg (120 mg-180 mg) cap Fish Oil 1,000 mg Cap fluticasone (FLONASE) 50 mcg/actuation nasal spray Use 2 Sprays in each nostril once daily. zvsmdsxhvpTQBKS-qqenxk-wdfjjkgms (BMX 1:1:1) 1:1:1 liqd Swish and spit or gargle with 10ml every 4 hours as needed for throat pain (Patient not taking: Reported on 07/17/2021 ) No current facility-administered medications for this visit. Medications and allergies reviewed by this provider. SOCIAL HISTORY Social History Tobacco Use Smoking status: Never Smokeless tobacco: Never REVIEW OF SYSTEMS Review of Systems ROS: constitutional: neg, HENT- ear ache, sinus symptoms, Eyes- neg, heart-neg, respiratory-Cough, GI-neg, -neg, skin-neg, Allergy- neg, lymph-neg, neuro-neg, psych-neg- All systems neg except as noted above in HPI. OBJECTIVE: BP 146/79 Pulse 86 Resp 18 Wt 92.6 kg (204 lb 2.3 oz) SpO2 99% . Vital signs reviewed by this provider. Physical Exam Vitals reviewed. Constitutional: General: She is not in acute distress. Appearance: Normal appearance. She is well-developed and normal weight. She is not ill-appearing, toxic-appearing or diaphoretic. HENT: Head: Normocephalic and atraumatic. No right periorbital erythema or left periorbital erythema. Salivary Glands: Right salivary gland is not diffusely enlarged or tender. Left salivary gland is not diffusely enlarged or tender. Right Ear: Tympanic membrane, ear canal and external ear normal. Left Ear: Ear canal and external ear normal. A middle ear effusion is present. Tympanic membrane is injected, erythematous and bulging. Nose: Rhinorrhea present. No congestion. Rhinorrhea is clear. Right Sinus: No maxillary sinus tenderness or frontal sinus tenderness. Left Sinus: No maxillary sinus tenderness or frontal sinus tenderness. Mouth/Throat: Lips: [place]. No lesions. Mouth: Mucous membranes are moist. No oral lesions. Dentition: No gum lesions. Tongue: No lesions. Tongue does not deviate from midline. Palate: No mass and lesions. Pharynx: Oropharynx is clear. No pharyngeal swelling, oropharyngeal exudate, posterior oropharyngeal erythema or uvula swelling. Tonsils: No tonsillar exudate or tonsillar abscesses. Eyes: General: Lids are normal. No scleral icterus. Right eye: No discharge. Left eye: No discharge. Extraocular Movements: Extraocular movements intact. Conjunctiva/sclera: Conjunctivae normal. Pupils: Pupils are equal, round, and reactive to light. Pupils are equal. Cardiovascular: Rate and Rhythm: Normal rate and regular rhythm. Heart sounds: Normal heart sounds. Pulmonary: Effort: Pulmonary effort is normal. Breath sounds: Normal breath sounds and air entry. Musculoskeletal: Cervical back: Full passive range of motion without pain. No spinous process tenderness or muscular tenderness. Lymphadenopathy: Head: Right side of head: No submental, submandibular, tonsillar, preauricular or posterior auricular adenopathy. Left side of head: No submental, submandibular, tonsillar, preauricular or posterior auricular adenopathy. Cervical: No cervical adenopathy. Skin: General: Skin is warm. Capillary Refill: Capillary refill takes less than 2 seconds. Findings: No rash. Neurological: General: No focal deficit present. Mental Status: She is alert and oriented to person, place, and time. Cranial Nerves: No facial asymmetry. Psychiatric: Attention and Perception: Attention normal. Behavior: Behavior is cooperative. ASSESSMENT/PLAN: 1. URI with cough and congestion - ICD9: 465.9, ICD10: J06.9 (primary diagnosis) X 1 week Lungs clear Declines Tessalon - BROMPHENIRAMINE-PSEUDOEPHEDRINE- DM 2 MG-30 MG-10 MG/5 ML ORAL SYRUP 2. Left acute suppurative otitis media - ICD9: 382.00, ICD10: H66.002 She declines Augmentin and Amoxicillin family- states it causes stomach upset. - CEFDINIR 300 MG CAPSULE Encourage fluids, rest. Flonase Singulair Tylenol and Motrin for pain and fever Saline Nasil spray, Neti Pot, vaporizer, Vicks. Try Cepocol lozenges or Chloraseptic throat spray. Warm salt water gargles. Cough and deep breath- 10x/hr while awake. Call PCP if sx worsen or no better. If symptoms worsen, or new symptoms develop go to ER. If you have worsening of breathing or breathing changes- go to ER. If you have persistent fever unrelieved by Tylenol/Motrin- go to the ER. Follow up as needed. Barriers to learning: none. The patient verbalizes understanding and is in agreement with plan of care. - Red flags for in person care discussed - All questions answered Petra Valenzuela PA-C Medical Decision Making: Problems: Moderate: Acute illness with systemic symptoms Risk: Low: Low risk from testing/treatment Moderate: Drug management Medical Decision Making Level: 4 - Moderate I spent a total of 20 minutes on the date of the service which included preparing to see the patient, ehju-mr-penh patient care, completing clinical documentation, performing a medically appropriate examination, counseling and educating the patient/family/caregiver, and ordering medications, tests, or procedures. documented in this encounter [facility] 05-10-2023 Hospital Discharge instructions Larry Calvin MD - 05/10/2023 11:48 AM EDT Return if you develop fever or vomiting; call urology for follow up The following attachments cannot be sent through Care Everywhere.Kidney Stones Discharge Instructions ([place])documented in this encounter [facility] 05-10-2023 Emergency department Note EMERGENCY DEPARTMENT ENCOUNTER Pt Name: Corie Murdock Birthdate 1960 Date of evaluation: 05/10/2023 ED Provider: Larry Calvin MD CHIEF COMPLAINT Chief Complaint Patient presents with Groin Pain HISTORY OF PRESENT ILLNESS (Location/Symptom, Timing/Onset, Context/Setting, Quality, Duration, Modifying Factors, Severity) Note limiting factors. I wore appropriate PPE for the entirety of this encounter. History provided by: Patient educational sign language interpreter used: No Abdominal Pain Pain location: L flank Pain quality: aching Pain radiates to: Does not radiate Pain severity: Moderate Onset quality: Sudden Duration: 2 hours Timing: Constant Progression: Unchanged Chronicity: New Context: not alcohol use, not awakening from sleep, not diet changes, not eating, not laxative use, not medication withdrawal, not previous surgeries, not recent illness, not recent sexual activity, not recent travel, not retching, not sick contacts, not suspicious food intake and not trauma Relieved by: Nothing Worsened by: Nothing Ineffective treatments: None tried Associated symptoms: nausea Risk factors: obesity Corie Murdock is a 62 y.o. who presents to the emergency department with chief complaint of left flank pain Nursing Notes were reviewed. Limitations to history: None Outside historians: None REVIEW OF SYSTEMS Review of Systems Gastrointestinal: Positive for nausea. Negative for abdominal pain. Genitourinary: Positive for flank pain. All other systems reviewed and are negative. Pertinent positives and negatives as per HPI. PAST MEDICAL HISTORY Past Medical History: Diagnosis Date Allergies Kidney stone Thyroid disease SURGICAL HISTORY Past Surgical History: Procedure Laterality Date CARPAL TUNNEL RELEASE SECTION (HISTORICAL) CURRENT MEDICATIONS Previous Medications ONDANSETRON ODT (ZOFRAN-ODT) 4 MG DISINTEGRATING TABLET Take 1 tablet by mouth every 8 hours as needed. ALLERGIES Bee venom FAMILY HISTORY Family History Problem Relation Name Age of Onset Prostate cancer Father 70 SOCIAL HISTORY Social History Socioeconomic History Marital status: Tobacco Use Smoking status: Never Vaping Use Vaping Use: Never used Substance and Sexual Activity Alcohol use: Not Currently Drug use: Not Currently SCREENINGS PHYSICAL EXAM ED Triage Vitals Temp Pulse Resp BP -- -- -- -- SpO2 Temp src Heart Rate Source Patient Position -- -- -- -- BP Location FiO2 (%) -- -- Physical Exam Vitals and nursing note reviewed. Exam conducted with a administrative project coordinator present. Constitutional: General: She is not in acute distress. Appearance: Normal appearance. She is normal weight. She is not ill-appearing, toxic-appearing or diaphoretic. HENT: Head: Normocephalic and atraumatic. Right Ear: Tympanic membrane, ear canal and external ear normal. Left Ear: Tympanic membrane, ear canal and external ear normal. Nose: Nose normal. Mouth/Throat: Mouth: Mucous membranes are moist. Pharynx: Oropharynx is clear. No oropharyngeal exudate or posterior oropharyngeal erythema. Eyes: Extraocular Movements: Extraocular movements intact. Conjunctiva/sclera: Conjunctivae normal. Pupils: Pupils are equal, round, and reactive to light. Cardiovascular: Rate and Rhythm: Normal rate and regular rhythm. Pulses: Normal pulses. Heart sounds: Normal heart sounds. Pulmonary: Effort: Pulmonary effort is normal. Breath sounds: Normal breath sounds. Abdominal: General: Abdomen is flat. Bowel sounds are normal. Palpations: Abdomen is soft. Tenderness: There is left CVA tenderness. Musculoskeletal: General: No swelling, tenderness, deformity or signs of injury. Normal range of motion. Cervical back: Normal range of motion and neck supple. Right lower leg: No edema. Left lower leg: No edema. Skin: General: Skin is warm. Capillary Refill: Capillary refill takes less than 2 seconds. Neurological: General: No focal deficit present. Mental Status: She is alert and oriented to person, place, and time. Mental status is at baseline. Cranial Nerves: No cranial nerve deficit. Sensory: No sensory deficit. Motor: No weakness. Coordination: Coordination normal. Gait: Gait normal. Deep Tendon Reflexes: Reflexes normal. Psychiatric: Mood and Affect: Mood normal. Behavior: Behavior normal. Thought Content: Thought content normal. Judgment: Judgment normal. DIAGNOSTIC RESULTS Procedures/EKG: EKG was reviewed by myself. Physician EKG interpretation can be found in [facility] RADIOLOGY (Per Emergency Physician): Interpretation per the Radiologist below, if available at the time of this note: CT abdomen pelvis wo IV contrast Final Result Impression: 1. 0.4 cm at least partially obstructing distal left ureteral stone 0.4 cm causing mild hydronephrosis and hydroureter and left perinephric inflammation. Additional tiny bilateral renal stones. 2. Diffuse fatty infiltration of the liver. 3. Mild diverticulosis but no acute diverticulitis. Report Dictated on Electronically Signed By: Varun Prather MD Electronically Signed Date/Time: 05/10/2023 11:44 AM EDT ED BEDSIDE ULTRASOUND: Performed by ED Physician - none LABS: Labs Reviewed COMPLETE URINALYSIS - Abnormal Result Value Color, Urine Light Yellow Clarity, Urine Clear pH, Urine 5.5 Leukocytes, Urine 250 (*) Nitrite, Urine Negative Protein, Urine 10 (*) Glucose, Urine 30 Bilirubin, Urine Negative Ketones, Urine 20 (*) Urobilinogen, Urine Normal Blood, Urine Negative Volume, Urine 8-12 mL RBC, Urine 0-2 WBC, Urine 6-10 (*) Squamous Epithelial, Urine 0-2 Bacteria, Urine Few (*) Mucus, Urine Few SPECIFIC GRAVITY OF URINE (NUMERIC) 1.019 COMPLETE URINALYSIS WITH REFLEX TO CULTURE Narrative: The following orders were created for panel order Urinalysis complete with reflex to Culture. Procedure Abnormality Status --------- ------ Complete Urinalysis[[id number]] Abnormal Final result Please view results for these tests on the individual orders. All other labs were within normal range or not returned as of this dictation. EMERGENCY DEPARTMENT COURSE and DIFFERENTIAL DIAGNOSIS/MDM: Vitals: Vitals: 05/10/23 1045 05/10/23 1055 05/10/23 1109 05/10/23 1132 BP: (!) 190/124 (!) 206/97 (!) 191/92 (!) 188/93 BP Location: Right arm Patient Position: Lying Pulse: 89 86 84 84 Resp: 18 Temp: (!) 35.9 C (96.6 F) TempSrc: Oral SpO2: 98% 100% 100% Weight: 90.7 kg (200 lb) Height: 1.575 m (5' 2) 62 year old female comes to the Ed for left flank pain x 2 hours. The pain was associated with nausea. Patient has not had a fever. Patient does have a history of kidney stones. She last had one 10 months ago. On exam, she was nontoxic in appearance. Lungs were clear. No focal abdominal tenderness was noted. Left cva tenderness was noted. Diff diagnosis included uti, pyelonephritis, ureterolithiasis. Urinalysis and ct of the abdomen and pelvis was obtained. Urinalysis did indicate a uti. Patient did get iv fluids and toradol iv and dilaudid iv. Pain did go away by [address] of the abdomen and pelvis did come back and showed a 4 mm stone in left ureter. Patient was told of all findings. She was able to take po fluids. Patient did get a dose of rocephin here and felt comfortable enough to go home and did not want admission. Final diagnosis was ureterolithiasis/uti. Patient was discharged on po keflex/toradol and zofran odt. Diagnoses as of 05/10/23 1150 Ureterolithiasis Acute UTI Medications cefTRIAXone (Rocephin) 1,000 mg in sodium chloride 0.9 % 50 mL IVPB Mini-Bag Plus (has no administration in time range) sodium chloride 0.9 % bolus 1,000 mL (1,000 mL IntraVENous New Bag 05/10/23 1037) ketorolac (Toradol) injection 15 mg (15 mg IntraVENous Given 05/10/23 1037) HYDROmorphone (Dilaudid) injection 0.5 mg (0.5 mg IntraVENous Given 05/10/23 1057) ondansetron (Zofran) injection 4 mg (4 mg IntraVENous Given 05/10/23 1056) REVAL: CRITICAL CARE TIME None CONSULTS: None PROCEDURES: Unless otherwise noted below, none Procedures FINAL IMPRESSION 1. Ureterolithiasis 2. Acute UTI DISPOSITION Discharge 05/10/2023 11:48:08 AM PATIENT REFERRED TO: Jomar Klein MD [address] [facility] [id number] Call in 3 days DISCHARGE MEDICATIONS: New Prescriptions CEPHALEXIN (KEFLEX) 500 MG CAPSULE Take 1 capsule (500 mg) by mouth 2 times daily for 10 days. KETOROLAC (TORADOL) 10 MG TABLET Take 1 tablet (10 mg) by mouth every 6 hours as needed for moderate pain (4-6) for up to 2 days. ONDANSETRON ODT (ZOFRAN-ODT) 4 MG DISINTEGRATING TABLET Take 1 tablet (4 mg) by mouth every 8 hours as needed for nausea or vomiting for up to 7 days. (Comment: Please note this report has been produced using speech recognition software and may contain errors related to that system including errors in grammar, punctuation, and spelling, as well as words and phrases that may be inappropriate. If there are any questions or concerns please feel free to contact the dictating provider for clarification.) Larry Calvin MD (electronically signed) Emergency Medicine Provider Larry Calvin MD 05/10/23 1151 Corie Murdock, age 62, ambulated to ED3 with left-sided groin pain. On arrival, respirations are elevated, pt states she feels hot and pt is diaphoretic. Pt stated this pain started at 900am this morning and feels like kidney stones. Pt states she has felt nauseated but has not vomited. Pt stated she took zofran for the nausea this morning at 900am. Pt stated pain is 8 on a scale of 1-10. Pt is accompanied by her Boubacar. Vitals obtained. Physician at bedside. documented in this encounter [facility] 05-10-2023 Emergency department Triage note Corie Murdock, age 62, ambulated to ED3 with left-sided groin pain. On arrival, respirations are elevated, pt states she feels hot and pt is diaphoretic. Pt stated this pain started at 900am this morning and feels like kidney stones. Pt states she has felt nauseated but has not vomited. Pt stated she took zofran for the nausea this morning at 900am. Pt stated pain is 8 on a scale of 1-10. Pt is accompanied by her Boubacar. Vitals obtained. Physician at bedside. [facility] 05-10-2023 Physician Emergency department Note EMERGENCY DEPARTMENT ENCOUNTER Pt Name: Corie Murdock Birthdate 1960 Date of evaluation: 05/10/2023 ED Provider: Larry Calvin MD CHIEF COMPLAINT Chief Complaint Patient presents with Groin Pain HISTORY OF PRESENT ILLNESS (Location/Symptom, Timing/Onset, Context/Setting, Quality, Duration, Modifying Factors, Severity) Note limiting factors. I wore appropriate PPE for the entirety of this encounter. History provided by: Patient educational sign language interpreter used: No Abdominal Pain Pain location: L flank Pain quality: aching Pain radiates to: Does not radiate Pain severity: Moderate Onset quality: Sudden Duration: 2 hours Timing: Constant Progression: Unchanged Chronicity: New Context: not alcohol use, not awakening from sleep, not diet changes, not eating, not laxative use, not medication withdrawal, not previous surgeries, not recent illness, not recent sexual activity, not recent travel, not retching, not sick contacts, not suspicious food intake and not trauma Relieved by: Nothing Worsened by: Nothing Ineffective treatments: None tried Associated symptoms: nausea Risk factors: obesity Corie Murdock is a 62 y.o. who presents to the emergency department with chief complaint of left flank pain Nursing Notes were reviewed. Limitations to history: None Outside historians: None REVIEW OF SYSTEMS Review of Systems Gastrointestinal: Positive for nausea. Negative for abdominal pain. Genitourinary: Positive for flank pain. All other systems reviewed and are negative. Pertinent positives and negatives as per HPI. PAST MEDICAL HISTORY Past Medical History: Diagnosis Date Allergies Kidney stone Thyroid disease SURGICAL HISTORY Past Surgical History: Procedure Laterality Date CARPAL TUNNEL RELEASE SECTION (HISTORICAL) CURRENT MEDICATIONS Previous Medications ONDANSETRON ODT (ZOFRAN-ODT) 4 MG DISINTEGRATING TABLET Take 1 tablet by mouth every 8 hours as needed. ALLERGIES Bee venom FAMILY HISTORY Family History Problem Relation Name Age of Onset Prostate cancer Father 70 SOCIAL HISTORY Social History Socioeconomic History Marital status: Tobacco Use Smoking status: Never Vaping Use Vaping Use: Never used Substance and Sexual Activity Alcohol use: Not Currently Drug use: Not Currently SCREENINGS PHYSICAL EXAM ED Triage Vitals Temp Pulse Resp BP -- -- -- -- SpO2 Temp src Heart Rate Source Patient Position -- -- -- -- BP Location FiO2 (%) -- -- Physical Exam Vitals and nursing note reviewed. Exam conducted with a administrative project coordinator present. Constitutional: General: She is not in acute distress. Appearance: Normal appearance. She is normal weight. She is not ill-appearing, toxic-appearing or diaphoretic. HENT: Head: Normocephalic and atraumatic. Right Ear: Tympanic membrane, ear canal and external ear normal. Left Ear: Tympanic membrane, ear canal and external ear normal. Nose: Nose normal. Mouth/Throat: Mouth: Mucous membranes are moist. Pharynx: Oropharynx is clear. No oropharyngeal exudate or posterior oropharyngeal erythema. Eyes: Extraocular Movements: Extraocular movements intact. Conjunctiva/sclera: Conjunctivae normal. Pupils: Pupils are equal, round, and reactive to light. Cardiovascular: Rate and Rhythm: Normal rate and regular rhythm. Pulses: Normal pulses. Heart sounds: Normal heart sounds. Pulmonary: Effort: Pulmonary effort is normal. Breath sounds: Normal breath sounds. Abdominal: General: Abdomen is flat. Bowel sounds are normal. Palpations: Abdomen is soft. Tenderness: There is left CVA tenderness. Musculoskeletal: General: No swelling, tenderness, deformity or signs of injury. Normal range of motion. Cervical back: Normal range of motion and neck supple. Right lower leg: No edema. Left lower leg: No edema. Skin: General: Skin is warm. Capillary Refill: Capillary refill takes less than 2 seconds. Neurological: General: No focal deficit present. Mental Status: She is alert and oriented to person, place, and time. Mental status is at baseline. Cranial Nerves: No cranial nerve deficit. Sensory: No sensory deficit. Motor: No weakness. Coordination: Coordination normal. Gait: Gait normal. Deep Tendon Reflexes: Reflexes normal. Psychiatric: Mood and Affect: Mood normal. Behavior: Behavior normal. Thought Content: Thought content normal. Judgment: Judgment normal. DIAGNOSTIC RESULTS Procedures/EKG: EKG was reviewed by myself. Physician EKG interpretation can be found in [facility] RADIOLOGY (Per Emergency Physician): Interpretation per the Radiologist below, if available at the time of this note: CT abdomen pelvis wo IV contrast Final Result Impression: 1. 0.4 cm at least partially obstructing distal left ureteral stone 0.4 cm causing mild hydronephrosis and hydroureter and left perinephric inflammation. Additional tiny bilateral renal stones. 2. Diffuse fatty infiltration of the liver. 3. Mild diverticulosis but no acute diverticulitis. Report Dictated on Electronically Signed By: Varun Prather MD Electronically Signed Date/Time: 05/10/2023 11:44 AM EDT ED BEDSIDE ULTRASOUND: Performed by ED Physician - none LABS: Labs Reviewed COMPLETE URINALYSIS - Abnormal Result Value Color, Urine Light Yellow Clarity, Urine Clear pH, Urine 5.5 Leukocytes, Urine 250 (*) Nitrite, Urine Negative Protein, Urine 10 (*) Glucose, Urine 30 Bilirubin, Urine Negative Ketones, Urine 20 (*) Urobilinogen, Urine Normal Blood, Urine Negative Volume, Urine 8-12 mL RBC, Urine 0-2 WBC, Urine 6-10 (*) Squamous Epithelial, Urine 0-2 Bacteria, Urine Few (*) Mucus, Urine Few SPECIFIC GRAVITY OF URINE (NUMERIC) 1.019 COMPLETE URINALYSIS WITH REFLEX TO CULTURE Narrative: The following orders were created for panel order Urinalysis complete with reflex to Culture. Procedure Abnormality Status --------- ------ Complete Urinalysis[[id number]] Abnormal Final result Please view results for these tests on the individual orders. All other labs were within normal range or not returned as of this dictation. EMERGENCY DEPARTMENT COURSE and DIFFERENTIAL DIAGNOSIS/MDM: Vitals: Vitals: 05/10/23 1045 05/10/23 1055 05/10/23 1109 05/10/23 1132 BP: (!) 190/124 (!) 206/97 (!) 191/92 (!) 188/93 BP Location: Right arm Patient Position: Lying Pulse: 89 86 84 84 Resp: 18 Temp: (!) 35.9 C (96.6 F) TempSrc: Oral SpO2: 98% 100% 100% Weight: 90.7 kg (200 lb) Height: 1.575 m (5' 2) 62 year old female comes to the Ed for left flank pain x 2 hours. The pain was associated with nausea. Patient has not had a fever. Patient does have a history of kidney stones. She last had one 10 months ago. On exam, she was nontoxic in appearance. Lungs were clear. No focal abdominal tenderness was noted. Left cva tenderness was noted. Diff diagnosis included uti, pyelonephritis, ureterolithiasis. Urinalysis and ct of the abdomen and pelvis was obtained. Urinalysis did indicate a uti. Patient did get iv fluids and toradol iv and dilaudid iv. Pain did go away by [address] of the abdomen and pelvis did come back and showed a 4 mm stone in left ureter. Patient was told of all findings. She was able to take po fluids. Patient did get a dose of rocephin here and felt comfortable enough to go home and did not want admission. Final diagnosis was ureterolithiasis/uti. Patient was discharged on po keflex/toradol and zofran odt. Diagnoses as of 05/10/23 1150 Ureterolithiasis Acute UTI Medications cefTRIAXone (Rocephin) 1,000 mg in sodium chloride 0.9 % 50 mL IVPB Mini-Bag Plus (has no administration in time range) sodium chloride 0.9 % bolus 1,000 mL (1,000 mL IntraVENous New Bag 05/10/23 1037) ketorolac (Toradol) injection 15 mg (15 mg IntraVENous Given 05/10/23 1037) HYDROmorphone (Dilaudid) injection 0.5 mg (0.5 mg IntraVENous Given 05/10/23 1057) ondansetron (Zofran) injection 4 mg (4 mg IntraVENous Given 05/10/23 1051) REVAL: CRITICAL CARE TIME None CONSULTS: None PROCEDURES: Unless otherwise noted below, none Procedures FINAL IMPRESSION 1. Ureterolithiasis 2. Acute UTI DISPOSITION Discharge 05/10/2023 11:48:08 AM PATIENT REFERRED TO: Jomar Klein MD [address] [facility] [id number] Call in 3 days DISCHARGE MEDICATIONS: New Prescriptions CEPHALEXIN (KEFLEX) 500 MG CAPSULE Take 1 capsule (500 mg) by mouth 2 times daily for 10 days. KETOROLAC (TORADOL) 10 MG TABLET Take 1 tablet (10 mg) by mouth every 6 hours as needed for moderate pain (4-6) for up to 2 days. ONDANSETRON ODT (ZOFRAN-ODT) 4 MG DISINTEGRATING TABLET Take 1 tablet (4 mg) by mouth every 8 hours as needed for nausea or vomiting for up to 7 days. (Comment: Please note this report has been produced using speech recognition software and may contain errors related to that system including errors in grammar, punctuation, and spelling, as well as words and phrases that may be inappropriate. If there are any questions or concerns please feel free to contact the dictating provider for clarification.) Larry Calvin MD (electronically signed) Emergency Medicine Provider Larry Cavlin MD 05/10/23 1151 [facility] 07-03-2022 Hospital Discharge instructions Rigo Taylor MD - 07/03/2022 11:33 AM EDT Turn to ER if fever, vomiting and unable to take medications, worse in any other way. documented in this encounter [facility] Work Phone: 10-25-2020 Note HNO ID: [id number] Author: MEERA Perdomo (Ct) Service: Radiology Author Type: Clinical Tumbler Tender Type: Progress Notes Filed: 10/25/2020 3:07 PM Note Text: Radiology Service Progress Note PATIENT NAME: Corie Murdock DATE OF SERVICE: October 25, 2020 TIME: 3:07 PM PATIENT IDENTITY VERIFICATION COMPLETED USING TWO (2) IDENTIFIERS: Name and Date of confirmed by patient verbally and Name and Date of confirmed by identification band. FALL SCREENING: Has the patient had 2 falls in the last year or 1 fall with injury or currently using an Ambulatory Assistive Device (Walker, Cane, Wheelchair, Crutches, etc.)? No PATIENT GENDER DATA: Female. status: Unknown status: NO. PATIENT RELEVANT IMPLANT DATA REVIEWED: Not Applicable RADIOLOGY DEPARTMENT: Ultrasound PERIPHERAL IV DATA: Not applicable SIGNED BY: MEERA Perdomo October 25, 2020 3:07 PM [facility] Evaluation note Diagnosis Kidney stone- Primary Calculus of kidney documented [facility] this encounter [facility] Work Phone: Evaluation note* Diagnosis Onset Date Resolution Status Anxiety acute GERD (gastroesophageal reflux disease) acute Hypothyroidism acute Bronchitis acute Cough acute [facility] Work Phone: Evaluation note* Diagnosis Onset Date Resolution Status Left shoulder pain acute Right knee pain acute Left shoulder pain acute Osteoarthritis of right knee acute [facility] Work Phone: Evaluation note* Diagnosis Encounter for screening mammogram for malignant neoplasm of breast- Primary Encounter for screening mammogram for malignant neoplasm of breast documented in this encounter [facility] note* Diagnosis Ureterolithiasis- Primary Calculus of ureter Acute UTI Urinary tract infection, site not specified documented in this encounter [facility] note* Diagnosis Onset Date Resolution Status Left shoulder pain acute Osteoarthritis of right knee acute Osteoarthritis of right knee acute Osteoarthritis of right knee acute GERD (gastroesophageal reflux disease) acute Hyperlipidemia acute Hypothyroidism acute [facility] Work Phone: Evaluation note* Diagnosis Onset Date Resolution Status Left shoulder pain acute Osteoarthritis of right knee acute Osteoarthritis of right knee acute Osteoarthritis of right knee acute GERD (gastroesophageal reflux disease) acute Hyperlipidemia acute Hypothyroidism acute Bilateral acute otitis media acute Bronchitis acute Left foot pain acute Maxillary sinusitis, acute a cute Achilles tendinitis of left lower extremity acute Bursitis of left ankle acute Jeffrey's deformity of left heel acute Left foot pain acute Other acute postprocedural pain acute [facility] Work Phone: Evaluation note* Diagnosis Abdominal distension (gaseous)- Primary Unspecified abdominal pain documented in this encounter [facility] note* Diagnosis URI with cough and congestion- Primary Left acute suppurative otitis media Acute suppurative otitis media without spontaneous rupture of eardrum documented in this encounter [facility] note* Diagnosis Onset Date Resolution Status Achilles tendinitis of left lower extremity acute Bursitis of left ankle acute Jeffrey's deformity of left heel acute Left foot pain acute Other acute postprocedural pain acute Bronchitis acute Left ear pain acute Maxillary sinusitis, acute a cute Bilateral acute otitis media acute Bronchitis acute Cough acute [facility] Work Phone: Evaluation note* Diagnosis Chronic nonalcoholic liver disease- Primary Unspecified chronic liver disease without mention of alcohol documented in this encounter [facility] note* Diagnosis Encounter for screening mammogram for malignant neoplasm of breast documented in this encounter [facility] note* Diagnosis Dental abscess- Primary Periapical abscess without sinus documented in this encounter [facility] note* Diagnosis Pain, dental- Primary Unspecified disorder of the teeth and supporting structures Dental infection Acute apical periodontitis of pulpal origin documented in this encounter [facility] note* Diagnosis Fatty (change of) liver, not elsewhere classified- Primary documented in this encounter [facility] note* Diagnosis Encounter for screening mammogram for malignant neoplasm of breast documented in this encounter [facility] note* Diagnosis Acute cough- Primary Viral URI Acute upper respiratory infections of unspecified site documented in this encounter [facility] Work Phone: Evaluation note* Diagnosis Encounter for screening mammogram for malignant neoplasm of breast documented in this encounter [facility] note* Diagnosis Cervical lymphadenitis- Primary Lymphadenitis, unspecified, except mesenteric Acute otalgia, left documented in this encounter [facility] note* Diagnosis Encounter for screening mammogram for malignant neoplasm of breast- Primary Encounter for screening mammogram for malignant neoplasm of breast documented in this encounter [facility] Discharge instructions Additional Instructions 1. Keep your left lower extremity splint clean dry and intact. 2. Continue to elevate the left lower extremity with 3 pillows, 4 inches above your heart, as well as postoperative instructions that were provided to you in your surgical handout 3. Take all medications as written. 4. Please reach out to Dr. Bradley with any questions or concerns. Implant Used?: [facility] Work Phone: Advance Directives Documents on File Type Date Recorded Patient Head Correction Officer Expl anation Advance Directives and Living Will Power of Project Coach Documents on File Type Date Recorded Patient Head Correction Officer Expl anation ACP-Advance Directive ACP-Power of Project Coach Advance Directive Response Recorded Date/ Time Name of Medical Power of Project Coach BARBARA PITTMAN July 01, 2023 2:55pm Living Will No July 16 9:27am Power of Project Coach No July 16, 2023 9:27am Advance Directive Response Recorded Date/ Time Living Will No July 16 8:27am Power of Project Coach No July 16, 2023 8:27am Summary Purpose Family History Relationship Condition Age at Onset Recorded Date/T earl Not Specified Disorder of intestine Unknown Malignant neoplasm of prostate Unknown High blood cholesterol Unknown Cardiac disease Unknown Hemorrhagic disorder Unknown Hypertension Unknown Cerebrovascular accident (CVA) Unknown Unknown Chief Complaint and Reason for Visit Chief Complaint medication refills & labs Cough Reason for Visit Anxiety GERD (gastroesophageal reflux disease) Hypothyroidism Bronchitis Cough Chief Complaint R)knee pain & Fatigu e EORDERS LEFT SHOULDER Reason for Visit Left shoulder pain Right knee pain Left shoulder pain Osteoarthritis of right knee Chief Complaint RIGHT KNEE RIGHT KNEE RIGHT KNEE medication refills & Labs Reason for Visit Left shoulder pain Osteoarthritis of right knee Osteoarthritis of right knee Osteoarthritis of right knee GERD (gastroesophageal reflux disease) Hyperlipidemia Hypothyroidism Chief Complaint RIGHT KNEE RIGHT KNEE RIGHT KNEE medication refills & Labs Sinus & Cough Left foot achilles tendon debrideme PREOP Reason for Visit Left shoulder pain Osteoarthritis of right knee Osteoarthritis of right knee Osteoarthritis of right knee GERD (gastroesophageal reflux disease) Hyperlipidemia Hypothyroidism Bilateral acute otitis media Bronchitis Left foot pain Maxillary sinusitis, acute Achilles tendinitis of left lower extremity Bursitis of left ankle Jeffrey's deformity of left heel Left foot pain Other acute postprocedural pain Chief Complaint Cough Fever dizzines s fatigue ACHILLES TENDONIITIS RX HERE Upper respiratory infection Reason for Visit Achilles tendinitis of left lower extremity Bursitis of left ankle Jeffrey's deformity of left heel Left foot pain Other acute postprocedural pain Bronchitis Left ear pain Maxillary sinusitis, acute Bilateral acute otitis media Bronchitis Cough Additional Source Comments INFORMATION SOURCE (unrecogn ized section and content) DATE CREATED AUTHOR 04/12/2021 [facility] DATE CREATED AUTHOR AUTHOR'S ORGANIZ ATION 07/04/2022 [facility] DATE CREATED AUTHOR AUTHOR'S ORGANIZ ATION 06/27/2024 [facility] DATE CREATED AUTHOR AUTHOR'S ORGANIZ ATION 09/22/2024 [facility] DATE CREATED AUTHOR AUTHOR'S ORGANIZ ATION 12/09/2024 [facility] DATE CREATED AUTHOR AUTHOR'S ORGANIZ ATION 12/20/2024 [facility] Care Teams (unrecognized sec tion and content) Help Desk Support Relationship Specialty Start Date End Date Danny Leblanc [address] [place], [place] [phone] PCP - General 06/17/15 Help Desk Support Relationship Specialty Start Date End Date Danny Leblanc [address] [place], [place] [phone] PCP - General 06/17/15 Team Status: Active Member Role Status Dates Danny Leblanc HYDROTECHNICAL SPECIALIST, HYDROTECHNICAL SPECIALIST-C Family Provider Active Danny Leblanc HYDROTECHNICAL SPECIALIST, HYDROTECHNICAL SPECIALIST-C Primary Care Provider Active Team Status: Inactive Member Role Status Dates Danny Leblanc HYDROTECHNICAL SPECIALIST, HYDROTECHNICAL SPECIALIST-C Primary Care Provider, Referr ing Provider Active Brandon Delgado MD Attending Provider Active Team Status: Inactive Member Role Status Dates Danny Leblanc HYDROTECHNICAL SPECIALIST, HYDROTECHNICAL SPECIALIST-C Primary Care Pr ovider, Attending Provider, Referring Provider Active Help Desk Support Relationship Specialty Start Date End Date Danny Leblanc [address] [place], [place] [id number] PCP - General 06/17/15 Help Desk Support Relationship Specialty Start Date End Date Danny Leblanc [address] [place], [place] [phone] PCP - General 06/17/15 Help Desk Support Relationship Specialty Start Date End Date Danny Leblanc [address] [place], [place] [id number] PCP - General 06/17/15 Help Desk Support Relationship Specialty Start Date End Date Danny Leblanc [address] [place] [place], [place] [id number] PCP - General 06/17/15 Team Status: Inactive Member Role Status Dates Danny Leblanc HYDROTECHNICAL SPECIALIST, HYDROTECHNICAL SPECIALIST-C Primary Care Provider, Attend ing Provider Active Team Status: Active Member Role Status Dates Danny Benji HYDROTECHNICAL SPECIALIST, HYDROTECHNICAL SPECIALIST-C Primary Care Provider Active Dr. Wilmar Banks MD Attending Provider Active Dr. Jerihco Bradley DPM Referring Provider Active Team Status: Inactive Member Role Status Dates Danny Benji HYDROTECHNICAL SPECIALIST, HYDROTECHNICAL SPECIALIST-C Primary Care Provider Active Dr. Jericho Bradley DPM Attending Provider, Referring Provider Active Help Desk Support Relationship Specialty Start Date End Date Danny Leblanc [address] [place], [place] [id number] PCP - General 06/17/15 Help Desk Support Relationship Specialty Start Date End Date Danny Leblanc Oliver, 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.SHANK SCOURER [address] [place], [place] [phone] PCP - General Family Medicine 08/03/14 Help Desk Support Relationship Specialty Start Date End Date Danny Leblanc [address] [place], [place] [id number] PCP - General 06/17/15 Help Desk Support Relationship Specialty Start Date End Date Romel Leblancharika Boyd, 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.SHANK SCOURER [address] [place], [place] [phone] PCP - General Family Medicine 08/03/14 Help Desk Support Relationship Specialty Start Date End Date Danny Leblanc [address] [place], [place] [id number] PCP - General 06/17/15 Help Desk Support Relationship Specialty Start Date End Date Danny Leblanc [address] [place] [address] PCP - General 06/17/15 Help Desk Support Relationship Specialty Start Date End Date Danny Leblanc MARILYN Boyd [address] [place], [place] [phone] PCP - General Family Medicine 08/03/14 Help Desk Support Relationship Specialty Start Date End Date Danny Leblanc [address] [place] [address] PCP - General 06/17/15 Reason for Visit (unrecogniz ed section and content) Reason Comments Flank Pain Reason Comments Groin Pain Reason Comments Viral Syndrome PND, left ear pain, headache. Started over a week ago. Reason Comments Dental Pain Reason Comments Dental Problem Partial root canal l ast wk, right side of jaw is swollen, right cheek/jaw/tongue is hurting, hard to eat/drink, was given abx by dentist but did not help, dentist thinks that abx was not strong enough, Reason Comments Cough Left earache, sinus drainage X 1 week Reason Comments Sore Throat Ear Pain Symptoms started las t night only left side ear and throat. Ordered Prescriptions (unrec ognized section and content) Prescription Sig Dispensed Refills Start Date End Da te oxyCODONE-acetaminophen (PERCOCET) 5-325 MG per tabletIndications:Kidney stone Take 1 tablet by mouth every 4 hours as needed for Pain for up to 3 days. Intended supply: 7 days. Take lowest dose possible to manage pain 18 tablet 0 07/03/2022 07/06/2022 ondansetron (ZOFRAN ODT) 4 MG disintegrating tablet Take 1 tablet by mouth every 8 hours as needed for Nausea 10 tablet 0 07/03/2022 naproxen (NAPROSYN) 500 MG tablet Take 1 tablet by mouth 2 times daily (with meals) 14 tablet 0 07/03/2022 Scheduled Active and Recently Administ ered Medications (unrecognized section and content) Medication Order 07/01/2022 07/02/2022 07/03/2022 ketorolac (TORADOL) injection 15 mg (COMPLETED) Ketorolac is contraindicated in patients with advanced renal impairment and in patients at risk of renal failure due to volume depletion. For 65 years of age and older OR weight less than 50 kg, use 15 mg IV every 6 hours; MAX dose: 60 mg/day. Dose greater than 30 mg must be administered via intramuscular route. Do not administer for more than 5 days., 15 mg, IntraVENous, ONCE, 1 dose, On Sat07/03/22 at 1006, Do not administer for more than 5 days. 1031 (Given - Provid er: Sary Rosenberg RN) ondansetron (ZOFRAN) injection 4 mg (COMPLETED) 4 mg, IntraVENous, ONCE, 1 dose, On Sat07/03/22 at 1006 1032 (Given - Provid er: Sary Rosenberg RN) Scheduled Medication Order 05/08/2023 05/09/2023 05/10/2023 cefTRIAXone (Rocephin) 1,000 mg in sodium chloride 0.9 % 50 mL IVPB Mini-Bag Plus (COMPLETED) 1,000 mg, IntraVENous, at 100 mL/hr, Administer over 30 Minutes, Once, On Sat05/10/23 at 1145, For 1 dose, Mini-Bag Plus bag, Suspected Indication (Select all that apply): Urinary Tract Infection 1204 (New Bag - Prov ider: Roopa Rosa RN)1242 (Stopped - Provider: Roopa Rosa RN) HYDROmorphone (Dilaudid) injection 0.5 mg (COMPLETED) 0.5 mg, IntraVENous, Once, On Sat05/10/23 at 1055, For 1 dose, If oral and IV narcotics ordered, use oral first and only use IV if oral is ineffective or cannot take oral. Do Not give oral and IV within 1 hour of each other unless specifically ordered. 1057 (Given - Provid er: Roopa Rosa RN) ketorolac (Toradol) injection 15 mg (COMPLETED) 15 mg, IntraVENous, Once, On Sat05/10/23 at 1035, For 1 dose 1037 (Given - Provid er: Roopa Rosa RN) ondansetron (Zofran) injection 4 mg (COMPLETED) 4 mg, IntraVENous, Once, On Sat05/10/23 at 1055, For 1 dose 1056 (Given - Provid er: Roopa Rosa RN) sodium chloride 0.9 % bolus 1,000 mL (COMPLETED) 1,000 mL, IntraVENous, at 1,000 mL/hr, Administer over 1 Hours, Once, On Sat05/10/23 at 1035, For 1 dose 1037 (New Bag - Prov ider: Roopa Rosa RN)1137 (Stopped - Provider: Roopa Rosa RN) Scheduled Medication Order 12/30/2023 12/31/2023 01/01/2024 clindamycin (Cleocin) capsule 450 mg (COMPLETED) 450 mg, Oral, Once, On Sat01/01/24 at 1110, For 1 dose, Suspected Indication (Select all that apply): Head and Neck Infection 1113 (Given - Provid er: Alice Mayer RN) Goals (unrecognized section and content) Goals may be documented in a n alternate sectionGoals may be documented in an alternate sectionGoals may be documented in an alternate section Source Comments (unrecognize d section and content) In the event this informatio n is protected by the Federal Confidentiality of Alcohol and Drug Abuse Patient Records regulations: The Federal rules restrict any use of the information to criminally investigate or prosecute any alcohol or drug abuse patient.[facility] [place] the event this information is protected by the Federal Confidentiality of Alcohol and Drug Abuse Patient Records regulations: The Federal rules restrict any use of the information to criminally investigate or prosecute any alcohol or drug abuse patient.[facility] [place] the event this information is protected by the Federal Confidentiality of Alcohol and Drug Abuse Patient Records regulations: The Federal rules restrict any use of the information to criminally investigate or prosecute any alcohol or drug abuse patient.[facility] [place] FOR RECORDS PERTAINING TO PATIENTS WHO ARE OR HAVE BEEN ENROLLED IN A CHEMICAL DEPENDENCY/SUBSTANCEABUSE PROGRAM, SOME INFORMATION MAY BE OMITTED. This clinical summary was aggregated from multiple sources. Caution should be exercised in using it in the provision of clinical care. This summary normalizes information from multiple sources, and as a consequence, information in this document may materially change the coding, format and clinical context of patient data. In addition, data may be omitted in some cases. CLINICAL DECISIONS SHOULD BE BASED ON THE PRIMARY CLINICAL RECORDS. [facility] [employer] [facility] provides no warranty or guarantee of the accuracy or completeness of information in this document.
[2025-06-03 22:52] LABS: Hematocrit 37.4 % (37-47); Hemoglobin 12.5 g/dL (12.0-15.0); Immature Granulocytes Count 0.010 X10^3/uL (0.0-0.0); Mean Corp Hgb Conc 33.4 g/dL (32-36); Mean Corpuscular Volume 88.0 fL (81-99); Mean Platelet Vol. 10.0 fl (6.2-12.0); NRBC Flagged by Analyzer 0 % (0-5); Platelet Count 289 K/mm3 (150-450); RBC Distribution Width CV 12.7 % (11.6-14.6); RBC Distribution Width SD 40.6 fl (35.1-43.9); Red Blood Count 4.25 M/mm3 (4.2-5.4); White Blood Count 6.1 K/mm3 (4.4-11.0)
[2025-06-03 23:46] LABS: AST(SGOT) 18 U/L (<=31); Alanine Aminotransfer ALT/SGPT 18 U/L (<=34); Albumin, Serum 4.2 g/dL (3.4-4.8); Alkaline Phosphatase 58 U/L (35-104); Anion Gap 12 (5-15); BUN 16 mg/dL (4-19); BUN/Creat Ratio 17.0 RATIO (10-20); Calcium,Total 9.2 mg/dL (7.6-11.0); Carbon Dioxide 23.7 mmol/L (21.0-32.0); Chloride 106 mmol/L (98-108); Cholesterol 203 mg/dL (<=200); Globulin 3.0 g/dL (2.2-4.2); Glucose 90 mg/dL (70-99); Low Density Lipoprotein Calc. 135 mg/dL; Potassium 4.1 mmol/L (3.3-5.1); Triglycerides 166 mg/dL; Very Low Density Lipoprotein 33 mg/dL (5-40); cholesterol:hdl ratio screen 5.83
[2025-06-07 15:08] LABS: Anti-Chromatin <0.2 AI (0.0-0.9); Anti-Jo <0.2 AI (0.0-0.9); Anti-dsDNA Ab <1 IU/mL (0-9); SJOGREN'S Anti-SS-A test < 0.2 AI (0.0-0.9); SJOGREN'S Anti-SS-B test < 0.2 AI (0.0-0.9)
== END | disposition home or self-care (01) ==
PROVIDERS: PCP Nurse Practitioner; Referring Provider Nurse Practitioner; Visit Provider Nurse Practitioner
DX: R76.8 Other specified abnormal immunological findings in serum (principal); E03.9 Hypothyroidism, unspecified; E88.810 Metabolic syndrome; E78.2 Mixed hyperlipidemia; R73.9 Hyperglycemia, unspecified; E78.1 Pure hyperglyceridemia
CPT/HCPCS: 80053; 80061; 83036; 84443; 85025; 86225; 86235